=== PATIENT | male | born 1940 | race Caucasian/White ===

== ENCOUNTER 2017-04-01 17:08 | Inpatient (IN) | payer OTHER, BC ==
[~2017-04-01] VITALS: Ht 185.4 cm; Wt 70.0 kg
[2017-04-01] MEDS ORDERED: ALBUT/IPRATROP 3MG/0.5MG NEB 3 ML VIAL INH STA (17:16)
--- NOTE | 2017-04-01 17:31 | EMERGENCY ROOM VISIT NOTE ---
History Report prepared by Brittanie: Shamika Morgan Under the Supervision of: Dr. Brandon Randle D.O. 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 The patient presents to the ED by EMS. EMS reports that the patient was eating when he started choking. He became unresponsive for around 5 minutes and required CPR. A family member attempted the Heimlich maneuver. They believe some ribs might have cracked. EMS was able to remove the food bolus which was located above his vocal chords using forceps. He seemed to have some trouble moving air at first. His O2 sat has been in the high 90s. He has been tachypneic and coughing. The patient denies abdominal pain. He has no medical issues and does not take any medications except for a multivitamin. He does use tobacco. He does not use alcohol. 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 A total of 10 systems reviewed and were otherwise negative. Past Medical & Surgical Medical Problems: (1) Fall (2) Mental retardation (3) Respiratory arrest Family History No pertinent family history stated. Social History Smoking Status: Current Some Day Smoker Marital Status: single Housing Status: lives with family Current/Historical Medications Scheduled Multivitamin (Multivitamin), 1 TAB PO DAILY Allergies Coded Allergies: No Known Allergies (Unverified , 08/26/08) Physical Exam Vital Signs Date Time Temp Pulse Resp B/P (MAP) Pulse Ox O2 Delivery O2 Flow Rate FiO2 04/01/17 19:32 80 18 123/65 99 Nasal Cannula 4.0 04/01/17 18:27 78 18 126/70 99 Nasal Cannula 4.0 04/01/17 17:32 85 04/01/17 17:24 36.5 89 20 148/76 100 Non-Rebreather 15.0 Physical Exam GENERAL: Patient is awake and responding to verbal commands. EYES: The conjunctivae are clear. The pupils are round and reactive. EARS, NOSE, MOUTH AND THROAT: There was a nasal airway noted. Oropharynx was clear, no drooling was noted. Mucous membranes are moist tongue is midline NECK: The neck is nontender and supple. RESPIRATORY: Shallow respirations noted, scattered rhonchi noted throughout, slight tachypnea appreciated. CARDIOVASCULAR: Regular rate and rhythm noted there no murmurs rubs or gallops normal S1 normal S2 GASTROINTESTINAL: The abdomen is soft. Bowel sounds are present in all quadrants. Abdomen is nontender MUSCULOSKELETAL/EXTREMITIES: There is no evidence of gross deformity full range of motion is noted in the hips and shoulders SKIN: There is pedal edema bilaterally. NEUROLOGIC: Patient is at baseline according to family member, follows commands. Medical Decision & Procedures ER Provider Diagnostic Interpretation: X-ray results as stated below per interpretation by me and the radiologist. Radiology results as stated below per my review and radiologist interpretation: CHEST ONE VIEW PORTABLE CLINICAL HISTORY: Abdominal pain. COMPARISON STUDY: No previous studies for comparison. FINDINGS: There is no pneumothorax or pleural effusion. Pulmonary vascularity is normal. No consolidation is identified to suggest pneumonia. Cardiomediastinal silhouette is normal. A 1.8 cm right mid lung nodular density likely reflects summation artifact of the pulmonary vessels and ribs. There is a lobulated density projecting over the left upper lung. IMPRESSION: 1. No acute cardiopulmonary findings. 2. Lobulated density projecting over the left upper lung and a 1.8 cm right mid lung nodular density. These findings are low suspicion and probably artifactual. However, a follow-up nonemergent chest CT is recommended to exclude pulmonary nodule. Electronically signed by: Quinten Sky M.D. 04/01/2017 6:01 PM Dictated Date/Time: 04/01/2017 5:[address] OF THE CHEST WITHOUT IV CONTRAST CLINICAL HISTORY: Possible foreign body. Aspiration. Choking. COMPARISON STUDY: Chest radiograph performed earlier today. CT DOSE: 476.17 mGy.cm TECHNIQUE: Axial images of the chest were obtained without IV contrast. Images were reviewed in the axial, sagittal, and coronal planes. IV contrast was not administered for this examination. A dose lowering technique was utilized adhering to the principles of ALARA. FINDINGS: There is no pneumothorax or pleural effusion. The heart is mildly enlarged. There is extensive coronary artery calcification. There is no pericardial effusion. There are innumerable irregular nodular airspace opacities throughout both lungs. These account for the right lung abnormality on prior chest radiograph. No lobar consolidation is present. No radiopaque foreign bodies are identified within the chest. There are multiple acute nondisplaced bilateral anterior rib fractures. There is no thoracic lymphadenopathy. There are calcified granulomas within the spleen. IMPRESSION: 1. Innumerable small irregular nodular airspace opacities throughout both lungs which suggest an infectious process. A follow-up chest CT in 2 months to ensure resolution is recommended. 2. Numerous acute nondisplaced anterior bilateral rib fractures. No pneumothorax. 3. Mild cardiomegaly and extensive coronary artery calcification. Electronically signed by: Quinten Sky M.D. 04/01/2017 9:03 PM Dictated Date/Time: 04/01/2017 8:52 PM Laboratory Results 04/01/17 17:36 Red Blood Count 3.72, Mean Corpuscular Volume 98.1, Mean Corpuscular Hemoglobin 32.3, Mean Corpuscular Hemoglobin Concent 32.9, Mean Platelet Volume 8.8, Neutrophils (%) (Auto) 72.4, Lymphocytes (%) (Auto) 17.1, Monocytes (%) (Auto) 5.9, Eosinophils (%) (Auto) 0.3, Basophils (%) (Auto) 0.4, Neutrophils # (Auto) 6.47, Lymphocytes # (Auto) 1.53, Monocytes # (Auto) 0.53, Eosinophils # (Auto) 0.03, Basophils # (Auto) 0.04 04/01/17 17:36 Test 04/01/17 17:36 04/01/17 18:39 04/01/17 20:45 White Blood Count 8.95 K/uL (4.8-10.8) Red Blood Count 3.72 M/uL (4.7-6.1) Hemoglobin 12.0 g/dL (14.0-18.0) Hematocrit 36.5 % (42-52) Mean Corpuscular Volume 98.1 fL (80-100) Mean Corpuscular Hemoglobin 32.3 pg (25-34) Mean Corpuscular Hemoglobin Concent 32.9 g/dl (32-36) Platelet Count 269 K/uL (130-400) Mean Platelet Volume 8.8 fL (7.4-10.4) Neutrophils (%) (Auto) 72.4 % Lymphocytes (%) (Auto) 17.1 % Monocytes (%) (Auto) 5.9 % Eosinophils (%) (Auto) 0.3 % Basophils (%) (Auto) 0.4 % Neutrophils # (Auto) 6.47 K/uL (1.4-6.5) Lymphocytes # (Auto) 1.53 K/uL (1.2-3.4) Monocytes # (Auto) 0.53 K/uL (0.11-0.59) Eosinophils # (Auto) 0.03 K/uL (0-0.5) Basophils # (Auto) 0.04 K/uL (0-0.2) RDW Standard Deviation 46.0 fL (36.4-46.3) RDW Coefficient of Variation 12.8 % (11.5-14.5) Immature Granulocyte % (Auto) 3.9 % Immature Granulocyte # (Auto) 0.35 K/uL (0.00-0.02) Prothrombin Time 11.7 SECONDS (9.0-12.0) Prothromb Time International Ratio 1.1 (0.9-1.1) Activated Partial Thromboplast Time 23.3 SECONDS (21.0-31.0) Partial Thromboplastin Ratio 0.9 Anion Gap 7.0 mmol/L (3-11) Est Creatinine Clear Calc Drug Dose 41.7 ml/min Estimated GFR () 47.8 Estimated GFR (Non- 41.2 BUN/Creatinine Ratio 17.4 (10-20) Calcium Level 8.8 mg/dl (8.5-10.1) Total Bilirubin 0.3 mg/dl (0.2-1) Direct Bilirubin < 0.1 mg/dl (0-0.2) Aspartate Amino Transf (AST/SGOT) 21 U/L (15-37) Alanine Aminotransferase (ALT/SGPT) 27 U/L (12-78) Alkaline Phosphatase 50 U/L (45-117) Total Creatine Kinase 148 U/L (39-308) Creatine Kinase MB 3.1 ng/ml (0.5-3.6) Creatine Kinase MB Ratio 2.1 (0-3.0) Troponin I < 0.015 ng/ml (0-0.045) Total Protein 7.2 gm/dl (6.4-8.2) Albumin 3.3 gm/dl (3.4-5.0) Lipase 135 U/L (73-393) Venous Blood pH 7.34 (7.36-7.41) Venous Blood Partial Pressure CO2 54 mmHg (38.0-50.0) Venous Blood Partial Pressure O2 32 mmHg Venous Blood HCO3 29 mmol/L Venous Blood Oxygen Saturation < 60.0 % Venous Blood Base Excess 1.8 mmol/L Urine Color YELLOW Urine Appearance CLEAR (CLEAR) Urine pH 5.0 (4.5-7.5) Urine Specific [place] 1.022 (1.000-1.030) Urine Protein TRACE (NEG) Urine Glucose (UA) NEG (NEG) Urine Ketones NEG (NEG) Urine Occult Blood TRACE (NEG) Urine Nitrite NEG (NEG) Urine Bilirubin NEG (NEG) Urine Urobilinogen NEG (NEG) Urine Leukocyte Esterase NEG (NEG) Urine WBC (Auto) 1-5 /hpf (0-5) Urine RBC (Auto) 0-4 /hpf (0-4) Urine Hyaline Casts (Auto) 1-5 /lpf (0-5) Urine Epithelial Cells (Auto) 10-20 /lpf (0-5) Urine Bacteria (Auto) NEG (NEG) Laboratory results per my review. Medications Administered Medications (Trade) Dose Ordered Sig/Zaid Route Start Time Stop Time Status Last Admin Dose Admin Albuterol/ Ipratropium (Duoneb) 3 ml NOW STAT INH 04/01/17 17:16 04/01/17 17:18 DC 04/01/17 17:46 3 ML Sodium Chloride 500 ml @ 999 mls/hr Q31M STAT IV 04/01/17 19:17 04/01/17 19:47 DC 04/01/17 19:31 999 MLS/HR Sodium Chloride 1,000 ml @ 125 mls/hr Q8H STAT IV 04/01/17 19:17 04/02/17 03:16 04/01/17 20:09 125 MLS/HR ECG Indication: SOB/dyspnea Rate (beats per minute): 85 Rhythm: normal sinus Findings: 1st degree AV block, ST depression (widespread), no ectopy Comparison ECG Date: 25-Apr-2014 Change: Changes are new. ED Course 171: The patient was evaluated in room B11B. A complete history and physical examination were performed. 1716: Duoneb 3 ml INH. 1831: Upon reevaluation, the patient is resting comfortably. I discussed results and treatment plan with him and his family. They verbalize agreement and understanding. The patient will be evaluated for further management and care. 1834: I discussed the patient's case with YONATHAN Glover hospitalist. The patient will be evaluated for further management. 1839: I discussed the patient's case with Torie Baez sales enablement consultant. The patient will be evaluated for further management. 1916: NSS 1000 ml @ 125 mls/hr IV, NSS 500 ml @ 999 mls/hr IV. Medical Decision Prior records/ancillary studies reviewed. Triage Nursing notes reviewed. Additional history obtained from the family. The patient's history was concerning for respiratory difficulties. Differential diagnosis: Etiologies such as infections, reactive airway disease, pneumonia, pneumothorax , COPD, CHF, cardiac ischemia, pulmonary embolism, musculoskeletal, gastrointestinal, as well as others were entertained. The patient is a 76-year-old male who presented to the emergency department after a choking episode. The patient received CPR as well as the Heimlich maneuver but it was not until the stator tester arrived was attempting to intubate the patient that the foreign body was removed from the hypopharynx. The patient arrived at the emergency Department breathing on his own with a good pulse. He presented in significant pain and his chest wall appears improved significantly. I discussed the patient's laboratory and radiographic studies with him and his family members. He was treated with a DuoNeb and submental oxygen in the emergency department. I discussed his case with the on-call torie Camejo hospitalist as well as the sales enablement consultant. They've agreed to evaluate the patient in the emergency department for further management and disposition. Medication Reconcilliation Current Medication List: was personally reviewed by me Blood Pressure Screening Patient's blood pressure: Normal blood pressure Blood pressure disposition: Did not require urgent referral Consults Time Called: 1829 Consulting Physician: YONATHAN Glover hospitalist Returned Call: 1834 I discussed the patient's case with him. He recommend I speak with the sales enablement consultant. Additional Consults: Time Called: 1834 Consulted Physician: Torie Baez sales enablement consultant Returned Call: 1839 Additional Comments: I discussed the patient's case with Torie Baez sales enablement consultant. The patient will be evaluated for further management. Impression Primary Impression: Choking episode Additional Impressions: Aspiration into airway Abnormal EKG Rib fractures Pneumonia Scribe Attestation The scribe's documentation has been prepared under my direction and personally reviewed by me in its entirety. I confirm that the note above accurately reflects all work, treatment, procedures, and medical decision making performed by me. Departure Information Dispostion Being Evaluated By Hospitalist Referrals No Doctor, Assigned (PCP) Problem Qualifiers Additional Impressions: Aspiration into airway Encounter type: initial encounter Qualified Codes: T17.908A - Unspecified foreign body in respiratory tract, part unspecified causing other injury, initial encounter
[2017-04-01 17:51] LABS: BASO % 0.4 %; BASO ABS # 0.04 K/uL (0-0.2); COMPLETE YES; EOS % 0.3 %; HEMATOCRIT 36.5 % (42-52); IG% 3.9 %; LYMPH % 17.1 %; LYMPH ABS # 1.53 K/uL (1.2-3.4); MEAN CELL VOLUME 98.1 fL (80-100); MEAN CORPUSCULAR HEMOGLOBIN 32.3 pg (25-34); MEAN CORPUSCULAR HGB CONC 32.9 g/dl (32-36); MEAN PLATELET VOLUME 8.8 fL (7.4-10.4); MONO % 5.9 %; NEUT % 72.4 %; PLATELET COUNT 269 K/uL (130-400); RED BLOOD COUNT 3.72 M/uL (4.7-6.1); WHITE BLOOD COUNT 8.95 K/uL (4.8-10.8)
[2017-04-01 18:01] LABS: INR 1.1 (0.9-1.1); PARTIAL THROMBOPLASTIN RATIO 0.9; PROTHROMBIN TIME (PATIENT) 11.7 SECONDS (9.0-12.0)
--- NOTE | 2017-04-01 18:03 | DIAGNOSTIC IMAGING REPORT ---
CHEST ONE VIEW PORTABLE CLINICAL HISTORY: Abdominal pain. COMPARISON STUDY: No previous studies for comparison. FINDINGS: There is no pneumothorax or pleural effusion. Pulmonary vascularity is normal. No consolidation is identified to suggest pneumonia. Cardiomediastinal silhouette is normal. A 1.8 cm right mid lung nodular density likely reflects summation artifact of the pulmonary vessels and ribs. There is a lobulated density projecting over the left upper lung. IMPRESSION: 1. No acute cardiopulmonary findings. 2. Lobulated density projecting over the left upper lung and a 1.8 cm right mid lung nodular density. These findings are low suspicion and probably artifactual. However, a follow-up nonemergent chest CT is recommended to exclude pulmonary nodule. Electronically signed by: Quinten Sky M.D. 04/01/2017 6:01 PM Dictated Date/Time: 04/01/2017 5:58 PM
[2017-04-01 18:19] LABS: ALT/SGPT 27 U/L (12-78); AST/SGOT 21 U/L (15-37); BLOOD UREA NITROGEN 28 mg/dl (7-18); BUN/CREATININE RATIO 17.4 (10-20); CALCIUM 8.8 mg/dl (8.5-10.1); CARBON DIOXIDE 27 mmol/L (21-32); CHLORIDE 106 mmol/L (98-107); GLUCOSE 179 mg/dl (70-99); POTASSIUM 4.4 mmol/L (3.5-5.1); SODIUM 140 mmol/L (136-145)
[2017-04-01 18:24] LABS: ALKALINE PHOSPHATASE 50 U/L (45-117); CKMB/CK RATIO 2.1 (0-3.0)
[2017-04-01] MEDS ORDERED: MULT-506 PO (18:49)
[2017-04-01 18:53] LABS: VEN BLOOD GAS BASE EXCESS 1.8 mmol/L; VENOUS BLOOD GAS PCO2 54 mmHg (38.0-50.0); VENOUS BLOOD GAS PO2 32 mmHg
[2017-04-01 18:54] LABS: VEN BLD GAS O2 SATURATION < 60.0 %
[2017-04-01] MEDS ORDERED: SODIUM CHLORIDE 0.9% 500ML 500 ML IV STA (19:17)
[2017-04-01] MEDS ORDERED: SODIUM CHLORIDE 0.9% 1000ML 1,000 ML IV STA (19:17)
[2017-04-01 21:01] LABS: URINE APPEARANCE CLEAR (CLEAR); URINE BILIRUBIN NEG (NEG); URINE COLOR YELLOW; URINE NITRITE NEG (NEG); URINE SPECIFIC GRAVITY 1.022 (1.000-1.030); UROBILINOGEN NEG (NEG)
[2017-04-01 21:02] LABS: MANUAL MICROSCOPIC REQUIRED? NO; REVIEW REQ? NO
--- NOTE | 2017-04-01 21:04 | DIAGNOSTIC IMAGING REPORT ---
CT OF THE CHEST WITHOUT IV CONTRAST CLINICAL HISTORY: Possible foreign body. Aspiration. Choking. COMPARISON STUDY: Chest radiograph performed earlier today. CT DOSE: 476.17 mGy.cm TECHNIQUE: Axial images of the chest were obtained without IV contrast. Images were reviewed in the axial, sagittal, and coronal planes. IV contrast was not administered for this examination. A dose lowering technique was utilized adhering to the principles of ALARA. FINDINGS: There is no pneumothorax or pleural effusion. The heart is mildly enlarged. There is extensive coronary artery calcification. There is no pericardial effusion. There are innumerable irregular nodular airspace opacities throughout both lungs. These account for the right lung abnormality on prior chest radiograph. No lobar consolidation is present. No radiopaque foreign bodies are identified within the chest. There are multiple acute nondisplaced bilateral anterior rib fractures. There is no thoracic lymphadenopathy. There are calcified granulomas within the spleen. IMPRESSION: 1. Innumerable small irregular nodular airspace opacities throughout both lungs which suggest an infectious process. A follow-up chest CT in 2 months to ensure resolution is recommended. 2. Numerous acute nondisplaced anterior bilateral rib fractures. No pneumothorax. 3. Mild cardiomegaly and extensive coronary artery calcification. Electronically signed by: Quinten Sky M.D. 04/01/2017 9:03 PM Dictated Date/Time: 04/01/2017 8:52 PM
[2017-04-01] MEDS ORDERED: LEVAQUIN 750MG / 150ML D5W IV STA (21:17)
[2017-04-01] MEDS ORDERED: PIPERACILLIN/TAZOBACTAM 4.5 GM/100ML D5W IV STA (21:17)
[2017-04-01 22:50] VITALS: BP 137/75; PULSE 74; TEMP 37; O2SAT 100; Ht 185.4 cm; Wt 70.0 kg
[2017-04-01 23:01] VITALS: BP 137/75; PULSE 75; O2SAT 100
[2017-04-01 23:59] VITALS: O2SAT 100
[2017-04-02] VITALS (18 sets, daily range): BP systolic 92–150; BP diastolic 43–79; PULSE 56–69; TEMP 36.3–36.9; O2SAT 96–100
[2017-04-02] MEDS: SODIUM CHLORIDE 0.9% 1000ML 1,000 ML IV SCH ×2 (00:38→17:07)
[2017-04-02] MEDS: HEPARIN SOD 5000 UNIT/0.5 ML CARP SQ SCH ×3 (00:38→20:49)
[2017-04-02] MEDS: FAMOTIDINE IV INJ 20 MG in DEXTROSE 5% 100ML 100 ML IV SCH ×2 (00:38→21:32)
[2017-04-02] MEDS ORDERED: PNEUMOCOCCAL POLYSACCHARIDES 25 MCG/0.5 ML VIAL/SYR IM. ONE (00:45)
[2017-04-02] MEDS ORDERED: PNEUMOCOCCAL ADMINISTRATION CHARGE ONE (00:45)
--- NOTE | 2017-04-02 01:56 | HISTORY & PHYSICAL EXAMINATION ---
DATE OF ADMISSION: 04/01/2017 CHIEF COMPLAINT: Status post respiratory arrest. HISTORY OF PRESENT ILLNESS: History is obtained mainly from medical record and ER staff. The patient was initially accompanied by of his nephew and his power of assistant prosecuting attorney. The nephew himself was not here as the power of assistant prosecuting attorney, but his did give a full history. Unfortunately, I tried to contact them; nobody answered the phone, but the patient was able to answer simple commands. His speech is severely affected, which I am not sure if it is his baseline or new. The patient is a 76-year-old pleasant male, who was out in a [place] with family and had an episode of choking. At that time, they tried to do a Heimlich maneuver which failed and then unfortunately the patient in a few minutes became unresponsive. There is no mention if he lost pulse or not, but as per family there was a person who was certified in CPR who initiated CPR process immediately and they heard some for his ribs cracking during the CPR process. The patient was coded for about 5 minutes and then paramedics arrived; in an attempt to intubate him they found a big piece of meat lying on his vocal record that was removed by forceps. After that, he was placed on a non-rebreather and oxygen; he started taking breath, he was able to cough and he was able to slowly regain his consciousness. Upon arrival to the ED, he was conscious. He was on a non-rebreather, but he was titrated down to 4 liters. REVIEW OF SYSTEMS: The patient denies any headache, double vision or blurry vision. Denies any cough, wheezing or shortness of breath. Denies any diarrhea or blood in the stool. Denies any burning sensation in the urine or blood. Denies any focal weakness, tingling or numbness. Denies any chest pain or palpitations. Rest of the review of systems is negative. I am not sure how reliable his baseline mental status or how reliable is the review of systems, but he states basically no for every single question. The patient does have a baseline of mental retardation; I am not sure about the severity of that. HOME MEDICATIONS: The patient only takes multivitamins at home. PAST MEDICAL HISTORY: Mental retardation. FAMILY HISTORY: Unobtainable. SOCIAL HISTORY: Aside from what is mentioned in the HPI, appears to be a smoker and rest of the social history is unobtainable. ALLERGIES: No known allergy. PHYSICAL EXAMINATION: VITAL SIGNS: Temperature is 36.5, heart rate 78, respirations 18, blood pressure 126/70 and pulse ox is 99 on 4 liters. HEENT: No jaundice. No pallor with mucous membrane. GENERAL: Average build, appears to be not in acute distress. NECK: Supple. HEART: S1, S2 normal. No gallop, rub or murmur. LUNGS: Clear to auscultation bilaterally. Normal chest wall expansion. ABDOMEN: Soft, nontender and nondistended. NEUROLOGIC: The patient is awake and moves all extremities. He answered all questions and follows simple commands. SKIN: No rash or erythema on exposed skin area. PSYCHIATRIC: The patient appears to be pleasant. I could not evaluate any further. IMAGING: Chest x-ray; did show lobulated density on the left upper lung and about 1.8 cm right mid lung nodular density. CT scan was recommended. LABORATORY DATA: White blood cell count 8.9, hemoglobin 12, platelets 269, BUN is 28, creatinine 1.6, baseline is unknown. Troponin is negative. ASSESSMENT: 1. Status post respiratory arrest, unsure if the patient lost his pulse or not. 2. Status post choking on a piece of meat. 3. Mental retardation. 4. Lobulated density on left upper lung. 5. A 1.8 cm right mid lung nodular density. 6. Tobacco abuse by history. 7. Elevated creatinine of 1.6, baseline is unknown; possible acute kidney injury versus chronic kidney disease stage 3. PLAN: 1. Due to the potential trauma to his vocal cords and trachea, patient will be admitted to the ICU. 2. Serial cardiac enzymes. 3. Obtain labs in a.m. 4. Gentle hydration with 50 mL normal saline as patient is kept n.p.o. 5. Repeat renal function in a.m., avoid overhydration to avoid any pulmonary edema. 6. CT scan without contrast ordered to evaluate his abnormal chest x-ray. 7. Continue supportive care. Labs in the a.m. 8. GI and DVT prophylaxis. Unfortunately, the family were not able to get a hold of to discuss code status, so currently will be considered full code until proven otherwise. GIRISH
[2017-04-02 05:23] LABS: BASO % 0.1 %; BASO ABS # 0.01 K/uL (0-0.2); COMPLETE YES; EOS % 0.2 %; HEMATOCRIT 35.1 % (42-52); IG% 1.2 %; LYMPH % 7.2 %; LYMPH ABS # 0.67 K/uL (1.2-3.4); MEAN CORPUSCULAR HGB CONC 31.6 g/dl (32-36); MEAN PLATELET VOLUME 8.4 fL (7.4-10.4); MONO % 7.4 %; NEUT % 83.9 %; PLATELET COUNT 224 K/uL (130-400); RED BLOOD COUNT 3.58 M/uL (4.7-6.1); WHITE BLOOD COUNT 9.35 K/uL (4.8-10.8)
[2017-04-02 05:43] LABS: BUN/CREATININE RATIO 16.8 (10-20); CALCIUM 8.5 mg/dl (8.5-10.1); CREATININE 1.3 mg/dl (0.60-1.40); MAGNESIUM 2.1 mg/dl (1.8-2.4); POTASSIUM 4.9 mmol/L (3.5-5.1)
[2017-04-02 06:04] LABS: ALB/GLOB RATIO 0.8 (0.9-2); PHOSPHORUS 3.2 mg/dl (2.5-4.9)
[2017-04-02] MEDS ORDERED: LEVOFLOXACIN / D5W 750 MG in PREMIXED IN D5W 150 ML IV SCH ×2 (12:00→20:00)
--- NOTE | 2017-04-02 13:21 | Critical Care Consultation ---
Critical Care Consultation Date of Consultation: Apr 02, 2017. Attending Physician: Jone Nazario M.D. Reason for Consultation: Cardiac arrest History of Present Illness This is a pleasant 76 year old male with h/o mental retardation was brought to ED last night from a constitution party where he chocked with a piece of meat. Heimlich did not seem to help, CPR was initiated, continued for approx 5 minutes . The paramedics were able to extract the piece of meat, the patient started breathing spontaneously and regained consciousness. In ED, his O2 requirements quickly decreased. At present he does not have any complaints, wants to have coffee Past Medical/Surgical History Mental retardation Social History Smoking Status: Current Some Day Smoker Marital Status: single Housing Status: lives with family Allergies Coded Allergies: No Known Allergies (Unverified , 08/26/08) Home Medications Scheduled Multivitamin (Multivitamin), 1 TAB PO DAILY Current Inpatient Medications Current Inpatient Medications Medications (Trade) Dose Ordered Sig/Zaid Route Start Time Stop Time Status Last Admin Dose Admin Heparin Sodium (Porcine) (Heparin Sq 5000 Unit/0.5ml) 5,000 unit Q12H SQ 04/01/17 22:00 05/01/17 21:59 04/02/17 10:24 5,000 UNIT Sodium Chloride 1,000 ml @ 50 mls/hr Q20H IV 04/01/17 20:49 05/01/17 20:48 04/02/17 00:38 50 MLS/HR Famotidine 20 mg/ Dextrose 102 ml @ 200 mls/hr DAILY@2200 IV 04/01/17 22:00 05/01/17 21:59 04/02/17 00:38 200 MLS/HR Levofloxacin 750 mg/Prmx 150 ml @ 100 mls/hr Q24H IV 04/02/17 20:00 04/09/17 19:59 Review of Systems Unable to obtain secondary to MR and poorly comprehensible speech Physical Exam Date Time Temp Pulse Resp B/P (MAP) Pulse Ox O2 Delivery O2 Flow Rate FiO2 04/02/17 12:01 36.9 62 17 137/69 (91) 99 Room Air 04/02/17 12:00 Room Air 04/02/17 10:01 56 14 142/66 (91) 97 Room Air 04/02/17 09:01 59 18 121/54 (76) 96 Room Air 04/02/17 08:01 36.8 63 21 141/63 (89) 97 Room Air 04/02/17 08:00 Room Air 04/02/17 06:01 60 16 124/70 (88) 100 Nasal Cannula 2.0 04/02/17 05:01 59 17 138/66 (90) 04/02/17 04:02 36.6 62 18 143/59 (87) 98 Nasal Cannula 2.0 04/02/17 04:00 99 Nasal Cannula 2.0 04/02/17 03:01 61 4 137/74 (95) 04/02/17 02:01 64 15 136/76 (96) 98 Nasal Cannula 2.0 04/02/17 01:01 62 13 134/68 (90) 04/02/17 00:01 36.7 66 13 128/64 (85) 100 Nasal Cannula 2.0 04/01/17 23:59 100 Nasal Cannula 2.0 04/01/17 23:01 75 17 137/75 (95) 100 Nasal Cannula 4.0 04/01/17 22:50 37.0 74 20 137/75 100 Nasal Cannula 04/01/17 22:00 74 18 123/62 100 Nasal Cannula 4.0 04/01/17 19:32 80 18 123/65 99 Nasal Cannula 4.0 04/01/17 18:27 78 18 126/70 99 Nasal Cannula 4.0 04/01/17 17:32 85 04/01/17 17:24 36.5 89 20 148/76 100 Non-Rebreather 15.0 General Appearance: well-appearing, WD/WN Head: normocephalic, atraumatic ENT: normal mouth exam, normal throat exam Respiratory: breath sounds normal, clear to auscultation, no respiratory distress Cardiovasular: regular rate/rhythm, normal S1S2 Abdomen: non tender, no rebound, no guarding Upper Extremities: no edema Lower Extremities: no edema Neuro: alert, normal motor exam, speech abnormal Laboratory Results Last 24 Hours Test 04/01/17 17:36 04/01/17 18:39 04/01/17 20:45 04/02/17 05:15 White Blood Count 8.95 K/uL 9.35 K/uL Red Blood Count 3.72 M/uL 3.58 M/uL Hemoglobin 12.0 g/dL 11.1 g/dL Hematocrit 36.5 % 35.1 % Mean Corpuscular Volume 98.1 fL 98.0 fL Mean Corpuscular Hemoglobin 32.3 pg 31.0 pg Mean Corpuscular Hemoglobin Concent 32.9 g/dl 31.6 g/dl Platelet Count 269 K/uL 224 K/uL Mean Platelet Volume 8.8 fL 8.4 fL Neutrophils (%) (Auto) 72.4 % 83.9 % Lymphocytes (%) (Auto) 17.1 % 7.2 % Monocytes (%) (Auto) 5.9 % 7.4 % Eosinophils (%) (Auto) 0.3 % 0.2 % Basophils (%) (Auto) 0.4 % 0.1 % Neutrophils # (Auto) 6.47 K/uL 7.85 K/uL Lymphocytes # (Auto) 1.53 K/uL 0.67 K/uL Monocytes # (Auto) 0.53 K/uL 0.69 K/uL Eosinophils # (Auto) 0.03 K/uL 0.02 K/uL Basophils # (Auto) 0.04 K/uL 0.01 K/uL RDW Standard Deviation 46.0 fL 45.9 fL RDW Coefficient of Variation 12.8 % 12.7 % Immature Granulocyte % (Auto) 3.9 % 1.2 % Immature Granulocyte # (Auto) 0.35 K/uL 0.11 K/uL Prothrombin Time 11.7 SECONDS Prothromb Time International Ratio 1.1 Activated Partial Thromboplast Time 23.3 SECONDS Partial Thromboplastin Ratio 0.9 Sodium Level 140 mmol/L 140 mmol/L Potassium Level 4.4 mmol/L 4.9 mmol/L Chloride Level 106 mmol/L 108 mmol/L Carbon Dioxide Level 27 mmol/L 29 mmol/L Anion Gap 7.0 mmol/L 3.0 mmol/L Blood Urea Nitrogen 28 mg/dl 22 mg/dl Creatinine 1.60 mg/dl 1.30 mg/dl Est Creatinine Clear Calc Drug Dose 41.7 ml/min 50.2 ml/min Estimated GFR () 47.8 61.4 Estimated GFR (Non- 41.2 53.0 BUN/Creatinine Ratio 17.4 16.8 Random Glucose 179 mg/dl 84 mg/dl Calcium Level 8.8 mg/dl 8.5 mg/dl Total Bilirubin 0.3 mg/dl 0.4 mg/dl Direct Bilirubin < 0.1 mg/dl Aspartate Amino Transf (AST/SGOT) 21 U/L 21 U/L Alanine Aminotransferase (ALT/SGPT) 27 U/L 24 U/L Alkaline Phosphatase 50 U/L 45 U/L Total Creatine Kinase 148 U/L 349 U/L Creatine Kinase MB 3.1 ng/ml Creatine Kinase MB Ratio 2.1 Troponin I < 0.015 ng/ml 0.121 ng/ml Total Protein 7.2 gm/dl 6.4 gm/dl Albumin 3.3 gm/dl 2.9 gm/dl Lipase 135 U/L Venous Blood pH 7.34 Venous Blood Partial Pressure CO2 54 mmHg Venous Blood Partial Pressure O2 32 mmHg Venous Blood HCO3 29 mmol/L Venous Blood Oxygen Saturation < 60.0 % Venous Blood Base Excess 1.8 mmol/L Urine Color YELLOW Urine Appearance CLEAR Urine pH 5.0 Urine Specific [place] 1.022 Urine Protein TRACE Urine Glucose (UA) NEG Urine Ketones NEG Urine Occult Blood TRACE Urine Nitrite NEG Urine Bilirubin NEG Urine Urobilinogen NEG Urine Leukocyte Esterase NEG Urine WBC (Auto) 1-5 /hpf Urine RBC (Auto) 0-4 /hpf Urine Hyaline Casts (Auto) 1-5 /lpf Urine Epithelial Cells (Auto) 10-20 /lpf Urine Bacteria (Auto) NEG Lactic Acid Level 0.8 mmol/L Phosphorus Level 3.2 mg/dl Magnesium Level 2.1 mg/dl Globulin 3.5 gm/dl Albumin/Globulin Ratio 0.8 Test 04/02/17 12:[address] chest: 1. Innumerable small irregular nodular airspace opacities throughout both lungs which suggest an infectious process. A follow-up chest CT in 2 months to ensure resolution is recommended. 2. Numerous acute nondisplaced anterior bilateral rib fractures. No pneumothorax. 3. Mild cardiomegaly and extensive coronary artery calcification. EKG: NSR @ [address]pm. Resolved precordial leads [address] depressions Assessment & Plan 76 year old male with mental retardation admitted with presumed cardiac arrest secondary to chocking/aspiration with meat. Problems: Cardiac arrest S/p choking Mental retardation JANY vs CKD Nodular lung disease Plan: Patient seems to have recovered No respiratory issues so far. Mild troponin elevation, doubt FL, secondary to chest compressions. Continue to trend Check 2DEcho Should repeat CT scan to reevaluate the nodular densities, Doubt infectious process even if it is related to aspiration. Recommend to monitor off antibiotics Creatinine improving Speech therapy has seen the patient, may start eating mechanical soft diet Critical care time spent approx 25 minutes May be transferred to telemetry
--- NOTE | 2017-04-02 14:47 | Progress Note ---
Subjective Date of Service: Apr 02, 2017. Subjective pt is back to baseline and although sustaining rib fractures is not complaining of chest pain, does have mild elevation of troponin from cardiac contusion from CPR called and updated Rosario Fuentes Problem List Medical Problems: (1) Abnormal EKG Status: Acute (2) Aspiration into airway Status: Acute (3) Choking episode Status: Acute (4) Pneumonia Status: Acute (5) Rib fractures Status: Acute Review of Systems Constitutional: + weakness, + fatigue, No fever, No chills Respiratory: No shortness of breath Cardiac: No chest pain, No edema Abdomen: No pain, No vomiting, No diarrhea Objective Vital Signs Date Time Temp Pulse Resp B/P (MAP) Pulse Ox O2 Delivery O2 Flow Rate FiO2 04/02/17 14:01 67 14 134/69 (90) 99 Room Air 04/02/17 13:02 69 16 129/59 (82) 99 Room Air 04/02/17 12:01 36.9 62 17 137/69 (91) 99 Room Air 04/02/17 12:00 Room Air 04/02/17 10:01 56 14 142/66 (91) 97 Room Air 04/02/17 09:01 59 18 121/54 (76) 96 Room Air 04/02/17 08:01 36.8 63 21 141/63 (89) 97 Room Air 04/02/17 08:00 Room Air 04/02/17 06:01 60 16 124/70 (88) 100 Nasal Cannula 2.0 04/02/17 05:01 59 17 138/66 (90) 04/02/17 04:02 36.6 62 18 143/59 (87) 98 Nasal Cannula 2.0 04/02/17 04:00 99 Nasal Cannula 2.0 04/02/17 03:01 61 4 137/74 (95) 04/02/17 02:01 64 15 136/76 (96) 98 Nasal Cannula 2.0 04/02/17 01:01 62 13 134/68 (90) 04/02/17 00:01 36.7 66 13 128/64 (85) 100 Nasal Cannula 2.0 04/01/17 23:59 100 Nasal Cannula 2.0 04/01/17 23:01 75 17 137/75 (95) 100 Nasal Cannula 4.0 04/01/17 22:50 37.0 74 20 137/75 100 Nasal Cannula 04/01/17 22:00 74 18 123/62 100 Nasal Cannula 4.0 04/01/17 19:32 80 18 123/65 99 Nasal Cannula 4.0 04/01/17 18:27 78 18 126/70 99 Nasal Cannula 4.0 04/01/17 17:32 85 04/01/17 17:24 36.5 89 20 148/76 100 Non-Rebreather 15.0 Physical Exam General Appearance: WD/WN, no apparent distress Neck: supple, no JVD Respiratory/Chest: lungs clear, normal breath sounds Cardiovascular: regular rate, rhythm, no murmur Abdomen: normal bowel sounds, non tender, soft Extremities: no pedal edema, no calf tenderness Neurologic/Psychiatric: alert, + pertinent finding (seems happy but anxious) Laboratory Results Last 24 Hours Test 04/01/17 17:36 04/01/17 18:39 04/01/17 20:45 04/02/17 05:15 White Blood Count 8.95 K/uL 9.35 K/uL Red Blood Count 3.72 M/uL 3.58 M/uL Hemoglobin 12.0 g/dL 11.1 g/dL Hematocrit 36.5 % 35.1 % Mean Corpuscular Volume 98.1 fL 98.0 fL Mean Corpuscular Hemoglobin 32.3 pg 31.0 pg Mean Corpuscular Hemoglobin Concent 32.9 g/dl 31.6 g/dl Platelet Count 269 K/uL 224 K/uL Mean Platelet Volume 8.8 fL 8.4 fL Neutrophils (%) (Auto) 72.4 % 83.9 % Lymphocytes (%) (Auto) 17.1 % 7.2 % Monocytes (%) (Auto) 5.9 % 7.4 % Eosinophils (%) (Auto) 0.3 % 0.2 % Basophils (%) (Auto) 0.4 % 0.1 % Neutrophils # (Auto) 6.47 K/uL 7.85 K/uL Lymphocytes # (Auto) 1.53 K/uL 0.67 K/uL Monocytes # (Auto) 0.53 K/uL 0.69 K/uL Eosinophils # (Auto) 0.03 K/uL 0.02 K/uL Basophils # (Auto) 0.04 K/uL 0.01 K/uL RDW Standard Deviation 46.0 fL 45.9 fL RDW Coefficient of Variation 12.8 % 12.7 % Immature Granulocyte % (Auto) 3.9 % 1.2 % Immature Granulocyte # (Auto) 0.35 K/uL 0.11 K/uL Prothrombin Time 11.7 SECONDS Prothromb Time International Ratio 1.1 Activated Partial Thromboplast Time 23.3 SECONDS Partial Thromboplastin Ratio 0.9 Sodium Level 140 mmol/L 140 mmol/L Potassium Level 4.4 mmol/L 4.9 mmol/L Chloride Level 106 mmol/L 108 mmol/L Carbon Dioxide Level 27 mmol/L 29 mmol/L Anion Gap 7.0 mmol/L 3.0 mmol/L Blood Urea Nitrogen 28 mg/dl 22 mg/dl Creatinine 1.60 mg/dl 1.30 mg/dl Est Creatinine Clear Calc Drug Dose 41.7 ml/min 50.2 ml/min Estimated GFR () 47.8 61.4 Estimated GFR (Non- 41.2 53.0 BUN/Creatinine Ratio 17.4 16.8 Random Glucose 179 mg/dl 84 mg/dl Calcium Level 8.8 mg/dl 8.5 mg/dl Total Bilirubin 0.3 mg/dl 0.4 mg/dl Direct Bilirubin < 0.1 mg/dl Aspartate Amino Transf (AST/SGOT) 21 U/L 21 U/L Alanine Aminotransferase (ALT/SGPT) 27 U/L 24 U/L Alkaline Phosphatase 50 U/L 45 U/L Total Creatine Kinase 148 U/L 349 U/L Creatine Kinase MB 3.1 ng/ml Creatine Kinase MB Ratio 2.1 Troponin I < 0.015 ng/ml 0.121 ng/ml Total Protein 7.2 gm/dl 6.4 gm/dl Albumin 3.3 gm/dl 2.9 gm/dl Lipase 135 U/L Venous Blood pH 7.34 Venous Blood Partial Pressure CO2 54 mmHg Venous Blood Partial Pressure O2 32 mmHg Venous Blood HCO3 29 mmol/L Venous Blood Oxygen Saturation < 60.0 % Venous Blood Base Excess 1.8 mmol/L Urine Color YELLOW Urine Appearance CLEAR Urine pH 5.0 Urine Specific [place] 1.022 Urine Protein TRACE Urine Glucose (UA) NEG Urine Ketones NEG Urine Occult Blood TRACE Urine Nitrite NEG Urine Bilirubin NEG Urine Urobilinogen NEG Urine Leukocyte Esterase NEG Urine WBC (Auto) 1-5 /hpf Urine RBC (Auto) 0-4 /hpf Urine Hyaline Casts (Auto) 1-5 /lpf Urine Epithelial Cells (Auto) 10-20 /lpf Urine Bacteria (Auto) NEG Lactic Acid Level 0.8 mmol/L Phosphorus Level 3.2 mg/dl Magnesium Level 2.1 mg/dl Globulin 3.5 gm/dl Albumin/Globulin Ratio 0.8 Test 04/02/17 12:43 Total Creatine Kinase 340 U/L Troponin I 0.068 ng/ml Assessment and Plan 76 M with acute respiratory failure from aspiration of food bolus, removed by EMS, but did sustain CPR at scene Elevated troponin, likely cardiac contusion, trending downward, echo pending rib fracture, pain control and prevent atelctasis aspiration, caution with feeding if any issues will have speech evaluation abnormal CXR, diffuse process, will treat as infectious with levaquin, but will need follow up, lung nodule program initiated heparin forDVT prevention
[2017-04-03 04:06] VITALS: BP 136/67; PULSE 65; TEMP 36.8; O2SAT 98
[2017-04-03] MEDS ORDERED: PERFLUTREN LIPID MICROSPHERE (DEFINITY) IV ONE (07:13)
[2017-04-03 08:13] VITALS: BP 121/69; PULSE 70; TEMP 36.7; O2SAT 96
--- NOTE | 2017-04-03 09:35 | Clinical Documentation Query ---
SULEMAN Mendez : CLINICAL DOCUMENTATION QUERY Patient is a 76 year old male admitted s/p respiratory arrest after choking at family gathering. Chest CT read to include "innumerable small irregular nodular airspace opacities throughout both lungs which suggest an infectious process". Progress note documentation includes "abnormal CXR, diffuse process, will treat as infectious,...,". He is being treated with IV Levaquin. As appropriate, consider clarification as suggested below. Thank you. In your clinical opinion is this patient being managed for: ( x ) (Possible) Pneumonia ( ) Other explanation of clinical findings (Please Explain) ( ) Unable to determine (Please Define) ( ) Need to Discuss ( ) Not Agree The medical record reflects the following clinical findings, treatment, and risk factors. Clinical Indicators: As above. Treatment: IV Levaquin Risk Factors: Mental retardation, age, choking Please clarify and document your clinical opinion in the progress notes and discharge summary. Terms such as "probable", "suspected", "likely", "questionable", "possible", or "still to be ruled out" are acceptable. IF IN AGREEMENT, YOU MUST DOCUMENT ABOVE DIAGNOSTIC STATEMENT IN DAILY PROGRESS NOTES AND DISCHARGE SUMMARY. This document is not part of the patient's record. Thank You, Papi Jacobson, RASHI [phone]
[2017-04-03] MEDS: HEPARIN SOD 5000 UNIT/0.5 ML CARP SQ SCH (09:58)
--- NOTE | 2017-04-03 11:47 | Discharge Instructions ---
Discharge Instructions Date of Service Apr 03, 2017. Admission Reason for Admission: Respiratory Arrest Discharge Discharge Diagnosis / Problem: Respiratory arrest, choking Discharge Goals Goal(s): Improve disease control, Diagnostic testing, Therapeutic intervention Activity Recommendations Activity Limitations: resume your previous activity . Instructions / Follow-Up Instructions / Follow-Up You were admitted after having respiratory arrest requiring CPR at home after choking/aspiration of a food bolus. You sustained some rib fractures and a mild contusion to the heart from chest compressions. Your CT scan of the chest showed some abnormalities that appear to be an infection, but because of your history of smoking and increased risk for lung cancer, it is recommended that you have a repeat CT Chest scan in 6 WEEKS. Please finish out a course of antibiotics for your suspected pneumonia. Please have your PCP order this test for you at your follow up visit. Please follow up with your PCP within 1-2 weeks. This appointment will be arranged for you. DIETARY PRECAUTIONS: 1. Can have moist mechanical soft diet when patient is wearing BOTH upper and lower dentures. 2. Aspiration precautions: SUPERVISION with oral intake, but limit distractions; keep food soft, moist, and in small bites; fully upright position with oral intake; alternate solids and liquids frequently 3. Oral hygiene: Clean dentures and all surfaces of mouth PRIOR TO ANY oral intake in the morning and before going to bed at night 4. If pt or family needs assistance implementing these recommendations at home, please consider [employer] services via Home Health Important that patient eats and drinks in setting where he can concentrate on the task and not be distracted or tempted to speak with his mouth full. Current Hospital Diet Patient's current hospital diet: Regular Diet Discharge Diet Recommended Diet: Regular Diet (with precautions as above) Diet Texture: Mechanical Soft (ground) Procedures Procedures Performed: CT Chest Chest xray Pending Studies Studies pending at discharge: no Medical Emergencies . Who to Call and When: Medical Emergencies: If at any time you feel your situation is an emergency, please call 911 immediately. . Non-Emergent Contact Non-Emergency issues call your: Primary Care Provider Call Non-Emergent contact if: you have a fever, your pain is not controlled, your pain is worsening, you have any medication questions . . "Provider Documentation" section prepared by Zandra Wheeler. . Manager Float Recommendations Manager Float Recommendations: Follow up CT Chest in 6 weeks-recommended by Pulmonology VTE Core Measure Inpt VTE Proph given/why not?: Unfractionated heparin SQ
[2017-04-03] MEDS ORDERED: LEVO1TAB35 PO (11:50)
[2017-04-03 11:52] VITALS: BP 140/74; PULSE 70; TEMP 36.6; O2SAT 100
--- NOTE | 2017-04-03 12:11 | Pulmonary Consultation ---
History General Date of Service: Apr 03, 2017. Stated Complaint: Respiratory Arrest HPI The patient is a 76 year old male who presents to [facility] with complaints of Respiratory Arrest. The patient's primary care provider is Bryant Wilson M.D.. Mr. Fuentes is a 76 year old male with PMH of mental retardation, tobacco use disorder who presented on 04/01/2017 to [facility] for cardiac arrest after aspirating on food bolus. CPR was done with ROSC after about 5 minutes. Food bolus was seen at vocal cords and removed prior to intubation attempt in the field and he soon regained baseline consciousness. When he arrived to the ER he was on 15L NRM with SaO2 of 100%, BP 148/76, RR 20, P 89, T 36.5. He was quickly titrated to 4L NC. A CT chest was done that showed innumerable small irregular nodular airspace opacities throughout both lung. He was started on Levofloxacin 750 mg q24h and admitted to the ICU for observation. His laboratory data is significant for Creatinine 1.6 on admission. That is now down to 1.3. CK was also elevated 148 -> 349-> 340. Troponin was also elevated, but have are now down trending. Initial EKG showed ST depressions in anterior leads that have resolved in the subsequent EKG on 04/02/2017. His cumulative in/ out since [id number] ml negative. I was unable to obtain much history from patient regarding his PMH and history of the event as he is difficult to understand. However, he states that he is feeling much better. He is complaining of some chest pain on his left axilla with deep inspiration. He denies any fever, chills, cough, and hemoptysis, shortness of breath at rest or on exertion. He denies any weight loss or appetite changes. He denies any further episodes of choking episodes. Review of Systems Constitutional: reports: no symptoms, as stated in HPI Eyes: reports: no symptoms ENT: reports: no symptoms Cardiovascular: reports: chest pain Respiratory: denies: cough, orthopnea, shortness of breath, stridor, wheezing, sputum production, cyanosis, CANO, PND, hemoptysis Gastrointestinal: reports: no symptoms Musculoskeletal: reports: no symptoms Integumentary: reports: no symptoms Neurologic: reports: no symptoms Psychiatric: reports: no symptoms Endocrine: no symptoms Hematologic / Lymphatic: no symptoms Allergic / Immunologic: no symptoms All Other Symptoms All Other Systems: Reviewed and Negative Past Medical History Past Medical History: Mental retardation Tobacco use disorder Social History Hx Tobacco Use In Past Year?: Yes Smoking Status: Current Some Day Smoker Alcohol: never Drug Use: none Marital status: single Housing status: lives with family History of MDRO History of MDRO: No Allergies Coded Allergies: No Known Allergies (Unverified , 08/26/08) Current Medications Reported Home Medications Medications Dose Route/Sig Max Daily Dose Days Date Category Levaquin (Levofloxacin) 750 Mg Tab 750 Mg PO DAILY 8 04/03/17 Rx Multivitamin (Multivitamins) Tab 1 Tab PO DAILY 04/01/17 Reported Physical Physical Exam Vital Signs: Date Time Temp Pulse Resp B/P (MAP) Pulse Ox O2 Delivery O2 Flow Rate FiO2 04/03/17 11:52 36.6 70 18 140/74 (96) 100 Room Air 04/03/17 08:13 36.7 70 18 121/69 (86) 96 Room Air 04/03/17 08:00 Room Air 04/03/17 04:09 Room Air 04/03/17 04:06 36.8 65 16 136/67 (90) 98 Room Air 04/03/17 01:57 Room Air 04/02/17 23:30 36.7 64 18 92/43 (59) 96 Room Air 04/02/17 21:29 Room Air 04/02/17 19:31 Room Air 04/02/17 19:30 Room Air 04/02/17 19:30 36.3 65 18 150/59 (89) 97 Room Air 04/02/17 16:01 36.9 67 14 99 04/02/17 15:55 36.7 67 18 149/79 (102) 98 Room Air 04/02/17 15:38 Room Air 04/02/17 14:01 67 14 134/69 (90) 99 Room Air 04/02/17 13:02 69 16 129/59 (82) 99 Room Air 04/02/17 12:01 36.9 62 17 137/69 (91) 99 Room Air 04/02/17 12:00 Room Air General Appearance: WELL-APPEARING, WD/WN, NO APPARENT DISTRESS Head: NORMOCEPHALIC, ATRAUMATIC, other (midline scar on head) Eyes: PERRLA, NO DISCHARGE, EOMI, SCLERAE NORMAL, CONJUNCTIVAE NORMAL Neck: NORMAL RANGE OF MOTION, NO TENDERNESS, TRACHEA MIDLINE, NO STRIDOR, SUPPLE Respiratory: BREATH SOUNDS NORMAL, CLEAR TO AUSCULTATION, CLEAR TO PERCUSSION, NO RESPIRATORY DISTRESS, NO TENDERNESS Cardiovasular: REGULAR RATE/RHYTHM, NORMAL S1S2, NO M/G/R Abdomen: NON TENDER, NORMAL BOWEL SOUNDS Back: NORMAL INSPECTION, NO MIDLINE TENDERNESS, NO CVA TENDERNESS Upper Extremities: NO EDEMA Lower Extremities: NO EDEMA Pulses: dorsalis pedis (R) (2+), dorsalis pedis (L) (2+) Neuro: ALERT, ORIENTED x 3, speech abnormal Psychiatric: NORMAL AFFECT, NO SUICIDAL IDEATION, CONTRACTS FOR SAFETY Diagnostics Labs Results Past 24 Hours Test 04/02/17 12:43 Range/Units Total Creatine Kinase 340 39-308 U/L Troponin I 0.068 0-0.045 ng/ml Diagnostic Radiology CT chest: 04/01/2017 1. Innumerable small irregular nodular airspace opacities throughout both lungs which suggest an infectious process. A follow-up chest CT in 2 months to ensure resolution is recommended. 2. Numerous acute nondisplaced anterior bilateral rib fractures. No pneumothorax. 3. Mild cardiomegaly and extensive coronary artery calcification. CXR 04/01/2017 FINDINGS: There is no pneumothorax or pleural effusion. Pulmonary vascularity is normal. No consolidation is identified to suggest pneumonia. Cardiomediastinal silhouette is normal. A 1.8 cm right mid lung nodular density likely reflects summation artifact of the pulmonary vessels and ribs. There is a lobulated density projecting over the left upper lung. EKG EKG 04/02/2017 Poor data quality, interpretation may be adversely affected Normal sinus rhythm Nonspecific ST abnormality Abnormal ECG When compared with ECG of 01-APR-2017 17:30, T wave inversion no longer evident in Anterolateral leads EKG 04/01/2017 Sinus rhythm with 1st degree A-V block ST & T wave abnormality, consider lateral ischemia Abnormal ECG When compared with ECG of 25-APR-2014 18:57, ND interval has increased ST now depressed in Anterior leads T wave inversion now evident in Anterolateral leads Impression Assessment and Plan 76 year old male who is s/p respiratory arrest after aspirating on food bolus. He regained consciousness shortly after bolus was removed from vocal cords. However, on initial work up he was found to numerous nodules throughout bilateral lung [place]. Pulmonary Nodules -Recommend treating empirically for aspiration pneumonia for at least 7-10 days as they could be infectious in etiology. -Repeat CT chest without contrast in 6-8 weeks to evaluate for interval resolution of nodules as he is a current tobacco user and is also a high risk for malignancy despite being asymptomatic from a respiratory standpoint prior to this admission. -If no resolution he should obtain pulmonary outpatient evaluation and work up. Chest pain secondary to rib fractures s/p CPR -Incentive spirometry to prevent atelectasis. -Adequate pain control. Aspiration -Continue with precautions per Speech and Swallow recommendations. Continue other management per primary team. I appreciate the consult. Please call if you have any further questions or concerns.
[2017-04-03] MEDS ORDERED: NURSING VERBAL MED ORDER ONE (13:00)
[2017-04-03] MEDS ORDERED: ACET325T96 PO (14:11)
[2017-04-03 15:29] VITALS: BP 158/81; PULSE 67; TEMP 36.6; O2SAT 98
--- NOTE | 2017-04-03 16:06 | ECHOCARDIOGRAM REPORT ---
*NOTICE TO RECEIVING [employer] This information is strictly Confidential and protected under [place] law. [place] law prohibits you from making any further disclosure of this information unless further disclosure is expressly permitted by the written consent of the person to whom it pertains or is authorized by law. A general authorization for the release of medical or other information is not sufficient for this purpose. Hospital accepts no responsibility if the information is made available to any other person, INCLUDING THE PATIENT. Interpretation Summary * Name: KARIE MC Study Date: 04/03/2017 06:49 AM BP: 137/67 mmHg * Patient Location: C.2E\S\E212\S\1 HR: 65 * : 1940 (M/d/yyyy) Gender: Male Height: 73 in * Age: 76 yrs Ethnicity: CA Weight: 161 lb * Ordering Physician: Wilver Burgess * Performed By: Nuzhat Russell * * Reason For Study: CARDIAC ARREST * BSA: 2.0 m2 * Normal biventricular systolic function. * Left ventricular diastolic dysfunction, class 1. * Mild left atrial dilatation. * Moderate to severe calcific aortic stenosis. * Trace mitral regurgitation. Procedure Details * A complete two-dimensional transthoracic echocardiogram was performed (2D, M-mode, Doppler and color flow Doppler). * The study was technically difficult. * There were technical limitations due to patient'sinability to cooperate * A contrast injection of Definity was performed to improve assessment of LV function. * Contrast was injected into an intravenous site in the left arm. * One vial of Definity ultrasound contrast was diluted in normal saline to a total volume of 10 ml. A total of '3' ml of solution was administered during imaging. * Lot # [id number] of Definity utilized for procedure. * Expiration date 04/21. Left Ventricle * The left ventricle is normal in size. * There is normal left ventricular wall thickness. * Ejection Fraction = 60-65%. * Left ventricular systolic function is normal. * A full diastolic examination was done with clinical findings of Class I diastolic dysfunction. * The left ventricular wall motion is normal. Right Ventricle * The right ventricle is normal in size and function. * The right ventricular systolic function is normal as assessed by tricuspid annular plane systolic excursion (TAPSE) (normal >1.5 cm). Atria * The left atrium is mildly dilated. * Right atrial size is normal. Mitral Valve * There is moderate mitral annular calcification. * There is no mitral valve stenosis. * There is trace mitral regurgitation. Tricuspid Valve * The tricuspid valve is not well visualized, but is grossly normal. * There is no tricuspid stenosis. * No tricuspid regurgitation. Aortic Valve * The aortic valve was not well visualized. It did appear to be calcified and had decreased opening on 2D imaging. The dimensionless aortic valve index is 0.37. * Moderate to severe valvular aortic stenosis. * The calculated aortic valve area is consistent with severe aortic stenosis. The mean gradient and dimensionless valve index are consistent with moderate aortic stenosis. * There is no significant aortic regurgitation. Pulmonic Valve * The pulmonic valve is not well visualized. * Pulmonic stenosis is absent. * There is no significant pulmonary regurgitation. Great Vessels * The aortic root is normal size. Pericardium/Pleural * There is no pericardial effusion. Great Vessels * Normal inferior vena cava diameter and respiratory variation suggests normal central venous pressure. MMode 2D Measurements and Calculations IVSd 0.86 cm IVSs 1.6 cm LVIDd 5.7 cm LVIDs 3.8 cm LVPWd 0.86 cm LVPWs 1.4 cm IVS/LVPW 0.99 FS 33.3 % EDV(Teich) 161.0 ml ESV(Teich) 62.4 ml EF(Teich) 61.2 % EDV(cubed) 186.7 ml ESV(cubed) 55.4 ml EF(cubed) 70.3 % % IVS thick 89.7 % % LVPW thick 66.1 % LV mass(C)d 187.2 grams LV mass(C)dI 95.4 grams/m\S\2 LV mass(C)s 224.3 grams LV mass(C)sI 114.3 grams/m\S\2 CO(Teich) 6.4 l/min CI(Teich) 3.3 l/min/m\S\2 SV(Teich) 98.6 ml SI(Teich) 50.3 ml/m\S\2 CO(cubed) 8.5 l/min CI(cubed) 4.3 l/min/m\S\2 SV(cubed) 131.3 ml SI(cubed) 66.9 ml/m\S\2 Ao root diam 3.2 cm Ao root area 7.8 cm\S\2 ACS 0.66 cm LA dimension 4.2 cm LA/Ao 1.3 LVOT diam 1.8 cm LVOT area 2.5 cm\S\2 LVAd ap4 35.2 cm\S\2 LVLd ap4 8.5 cm EDV(MOD-sp4) 119.0 ml LVAs ap4 19.9 cm\S\2 LVLs ap4 7.6 cm ESV(MOD-sp4) 43.6 ml EF(MOD-sp4) 63.4 % LVAd ap2 25.5 cm\S\2 LVLd ap2 7.7 cm EDV(MOD-sp2) 68.7 ml LVAs ap2 14.9 cm\S\2 LVLs ap2 7.1 cm ESV(MOD-sp2) 25.3 ml EF(MOD-sp2) 63.2 % CO(MOD-sp4) 4.9 l/min CI(MOD-sp4) 2.5 l/min/m\S\2 SV(MOD-sp4) 75.4 ml SI(MOD-sp4) 38.4 ml/m\S\2 CO(MOD-sp2) 2.8 l/min CI(MOD-sp2) 1.4 l/min/m\S\2 SV(MOD-sp2) 43.4 ml SI(MOD-sp2) 22.1 ml/m\S\2 Doppler Measurements and Calculations MV E max larissa 59.2 cm/sec MV A max larissa 102.8 cm/sec MV E/A 0.58 MV dec time 0.25 sec Ao V2 max 213.1 cm/sec Ao max PG 18.2 mmHg Ao max PG (full) 16.1 mmHg RICHY(V,A) 0.83 cm\S\2 RICHY(V,D) 0.83 cm\S\2 LV V1 max PG 2.1 mmHg LV V1 max 71.8 cm/sec MR max larissa 397.7 cm/sec MR max PG 63.3 mmHg PA V2 max 63.1 cm/sec PA max PG 1.6 mmHg
[2017-04-03 18:25] VITALS: BP 158/81; PULSE 67; TEMP 36.6; O2SAT 98
--- NOTE | 2017-04-03 20:42 | Discharge Summary ---
Discharge Summary Date of Service Apr 03, 2017. Discharge Summary Admission Date: Apr 01, 2017 at 20:56 Discharge Date: Apr 03, 2017 Discharge Disposition: Home with services Principal Diagnosis: Respiratory arrest,aspiration food bolus Problems/Secondary Diagnoses: Intellectual disability Elevated troponin secondary to cardiac contusion from cardiopulmonary resuscitation Rib fractures Multiple pulmonary nodules-suspected atypical pneumonia versus malignancy Moderate-severe aortic stenosis Procedures: CT OF THE CHEST WITHOUT IV CONTRAST CLINICAL HISTORY: Possible foreign body. Aspiration. Choking. COMPARISON STUDY: Chest radiograph performed earlier today. CT DOSE: 476.17 mGy.cm TECHNIQUE: Axial images of the chest were obtained without IV contrast. Images were reviewed in the axial, sagittal, and coronal planes. IV contrast was not administered for this examination. A dose lowering technique was utilized adhering to the principles of ALARA. FINDINGS: There is no pneumothorax or pleural effusion. The heart is mildly enlarged. There is extensive coronary artery calcification. There is no pericardial effusion. There are innumerable irregular nodular airspace opacities throughout both lungs. These account for the right lung abnormality on prior chest radiograph. No lobar consolidation is present. No radiopaque foreign bodies are identified within the chest. There are multiple acute nondisplaced bilateral anterior rib fractures. There is no thoracic lymphadenopathy. There are calcified granulomas within the spleen. IMPRESSION: 1. Innumerable small irregular nodular airspace opacities throughout both lungs which suggest an infectious process. A follow-up chest CT in 2 months to ensure resolution is recommended. 2. Numerous acute nondisplaced anterior bilateral rib fractures. No pneumothorax. 3. Mild cardiomegaly and extensive coronary artery calcification. CHEST ONE VIEW PORTABLE CLINICAL HISTORY: Abdominal pain. COMPARISON STUDY: No previous studies for comparison. FINDINGS: There is no pneumothorax or pleural effusion. Pulmonary vascularity is normal. No consolidation is identified to suggest pneumonia. Cardiomediastinal silhouette is normal. A 1.8 cm right mid lung nodular density likely reflects summation artifact of the pulmonary vessels and ribs. There is a lobulated density projecting over the left upper lung. IMPRESSION: 1. No acute cardiopulmonary findings. 2. Lobulated density projecting over the left upper lung and a 1.8 cm right mid lung nodular density. These findings are low suspicion and probably artifactual. However, a follow-up nonemergent chest CT is recommended to exclude pulmonary nodule. ECHO: * Normal biventricular systolic function. * Left ventricular diastolic dysfunction, class 1. * Mild left atrial dilatation. * Moderate to severe calcific aortic stenosis. * Trace mitral regurgitation. Consultations: Pulmonology Critical care medicine Medication Reconciliation New Medications: Levofloxacin (Levaquin) 750 Mg Tab 750 MG PO DAILY for 8 Days, #8 TAB Continued Medications: Multivitamin (Multivitamin) Tab 1 TAB PO DAILY Discharge Exam Pt doing very well. Has no complaints, is eating and drinking. Discussed case with Woodenware As[employer]er. Afebrile, no events on telemetry, weaned off O2. Review of Systems: Constitutional: No fever Eyes: No problem reported ENT: No problem reported Respiratory: + cough Cardiovascular: + chest pain (some right sided rib pains) Abdomen: No problem reported Musculoskeletal: No problem reported Genitourinary - Male: No problem reported Neurologic: No problem reported Psychiatric: No problem reported Endocrine: No problem reported Hematologic / Lymphatic: No problem reported Integumentary: No problem reported Physical Exam: General Appearance: WD/WN, no apparent distress Eyes: normal inspection, sclerae normal ENT: hearing grossly normal Neck: trachea midline Respiratory/Chest: no respiratory distress, no accessory muscle use, + decreased breath sounds (throughout, no wheezes or crackles) Cardiovascular: regular rate, rhythm, no edema, no gallop, no murmur, normal peripheral pulses Abdomen / GI: normal bowel sounds, non tender, soft, no organomegaly Extremities: normal inspection, no calf tenderness, normal capillary refill , no pedal edema Neurologic/Psychiatric: alert, normal mood/affect, + pertinent finding ( difficult to understand his speech but pleasant and follows commands) Skin: normal color, warm/dry, no rash Hospital Course 76 M with acute respiratory failure from aspiration of food bolus, removed by EMS, but did sustain CPR at scene Elevated troponin, likely cardiac contusion, trending downward, echo with normal LV function, grade 1 diastolic dysfunction, and with moderate to severe aortic stenosis. Findings were discussed with the patient's niece and snaker tractor driver , Palak. He should have routine follow-up echocardiograms on an annual basis or as needed for symptoms of angina, syncope, or heart failure-none of which she has at this time. CPR caused rib fractures, pain control with Tylenol at home and encouraged incentive spirometry to prevent atelectasis. Aspiration of food bolus with respiratory arrest-seen by speech pathology and given instructions to the family -He should've continued speech therapy at home Abnormal CXR, diffuse process with nodules, suspect pneumonia, will treat as infectious with levaquin for total 10 days. He is a chronic daily pain smoker and is at increased risk for malignancy. Pulmonology consultation requested and recommend repeat CT chest in 6 weeks. If nodularity is not improved or is worse, recommend outpatient referral to pulmonology for further evaluation. These findings were also discussed with the patient's niece and snaker tractor driver on the phone. Total Time Spent: Greater than 30 minutes This includes examination of the patient, discharge planning, medication reconciliation, and communication with other providers. Discharge Instructions Please refer to the electronic Patient Visit Report (Discharge Instructions) for additional information. Follow-Up PCP within 1-[address] Chest in 6 weeks Additional Copies To Bryant Wilson M.D.
== END 2017-04-03 19:30 | disposition home health service (06) | DRG 205 ==
LOC: EDBD 17:08 → C.EDB 17:10 → C.MSICU 20:56 → ENRESERV 21:10 → C.2E 04-02 15:56
PROVIDERS: ADMIT Internal Medicine; ATTEND Family Medicine
DX: T17.928A Food in respiratory tract, part unspecified causing other injury, initial encounter (principal); R09.2 Respiratory arrest; J18.9 Pneumonia, unspecified organism; S26.91XA Contusion of heart, unspecified with or without hemopericardium, initial encounter; S22.43XA Multiple fractures of ribs, bilateral, initial encounter for closed fracture; F79 Unspecified intellectual disabilities; X50.9XXA Other and unspecified overexertion or strenuous movements or postures, initial encounter; R91.1 Solitary pulmonary nodule; I77.1 Stricture of artery; F17.200 Nicotine dependence, unspecified, uncomplicated; I35.0 Nonrheumatic aortic (valve) stenosis

== ENCOUNTER 2018-03-23 12:37 | Inpatient (IN) | payer OTHER, BC ==
[~2018-03-23] VITALS: Ht 185.4 cm; Wt 68.1 kg
[~2018-03-23 12:37] MED LIST: MULT-506 PO
[2018-03-23] MEDS ORDERED: LIDOCAINE/EPINEPH/TETRACAINE 1 EA SYR EXT STA (13:22)
[2018-03-23] MEDS ORDERED: LIDOCAINE/EPINEPHRINE 1% 20 ML VIAL INFIL ONE (13:30)
--- NOTE | 2018-03-23 13:30 | EMERGENCY ROOM VISIT NOTE ---
History Report prepared by Brittanie: Luigi Evans Under the Supervision of: Dr. Marylu Segura M.D. First contact with patient: 13:19 Chief Complaint: FALL Stated Complaint: MINOR TRAUMA History of Present Illness The patient is a 77 year old male who presents to the Emergency Room with complaints of constant facial and bilateral upper extremity trauma beginning this morning. The patient's family states the patient's right foot started bleeding this morning. They report he woke up to find where the bleeding was from and tried to get out of bed. The family notes when he tried to get out of bed, he slipped on the puddle of blood next to the bed. They state he slipped and hit his head. The family reports the patient lives in a duplex with them. They note when the patient was found, he was lying on the floor in dry, coagulated blood. The family states he had a blanket pulled from the bed to make his head comfortable. They report he was laying there for a few hours, and he was awake when they found him. The family notes they sat him up on the bed when they found him, but his foot started bleeding again because it was not elevated above his heart. They state he became lightheaded, so they laid him down. The family reports he typically ambulates with a walker outside and a cane inside. They note he is mentally challenged, but he does not have memory trouble. The family does not know if the tetanus shot is UTD. The patient states he has left pelvic pain when he sits up. He denies taking blood thinners and vomiting. Source of History: patient, family Onset: this morning Position: other (facial and UE) Quality: other (trauma) Timing: constant Associated Symptoms: No vomiting Note: Associated symptoms: bleeding room the right foot, lightheadedness, left pelvic pain when he sits up Review of Systems See HPI for pertinent positives & negatives. A total of 10 systems reviewed and were otherwise negative. Past Medical & Surgical Medical Problems: (1) Acute blood loss anemia (2) Fall (3) Mental retardation (4) Respiratory arrest Family History Patient reports no known family medical history. Social History Smoking Status: Unknown if Ever Smoked Marital Status: single Housing Status: lives with family Occupation Status: retired Current/Historical Medications Scheduled Multivitamin (Multivitamin), 1 TAB PO QAM Allergies Coded Allergies: No Known Allergies (Unverified , 03/23/18) Physical Exam Vital Signs Date Time Temp Pulse Resp B/P (MAP) Pulse Ox O2 Delivery O2 Flow Rate FiO2 03/23/18 18:59 81 18 90/60 100 Room Air 03/23/18 17:01 72 18 115/60 96 Room Air 03/23/18 16:01 69 18 97/47 99 Room Air 03/23/18 14:21 73 18 119/63 100 Room Air 03/23/18 13:00 94 Room Air 03/23/18 12:49 36.3 79 18 119/62 94 Room Air 03/23/18 12:47 76 Physical Exam Vital signs reviewed. General: Well-appearing 76 year old male, in no significant distress. HEENT: No scleral icterus, PERRLA, neck supple. Dry MM. Y-shaped laceration to the middle forehead. 2cm linear laceration to the right eyebrow. Cardiovascular: Regular rate and rhythm, no extra sounds. Pulmonary: Clear to auscultation bilaterally, normal work of breathing. Abdomen: Soft, nontender, nondistended, positive bowel sounds. Rectal: Normal external mucosa, brown stool, guaiac negative. Musculoskeletal: Atraumatic, no peripheral edema. Neurologic: Patient awake alert and oriented x 3, speech is difficult to understand. Full strength in all 4 extremities. Cranial nerves 2 through 12 grossly intact. Follows commands. Skin: Warm, dry, U-shaped 4cm skin tear to the left elbow. Sub-cm abrasion to the right elbow. Two varicosities to the medial aspect of the left ankle with ulceration and dried blood. Medical Decision & Procedures ER Provider Diagnostic Interpretation: Radiology results as stated below per my review and radiologist interpretation: HEAD CT NONCONTRAST CT DOSE: HISTORY: fall with CHI TECHNIQUE: Multiaxial CT images of the head were performed without the use of intravenous contrast. Automated exposure control was utilized for this study. A dose lowering technique was utilized adhering to the principles of ALARA. Comparison: Head CT 04/25/2014. Findings: The paranasal sinuses and mastoid air cells are clear. The calvarium and skull base are intact. There is no mass, hematoma, midline shift, acute infarct. White matter hypodensity is nonspecific but suggestive of microvascular ischemic change. The ventricles and sulci demonstrate mild age-related involutional changes. Mild frontal scalp swelling. Impression: No acute intracranial abnormality. Mild frontal scalp swelling. Electronically signed by: Steven Veliz M.D. 03/23/2018 4:10 PM Dictated Date/Time: 03/23/2018 4:01 PM CHEST ONE VIEW PORTABLE CLINICAL HISTORY: 76 years-old Male presenting with fall. TECHNIQUE: Portable upright AP view of the chest was obtained. COMPARISON: Chest CT from 04/01/2017. FINDINGS: Atherosclerosis of the aortic arch. Cardiac silhouette normal in size. Lungs are hyperinflated. Calcified granuloma suggested in the left midlung. No focal opacity. No large effusion or pneumothorax. Nondisplaced rib fracture of the anterior right fifth rib suggested. Osteopenia. IMPRESSION: 1. Nondisplaced fracture of the anterior right fifth rib, age-indeterminate. Correlate with point tenderness. 2. Emphysema. No focal superimposed opacity to suggest acute cardiopulmonary disease. Electronically signed by: Doug Garcia M.D. 03/23/2018 2:09 PM Dictated Date/Time: 03/23/2018 2:04 PM CERVICAL SPINE W/O CT DOSE: 1050.08 mGy.cm CLINICAL HISTORY: 76 years-old Male with fall with CHI. Acute posttraumatic neck pain COMPARISON: CT cervical spine 04/25/2014. TECHNIQUE: Multiple axial CT images of the cervical spine were obtained without contrast. A dose lowering technique was utilized adhering to the principles of ALARA. FINDINGS: Mildly demineralized appearance of the bones. Hyperlordotic ureter of the cervical spine. Anterior wedge deformity of the T2 vertebral body redemonstrated which appears unchanged from comparison study from 2013. There is no acute cervical spine fracture or subluxation identified. Mastoid air cells and middle ear cavities are clear. 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 Evaluation of the central canal and neuroforamina is better assessed by MRI. No prevertebral soft tissue swelling or epidural fluid collections identified. Multilevel spondylitic spurring. Mild posterior intervertebral disc space narrowing is also noted at several levels. Mild and moderate multilevel facet arthropathy. Vertebral and carotid arterial calcifications are noted. Imaged lung apices appear clear. Soft tissues are within normal limits. No pathologically enlarged lymph nodes. IMPRESSION: No acute cervical spine fracture or subluxation. The above report was generated using voice recognition software. It may contain grammatical, syntax or spelling errors. Electronically signed by: Chris Siegel M.D. 03/23/2018 4:10 PM Dictated Date/Time: 03/23/2018 4:06 PM ABDOMEN AND PELVIS CT WITH IV CONTRAST CT DOSE: 408.18 mGy.cm HISTORY: Acute left flank pain and bruising status post fall fall with L flank bruise/[pain TECHNIQUE: Multiaxial CT images of the abdomen and pelvis were performed following the use of intravenous contrast. A dose lowering technique was utilized adhering to the principles of ALARA. COMPARISON STUDY: CT chest 04/01/2017 FINDINGS: Lung bases are generally clear. No pneumatosis or pneumoperitoneum identified. Imaged inferior cardiac chambers are within upper limits of normal with coronary arterial calcifications noted. The gallbladder, liver, pancreas and right adrenal gland are unremarkable. There is mild thickening of the left adrenal gland. Calcified granulomata noted about the spleen. No evidence of acute splenic injury. There is moderate left renal atrophy with slightly decreased perfusion. 12 x 10 mm calculus of the inferior pole left kidney. Mild bilateral perinephric stranding. No ureteral calculi or obstructive uropathy. Suggested cyst of the posterior interpolar right kidney, 8 mm. Prostamegaly with partially decompressed bladder. Small hydrocele partially imaged. Extensive calcification of the aorta without aneurysm. IVC appears unremarkable. Patent portal vein. There are no pathologically enlarged lymph nodes identified. No bowel obstruction or focal bowel wall thickening. Large stool ball within the rectosigmoid. Colonic diverticulosis without diverticulitis. The appendix appears normal within the abdominal right lower quadrant. No ascites or mesenteric inflammatory changes. No retroperitoneal hematoma. Mildly demineralized appearance of the bones. No acute displaced rib fracture identified. Minimal cortical irregularity about the lateral aspect left sixth rib. Multilevel intervertebral disc space narrowing and facet arthropathy and spondylitic spurring. No acute compression deformity identified. Schmorl's node involves the superior endplate of L1. Mild levoscoliosis of the lumbar spine. IMPRESSION: 1. No acute intra-abdominal or intrapelvic abnormality identified. 2. No acute displaced fracture or evidence of acute solid organ injury. Minimal cortical irregularity about the lateral aspect of the left sixth rib may reflect an acute nondisplaced rib fracture. Correlate with point tenderness. 3. Constipation with large stool ball within the rectosigmoid. No constipation. 4. Moderate left renal atrophy with slightly decreased enhancement. Additionally, there is a nonobstructing 12 mm calculus about the inferior pole left kidney. 5. Prior granulomatous disease. Electronically signed by: Chris Siegel M.D. 03/23/2018 4:33 PM Dictated Date/Time: 03/23/2018 4:24 PM Laboratory Results Test 03/23/18 13:42 03/23/18 14:00 Total Bilirubin 0.4 mg/dl (0.2-1) Direct Bilirubin 0.1 mg/dl (0-0.2) Aspartate Amino Transf (AST/SGOT) 23 U/L (15-37) Alanine Aminotransferase (ALT/SGPT) 20 U/L (12-78) Alkaline Phosphatase 42 U/L (45-117) Total Creatine Kinase 427 U/L (39-308) Total Protein 6.3 gm/dl (6.4-8.2) Albumin 3.3 gm/dl (3.4-5.0) Urine Color DK YELLOW Urine Appearance CLEAR (CLEAR) Urine pH 5.0 (4.5-7.5) Urine Specific [place] 1.026 (1.000-1.030) Urine Protein TRACE (NEG) Urine Glucose (UA) NEG (NEG) Urine Ketones TRACE (NEG) Urine Occult Blood NEG (NEG) Urine Nitrite NEG (NEG) Urine Bilirubin NEG (NEG) Urine Urobilinogen NEG (NEG) Urine Leukocyte Esterase TRACE (NEG) Urine WBC (Auto) 1-5 /hpf (0-5) Urine RBC (Auto) 0-4 /hpf (0-4) Urine Hyaline Casts (Auto) 1-5 /lpf (0-5) Urine Epithelial Cells (Auto) 5-10 /lpf (0-5) Urine Bacteria (Auto) NEG (NEG) Urine Crystals CALCIUM OXALATE (NONE Laboratory results per my review. Medications Administered Medications (Trade) Dose Ordered Sig/Zaid Route Start Time Stop Time Status Last Admin Dose Admin Tetracaine/ Epinephrine/ Lidocaine (L.e.t. Gel 4%/ 1:100/0.5%) 3 ea NOW STAT EXT 03/23/18 13:22 03/23/18 13:27 DC 03/23/18 13:22 3 EA Lidocaine/ Epinephrine (Xylocaine/Epine 1% Inj) 20 ml ONE ONCE INFIL 03/23/18 13:30 03/23/18 13:31 DC 03/23/18 13:30 20 ML Sodium Chloride 500 ml @ 999 mls/hr Q31M STAT IV 03/23/18 14:56 03/23/18 15:26 DC 03/23/18 15:05 999 MLS/HR Sodium Chloride 1,000 ml @ 150 mls/hr Q6H40M STAT IV 03/23/18 14:56 03/23/18 20:43 DC 03/23/18 16:04 150 MLS/HR ECG Per My Interpretation Indication: other (trauma) Rate (beats per minute): 77 Rhythm: sinus rhythm Findings: nonspecific-ST abn (Lateral), PVC (single noted), other (QTc of 436. Poor quality baseline.) ED Course 1319: Past medical records reviewed. The patient was evaluated in room C02B. A complete history and physical examination was performed. 1618: I reevaluated the patient. He is resting. 1718: Upon reevaluation, the patient is resting comfortably. I discussed laboratory and radiographic results with him. He verbalized agreement of the treatment plan. The patient will be evaluated for further management and care. 1742: I discussed the patient's case with Gilda Merritt PA-C, [facility] Hospitalist. The patient will be evaluated for further management and care. Medical Decision Differential Diagnoses: Intracranial injury, cervical spine injury, intrathoracic injury, intra- abdominal injury, musculoskeletal injury. This pt was evaluated and appeared to be in no distress. IV access was obtained and lab work was drawn. Pt was hydrated with NSS. CT scan of head and neck are negative for acute traumatic injury. Facial laceration and left elbow laceration were repaired by Sarahy Bryson PA-C. Lab work reveals an anemia, hgb of 8.5. Stool is guaiac negative. I suspect the anemia is r/t blood loss earlier at home. He was sent for CT abd/pelvis with IV contrast despite elevated creatinine for a trauma scan. There is no evidence fo acute bleeding. Pt has stable vital signs currently, he is tolerating po food and fluids. Case was d/w the hospitalist service for further management. Family believes he is UTD with TD but this will need to be verified through PCP office. Pt and family are aware of the plan and agree. Medication Reconcilliation Current Medication List: was personally reviewed by me Blood Pressure Screening Patient's blood pressure: Normal blood pressure Blood pressure disposition: Did not require urgent referral Consults Time Called: 1734 Consulting Physician: Gilda Merritt PA-C, [facility] Hospitalist Returned Call: 1742 I discussed the patient's case with Gilda Merritt PA-C, [facility] Hospitalist. The patient will be evaluated for further management and care. Impression Primary Impression: Acute blood loss anemia Additional Impressions: Bleeding from varicose veins of right lower extremity Fall Dehydration Skin tear of upper arm without complication Facial trauma Scribe Attestation The scribe's documentation has been prepared under my direction and personally reviewed by me in its entirety. I confirm that the note above accurately reflects all work, treatment, procedures, and medical decision making performed by me. Departure Information Dispostion Being Evaluated By Hospitalist Referrals Bryant Wilson M.D. (PCP) Patient Instructions My [facility] Problem Qualifiers Additional Impressions: Fall Encounter type: initial encounter Qualified Codes: W19.XXXA - Unspecified fall, initial encounter Facial trauma Encounter type: initial encounter Qualified Codes: S09.93XA - Unspecified injury of face, initial encounter
[2018-03-23 14:07] LABS: BASO % 0.1 %; BASO ABS # 0.01 K/uL (0-0.2); HEMATOCRIT 26.1 % (42-52); HEMOGLOBIN 8.5 g/dL (14.0-18.0); IG# 0.04 K/uL (0.00-0.02); LYMPH % 2.7 %; LYMPH ABS # 0.43 K/uL (1.2-3.4); MEAN CELL VOLUME 97.8 fL (80-100); MEAN CORPUSCULAR HEMOGLOBIN 31.8 pg (25-34); MEAN CORPUSCULAR HGB CONC 32.6 g/dl (32-36); MEAN PLATELET VOLUME 9.5 fL (7.4-10.4); MONO % 4.8 %; MONO ABS # 0.76 K/uL (0.11-0.59); NEUT % 92.1 %; NEUT ABS # 14.66 K/uL (1.4-6.5); PLATELET COUNT 185 K/uL (130-400); RED CELL DISTRIBUTION WIDTH CV 13.7 % (11.5-14.5); RED CELL DISTRIBUTION WIDTH SD 48.9 fL (36.4-46.3)
--- NOTE | 2018-03-23 14:10 | DIAGNOSTIC IMAGING REPORT ---
CHEST ONE VIEW PORTABLE CLINICAL HISTORY: 76 years-old Male presenting with fall. TECHNIQUE: Portable upright AP view of the chest was obtained. COMPARISON: Chest CT from 04/01/2017. FINDINGS: Atherosclerosis of the aortic arch. Cardiac silhouette normal in size. Lungs are hyperinflated. Calcified granuloma suggested in the left midlung. No focal opacity. No large effusion or pneumothorax. Nondisplaced rib fracture of the anterior right fifth rib suggested. Osteopenia. IMPRESSION: 1. Nondisplaced fracture of the anterior right fifth rib, age-indeterminate. Correlate with point tenderness. 2. Emphysema. No focal superimposed opacity to suggest acute cardiopulmonary disease. Electronically signed by: Doug Garcia M.D. 03/23/2018 2:09 PM Dictated Date/Time: 03/23/2018 2:04 PM
[2018-03-23 14:30] LABS: ALBUMIN 3.3 gm/dl (3.4-5.0); CALCIUM 8.3 mg/dl (8.5-10.1); CREATININE 1.91 mg/dl (0.60-1.40); POTASSIUM 4.4 mmol/L (3.5-5.1); TOTAL PROTEIN 6.3 gm/dl (6.4-8.2)
[2018-03-23] MEDS ORDERED: SODIUM CHLORIDE 0.9% 500ML 500 ML IV STA (14:56)
[2018-03-23] MEDS ORDERED: SODIUM CHLORIDE 0.9% 1000ML 1,000 ML IV STA (14:56)
[2018-03-23] MEDS ORDERED: OPTIRAY 320 IV PRN (16:00)
--- NOTE | 2018-03-23 16:11 | DIAGNOSTIC IMAGING REPORT ---
CERVICAL SPINE W/O CT DOSE: 1050.08 mGy.cm CLINICAL HISTORY: 76 years-old Male with fall with CHI. Acute posttraumatic neck pain COMPARISON: CT cervical spine 04/25/2014. TECHNIQUE: Multiple axial CT images of the cervical spine were obtained without contrast. A dose lowering technique was utilized adhering to the principles of ALARA. FINDINGS: Mildly demineralized appearance of the bones. Hyperlordotic ureter of the cervical spine. Anterior wedge deformity of the T2 vertebral body redemonstrated which appears unchanged from comparison study from 2013. There is no acute cervical spine fracture or subluxation identified. Mastoid air cells and middle ear cavities are clear. 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 Evaluation of the central canal and neuroforamina is better assessed by MRI. No prevertebral soft tissue swelling or epidural fluid collections identified. Multilevel spondylitic spurring. Mild posterior intervertebral disc space narrowing is also noted at several levels. Mild and moderate multilevel facet arthropathy. Vertebral and carotid arterial calcifications are noted. Imaged lung apices appear clear. Soft tissues are within normal limits. No pathologically enlarged lymph nodes. IMPRESSION: No acute cervical spine fracture or subluxation. The above report was generated using voice recognition software. It may contain grammatical, syntax or spelling errors. Electronically signed by: Chris Siegel M.D. 03/23/2018 4:10 PM Dictated Date/Time: 03/23/2018 4:06 PM
--- NOTE | 2018-03-23 16:12 | DIAGNOSTIC IMAGING REPORT ---
HEAD CT NONCONTRAST CT DOSE: HISTORY: fall with CHI TECHNIQUE: Multiaxial CT images of the head were performed without the use of intravenous contrast. Automated exposure control was utilized for this study. A dose lowering technique was utilized adhering to the principles of ALARA. Comparison: Head CT 04/25/2014. Findings: The paranasal sinuses and mastoid air cells are clear. The calvarium and skull base are intact. There is no mass, hematoma, midline shift, acute infarct. White matter hypodensity is nonspecific but suggestive of microvascular ischemic change. The ventricles and sulci demonstrate mild age-related involutional changes. Mild frontal scalp swelling. Impression: No acute intracranial abnormality. Mild frontal scalp swelling. Electronically signed by: Steven Veliz M.D. 03/23/2018 4:10 PM Dictated Date/Time: 03/23/2018 4:01 PM
--- NOTE | 2018-03-23 16:34 | DIAGNOSTIC IMAGING REPORT ---
ABDOMEN AND PELVIS CT WITH IV CONTRAST CT DOSE: 408.18 mGy.cm HISTORY: Acute left flank pain and bruising status post fall fall with L flank bruise/[pain TECHNIQUE: Multiaxial CT images of the abdomen and pelvis were performed following the use of intravenous contrast. A dose lowering technique was utilized adhering to the principles of ALARA. COMPARISON STUDY: CT chest 04/01/2017 FINDINGS: Lung bases are generally clear. No pneumatosis or pneumoperitoneum identified. Imaged inferior cardiac chambers are within upper limits of normal with coronary arterial calcifications noted. The gallbladder, liver, pancreas and right adrenal gland are unremarkable. There is mild thickening of the left adrenal gland. Calcified granulomata noted about the spleen. No evidence of acute splenic injury. There is moderate left renal atrophy with slightly decreased perfusion. 12 x 10 mm calculus of the inferior pole left kidney. Mild bilateral perinephric stranding. No ureteral calculi or obstructive uropathy. Suggested cyst of the posterior interpolar right kidney, 8 mm. Prostamegaly with partially decompressed bladder. Small hydrocele partially imaged. Extensive calcification of the aorta without aneurysm. IVC appears unremarkable. Patent portal vein. There are no pathologically enlarged lymph nodes identified. No bowel obstruction or focal bowel wall thickening. Large stool ball within the rectosigmoid. Colonic diverticulosis without diverticulitis. The appendix appears normal within the abdominal right lower quadrant. No ascites or mesenteric inflammatory changes. No retroperitoneal hematoma. Mildly demineralized appearance of the bones. No acute displaced rib fracture identified. Minimal cortical irregularity about the lateral aspect left sixth rib. Multilevel intervertebral disc space narrowing and facet arthropathy and spondylitic spurring. No acute compression deformity identified. Schmorl's node involves the superior endplate of L1. Mild levoscoliosis of the lumbar spine. IMPRESSION: 1. No acute intra-abdominal or intrapelvic abnormality identified. 2. No acute displaced fracture or evidence of acute solid organ injury. Minimal cortical irregularity about the lateral aspect of the left sixth rib may reflect an acute nondisplaced rib fracture. Correlate with point tenderness. 3. Constipation with large stool ball within the rectosigmoid. No constipation. 4. Moderate left renal atrophy with slightly decreased enhancement. Additionally, there is a nonobstructing 12 mm calculus about the inferior pole left kidney. 5. Prior granulomatous disease. Electronically signed by: Chris Siegel M.D. 03/23/2018 4:33 PM Dictated Date/Time: 03/23/2018 4:24 PM
--- NOTE | 2018-03-23 17:11 | EMERGENCY ROOM VISIT NOTE ---
ED Visit Note I was asked by Dr. Segura to repair the several lacerations the patient sustained in the fall. Laceration A- 4 cm Y-shaped laceration to the forehead-14 6-0 ethilon sutures Laceration B- 2 cm laceration to the right eyebrow-4 6-0 ethilon sutures Laceration C-4 cm U-shaped laceration to the left elbow 4 5-0 ethilon sutures and steri strips (given that this is a skin tear) All of the lacerations were repaired in the following manner Verbal consent was obtained to perform the procedure. Using sterile technique the wound was cleaned with Betadine. The area was sterilely draped. ml of 1% buffered lidocaine with epinephrine was used to anesthetize the lacerations. Once the patient was anesthetized, the wounds were copiously irrigated under pressure with sterile saline. The lacerations were repaired using simple interrupted nylon sutures with the wound edges being well approximated. The patient tolerated the procedure well. Hemostasis was achieved. The area was cleaned with sterile saline and dressed with bacitracin ointment and bandage. The sutures on the face should be removed in 7 days The sutures on the left elbow should be removed in 14 days
[2018-03-23 18:45] LABS: HEMATOCRIT 23.6 % (42-52); HEMOGLOBIN 7.7 g/dL (14.0-18.0)
[2018-03-23] MEDS ORDERED: ONDANSETRON INJ 2 MG/ML 2 ML VIAL IV PRN (19:30)
[2018-03-23] MEDS ORDERED: ALUMINUM/MAGNESIUM/SIMETH (MAALOX MAX) 30 ML UDC PO PRN (19:30)
[2018-03-23] MEDS ORDERED: MAGNESIUM HYDROXIDE SUSP 30 ML UDC PO PRN (19:30)
[2018-03-23] MEDS ORDERED: ACETAMINOPHEN 325 MG TAB PO PRN (19:30)
[2018-03-23] MEDS ORDERED: POLYETHYLENE (MIRALAX) 17 GM PACK PO PRN (19:30)
[2018-03-23 20:02] VITALS: BP 111/53; PULSE 79; TEMP 37; O2SAT 99; Ht 185.4 cm; Wt 68.1 kg
[2018-03-23] MEDS ORDERED: SODIUM CHLORIDE 0.9% 1000ML 1,000 ML IV SCH (21:00)
--- NOTE | 2018-03-23 22:17 | History and Physical ---
History & Physical Date & Time of Service: Mar 23, 2018 at 22:13 Chief Complaint: Acute Blood Loss Anemia Primary Care Physician: Bryant Wilson M.D. History of Present Illness Source: patient, family (over the phone) Mr. Fuentes is a 77 y/o male with PMHx of Intellectual Disability and Moderate- Severe Aortic Stenosis who presents to the ED after a fall this AM. HPI obtained from ED staff and nephew over the phone. Patient has been in his normal state of health recently and lives independently in a duplex beside the nephew. Per report, the patient noted bleeding in his bed this morning and went to get out of bed to look where the bleeding was coming from. It is suspected that he slipped in blood and hit his head. He sustained a laceration to his forehead, R eye, and L elbow. Family found him laying on the floor in dried blood. He was suspected to have been on the ground for possibly a few hours. When they moved him to the bed he did have some bleeding from his R foot and some lightheadedness before they laid him down. Currently, Hgb was 8.5 on arrival and trended down to 7.7. Did get phone consent from nephew Luis (POA) - [phone] for transfusion. Patient is alert and can answer questions appropriately. Speech is garbled which is normal but with time can understand what he is trying to say. States he is having some L shoulder/back pain but denies everything else. Past Medical/Surgical History Medical Problems: (1) Abnormal EKG (2) Acute blood loss anemia (3) Aspiration into airway (4) Choking episode (5) Facial abrasion (6) Facial abrasion (7) Facial abrasion (8) Facial abrasion (9) Facial laceration (10) Fall (11) Fall (12) Mental retardation (13) Nasal fracture (14) Nasal fracture (15) Pneumonia (16) Respiratory arrest (17) Rib fractures (18) Skin tear of upper arm without complication Family History Patient reports no known family medical history. Social History Smoking Status: Unknown if Ever Smoked Marital Status: single Housing status: lives with family Allergies Coded Allergies: No Known Allergies (Unverified , 03/23/18) Home Medications Scheduled Multivitamin (Multivitamin), 1 TAB PO QAM Review of Systems ROS is difficult given baseline intellectual disability and speech issues Constitutional: No fever, No chills ENT: + problem reported (back L shoulder/neck pain), No nasal symptoms Respiratory: No cough, No shortness of breath Cardiovascular: No chest pain Abdomen: No pain, No nausea, No vomiting Genitourinary - Male: No dysuria Physical Exam Vital Signs Date Time Temp Pulse Resp B/P (MAP) Pulse Ox O2 Delivery O2 Flow Rate FiO2 03/23/18 20:02 37.0 79 19 111/53 99 Room Air 03/23/18 20:00 Room Air 03/23/18 19:58 80 18 104/51 99 03/23/18 19:22 81 03/23/18 18:59 81 18 90/60 100 Room Air 03/23/18 17:01 72 18 115/60 96 Room Air 03/23/18 16:01 69 18 97/47 99 Room Air 03/23/18 14:21 73 18 119/63 100 Room Air 03/23/18 13:00 94 Room Air 03/23/18 12:49 36.3 79 18 119/62 94 Room Air 03/23/18 12:47 76 General Appearance: no apparent distress Head: normocephalic, + evidence of trama (Laceration of forehead and R eyebrow with sutures in place without bleeding) Eyes: normal inspection Neck: supple, no JVD, trachea midline Respiratory/Chest: lungs clear, normal breath sounds, no respiratory distress, no accessory muscle use Cardiovascular: regular rate, rhythm, + systolic murmur Abdomen/GI: normal bowel sounds, non tender, soft Extremities/Musculoskelatal: + pertinent finding (small scattered skin tears; small scabbed area to R medial ankle) Neurologic/Psych: alert Skin: normal color Diagnostics Laboratory Results Results Past 24 Hours Test 03/23/18 13:42 03/23/18 14:00 03/23/18 18:27 Range/Units White Blood Count 15.90 4.8-10.8 K/uL Red Blood Count 2.67 4.7-6.1 M/uL Hemoglobin 8.5 7.7 14.0-18.0 g/dL Hematocrit 26.1 23.6 42-52 % Mean Corpuscular Volume 97.8 80-100 fL Mean Corpuscular Hemoglobin 31.8 25-34 pg Mean Corpuscular Hemoglobin Concent 32.6 32-36 g/dl Platelet Count 185 130-400 K/uL Mean Platelet Volume 9.5 7.4-10.4 fL Neutrophils (%) (Auto) 92.1 % Lymphocytes (%) (Auto) 2.7 % Monocytes (%) (Auto) 4.8 % Eosinophils (%) (Auto) 0.0 % Basophils (%) (Auto) 0.1 % Neutrophils # (Auto) 14.66 1.4-6.5 K/uL Lymphocytes # (Auto) 0.43 1.2-3.4 K/uL Monocytes # (Auto) 0.76 0.11-0.59 K/uL Eosinophils # (Auto) 0.00 0-0.5 K/uL Basophils # (Auto) 0.01 0-0.2 K/uL RDW Standard Deviation 48.9 36.4-46.3 fL RDW Coefficient of Variation 13.7 11.5-14.5 % Immature Granulocyte % (Auto) 0.3 % Immature Granulocyte # (Auto) 0.04 0.00-0.02 K/uL Red Blood Cell Morphology Unremarkable Sodium Level 141 136-145 mmol/L Potassium Level 4.4 3.5-5.1 mmol/L Chloride Level 110 98-107 mmol/L Carbon Dioxide Level 24 21-32 mmol/L Anion Gap 7.0 3-11 mmol/L Blood Urea Nitrogen 50 7-18 mg/dl Creatinine 1.91 0.60-1.40 mg/dl Est Creatinine Clear Calc Drug Dose 32.0 ml/min Estimated GFR () 38.6 Estimated GFR (Non- 33.3 BUN/Creatinine Ratio 26.1 10-20 Random Glucose 110 70-99 mg/dl Calcium Level 8.3 8.5-10.1 mg/dl Total Bilirubin 0.4 0.2-1 mg/dl Direct Bilirubin 0.1 0-0.2 mg/dl Aspartate Amino Transf (AST/SGOT) 23 15-37 U/L Alanine Aminotransferase (ALT/SGPT) 20 12-78 U/L Alkaline Phosphatase 42 45-117 U/L Total Creatine Kinase 427 39-308 U/L Total Protein 6.3 6.4-8.2 gm/dl Albumin 3.3 3.4-5.0 gm/dl Urine Color DK YELLOW Urine Appearance CLEAR CLEAR Urine pH 5.0 4.5-7.5 Urine Specific [place] 1.026 1.000-1.030 Urine Protein TRACE NEG Urine Glucose (UA) NEG NEG Urine Ketones TRACE NEG Urine Occult Blood NEG NEG Urine Nitrite NEG NEG Urine Bilirubin NEG NEG Urine Urobilinogen NEG NEG Urine Leukocyte Esterase TRACE NEG Urine WBC (Auto) 1-5 0-5 /hpf Urine RBC (Auto) 0-4 0-4 /hpf Urine Hyaline Casts (Auto) 1-5 0-5 /lpf Urine Epithelial Cells (Auto) 5-10 0-5 /lpf Urine Bacteria (Auto) NEG NEG Urine Crystals CALCIUM OXALATE NONE PRSENT Diagnostic Radiology HEAD CT NONCONTRAST Findings: The paranasal sinuses and mastoid air cells are clear. The calvarium and skull base are intact. There is no mass, hematoma, midline shift, acute infarct. White matter hypodensity is nonspecific but suggestive of microvascular ischemic change. The ventricles and sulci demonstrate mild age-related involutional changes. Mild frontal scalp swelling. Impression: No acute intracranial abnormality. Mild frontal scalp swelling. CHEST ONE VIEW PORTABLE FINDINGS: Atherosclerosis of the aortic arch. Cardiac silhouette normal in size. Lungs are hyperinflated. Calcified granuloma suggested in the left midlung. No focal opacity. No large effusion or pneumothorax. Nondisplaced rib fracture of the anterior right fifth rib suggested. Osteopenia. IMPRESSION: 1. Nondisplaced fracture of the anterior right fifth rib, age-indeterminate. Correlate with point tenderness. 2. Emphysema. No focal superimposed opacity to suggest acute cardiopulmonary disease. CERVICAL SPINE W/O FINDINGS: Mildly demineralized appearance of the bones. Hyperlordotic ureter of the cervical spine. Anterior wedge deformity of the T2 vertebral body redemonstrated which appears unchanged from comparison study from 2014. There is no acute cervical spine fracture or subluxation identified. Mastoid air cells and middle ear cavities are clear. 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 Evaluation of the central canal and neuroforamina is better assessed by MRI. No prevertebral soft tissue swelling or epidural fluid collections identified. Multilevel spondylitic spurring. Mild posterior intervertebral disc space narrowing is also noted at several levels. Mild and moderate multilevel facet arthropathy. Vertebral and carotid arterial calcifications are noted. Imaged lung apices appear clear. Soft tissues are within normal limits. No pathologically enlarged lymph nodes. IMPRESSION: No acute cervical spine fracture or subluxation. ABDOMEN AND PELVIS CT WITH IV CONTRAST FINDINGS: Lung bases are generally clear. No pneumatosis or pneumoperitoneum identified. Imaged inferior cardiac chambers are within upper limits of normal with coronary arterial calcifications noted. The gallbladder, liver, pancreas and right adrenal gland are unremarkable. There is mild thickening of the left adrenal gland. Calcified granulomata noted about the spleen. No evidence of acute splenic injury. There is moderate left renal atrophy with slightly decreased perfusion. 12 x 10 mm calculus of the inferior pole left kidney. Mild bilateral perinephric stranding. No ureteral calculi or obstructive uropathy. Suggested cyst of the posterior interpolar right kidney, 8 mm. Prostamegaly with partially decompressed bladder. Small hydrocele partially imaged. Extensive calcification of the aorta without aneurysm. IVC appears unremarkable. Patent portal vein. There are no pathologically enlarged lymph nodes identified. No bowel obstruction or focal bowel wall thickening. Large stool ball within the rectosigmoid. Colonic diverticulosis without diverticulitis. The appendix appears normal within the abdominal right lower quadrant. No ascites or mesenteric inflammatory changes. No retroperitoneal hematoma. Mildly demineralized appearance of the bones. No acute displaced rib fracture identified. Minimal cortical irregularity about the lateral aspect left sixth rib. Multilevel intervertebral disc space narrowing and facet arthropathy and spondylitic spurring. No acute compression deformity identified. Schmorl's node involves the superior endplate of L1. Mild levoscoliosis of the lumbar spine. IMPRESSION: 1. No acute intra-abdominal or intrapelvic abnormality identified. 2. No acute displaced fracture or evidence of acute solid organ injury. Minimal cortical irregularity about the lateral aspect of the left sixth rib may reflect an acute nondisplaced rib fracture. Correlate with point tenderness. 3. Constipation with large stool ball within the rectosigmoid. No constipation. 4. Moderate left renal atrophy with slightly decreased enhancement. Additionally, there is a nonobstructing 12 mm calculus about the inferior pole left kidney. 5. Prior granulomatous disease. EKG Poor data quality, interpretation may be adversely affected Accelerated Junctional rhythm with occasional Premature ventricular complexes Nonspecific ST and T wave abnormality Abnormal ECG When compared with ECG of 02-APR-2017 11:13, Junctional rhythm has replaced Sinus rhythm Nonspecific T wave abnormality now evident in Lateral leads Impression Assessment and Plan Mr. Fuentes is a 77 y/o male with PMHx of Intellectual Disability and Moderate- Severe Aortic Stenosis who presents to the ED after a fall this AM. HPI obtained from ED staff and nephew over the phone. Acute Blood Loss Anemia: - Appears that he may have been bleeding from a small leg vessel as there is a scab in this area on medial R ankle but not actively bleeding - would suspect most blood reported was from the head laceration given its intensity - Hemoglobin at 7.7 and will monitor and obtain another draw - MYKE Smith (nephew ) was consented over the phone for transfusion - Will transfuse if > 7 or symptomatic Fall with Head/Elbow Lacerations: - He normally ambulations with walker/cane - fell getting out of bed due to bleeding - Imaging shows age indeterminate 5th R rib fracture - no tenderness at this time elicited - Does have a 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 - patient will occ. pick at this area per family - Will need sutures of face removed in 7 days and elbow in 14 days - Consult wound - appreciate any management Acute Kidney Injury: - Cr currently at 1.9 with baseline around 1.1-1.3 - will likely correct quickly with gentle hydration - CK 427 so no overt rhabdo - Assess labs in AM DVT Prophylaxis: SCDs Code Status: FULL - Discussed with nephew who states Mr. Fuentes does not have advanced directives and currently should resuscitate Disposition: From home with nephew who lives in attached [facility] - Luis Fuentes - [phone] - MYKE (nephew) - Rosario Fuentes (nephew's ) - [phone] Advanced Directives Existing Living Will: Yes Existing Power of Straight Line Edger: Yes Resuscitation Status VTE Prophylaxis Will order VTE Prophylaxis: Yes History Patient seen and examined, chart reviewed, case discussed with ARMINDA Merritt and I agree with her assessment and plan as documented above. Briefly, patient is a 76yo male with history of developmental delay, presenting after sustaining a fall at home. Patient noted to have some bleeding this AM from unclear source. He then slipped and fell sustaining two large scalp lacerations. Unknown amount of down time. On physical exam he is afebrile, HD stable, BP slightly low at 97/53 Mentally challenged, speech unclear at times Head laceration sutured, no active bleeding Labs and images reviewed, decreased H/H and mildly elevated Cr of 1.9. CK of 427 Assessment/Plan: Monitor CBC, transfuse for symptomatic anemia, Hg < 7 or active bleeding Gentle hydration, monitor JANY and CK levels Remainder of plan as above
[2018-03-24] VITALS (20 sets, daily range): BP systolic 85–116; BP diastolic 42–61; PULSE 54–71; TEMP 36.5–36.8; O2SAT 67–100
[2018-03-24 00:28] LABS: HEMATOCRIT 20.4 % (42-52); HEMOGLOBIN 6.8 g/dL (14.0-18.0)
[2018-03-24] MEDS: MULTIVITAMIN TAB PO SCH (09:01)
[2018-03-24 09:24] LABS: HEMATOCRIT 27.7 % (42-52); MEAN CELL VOLUME 94.2 fL (80-100); MEAN CORPUSCULAR HEMOGLOBIN 30.6 pg (25-34); MEAN CORPUSCULAR HGB CONC 32.5 g/dl (32-36); MEAN PLATELET VOLUME 9.4 fL (7.4-10.4); PLATELET COUNT 121 K/uL (130-400); RED CELL DISTRIBUTION WIDTH CV 15.6 % (11.5-14.5); RED CELL DISTRIBUTION WIDTH SD 53.9 fL (36.4-46.3); WHITE BLOOD COUNT 8.04 K/uL (4.8-10.8)
[2018-03-24 09:49] LABS: CALCIUM 8.1 mg/dl (8.5-10.1); CREATININE 1.44 mg/dl (0.60-1.40); POTASSIUM 4.2 mmol/L (3.5-5.1)
--- NOTE | 2018-03-24 14:06 | Progress Note ---
Subjective Date of Service: Mar 24, 2018. Subjective Pt evaluation today including: conversation w/ patient, conversation w/ family , physical exam, chart review, lab review, review of studies, conversation w/ solutions delivery consultant, review of inpatient medication list Doing okay, pleasant smiling, eating lunch, soft special voice, cooperative Problem List Medical Problems: (1) Abnormal EKG Status: Acute (2) Anemia Status: Acute (3) Aspiration into airway Status: Acute (4) Bleeding from varicose veins of right lower extremity Status: Acute (5) Choking episode Status: Acute (6) Dehydration Status: Acute (7) Facial trauma Status: Acute (8) Fall Status: Acute (9) Pneumonia Status: Acute (10) Rib fractures Status: Acute Review of Systems Constitutional: + weakness, + fatigue, No see HPI, No fever, No chills, No sweats, No weight loss, No problem reported Eyes: No see HPI, No worsening of vision, No eye pain, No redness, No discharge , No diplopia, No problem reported ENT: No see HPI, No hearing loss, No unusual epistaxis, No nasal symptoms, No sore throat, No tinnitus, No dental problems, No trouble swallowing, No problem reported Respiratory: No see HPI, No cough, No sputum, No wheezing, No shortness of breath, No dyspnea on exertion, No dyspnea at rest, No hemoptysis, No problem reported Cardiac: No see HPI, No chest pain, No orthopnea, No PND, No edema, No claudication, No palpitations, No problem reported Abdomen: No see HPI, No pain, No nausea, No vomiting, No diarrhea, No constipation, No GI bleeding, No problem reported Musculoskeletal: + joint pain Male : No see HPI, No dysuria, No urinary frequency, No incontinence, No nocturia more than once/night, No slowing stream, No hematuria, No sexual dysfunction, No problem reported Neurologic: No see HPI, No memory loss, No paralysis, No weakness, No numbness/ tingling, No vertigo, No balance problems, No problem reported Psychiatric: No see HPI, No depression symptoms, No anhedonism, No anxiety, No insomnia, No substance abuse, No problem reported Heme: No see HPI, No abnormal bleeding/bruising, No clotting problems, No swollen lymph nodes, No night sweats, No problem reported Endo: No see HPI, No fatigue, No excessive thirst, No excessive urination, No problem reported Skin: + problem reported (Anterior forehead scalp lacerations S/P suturing has topical antibiotic applied, right middle ear which has 2 spots of skin scratching on top of the varicose vein, no active bleeding), No see HPI, No rash , No itch, No new/changing skin lesions, No color change, No bleeding Objective Vital Signs Date Time Temp Pulse Resp B/P (MAP) Pulse Ox O2 Delivery O2 Flow Rate FiO2 03/24/18 12:08 36.7 62 20 116/48 (70) 100 Room Air 03/24/18 08:00 Room Air 03/24/18 07:20 36.8 64 18 113/49 94 03/24/18 07:08 36.5 54 16 96/48 (64) 67 Room Air 03/24/18 06:45 36.7 55 18 104/52 100 03/24/18 06:15 36.8 54 18 97/49 99 03/24/18 05:45 36.8 61 18 97/55 99 03/24/18 05:30 36.7 56 18 90/44 100 03/24/18 05:15 36.7 56 18 85/47 03/24/18 05:00 36.7 59 18 100/49 100 03/24/18 04:45 36.7 62 18 92/48 99 03/24/18 04:38 36.7 58 18 90/46 99 03/24/18 04:08 36.6 60 18 85/46 99 03/24/18 03:38 36.7 64 18 94/44 99 03/24/18 03:08 36.6 67 18 99/49 99 03/24/18 02:53 36.6 69 18 97/48 100 03/24/18 02:38 36.5 70 18 112/42 99 03/24/18 02:23 36.5 67 18 98/47 100 03/24/18 00:13 36.6 71 18 96/52 (67) 100 Room Air 03/24/18 00:00 Room Air 03/23/18 20:02 37.0 79 19 111/53 99 Room Air 03/23/18 20:00 Room Air 03/23/18 19:58 80 18 104/51 99 03/23/18 19:22 81 03/23/18 18:59 81 18 90/60 100 Room Air 03/23/18 17:01 72 18 115/60 96 Room Air 03/23/18 16:01 69 18 97/47 99 Room Air 03/23/18 14:21 73 18 119/63 100 Room Air Physical Exam General Appearance: WD/WN, no apparent distress, + thin, + pertinent finding ( Frail, awake alert orientated,) Eyes: normal inspection, PERRL, EOMI, sclerae normal ENT: normal ENT inspection, hearing grossly normal, pharynx normal Neck: supple, no adenopathy, thyroid normal, no JVD, no carotid bruits, trachea midline Respiratory/Chest: chest non-tender, normal breath sounds, no respiratory distress, no accessory muscle use, + decreased breath sounds Cardiovascular: regular rate, rhythm, no edema, no gallop, no JVD, no murmur Abdomen: normal bowel sounds, non tender, soft, no organomegaly, no pulsatile mass Extremities: normal range of motion, non-tender, normal inspection, no pedal edema, no calf tenderness, normal capillary refill, pelvis stable Neurologic/Psychiatric: pot reliner II-XII nml as tested, no motor/sensory deficits, alert, normal mood/affect, oriented x 3 Skin: normal color, warm/dry, no rash, + pertinent finding (Anterior forehead scalp lacerations S/P suturing has topical antibiotic applied, right middle ear which has 2 spots of skin scratching on top of the varicose vein, no active bleeding) Lymphatic: no adenopathy Laboratory Results Last 24 Hours Test 03/23/18 14:00 03/23/18 18:27 03/23/18 23:45 03/24/18 09:13 Urine Color DK YELLOW Urine Appearance CLEAR Urine pH 5.0 Urine Specific [place] 1.026 Urine Protein TRACE Urine Glucose (UA) NEG Urine Ketones TRACE Urine Occult Blood NEG Urine Nitrite NEG Urine Bilirubin NEG Urine Urobilinogen NEG Urine Leukocyte Esterase TRACE Urine WBC (Auto) 1-5 /hpf Urine RBC (Auto) 0-4 /hpf Urine Hyaline Casts (Auto) 1-5 /lpf Urine Epithelial Cells (Auto) 5-10 /lpf Urine Bacteria (Auto) NEG Urine Crystals CALCIUM OXALATE Hemoglobin 7.7 g/dL 6.8 g/dL 9.0 g/dL Hematocrit 23.6 % 20.4 % 27.7 % White Blood Count 8.04 K/uL Red Blood Count 2.94 M/uL Mean Corpuscular Volume 94.2 fL Mean Corpuscular Hemoglobin 30.6 pg Mean Corpuscular Hemoglobin Concent 32.5 g/dl RDW Standard Deviation 53.9 fL RDW Coefficient of Variation 15.6 % Platelet Count 121 K/uL Mean Platelet Volume 9.4 fL Sodium Level 143 mmol/L Potassium Level 4.2 mmol/L Chloride Level 112 mmol/L Carbon Dioxide Level 26 mmol/L Anion Gap 5.0 mmol/L Blood Urea Nitrogen 39 mg/dl Creatinine 1.44 mg/dl Est Creatinine Clear Calc Drug Dose 42.0 ml/min Estimated GFR () 54.3 Estimated GFR (Non- 46.8 BUN/Creatinine Ratio 27.3 Random Glucose 68 mg/dl Calcium Level 8.1 mg/dl Iron Level 56 mcg/dl Total Iron Binding Capacity 211 mcg/dl Ferritin 111.7 ng/ml Assessment and Plan 77 y/o male with admitted on March 23 2018 because of acute blood loss anemia need to 1 unit blood transfusion, secondary to fall and scalp laceration PMHx of Intellectual Disability and Moderate-Severe Aortic Stenosis Acute Blood Loss Anemia: After 2 unit blood transfusion currently hemoglobin at 9 Anterior forehead scalp lacerations S/P suturing has topical antibiotic applied , right middle foot has 2 spots of skin scratching on top of the varicose vein, no active bleeding Scalp laceration and skin scratches may not able to explain big amount of blood lost, I check iron panel and stool Hemoccult as well Fall with Head/Elbow Lacerations: Report, normally ambulations with walker/cane age indeterminate 5th R rib fracture - no tenderness at this time elicited 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 Will need sutures of face removed in 5- 7 days and elbow in 14 days Continue wound care Acute Kidney Injury: Improving creatinine improved from 1.9-1.4, DVT Prophylaxis: SCDs Code Status: FULL per Report, nephew will him to be full code Disposition: From home with nephew who lives in [facility] - Luis Fuentes - [phone] - POJuventino (nephew) - Rosario Gina (nephew's ) - [phone] Continued [facility] stay due to: multiple IV medications needed Discharge planning: home
[2018-03-25 06:24] LABS: BASO % 0.5 %; BASO ABS # 0.03 K/uL (0-0.2); EOS % 1.3 %; EOS ABS # 0.08 K/uL (0-0.5); HEMATOCRIT 25.8 % (42-52); HEMOGLOBIN 8.4 g/dL (14.0-18.0); IG# 0.01 K/uL (0.00-0.02); LYMPH % 13.3 %; MEAN CELL VOLUME 94.9 fL (80-100); MEAN CORPUSCULAR HEMOGLOBIN 30.9 pg (25-34); MEAN CORPUSCULAR HGB CONC 32.6 g/dl (32-36); MEAN PLATELET VOLUME 9.7 fL (7.4-10.4); MONO % 9.6 %; MONO ABS # 0.58 K/uL (0.11-0.59); NEUT % 75.1 %; NEUT ABS # 4.53 K/uL (1.4-6.5); PLATELET COUNT 123 K/uL (130-400); RED CELL DISTRIBUTION WIDTH CV 15.9 % (11.5-14.5); RED CELL DISTRIBUTION WIDTH SD 54.9 fL (36.4-46.3); WHITE BLOOD COUNT 6.03 K/uL (4.8-10.8)
[2018-03-25 06:56] LABS: CALCIUM 8.1 mg/dl (8.5-10.1); CREATININE 1.21 mg/dl (0.60-1.40); PHOSPHORUS 2.7 mg/dl (2.5-4.9)
[2018-03-25 07:17] VITALS: BP 104/60; PULSE 60; TEMP 36.3; O2SAT 99
[2018-03-25] MEDS: MULTIVITAMIN TAB PO SCH (08:04)
--- NOTE | 2018-03-25 09:14 | Progress Note ---
Subjective Date of Service: Mar 25, 2018. Subjective Pt evaluation today including: conversation w/ patient, physical exam, chart review, lab review, review of studies, conversation w/ sql server consultant, review of inpatient medication list pleasant , conversational , follow up commands, no c/o Problem List Medical Problems: (1) Abnormal EKG Status: Acute (2) Anemia Status: Acute (3) Aspiration into airway Status: Acute (4) Bleeding from varicose veins of right lower extremity Status: Acute (5) Choking episode Status: Acute (6) Dehydration Status: Acute (7) Facial trauma Status: Acute (8) Fall Status: Acute (9) Pneumonia Status: Acute (10) Rib fractures Status: Acute Review of Systems Constitutional: + weakness, + fatigue, No see HPI, No fever, No chills, No sweats, No weight loss, No problem reported Respiratory: + cough (occasional) Abdomen: No see HPI, No pain, No nausea, No vomiting, No diarrhea, No constipation, No GI bleeding, No problem reported Musculoskeletal: No see HPI, No joint pain, No muscle pain, No swelling, No calf pain, No problem reported Male : No see HPI, No dysuria, No urinary frequency, No incontinence, No nocturia more than once/night, No slowing stream, No hematuria, No sexual dysfunction, No problem reported Neurologic: No see HPI, No memory loss, No paralysis, No weakness, No numbness/ tingling, No vertigo, No balance problems, No problem reported Psychiatric: No see HPI, No depression symptoms, No anhedonism, No anxiety, No insomnia, No substance abuse, No problem reported Skin: + problem reported (laceration in forehead, an d left elbow,) Objective Vital Signs Date Time Temp Pulse Resp B/P (MAP) Pulse Ox O2 Delivery O2 Flow Rate FiO2 03/25/18 08:00 Room Air 03/25/18 07:17 36.3 60 16 104/60 (75) 99 Room Air 03/24/18 23:30 36.6 60 18 95/58 (70) 97 Room Air 03/24/18 22:00 Room Air 03/24/18 13:50 36.6 59 18 110/61 (77) 99 Room Air 03/24/18 12:08 36.7 62 20 116/48 (70) 100 Room Air Physical Exam General Appearance: WD/WN, no apparent distress, + thin Eyes: normal inspection, PERRL, EOMI, sclerae normal ENT: normal ENT inspection, hearing grossly normal, pharynx normal Neck: supple, no adenopathy, thyroid normal, no JVD, no carotid bruits, trachea midline Respiratory/Chest: chest non-tender, normal breath sounds, no respiratory distress, no accessory muscle use, + decreased breath sounds Cardiovascular: regular rate, rhythm, no edema, no gallop, no JVD, no murmur Abdomen: normal bowel sounds, non tender, soft, no organomegaly, no pulsatile mass, + pertinent finding (CAREN has brown liquid stool, no blood, sent to stool hem occult) Extremities: normal range of motion, non-tender, normal inspection, no pedal edema, no calf tenderness, normal capillary refill, pelvis stable 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/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, no motor/sensory deficits, alert, normal mood/affect, oriented x 3 Skin: normal color, warm/dry, no rash Lymphatic: no adenopathy Laboratory Results Last 24 Hours Test 03/25/18 05:23 03/25/18 09:01 White Blood Count 6.03 K/uL Red Blood Count 2.72 M/uL Hemoglobin 8.4 g/dL Hematocrit 25.8 % Mean Corpuscular Volume 94.9 fL Mean Corpuscular Hemoglobin 30.9 pg Mean Corpuscular Hemoglobin Concent 32.6 g/dl Platelet Count 123 K/uL Mean Platelet Volume 9.7 fL Neutrophils (%) (Auto) 75.1 % Lymphocytes (%) (Auto) 13.3 % Monocytes (%) (Auto) 9.6 % Eosinophils (%) (Auto) 1.3 % Basophils (%) (Auto) 0.5 % Neutrophils # (Auto) 4.53 K/uL Lymphocytes # (Auto) 0.80 K/uL Monocytes # (Auto) 0.58 K/uL Eosinophils # (Auto) 0.08 K/uL Basophils # (Auto) 0.03 K/uL RDW Standard Deviation 54.9 fL RDW Coefficient of Variation 15.9 % Immature Granulocyte % (Auto) 0.2 % Immature Granulocyte # (Auto) 0.01 K/uL Red Blood Cell Morphology Unremarkable Sodium Level 141 mmol/L Potassium Level 4.0 mmol/L Chloride Level 107 mmol/L Carbon Dioxide Level 30 mmol/L Anion Gap 4.0 mmol/L Blood Urea Nitrogen 31 mg/dl Creatinine 1.21 mg/dl Est Creatinine Clear Calc Drug Dose 50.0 ml/min Estimated GFR () 67.0 Estimated GFR (Non- 57.8 BUN/Creatinine Ratio 25.7 Random Glucose 74 mg/dl Calcium Level 8.1 mg/dl Phosphorus Level 2.7 mg/dl Magnesium Level 2.0 mg/dl Vitamin B12 Level 261 pg/mL Folate 10.29 ng/mL Assessment and Plan 77 y/o male with admitted on March 23 2018 because of acute blood loss anemia need to 1 unit blood transfusion, secondary to fall and scalp laceration PMHx of Intellectual Disability and Moderate-Severe Aortic Stenosis Acute Blood Loss Anemia: After 2 unit blood transfusion, currently hemoglobin at 9 to 9.4 Anterior forehead scalp lacerations S/P suturing has topical antibiotic applied , right middle foot has 2 spots of skin scratching on top of the varicose vein, no active bleeding laceration s/p stitches in left elbow, no active bleeding Scalp laceration and skin scratches may not able to explain big amount of blood lost, stool Hemoccult pending Bacitracin ointment applying to laceration wound in for head, left elbow area, daily vit b12 261 at borderline low, order to start po, also check VMA Fall with Head/Elbow Lacerations: Report, normally ambulations with walker/cane age indeterminate 5th R rib fracture - no tenderness 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, need to follow up with pcp Will need sutures of forehead removed in 5- 7 days and elbow in 10-14 days Continue wound care Acute Kidney Injury: Improving creatinine improved from 1.9-1.4, today is 1.21 intellectual disability , is not new DVT Prophylaxis: SCDs Code Status: FULL per Report, nephew want him to be full code Disposition: From home with nephew who lives in attached duplex - Luis Fuentes - [phone] - POJuventino (nephew) - Rosario Fuentes (nephew's ) - [phone] PT/OT and dispo pending, Continued [facility] stay due to: home environment unsafe for pt Discharge planning: uncertain
[2018-03-25 14:47] VITALS: BP 103/54; PULSE 61; TEMP 36.6; O2SAT 100
[2018-03-25 16:00] VITALS: O2SAT 100
[2018-03-25 23:51] VITALS: BP 106/56; PULSE 58; TEMP 36.6; O2SAT 100
[2018-03-26 06:22] LABS: BASO % 0.5 %; BASO ABS # 0.03 K/uL (0-0.2); EOS % 2.3 %; EOS ABS # 0.13 K/uL (0-0.5); HEMOGLOBIN 9.4 g/dL (14.0-18.0); IG# 0.02 K/uL (0.00-0.02); LYMPH % 14.8 %; LYMPH ABS # 0.83 K/uL (1.2-3.4); MEAN CELL VOLUME 97.3 fL (80-100); MEAN CORPUSCULAR HEMOGLOBIN 31.5 pg (25-34); MEAN CORPUSCULAR HGB CONC 32.4 g/dl (32-36); MEAN PLATELET VOLUME 9.7 fL (7.4-10.4); MONO % 11.1 %; MONO ABS # 0.62 K/uL (0.11-0.59); NEUT % 70.9 %; NEUT ABS # 3.97 K/uL (1.4-6.5); PLATELET COUNT 132 K/uL (130-400); RED CELL DISTRIBUTION WIDTH CV 15.5 % (11.5-14.5); RED CELL DISTRIBUTION WIDTH SD 54.7 fL (36.4-46.3)
[2018-03-26 06:50] LABS: CALCIUM 8.6 mg/dl (8.5-10.1); CREATININE 1.04 mg/dl (0.60-1.40); POTASSIUM 4.4 mmol/L (3.5-5.1)
[2018-03-26 07:45] VITALS: BP 123/62; PULSE 60; TEMP 36.3; O2SAT 93
[2018-03-26] MEDS: CYANOCOBALAMIN 500 MCG TAB (VIT B-12) PO SCH (08:36)
[2018-03-26] MEDS: MULTIVITAMIN TAB PO SCH (08:36)
[2018-03-26] MEDS: BACITRACIN OINT 15 GM TUBE EXT SCH (08:36)
[2018-03-26 15:34] VITALS: BP 104/64; PULSE 77; TEMP 36.9; O2SAT 92
--- NOTE | 2018-03-26 16:09 | Progress Note ---
Subjective Date of Service: Mar 26, 2018. Subjective Pt evaluation today including: conversation w/ patient, physical exam, lab review, review of inpatient medication list Pain: denies pain PO Intake: adequate, eating all of his lunch Voiding: no voiding problems hb stable at 9.4 today, no signs of bleeding, heme occult negative Problem List Medical Problems: (1) Abnormal EKG Status: Acute (2) Anemia Status: Acute (3) Aspiration into airway Status: Acute (4) Bleeding from varicose veins of right lower extremity Status: Acute (5) Choking episode Status: Acute (6) Dehydration Status: Acute (7) Facial trauma Status: Acute (8) Fall Status: Acute (9) Pneumonia Status: Acute (10) Rib fractures Status: Acute (11) Skin tear of upper arm without complication Status: Acute Review of Systems All Other Systems: Reviewed and Negative Medications Current Inpatient Medications Medications (Trade) Dose Ordered Sig/Zaid Route Start Time Stop Time Status Last Admin Dose Admin Ioversol (Optiray 320) 125 ml UD PRN IV 03/23/18 16:00 03/27/18 15:59 Acetaminophen (Tylenol Tab) 650 mg Q4H PRN PO 03/23/18 19:30 04/22/18 19:29 Al Hydrox/Mg Hydrox/Simethicone (Maalox Max Susp) 15 ml Q4H PRN PO 03/23/18 19:30 04/22/18 19:29 Magnesium Hydroxide (Milk Of Magnesia Susp) 30 ml Q12H PRN PO 03/23/18 19:30 04/22/18 19:29 Ondansetron HCl (Zofran Inj) 4 mg Q6H PRN IV 03/23/18 19:30 04/22/18 19:29 Polyethylene (Miralax Powder Packet) 17 gm DAILY PRN PO 03/23/18 19:30 04/22/18 19:29 Multivitamins (Multivitamin Tab) 1 tab QAM PO 03/24/18 09:00 04/23/18 08:59 03/26/18 08:36 1 TAB Bacitracin (Bacitracin Oint) 1 appln DAILY EXT 03/26/18 08:00 04/25/18 07:59 03/26/18 08:36 1 APPLN Cyanocobalamin (Vitamin B-12 Tab) 500 mcg QAM PO 03/26/18 08:00 04/25/18 07:59 03/26/18 08:36 500 MCG Objective Vital Signs Date Time Temp Pulse Resp B/P (MAP) Pulse Ox O2 Delivery O2 Flow Rate FiO2 03/26/18 15:34 36.9 77 16 104/64 (77) 92 03/26/18 08:40 Room Air 03/26/18 07:45 36.3 60 16 123/62 (82) 93 03/25/18 23:51 36.6 58 20 106/56 (73) 100 Room Air 03/25/18 20:00 Room Air Physical Exam General Appearance: WD/WN, no apparent distress Eyes: normal inspection, EOMI, sclerae normal ENT: normal ENT inspection, hearing grossly normal, pharynx normal Neck: supple, no adenopathy, no JVD, trachea midline Respiratory/Chest: chest non-tender, lungs clear, normal breath sounds, no respiratory distress, no accessory muscle use Cardiovascular: regular rate, rhythm, no edema, no gallop, no JVD, no murmur Abdomen: normal bowel sounds, non tender, soft, no organomegaly Extremities: normal range of motion, non-tender, normal inspection, no pedal edema, no calf tenderness, pelvis stable Neurologic/Psychiatric: 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 nml as tested, alert, normal mood/affect, oriented x 3, + motor weakness Skin: + pertinent finding (lacerations over forehead, right eyebrown, all healing well) Laboratory Results Last 24 Hours Test 03/26/18 05:48 White Blood Count 5.60 K/uL Red Blood Count 2.98 M/uL Hemoglobin 9.4 g/dL Hematocrit 29.0 % Mean Corpuscular Volume 97.3 fL Mean Corpuscular Hemoglobin 31.5 pg Mean Corpuscular Hemoglobin Concent 32.4 g/dl Platelet Count 132 K/uL Mean Platelet Volume 9.7 fL Neutrophils (%) (Auto) 70.9 % Lymphocytes (%) (Auto) 14.8 % Monocytes (%) (Auto) 11.1 % Eosinophils (%) (Auto) 2.3 % Basophils (%) (Auto) 0.5 % Neutrophils # (Auto) 3.97 K/uL Lymphocytes # (Auto) 0.83 K/uL Monocytes # (Auto) 0.62 K/uL Eosinophils # (Auto) 0.13 K/uL Basophils # (Auto) 0.03 K/uL RDW Standard Deviation 54.7 fL RDW Coefficient of Variation 15.5 % Immature Granulocyte % (Auto) 0.4 % Immature Granulocyte # (Auto) 0.02 K/uL Sodium Level 144 mmol/L Potassium Level 4.4 mmol/L Chloride Level 110 mmol/L Carbon Dioxide Level 29 mmol/L Anion Gap 6.0 mmol/L Blood Urea Nitrogen 30 mg/dl Creatinine 1.04 mg/dl Est Creatinine Clear Calc Drug Dose 58.2 ml/min Estimated GFR () 80.5 Estimated GFR (Non- 69.4 BUN/Creatinine Ratio 28.4 Random Glucose 84 mg/dl Calcium Level 8.6 mg/dl Assessment and Plan 77 y/o male with admitted on March 23 2018 because of acute blood loss anemia need to 1 unit blood transfusion, secondary to fall and scalp laceration PMHx of Intellectual Disability and Moderate-Severe Aortic Stenosis Acute Blood Loss Anemia: After 2 unit blood transfusion, currently hemoglobin at 9.4, was 9.0 yesterday Anterior forehead scalp lacerations S/P suturing has topical antibiotic applied , right middle foot has 2 spots of skin scratching on top of the varicose vein, no active bleeding laceration s/p stitches in left elbow, no active bleeding Scalp laceration and skin scratches may not able to explain big amount of blood lost, stool Hemoccult negative Bacitracin ointment applying to laceration wound in for head, left elbow area, daily vit b12 261 at borderline low, order to start po, also check VMA Fall with Head/Elbow Lacerations: Report, normally ambulations with walker/cane age indeterminate 5th R rib fracture - no tenderness 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, need to follow up with pcp Will need sutures of forehead removed in 5- 7 days and elbow in 10-14 days Continue wound care Acute Kidney Injury: resolved, creatinine improved to 1.04 which is baseline, was likely pre-renal intellectual disability , is not new DVT Prophylaxis: SCDs Code Status: FULL per Report, nephew want him to be full code Disposition: From home with nephew who lives in attached duplex - Luis Fuentes - [phone] - POA (nephew) - Rosario Fuentes (nephew's ) - [phone] PT/OT and dispo pending, trying for [facility], likely not until tomorrow at the earliest, discussed with CM Continued [facility] stay due to: home environment unsafe for pt Discharge planning: uncertain
[2018-03-26 23:02] VITALS: BP_SYST 82; BP_SYST 87; BP_DIAS 41; BP_DIAS 46; PULSE 64; TEMP 36.6; O2SAT 97
[2018-03-26 23:45] VITALS: BP 96/51
[2018-03-27 07:32] VITALS: BP 111/64; PULSE 61; TEMP 36.6; O2SAT 97
[2018-03-27] MEDS: CYANOCOBALAMIN 500 MCG TAB (VIT B-12) PO SCH (08:26)
[2018-03-27] MEDS: BACITRACIN OINT 15 GM TUBE EXT SCH (08:26)
[2018-03-27] MEDS: MULTIVITAMIN TAB PO SCH (08:26)
[2018-03-27] MEDS ORDERED: VTMB12 PO (12:34)
[2018-03-27] MEDS ORDERED: BCTO EXT (12:34)
--- NOTE | 2018-03-27 12:46 | Discharge Instructions ---
Discharge Instructions Date of Service Mar 27, 2018. Admission Reason for Admission: Acute Blood Loss Anemia Discharge Discharge Diagnosis / Problem: Acute blood loss anemia, fall with lacerations Discharge Goals Goal(s): Improve function, Increase independence Activity Recommendations Activity Level: OOB In Chair, Assistance Required Therapies: Physical Therapy, Occupational Therapy Lifting Limitations: none Exercise/Sports Limitations: as tolerated Shower/Bathe: no limitations . Additional Information Patient informed of condition: Yes Advance Directives: Yes DNR: No Level of Care: Acute Rehab Communicable Disease: No Prognosis: Improving Oxygen at (LPM): no Campos Catheter: No Instructions / Follow-Up Instructions / Follow-Up Medications: - VITAMIN B12: 500mcg daily - BACITRACIN: apply to forehead daily 77 y/o male with admitted on March 23 2018 because of acute blood loss anemia needed 1 unit blood transfusion, secondary to fall and scalp laceration Acute Blood Loss Anemia: no clear etiology, heme occult negative, Hb stable at 9.4 after total of two units transfused Vitamin B12 was low normal at 261, started on supplementation Fall with Head/Elbow Lacerations: normally ambulations with walker/cane, approved to go to rehab to improve strength and balance age indeterminate 5th R rib fracture - no tenderness on exam, breathing well Will need sutures of forehead removed in 5 days and elbow in 10 days Continue wound care with Bacitracin daily wounds are clean and well approximated on exam Transient low blood pressure: will have some low pressures at night, when sleeping, pressures normalize in the morning Acute Kidney Injury: resolved, creatinine improved to 1.04 which is baseline, was likely pre-renal 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 Who to Call and When: Medical Emergencies: If at any time you feel your situation is an emergency, please call 911 immediately. . Non-Emergent Contact Non-Emergency issues call your: Primary Care Provider Call Non-Emergent contact if: you have any medication questions . . "Provider Documentation" section prepared by Cruz Becerril. . Core Measure Problem Core Measures: None [place] Drug Monitoring Program Search Results: no issues identified
[2018-03-27 12:59] VITALS: BP 111/64; PULSE 61; TEMP 36.6; O2SAT 97
--- NOTE | 2018-04-01 09:20 | Discharge Summary ---
Discharge Summary Date of Service Mar 27, 2018. Discharge Summary Admission Date: Mar 23, 2018 at 19:19 Discharge Date: Mar 27, 2018 Principal Diagnosis: Acute blood loss anemia Problems/Secondary Diagnoses: Falls at home Head laceration Elbow laceration Acute kidney injury Intellectual disability Aortic stenosis, severe Procedures: Sutures to laceration of head and elbow, done in the ED Consultations: none Medication Reconciliation New Medications: Bacitracin (Bacitracin Zinc) 45 Appln/15 Gm Oint 1 APPLN EXT DAILY, #1 TUBE 0 Refills apply to forehead Cyanocobalamin (Vitamin B-12) 500 Mcg Tab 500 MCG PO QAM, #30 TAB 3 Refills Continued Medications: Multivitamin (Multivitamin) Tab 1 TAB PO QAM Discharge Exam Patient at baseline function, doing well. Good appetite. Labs stable. Set up for rehab at [facility] Review of Systems: Constitutional: + weakness, No fever, No chills, No sweats, No weight loss, No fatigue, No problem reported Eyes: No worsening of vision, No eye pain, No redness, No discharge, No diplopia, No problem reported ENT: No hearing loss, No unusual epistaxis, No nasal symptoms, No sore throat, No tinnitus, No dental problems, No trouble swallowing, No problem reported Respiratory: No cough, No sputum, No wheezing, No shortness of breath, No dyspnea on exertion, No dyspnea at rest, No hemoptysis, No problem reported Cardiovascular: No chest pain, No orthopnea, No PND, No edema, No claudication, No palpitations, No problem reported Abdomen: No pain, No nausea, No vomiting, No diarrhea, No constipation, No GI bleeding, No problem reported Musculoskeletal: No joint pain, No muscle pain, No swelling, No calf pain, No problem reported Genitourinary - Male: No hematuria, No dysuria, No urinary frequency, No urinary urgency Neurologic: + memory loss, + weakness, No paralysis, No numbness/tingling, No vertigo, No balance problems, No problem reported Psychiatric: No depression symptoms, No anhedonism, No anxiety, No insomnia , No substance abuse, No problem reported Endocrine: No fatigue, No excessive thirst, No excessive urination, No problem reported Hematologic / Lymphatic: No abnormal bleeding/bruising, No clotting problems , No swollen lymph nodes, No night sweats, No problem reported Integumentary: No rash, No itch, No new/changing skin lesions, No color change, No bleeding, No problem reported Physical Exam: General Appearance: WD/WN, no apparent distress Eyes: normal inspection, EOMI, sclerae normal ENT: normal ENT inspection, hearing grossly normal, pharynx normal Neck: supple, no adenopathy, no JVD, trachea midline Respiratory/Chest: chest non-tender, lungs clear, normal breath sounds, no respiratory distress, no accessory muscle use Cardiovascular: regular rate, rhythm, no edema, no gallop, no JVD, normal peripheral pulses, + systolic murmur Abdomen / GI: normal bowel sounds, non tender, soft, no organomegaly Extremities: normal inspection, no calf tenderness, normal capillary refill , no pedal edema, normal range of motion 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, no motor/sensory deficits , alert, normal mood/affect, normal reflexes, oriented x 3 Skin: + pertinent finding (head laceration, well approximated, no purulent drainage, mild erythema on edges of wound) Hospital Course 77 y/o male with admitted on March 23 2018 because of acute blood loss anemia needed 1 unit blood transfusion, secondary to fall and scalp laceration Acute Blood Loss Anemia: no clear etiology, heme occult negative, Hb stable at 9.4 after total of two units transfused Vitamin B12 was low normal at 261, started on supplementation Fall with Head/Elbow Lacerations: normally ambulations with walker/cane, approved to go to rehab to improve strength and balance age indeterminate 5th R rib fracture - no tenderness on exam, breathing well Will need sutures of forehead removed in 5 days and elbow in 10 days Continue wound care with Bacitracin daily wounds are clean and well approximated on exam Transient low blood pressure: will have some low pressures at night, when sleeping, pressures normalize in the morning Acute Kidney Injury: resolved, creatinine improved to 1.04 which is baseline, was likely pre-renal 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 Discharge Instructions Please refer to the electronic Patient Visit Report (Discharge Instructions) for additional information. [facility]
== END 2018-03-27 16:19 | DRG 812 ==
LOC: EDBD 12:37 → C.EDC 12:38 → C.2E 19:19 → ENRESERV 19:31 → CANRESERV 03-24 12:28 → CMPBEDREQ 03-24 12:44 → C.4E 03-24 12:45 → ENRESERV 03-24 12:49 → C.4E 03-24 14:02
PROVIDERS: ADMIT Internal Medicine; ATTEND Internal Medicine
PROC: 0HQ1XZZ Repair Face Skin, External Approach (ICD-10-PCS; principal; 2018-03-23)
PROC: 0HQEXZZ Repair Left Lower Arm Skin, External Approach (ICD-10-PCS; principal; 2018-03-23)
DX: D62 Acute posthemorrhagic anemia (principal); N17.9 Acute kidney failure, unspecified; F79 Unspecified intellectual disabilities; E86.0 Dehydration; S01.81XA Laceration without foreign body of other part of head, initial encounter; S01.111A Laceration without foreign body of right eyelid and periocular area, initial encounter; W01.0XXA Fall on same level from slipping, tripping and stumbling without subsequent striking against object, initial encounter; S51.012A Laceration without foreign body of left elbow, initial encounter; Y92.013 Bedroom of single-family (private) house as the place of occurrence of the external cause; I35.0 Nonrheumatic aortic (valve) stenosis; R29.6 Repeated falls

== ENCOUNTER → 2018-04-23 | Outpatient (CLI) | payer OTHER, BC ==
[~2018-04-23] MED LIST changes: +BCTO EXT; +VTMB12 PO
[2018-04-23 17:32] LABS: HEMATOCRIT 37.3 % (42-52); HEMOGLOBIN 11.8 g/dL (14.0-18.0); MEAN CELL VOLUME 100.5 fL (80-100); MEAN CORPUSCULAR HEMOGLOBIN 31.8 pg (25-34); MEAN CORPUSCULAR HGB CONC 31.6 g/dl (32-36); MEAN PLATELET VOLUME 9.5 fL (7.4-10.4); PLATELET COUNT 244 K/uL (130-400); RED CELL DISTRIBUTION WIDTH CV 14.6 % (11.5-14.5); RED CELL DISTRIBUTION WIDTH SD 53.8 fL (36.4-46.3); WHITE BLOOD COUNT 6.32 K/uL (4.8-10.8)
[2018-04-23 17:42] LABS: BLOOD UREA NITROGEN 28 mg/dl (7-18); CALCIUM 9.2 mg/dl (8.5-10.1); CARBON DIOXIDE 29 mmol/L (21-32); CREATININE 1.16 mg/dl (0.60-1.40); GLUCOSE 97 mg/dl (70-99); POTASSIUM 4.2 mmol/L (3.5-5.1); SODIUM 141 mmol/L (136-145)
== END | disposition home or self-care (01) ==
LOC: C.LABBFT 14:12
PROVIDERS: ATTEND Nurse Practitioner
DX: D64.9 Anemia, unspecified (principal)

== ENCOUNTER 2018-09-19 00:24 | Inpatient (IN) ==
[2018-09-19] MEDS ORDERED: ALBUT/IPRATROP 3MG/0.5MG NEB 3 ML VIAL NEB ONE (00:36)
[2018-09-19 00:57] LABS: Basophils # (auto) 0.02 K/uL (0-0.2); Basophils % (auto) 0.2 %; Eosinophils # (auto) 0.11 K/uL (0-0.5); Eosinophils % (auto) 1.1 %; Hematocrit (blood only) 32.7 % (42-52); Hemoglobin 10.2 g/dL (14.0-18.0); Immature Granulocytes # (auto) 0.08 K/uL (0.00-0.02); Immature Granulocytes % (auto) 0.8 %; Lymphocytes # (auto) 0.84 K/uL (1.2-3.4); Lymphocytes % (auto) 8.1 %; Mean Corpuscular Hgb Conc 31.2 g/dL (32-36); Mean Corpuscular Volume 96.5 fL (80-100); Mean Platelet Volume 8.8 fL (7.4-10.4); Monocytes # (auto) 0.72 K/uL (0.11-0.59); Monocytes % (auto) 6.9 %; Neutrophils # (auto) 8.59 K/uL (1.4-6.5); Neutrophils % (auto) 82.9 %; Platelet Count 389 K/uL (130-400); RDW Coefficient of Variation 15.2 % (11.5-14.5); RDW Standard Deviation 53.9 fL (36.4-46.3); Red Blood Count 3.39 M/uL (4.7-6.1); White Blood Count 10.36 K/uL (4.8-10.8)
[2018-09-19 01:17] LABS: Albumin Level 2.6 gm/dl (3.4-5.0); BUN Creatinine Ratio 22.8 (10-20); Calcium 8.3 mg/dl (8.5-10.1); Creatinine Clr Calc Pharmacy 47.2 ml/min; Potassium 4.7 mmol/L (3.5-5.1)
[2018-09-19 01:20] LABS: INR 1.2 (0.9-1.1); Partial Thromboplastin Ratio 1.1; Partial Thromboplastin Time 28.1 Seconds (21.0-31.0)
[2018-09-19 01:24] LABS: Albumin Globulin Ratio 0.6 (0.9-2); Bilirubin,Total 0.3 mg/dl (0.2-1); Globulin 4.4 gm/dl (2.5-4.0); Troponin I 0.779 ng/ml (0-0.045)
[2018-09-19] MEDS ORDERED: FUROSEMIDE 40 MG/4 ML VIAL IV STA (01:31)
[2018-09-19] MEDS ORDERED: FUROSEMIDE 40 MG/4 ML VIAL IV ONE (01:32)
[2018-09-19 02:02] LABS: Appearance Urine Clear (Clear); Bacteria Urine Automated Negative (Negative); Bilirubin Urine Negative (Negative); Blood Urine Negative (Negative); Color Urine Yellow; Glucose Urine UA Negative (Negative); Ketones Urine Trace (Negative); Leukocyte Esterase Urine Negative (Negative); Nitrite Urine Negative (Negative); Protein Urine Trace (Negative); RBC Urine Automated 0-4 /hpf (0-4); Specific Gravity Urine 1.026 (1.000-1.030); Urobilinogen Urine Negative (Negative)
[2018-09-19] MEDS ORDERED: LEVOFLOXACIN/D5W 750 MG/150 ML BAG IV STA (03:10)
--- NOTE | 2018-09-19 05:09 | History & Physical Report ---
Date of Service September 19, 2018 Assessment & Plan (1) Dyspnea: Etiology uncertain. Ddx to include COPD/emphysema exacerbation vs infectious process vs CHF exacerbation vs ACS/cardiac etiology. Difficult to ascertain clear history of what happened this evening. Patient is afebrile, hemodynamically stable and not coughing at present although he appears to be at risk for aspiration. He appears to be volume overloaded on physical exam as well as diffusely wheezy. Positive troponin and EKG changes present as well. * Check Procalcitonin * Check BNP * Check 2D echo * Trend cardiac enzymes * Patient given Lasix 40mg IV in the ER - will monitor I/O's and daily weights - monitor response. Cautious diuresis if needed given patient's history of moderate to severe * Will give Solumedrol, DuoNebs and Albuterol PRN * Patient was administered Levaquin in the ER - will hold additional antibiotics for now * Heparin gtt - standard with no bolus for concern for NSTEMI * (2) Elevated troponin: Unable to obtain clear history from the patient on whether or not he is experiencing chest pain or palpitations. His troponin is elevated at 0.779, EKG with ST depressions * Trend cardiac enzymes x 3 sets * Heparin gtt for now for possible NSTEMI * BNP and Echo as mentioned above * Consider Cardiology consultation * (3) JANY (acute kidney injury): BUN=34, Cr=1.5 which is up from baseline of 1.1. * Monitor BUN, Cr, electrolytes and UOP * Renal dosing where appropriate * Avoid nephrotoxic agents * F/E/N - patient administered Lasix 40mg IV in ER, will monitor response, replete electrolytes where needed, regular diet as tolerated with aspiration precautions Ppx - Heparin gtt for now Code - Full Dispo - admit to medical floor with telemetry, continuous pulse oximetry. Will attempt to obtain collateral information from family and [facility] History of Present Illness Chief Complaint: Shortness of breath Primary Care Provider: [facility] Patient is a 78yo male with intellectual disability, moderate-severe presenting from [facility] with shortness of breath. Patient is unable to provide a history due to cognitive impairment. No records available from [facility] at time of admission. No family at bedside. Patient arrived via ambulance on NRB. He was transitioned to [facility]. CXR and CT of the chest obtained which revealed bilateral moderate pleural effusions, bilateral upper airspace disease with consolidation. ER Course: DuoNeb x 1 hour, Lasix 40mg IV, Levaquin Allergies Allergy/AdvReac Type Severity Reaction Status Date / Time No Known Allergies Allergy Unverified 09/19/18 02:58 Home Medications Home Medications Medication Instructions Recorded Confirmed Type No Known Home Medications 09/19/18 09/19/18 History Past Med/Surg History Medical History Mental retardation (Chronic) Respiratory arrest Aortic stenosis No significant past surgical history Family History Other Family history non-contributory Social History Feels Safe at Home: Yes Smoking Status: Unknown if ever smoked Preferred Language: [place] Review of Systems Unobtainable due to cognitive status Physical Exam 2 Vital Signs (Past 24 Hours): Last Vital Signs Temp 37.6 C H 09/19/18 00:47 Pulse 83 09/19/18 04:00 Resp 20 09/19/18 04:00 BP 119/82 09/19/18 04:00 Pulse Ox 98 09/19/18 04:00 Physical Exam: General: patient resting comfortably, arousable, does not answer questions, oriented to self Skin: warm, dry, intact, lesion on right neck with dressing inplace HEENT: NC/AT, PERRL, EOMI, anicteric sclera, conjunctiva without injection, external ear normal to inspection and nontender, nares patent, dry mucus membranes, adentulous, no oropharyngeal lesions, neck supple, trachea midline, no LAD, no thyromegaly, no JVD Heart: +S1/S2, regular, 3/6 MICAH at 2nd right ICS with radiation across the precordium and into bilateral carotids Lungs: equal air entry bilaterally, prolonged expiratory phase with diffuse expiratory wheezing in bilateral lung [place], diminished breath sounds in right upper lung field Abd: +BS, soft, NT/ND, no masses/organomegaly/ascites Ext: warm, 2+ pulses in UE/LE bilaterally, no clubbing/cyanosis, 2+ pitting edema to thighs Neuro: nonfocal, patient AA&O to self, speech is not clear, no facial droop, moving all extremities on command with equal strength 5/5 Results & Data Laboratory Results Lab Results 09/19/18 09/19/18 09/19/18 Range/Units 00:46 00:46 00:46 WBC 10.36 (4.8-10.8) K/uL RBC 3.39 L (4.7-6.1) M/uL Hgb 10.2 L (14.0-18.0) g/dL Hct 32.7 L (42-52) % MCV 96.5 (80-100) fL MCH 30.1 (25-34) pg MCHC 31.2 L (32-36) g/dL RDW Std Deviation 53.9 H (36.4-46.3) fL RDW Coeff of Courtney 15.2 H (11.5-14.5) % Plt Count 389 (130-400) K/uL MPV 8.8 (7.4-10.4) fL Immature Gran % (Auto) 0.8 % Neut % (Auto) 82.9 % Lymph % (Auto) 8.1 % Alcorn % (Auto) 6.9 % Eos % (Auto) 1.1 % Baso % (Auto) 0.2 % Immature Gran # (Auto) 0.08 H (0.00-0.02) K/uL Neut # (Auto) 8.59 H (1.4-6.5) K/uL Lymph # (Auto) 0.84 L (1.2-3.4) K/uL Alcorn # (Auto) 0.72 H (0.11-0.59) K/uL Eos # (Auto) 0.11 (0-0.5) K/uL Baso # (Auto) 0.02 (0-0.2) K/uL PT 12.0 (9.0-12.0) Seconds INR 1.2 H (0.9-1.1) APTT 28.1 (21.0-31.0) Seconds PTT Ratio 1.1 Sodium 139 (136-145) mmol/L Potassium 4.7 (3.5-5.1) mmol/L Chloride 108 H (98-107) mmol/L Carbon Dioxide 28 (21-32) mmol/L Anion Gap 3.0 (3-11) BUN 34 H (7-18) mg/dl Creatinine 1.50 H (0.6-1.4) mg/dl Est Cr Clr Drug Dosing 47.2 ml/min Est GFR ( Amer) 51.0 Est GFR (Non-Af Amer) 44.0 BUN/Creatinine Ratio 22.8 H (10-20) Glucose 117 H (70-99) mg/dl Lactate (0.4-2.0) mmol/L Calcium 8.3 L (8.5-10.1) mg/dl Total Bilirubin 0.3 (0.2-1) mg/dl AST 34 (15-37) U/L ALT 41 (12-78) U/L Alkaline Phosphatase 88 (45-117) U/L Troponin I 0.779 H* (0-0.045) ng/ml Total Protein 7.0 (6.4-8.2) gm/dl Albumin 2.6 L (3.4-5.0) gm/dl Globulin 4.4 H (2.5-4.0) gm/dl Albumin/Globulin Ratio 0.6 L (0.9-2) Urine Color Urine Appearance (Clear) Urine pH (4.5-7.5) Ur Specific Pratt (1.000-1.030) Urine Protein (Negative) Urine Glucose (UA) (Negative) Urine Ketones (Negative) Urine Blood (Negative) Urine Nitrite (Negative) Urine Bilirubin (Negative) Urine Urobilinogen (Negative) Ur Leukocyte Esterase (Negative) Urine WBC (Auto) (0-5) /hpf Urine RBC (Auto) (0-4) /hpf U Hyaline Cast (Auto) (0-5) /lpf U Epithel Cells (Auto) (0-5) /lpf Urine Bacteria (Auto) (Negative) 09/19/18 09/19/18 Range/Units 00:46 01:45 WBC (4.8-10.8) K/uL RBC (4.7-6.1) M/uL Hgb (14.0-18.0) g/dL Hct (42-52) % MCV (80-100) fL MCH (25-34) pg MCHC (32-36) g/dL RDW Std Deviation (36.4-46.3) fL RDW Coeff of Courtney (11.5-14.5) % Plt Count (130-400) K/uL MPV (7.4-10.4) fL Immature Gran % (Auto) % Neut % (Auto) % Lymph % (Auto) % Alcorn % (Auto) % Eos % (Auto) % Baso % (Auto) % Immature Gran # (Auto) (0.00-0.02) K/uL Neut # (Auto) (1.4-6.5) K/uL Lymph # (Auto) (1.2-3.4) K/uL Alcorn # (Auto) (0.11-0.59) K/uL Eos # (Auto) (0-0.5) K/uL Baso # (Auto) (0-0.2) K/uL PT (9.0-12.0) Seconds INR (0.9-1.1) APTT (21.0-31.0) Seconds PTT Ratio Sodium (136-145) mmol/L Potassium (3.5-5.1) mmol/L Chloride (98-107) mmol/L Carbon Dioxide (21-32) mmol/L Anion Gap (3-11) BUN (7-18) mg/dl Creatinine (0.6-1.4) mg/dl Est Cr Clr Drug Dosing ml/min Est GFR ( Amer) Est GFR (Non-Af Amer) BUN/Creatinine Ratio (10-20) Glucose (70-99) mg/dl Lactate 0.8 (0.4-2.0) mmol/L Calcium (8.5-10.1) mg/dl Total Bilirubin (0.2-1) mg/dl AST (15-37) U/L ALT (12-78) U/L Alkaline Phosphatase (45-117) U/L Troponin I (0-0.045) ng/ml Total Protein (6.4-8.2) gm/dl Albumin (3.4-5.0) gm/dl Globulin (2.5-4.0) gm/dl Albumin/Globulin Ratio (0.9-2) Urine Color Yellow Urine Appearance Clear (Clear) Urine pH 5.0 (4.5-7.5) Ur Specific Pratt 1.026 (1.000-1.030) Urine Protein Trace H (Negative) Urine Glucose (UA) Negative (Negative) Urine Ketones Trace H (Negative) Urine Blood Negative (Negative) Urine Nitrite Negative (Negative) Urine Bilirubin Negative (Negative) Urine Urobilinogen Negative (Negative) Ur Leukocyte Esterase Negative (Negative) Urine WBC (Auto) 1-5 (0-5) /hpf Urine RBC (Auto) 0-4 (0-4) /hpf U Hyaline Cast (Auto) 1-5 (0-5) /lpf U Epithel Cells (Auto) 5-10 H (0-5) /lpf Urine Bacteria (Auto) Negative (Negative) Diagnostic Findings CT Chest: bilateral moderate pleural effusions, bilateral upper lobe airspace disease with consolidation CT Head: no acute process ECG Additional Comments: NSR at 95bpm, normal axis, YW=716, QT=269, SDj=197, ST depressions present in lateral leads, V4-V6 with TW inversions Code Status & VTE Plan Code Status FULL - code status obtained from prior documentation. VTE Prophylaxis Plan VTE Prophylaxis will be ordered: No Critical Care Time Critical Care Time: No _ (1) Dyspnea Dyspnea type: shortness of breath Qualified Code(s): R06.02 - Shortness of breath; R06.00 - Dyspnea, unspecified; R06.01 - Orthopnea
[2018-09-19] MEDS ORDERED: SODIUM CHLORIDE 0.9% 250 ML IV SCH (06:23)
[2018-09-19] MEDS ORDERED: Heparin IV Standard *NO* Bolus SCH (06:23)
[2018-09-19] MEDS ORDERED: ACETAMINOPHEN 325 MG TAB PO PRN (06:23)
[2018-09-19] MEDS ORDERED: ALBUTEROL 0.5% NEB SOLN 2.5 MG/0.5 ML VIAL NEB PRN (06:23)
--- NOTE | 2018-09-19 06:27 | CT Scan Report ---
CT head/brain wo con CT DOSE: 614.27 mGy.cm HISTORY: Mental status change eval for stroke TECHNIQUE: Multiaxial CT images of the head were performed without the use of intravenous contrast. A dose lowering technique was utilized adhering to the principles of ALARA. Comparison: 03/23/2018 Findings: The paranasal sinuses and mastoid air cells are clear. The calvarium and skull base are int act. The ventricles and sulci are within normal limits. There is no mass, hematoma, midline shift, or acute infarct. Impression: No acute intracranial abnormality. Age-related change. The above report was generated using voice recognition software. It may contain grammatical, syntax or spelling errors. Electronically signed by: Alfred Rodgers M.D. 09/19/2018 6:26 AM
--- NOTE | 2018-09-19 06:39 | CT Scan Report ---
CT OF THE CHEST WITHOUT IV CONTRAST CLINICAL HISTORY: Sepsis. Evaluate for CHF vs empyema vs collapse. COMPARISON STUDY: Chest CT April 01, 2017 and chest radiograph performed earlier today. CT DOSE: 852.07 mGy.cm TECHNIQUE: Axial images of the chest were obtained without IV contrast. Images were reviewed in the axial, sagittal, and coronal planes. IV contrast was not administered for this examination. Automat ed exposure control was utilized for the study. A dose lowering technique was utilized adhering to t he principles of ALARA. FINDINGS: The heart is moderately enlarged. There is extensive coronary artery calcification. Aortic valvular calcification is noted. There is no pericardial effusion. Note is made of moderate bilatera l pleural effusions. There is no pneumothorax. Lungs are suboptimally assessed given respiratory dodie on. There is extensive bilateral upper lobe predominant airspace opacity with upper lobe volume loss. There is no central obstructing mass. The airways appear narrowed. There are secretions within the t rachea. There is no cavitation. There are scattered additional mild bilateral lower lobe, lingular an d right middle lobe opacities. Calcified bilateral hilar lymph nodes are noted. There are old rib fra ctures. Extensive anterior osteophytosis of the thoracic spine is noted. A few old compression deform ities are noted. Upper abdomen is unremarkable. IMPRESSION: 1. Extensive bilateral upper lobe predominant airspace opacity. Pneumonia is favored although pulmona ry edema could appear similar. No cavitation. No central obstructing mass although central airways ap pear narrowed. Minimal secretions within the trachea. Aspiration pneumonitis is within the differenti al although the location is atypical. Radiographic follow-up to ensure resolution is recommended. 2. Moderate bilateral pleural effusions. 3. Extensive coronary artery calcification. Aortic valvular calcification. Moderate cardiomegaly. Electronically signed by: Quinten Sky M.D. 09/19/2018 6:37 AM
--- NOTE | 2018-09-19 06:49 | XRay Report ---
XR chest 1V portable CLINICAL HISTORY: 78 years-old Male presenting with Sepsis. TECHNIQUE: Portable upright AP view of the chest was obtained. COMPARISON: 03/23/2018. FINDINGS: Atherosclerosis of the aortic arch. Cardiac silhouette enlarged. Bronchial wall thickening. Interval development of significant dense opacities with a upper lobe predominance. Small bilateral pleural ef fusions. Mildly low lung volumes. Osteopenia suspected. Degenerative changes of the thoracic spine. U pper abdomen normal. IMPRESSION: 1. Severe infiltrates with an upper lobe predominance consistent with multifocal pneumonia. 2. Small bilateral parapneumonic effusions. Electronically signed by: Doug Garcia M.D. 09/19/2018 6:48 AM
[2018-09-19] MEDS ORDERED: HEPARIN STANDARD DEXTROSE 25,000 UNITS/500 ML IV SCH (07:03)
--- NOTE | 2018-09-19 07:05 | Emergency Department Note ---
Entered by Oanh Blackburn acting as a scribe for History of Present Illness General Chief complaint: Shortness of Breath/Dyspnea Time Seen by Provider: 09/19/18 00:27 Source: other (nursing staff) Limitations: other (cognitive state) History of Present Illness The patient is a 78 year old male who presents to the Emergency Room with complaints of SOB that began today SOLDER SPRAYER. Per the nursing staff, the patient had an oxygen saturation in the 80s SOLDER SPRAYER. The nursing staff states that the patient has normally gurgled speech. The nursing staff reports that the patient couldn' t life his upper extremity, but the staff [facility] the [facility] is unsure of when this started. Per the nursing staff, the patient had a nebulizer SOLDER SPRAYER. The nursing staff states that the patient recently had the flu. HPI and ROS limited secondary to patient's cognitive state. Home Medications Home Medications Medication Instructions Recorded Confirmed Type No Known Home Medications 09/19/18 09/19/18 History Allergies Allergy/AdvReac Type Severity Reaction Status Date / Time No Known Allergies Allergy Unverified 09/19/18 02:58 Past Med/Surg History Medical History Mental retardation (Chronic) Respiratory arrest Aortic stenosis No significant past surgical history Family History Other Family history non-contributory Social History Current Living Situation: Skilled Nursing Other Information That Helps Us Care for You: No Feels Safe at Home: Yes Safety Concerns: Afraid for Self Smoking Status: Unknown if ever smoked Preferred Language: [place]de[place] Communication Ability: Impaired Communication Ability Comment: nnacy 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 ) Physical Exam Vital Signs Vital Signs - 24 hr 09/19/18 00:43 09/19/18 00:47 09/19/18 01:35 Temperature 37.6 C H Temperature Source Rectal Sepsis Recent Fever Within 48 Hours No Sepsis New/Unexplained Change in Mental Status No Sepsis Action Taken by Nursing No Action Required Pulse Rate 87 Pulse Rate [Apical] 92 H 88 Pulse Rhythm Regular Pulse Rhythm [Apical] Regular Pulse Strength Normal Pulse Strength [Apical] Normal Respiratory Rate 24 30 H 28 H Respiratory Effort / Characteristics Spontaneous Labored Spontaneous Labored Respiratory Depth Deep Deep Respiratory Pattern Regular Regular Tachypnea Blood Pressure 120/87 Blood Pressure [Left Arm] 98/58 L Blood Pressure [Right Arm] Blood Pressure Mean 98 Blood Pressure Mean [Left Arm] 71 Blood Pressure Mean [Right Arm] Pulse Oximetry 97 97 98 Oxygen Delivery Method Oxymask Oxymask Aerosol Mask Oxygen Flow Rate 8 10 09/19/18 03:00 09/19/18 03:03 09/19/18 03:31 Temperature Temperature Source Sepsis Recent Fever Within 48 Hours Sepsis New/Unexplained Change in Mental Status Sepsis Action Taken by Nursing Pulse Rate 86 81 Pulse Rate [Apical] 86 Pulse Rhythm Pulse Rhythm [Apical] Regular Pulse Strength Pulse Strength [Apical] Normal Respiratory Rate 24 19 16 Respiratory Effort / Characteristics Non-Labored Spontaneous Respiratory Depth Normal Respiratory Pattern Regular Blood Pressure 113/66 86/57 L Blood Pressure [Left Arm] 113/66 Blood Pressure [Right Arm] Blood Pressure Mean 81 66 Blood Pressure Mean [Left Arm] 81 Blood Pressure Mean [Right Arm] Pulse Oximetry 97 98 97 Oxygen Delivery Method Nasal Cannula Nasal Cannula Nasal Cannula Oxygen Flow Rate 4 09/19/18 04:00 09/19/18 04:20 09/19/18 04:31 Temperature Temperature Source Sepsis Recent Fever Within 48 Hours Sepsis New/Unexplained Change in Mental Status Sepsis Action Taken by Nursing Pulse Rate 83 81 76 Pulse Rate [Apical] Pulse Rhythm Pulse Rhythm [Apical] Pulse Strength Pulse Strength [Apical] Respiratory Rate 20 15 15 Respiratory Effort / Characteristics Respiratory Depth Respiratory Pattern Blood Pressure 119/82 96/59 L Blood Pressure [Left Arm] Blood Pressure [Right Arm] Blood Pressure Mean 94 71 Blood Pressure Mean [Left Arm] Blood Pressure Mean [Right Arm] Pulse Oximetry 98 97 98 Oxygen Delivery Method Nasal Cannula Oxygen Flow Rate 09/19/18 04:40 09/19/18 05:00 09/19/18 05:01 Temperature Temperature Source Sepsis Recent Fever Within 48 Hours Sepsis New/Unexplained Change in Mental Status Sepsis Action Taken by Nursing Pulse Rate 77 76 82 Pulse Rate [Apical] Pulse Rhythm Pulse Rhythm [Apical] Pulse Strength Pulse Strength [Apical] Respiratory Rate 15 16 18 Respiratory Effort / Characteristics Respiratory Depth Respiratory Pattern Blood Pressure 94/55 L Blood Pressure [Left Arm] Blood Pressure [Right Arm] Blood Pressure Mean 68 Blood Pressure Mean [Left Arm] Blood Pressure Mean [Right Arm] Pulse Oximetry 97 98 99 Oxygen Delivery Method Nasal Cannula Oxygen Flow Rate 09/19/18 05:20 09/19/18 05:30 09/19/18 06:05 Temperature 36.4 C L Temperature Source Oral Sepsis Recent Fever Within 48 Hours Sepsis New/Unexplained Change in Mental Status Sepsis Action Taken by Nursing Pulse Rate 76 74 Pulse Rate [Apical] 85 Pulse Rhythm Pulse Rhythm [Apical] Pulse Strength Pulse Strength [Apical] Respiratory Rate 15 15 26 H Respiratory Effort / Characteristics Short of Breath Respiratory Depth Respiratory Pattern Blood Pressure 89/57 L Blood Pressure [Left Arm] Blood Pressure [Right Arm] 102/63 Blood Pressure Mean 67 Blood Pressure Mean [Left Arm] Blood Pressure Mean [Right Arm] 76 Pulse Oximetry 95 96 100 Oxygen Delivery Method Nasal Cannula Oxygen Flow Rate 2.5 HEENT: Head - normocephalic and atraumatic Pupils are equal, round, and reactive to light. Extraocular eye muscles are intact, and sclera are anicteric. Nose - moist nasal mucosa without discharge. Mouth - moist buccal mucosa. Oropharynx is nonerythematous and there is no tonsillar exudate or edema noted. Neck: Supple; no JVD, nuchal rigidity, cervical lymphadenopathy. Heart: Tachycardic rate and rhythm. There is a normal S1 and S2 with no murmurs , clicks, or gallops appreciated. Lungs: Diffuse inspiratory and expiratory wheezing, rales throughout. Abdomen: Soft, completely nontender, distended, with good bowel sounds. There are no palpable pulsatile masses or hepatosplenomegaly. There is no guarding, rigidity, or rebound noted. Extremities: No evidence of cyanosis, clubbing, or edema. There are easily palpable peripheral pulses. Pitting edema in the lower extremities up to the groin. Skin: warm and dry with good turgor and no rashes. Neuro: The patient seemed to have some slurred speech and at times was garbled and difficult to understand but did seem to answer questions appropriately. He was moving all 4 extremities but was unable to fully raise his right upper extremity up over his head. In fact, he would use his left hand to grab his right wrist to raise it up over his head. Course 0028: Past medical records reviewed. The patient was evaluated in room B11B, and a complete history and physical examination were performed. A septic protocol was performed. The patient was in moderate respiratory distress. Without oxygen, his O2 saturations were as low as 83%. He was placed on oxygen mask. A 12-lead EKG was obtained. 0036: Duoneb 12 ml NEB. A portable chest x-ray was obtained and revealed significantly reduced lung volumes with moderate congestive heart failure and bilateral patchy infiltrates. 0131: Lasix 40 mg IV. The patient's vital signs remained stable. 0200: I checked on the patient. He is more comfortable with respiration. He is waiting on an X-ray and CT. 0305: I checked on the patient. He was in no significant respiratory distress. His vital signs were stable. He went for CT scan of the chest and brain. 0310: Levaquin/D5w 750 mg in 150 mls @ 100 mls/hr IV 0314: I spoke with Dr. Triana, [facility] hospitalist, about the patient's case. She will evaluate the patient further. Consultations Consultation #1: I spoke with Dr. Triana, [facility] hospitalist, about the patient's case. She will evaluate the patient further. Time: 03:14 Administered Medications Discontinued Medications Albuterol (Duoneb) 12 ml NEB ONE ONE Stop: 09/19/18 00:37 Last Admin: 09/19/18 00:43 Dose: 12 ml Furosemide (Lasix) 40 mg IV NOW STA Stop: 09/19/18 01:32 Last Admin: 09/19/18 01:34 Dose: 40 mg Furosemide (Lasix) Confirm Administered Dose 40 mg IV .STK-MED ONE Stop: 09/19/18 01:33 Last Admin: 09/19/18 01:34 Dose: Not Given Levofloxacin/Dextrose (Levaquin/D5w) 750 mg in 150 mls @ 100 mls/hr IV NOW STA Stop: 09/19/18 04:39 Last Infusion: 09/19/18 04:45 Dose: 0 mls/hr Admin: 09/19/18 03:18 Dose: 100 mls/hr Sodium Chloride (Nss) 250 mls @ 999 mls/hr IV .Q16M CECE Stop: 09/19/18 06:38 Last Admin: 09/19/18 06:44 Dose: 999 mls/hr Medical Decision Making Differential Diagnosis The differential diagnosis includes: sepsis, pneumonia, influenza, respiratory failure, stroke, CHF, and cardiac ischemia. Medical Records Attestation: I reviewed the patient's medical records. Home Medications Current Medication List: was personally reviewed by me Laboratory Data Attestation: I reviewed the patient's lab results. Result diagrams: 09/19/18 00:46 09/19/18 00:46 Lab Results 09/19/18 09/19/18 09/19/18 Range/Units 00:46 00:46 00:46 WBC 10.36 (4.8-10.8) K/uL RBC 3.39 L (4.7-6.1) M/uL Hgb 10.2 L (14.0-18.0) g/dL Hct 32.7 L (42-52) % MCV 96.5 (80-100) fL MCH 30.1 (25-34) pg MCHC 31.2 L (32-36) g/dL RDW Std Deviation 53.9 H (36.4-46.3) fL RDW Coeff of Courtney 15.2 H (11.5-14.5) % Plt Count 389 (130-400) K/uL MPV 8.8 (7.4-10.4) fL Immature Gran % (Auto) 0.8 % Neut % (Auto) 82.9 % Lymph % (Auto) 8.1 % [place] % (Auto) 6.9 % Eos % (Auto) 1.1 % Baso % (Auto) 0.2 % Immature Gran # (Auto) 0.08 H (0.00-0.02) K/uL Neut # (Auto) 8.59 H (1.4-6.5) K/uL Lymph # (Auto) 0.84 L (1.2-3.4) K/uL [place] # (Auto) 0.72 H (0.11-0.59) K/uL Eos # (Auto) 0.11 (0-0.5) K/uL Baso # (Auto) 0.02 (0-0.2) K/uL PT 12.0 (9.0-12.0) Seconds INR 1.2 H (0.9-1.1) APTT 28.1 (21.0-31.0) Seconds PTT Ratio 1.1 Sodium 139 (136-145) mmol/L Potassium 4.7 (3.5-5.1) mmol/L Chloride 108 H (98-107) mmol/L Carbon Dioxide 28 (21-32) mmol/L Anion Gap 3.0 (3-11) BUN 34 H (7-18) mg/dl Creatinine 1.50 H (0.6-1.4) mg/dl Est Cr Clr Drug Dosing 47.2 ml/min Est GFR ( Amer) 51.0 Est GFR (Non-Af Amer) 44.0 BUN/Creatinine Ratio 22.8 H (10-20) Glucose 117 H (70-99) mg/dl Lactate (0.4-2.0) mmol/L Calcium 8.3 L (8.5-10.1) mg/dl Total Bilirubin 0.3 (0.2-1) mg/dl AST 34 (15-37) U/L ALT 41 (12-78) U/L Alkaline Phosphatase 88 (45-117) U/L Troponin I 0.779 H* (0-0.045) ng/ml Total Protein 7.0 (6.4-8.2) gm/dl Albumin 2.6 L (3.4-5.0) gm/dl Globulin 4.4 H (2.5-4.0) gm/dl Albumin/Globulin Ratio 0.6 L (0.9-2) Urine Color Urine Appearance (Clear) Urine pH (4.5-7.5) Ur Specific [place] (1.000-1.030) Urine Protein (Negative) Urine Glucose (UA) (Negative) Urine Ketones (Negative) Urine Blood (Negative) Urine Nitrite (Negative) Urine Bilirubin (Negative) Urine Urobilinogen (Negative) Ur Leukocyte Esterase (Negative) Urine WBC (Auto) (0-5) /hpf Urine RBC (Auto) (0-4) /hpf U Hyaline Cast (Auto) (0-5) /lpf U Epithel Cells (Auto) (0-5) /lpf Urine Bacteria (Auto) (Negative) 09/19/18 09/19/18 Range/Units 00:46 01:45 WBC (4.8-10.8) K/uL RBC (4.7-6.1) M/uL Hgb (14.0-18.0) g/dL Hct (42-52) % MCV (80-100) fL MCH (25-34) pg MCHC (32-36) g/dL RDW Std Deviation (36.4-46.3) fL RDW Coeff of Courtney (11.5-14.5) % Plt Count (130-400) K/uL MPV (7.4-10.4) fL Immature Gran % (Auto) % Neut % (Auto) % Lymph % (Auto) % [place] % (Auto) % Eos % (Auto) % Baso % (Auto) % Immature Gran # (Auto) (0.00-0.02) K/uL Neut # (Auto) (1.4-6.5) K/uL Lymph # (Auto) (1.2-3.4) K/uL [place] # (Auto) (0.11-0.59) K/uL Eos # (Auto) (0-0.5) K/uL Baso # (Auto) (0-0.2) K/uL PT (9.0-12.0) Seconds INR (0.9-1.1) APTT (21.0-31.0) Seconds PTT Ratio Sodium (136-145) mmol/L Potassium (3.5-5.1) mmol/L Chloride (98-107) mmol/L Carbon Dioxide (21-32) mmol/L Anion Gap (3-11) BUN (7-18) mg/dl Creatinine (0.6-1.4) mg/dl Est Cr Clr Drug Dosing ml/min Est GFR ( Amer) Est GFR (Non-Af Amer) BUN/Creatinine Ratio (10-20) Glucose (70-99) mg/dl Lactate 0.8 (0.4-2.0) mmol/L Calcium (8.5-10.1) mg/dl Total Bilirubin (0.2-1) mg/dl AST (15-37) U/L ALT (12-78) U/L Alkaline Phosphatase (45-117) U/L Troponin I (0-0.045) ng/ml Total Protein (6.4-8.2) gm/dl Albumin (3.4-5.0) gm/dl Globulin (2.5-4.0) gm/dl Albumin/Globulin Ratio (0.9-2) Urine Color Yellow Urine Appearance Clear (Clear) Urine pH 5.0 (4.5-7.5) Ur Specific [place] 1.026 (1.000-1.030) Urine Protein Trace H (Negative) Urine Glucose (UA) Negative (Negative) Urine Ketones Trace H (Negative) Urine Blood Negative (Negative) Urine Nitrite Negative (Negative) Urine Bilirubin Negative (Negative) Urine Urobilinogen Negative (Negative) Ur Leukocyte Esterase Negative (Negative) Urine WBC (Auto) 1-5 (0-5) /hpf Urine RBC (Auto) 0-4 (0-4) /hpf U Hyaline Cast (Auto) 1-5 (0-5) /lpf U Epithel Cells (Auto) 5-10 H (0-5) /lpf Urine Bacteria (Auto) Negative (Negative) Imaging Data Attestation: I personally reviewed and interpreted this imaging study as follows : My Impression: XR CHEST: Bilateral diffuse patchy infiltrates and pulmonary edema, concerning for CHF and probably airspace opacities. Radiologist's Impression: Radiology results as stated below per my review and the radiologist's interpretation: CT HEAD: Comparison 03/23/18 No visualized acute intracranial hemorrhage or mass effect. No current CT evidence for cortical edema or territorial infarct. Scant fluid in the maxillary sinuses. No mastoid effusion. Cortical involutional changes. Radiologist: Steven Berg MD Study ready at 02:29 and initial results transmitted at 02:34 CT CHEST Without Contrast: Comparison 04/01/17 Bilateral moderate pleural effusions. Bilateral, upper, lobe predominant airspace disease with consolidation which could represent pneumonia or other infiltrate. Consider posttreatment imaging to ensure solution. Mild cardiomegaly. Extensive multivessel coronary artery plaque. Atherosclerosis of the aorta and its branches, limitedly characterized on noncontrast imaging. Old granulomatous changes. Degenerative disc changes. Radiologist: Steven Berg MD Study ready at 02:38 and initial results transmitted at 02:52. 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 The patient is a resident at [facility]. The nursing staff noted that the patient was unable to move his right upper extremity like he had in the past. They also noted that he was increasingly short of breath. They checked an oxygen saturation and found to be 83%. He was transported here for evaluation. Chest x-ray reveals moderate to severe pulmonary edema and bilateral infiltrates. He went for CT scan of the chest to further characterize this. I was concerned about the patient's right upper extremity weakness. He went for CT scan of the brain which was unremarkable. I discussed the case with the [facility] Hospitalist and they will evaluate for further management. The patient had no fever, leukocytosis or elevated lactate to suggest sepsis. He was given a dose of IV Levaquin for his presumed bilateral pneumonias. The patient had been receiving Tamiflu for influenza. Chest x-ray findings could represent a viral pneumonia. Impression & Plan Pneumonia, CHF (congestive heart failure), Hypoxia Critical Care Time I have personally spent greater than 90 minutes of critical care time in the direct management of this patient. This includes bedside care, interpretation of diagnostic studies, and testing, discussion with consultants, patient, and family members, and other required patient management activities. This 90 minutes is in excess of all separately billable procedures. Critical Care Time: Yes Total Critical Care Time: 90 Discharge Plan Visit Data *Final* Discharge Date/Time: 09/19/18 05:33 Chief Complaint: Shortness of Breath/Dyspnea Other Complaint: Weakness ED Provider: Zonia Demarco Discharge Problem: Pneumonia, CHF (congestive heart failure), Hypoxia Patient Disposition: Admitted As Inpatient Discharge Instructions Interventions: ED Discharge Assessment Last Done: 09/19/18 05:33 The scribe's documentation has been prepared under my direction and personally reviewed by me in its entirety. I confirm that the note above accurately reflects all work, treatment, procedures, and medical decision making performed by me.
[2018-09-19] MEDS ORDERED: INFLUENZA VACCINE HIGH DOSE 65+ 0.5 ML SYR IM ONE (07:45)
[2018-09-19] MEDS ORDERED: PNEUMOCOCCAL POLYSACCHARIDES 25 MCG/0.5 ML VIAL/SYR IM ONE (07:45)
[2018-09-19] MEDS ORDERED: PNEUMOCOCCAL ADMINISTRATION CHARGE ONE (07:45)
[2018-09-19] MEDS ORDERED: INFLUENZA ADMINISTRATION CHARGE ONE (07:45)
[2018-09-19] MEDS: methylPREDNISolone 40 MG in SYRINGE 0 ML IV SCH ×3 (08:01→20:11)
[2018-09-19 08:04] LABS: Magnesium 2.3 mg/dl (1.8-2.4); Phosphorus 4.1 mg/dl (2.5-4.9); Troponin I 0.649 ng/ml (0-0.045)
[2018-09-19] MEDS ORDERED: methylPREDNISolone 125 MG/2 ML VIAL IV SCH (09:00)
[2018-09-19] MEDS ORDERED: PIPERACILL/TAZOBAC CONSULT ACTIVE PRN (09:39)
[2018-09-19] MEDS ORDERED: VANCOMYCIN CONSULT ACTIVE PRN (09:39)
[2018-09-19] MEDS ORDERED: PIPERACILLIN/TAZOBACTAM 3.375 GM in DEXTROSE 5% 100 ML IV ONE (10:00)
[2018-09-19] MEDS ORDERED: VANCOMYCIN HCL 2,250 MG in SODIUM CHLORIDE 0.9% 500 ML IV ONE (10:30)
[2018-09-19] MEDS: ALBUT/IPRATROP 3MG/0.5MG NEB 3 ML VIAL NEB SCH ×5 (11:28→23:18)
--- NOTE | 2018-09-19 13:33 | Consultation Report ---
DATE OF CONSULTATION: 09/19/2018 PULMONARY CONSULTATION TIME: 12:50 p.m. REPORT OF CONSULTATION: The patient was seen in room 287. HISTORY OF PRESENT ILLNESS: He is a 78-year-old mentally challenged male who resides at [facility]. He was brought to the Emergency Room earlier today for complaints of shortness of breath. It appears he came shortly after midnight. Reportedly, his saturations were in the 80s. The patient is difficult to get a history from. He is not oriented and his speech is slurry. The speech is a chronic issue reportedly. The patient holds his throat. I cannot tell if he is complaining of a sore throat or if he feels that he is congested in the throat. He does cough. I do not believe anyone has seen him expectorate sputum. The patient denies chest pains. He did have a fever in the Emergency Room of 37.6 and his respiratory rate was elevated to 30. He denies feeling sick in the stomach. He does complain of some lower abdominal pain. He reportedly has been urinating okay since he was admitted. I cannot obtain much history other than that from him. It may be notable that the patient was hospitalized in March 2017 with a respiratory arrest after aspirating a bolus of food. PAST MEDICAL HISTORY: 1. Mental retardation. 2. Respiratory arrest as noted. 3. Aortic stenosis - moderate to severe based upon prior echo. 4. Anemia. PAST SURGICAL HISTORY: Reportedly none. The patient does have a scar on his forehead, but that might well be just from a laceration. He did, however, have a scar in his abdominal wall and I suspect he had some type of surgery. SOCIAL HISTORY: The patient admits to being a smoker. I could not determine how much or for how long. FAMILY HISTORY: The patient could not tell me anything. Prior chart indicated noncontributory. ALLERGIES: Reportedly none. MEDICATIONS: At the [facility] - reportedly none. REVIEW OF SYSTEMS: Negative except as noted above. Again, this was somewhat limited. PHYSICAL EXAMINATION: GENERAL: The patient is a pleasant 78-year-old male who was cooperative and alert. He was not oriented. He could not tell me the month or the year. VITAL SIGNS: Temperature is 36.7. In the ER at time of admission, temperature was 37.6. HEENT: Eye exam suggests he may have had a cataract done on one eye and he has a cataract on the other eye. Nares were difficult to evaluate. Mouth exam showed an absence of teeth. He did have some dried yellow to green sputum in the back of the throat. NECK: Palpation of the neck reveals no lymph nodes. SKIN: He does have a skin lesion in the right supraclavicular fossa. This could be a skin cancer. CARDIAC: The cardiac rate was 80. Rhythm is regular. Blood pressure 111/65. Review of the hospital monitor did show occasional extrasystole. LUNGS: Respiratory rate was 18 breaths per minute and not labored. Auscultation revealed some upper lung field rales anteriorly and posteriorly. Some posterior wheezing was heard in the mid and lower lung field. Oxygen saturation was 95% on 2.5 liters. ABDOMEN: Soft. It appears that he has a scar in the lower abdominal region. Bowel sounds were present. He complained of a little pain in the lower abdominal region. He did not feel to be exceedingly firm in this area and he did not percuss as if he had a distended bladder. EXTREMITIES: Showed no cyanosis, clubbing or edema. Forehead shows a prominent scar from prior laceration. DIAGNOSTIC DATA: The patient's chest x-ray showed severe infiltrates mainly in the upper lung [place] suggesting multifocal pneumonia with small to moderate bilateral pleural effusions. This x-ray represented a significant change compared with 03/23/2018 when he was clear. This was a portable x-ray. The heart size seemed to be much larger than prior and perhaps we should exclude pericardial effusion. A CAT scan of the chest was done without contrast. This showed very extensive bilateral upper lobe predominant airspace opacities, most resembling pneumonia. Pulmonary edema would be less likely, but not impossible. One might consider aspiration under the circumstances. There were moderate pleural effusions. Cardiomegaly was noted. No definite pericardial effusion was seen. LABORATORY DATA: White count today is 10.36. Hemoglobin 10.2. Platelets 389,000. Coags were unremarkable. Electrolytes show sodium 138, potassium 4.7, chloride 108, bicarbonate 28. BUN is 34 with a creatinine of 1.5. It should be noted his prior creatinine was 1.16. Blood sugar was 117. Calcium was 8.3. Troponin was elevated to 0.779. Albumin was 2.6 with globulin 4.4. Homocysteine level was elevated at 15.4. Procalcitonin was normal. Urinalysis was unremarkable. Flu test from 09/2018 was positive for influenza A. IMPRESSION: 1. Bilateral pneumonia. 2. Bilateral pleural effusions. 3. Acute elevation of creatinine. 4. Recent influenza. COMMENTS: The patient has significant infiltrates in the upper lung [place]. One would be very concerned about the possibility of aspiration. He likely should have a swallow evaluation while he is still here. He is being treated with Zosyn and vancomycin and I agree with that. The patient is on methylprednisolone. Hopefully, that can be tapered soon if his status improves. He is on neb treatments. I agree with all of these measures. The patient needs close observation at present. He will need followup x-rays to follow until clear. The effusions also need to be followed. The best guess would be that the effusions are related to the infection, but that is not definite. Thank you for asking me to assist in his care.
[2018-09-19 14:17] LABS: Partial Thromboplastin Ratio 2.2
[2018-09-19 14:18] LABS: Partial Thromboplastin Time 58.1 Seconds (21.0-31.0)
--- NOTE | 2018-09-19 15:08 | Pharmacy Report ---
Pharmacy Abx Initial Consult - Date of Service September 19, 2018 - Pharmacy Dosing Scope Date of Consult: 09/19/18 Consultation requested by: Dr. Wheeler Pharmacy is consulted to initiate Vancomycin and Zosyn IV dosing therapy, order appropriate labs and adjust drug dose/frequency. - Subjective The patient is a 78 year old M admitted on 09/19/18 05:41. - Objective Height: 6 ft 2 in Weight: 96.9 kg Vital Signs (Past 12hrs): Vital Signs Temp Pulse Pulse Pulse Resp BP BP 09/19/18 11:40 36.7 C 80 18 111/65 09/19/18 08:57 72 09/19/18 07:00 36.5 C 80 20 95/57 L 09/19/18 06:05 36.4 C L 85 26 H 09/19/18 05:30 74 15 89/57 L 09/19/18 05:20 76 15 09/19/18 05:01 82 18 94/55 L 09/19/18 05:00 76 16 09/19/18 04:40 77 15 09/19/18 04:31 76 15 96/59 L 09/19/18 04:20 81 15 09/19/18 04:00 83 20 119/82 09/19/18 03:31 81 16 86/57 L BP Pulse Ox 09/19/18 11:40 100 09/19/18 08:57 09/19/18 07:00 100 09/19/18 06:05 102/63 100 09/19/18 05:30 96 09/19/18 05:20 95 09/19/18 05:01 99 09/19/18 05:00 98 09/19/18 04:40 97 09/19/18 04:31 98 09/19/18 04:20 97 09/19/18 04:00 98 09/19/18 03:31 97 Lab Results (24hrs): Laboratory Tests (24 Hours) 09/19/18 09/19/18 09/19/18 07:03 00:46 00:46 WBC 10.36 Neut # (Auto) 8.59 H Creatinine 1.50 H Est Cr Clr Drug Dosing 47.2 Procalcitonin < 0.05 Micro Results: 09/19/18 00:40 Blood Culture - Pending Blood 09/19/18 00:46 Blood Culture - Pending Blood - Risk Factors for Resistance * Resident in a shelter or extended-care facility - Assessment & Plan Assessment 78 year old M admitted from [facility] with b/l pneumonia * MRSA nasal swab is negative. Vancomycin will be continued for now (patient reports recently suffering from the flu * Procalcitonin < 0.05 Plan Vancomycin IV * Estimated PK Parameters based on current renal function: Leobardo 0.043 hr-1, t1/2 16 hr (estimated T1/2 closer to 12 hours for baseline renal function) * Loading dose: 2250 mg (23 mg/kg) * Maintenance dose: 1500 mg IV (15.4 mg/kg) every 16 hours * Goal trough level for pneumonia : 15 to 20 mcg/mL * Trough level ordered for 09/21 * If rapid improvement is noted in patient clinical status, consider discontinuation of vancomycin (especially in the setting of negative MRSA nasal swab) Piperacillin/tazobactam * 3.375 g bolus administered over 30 minutes, then 3.375 g IV extended infusion every 8 hours for CrCl greater than 20 mL/min Pharmacy will continue to follow and will adjust dose/frequency as necessary. Thank you.
[2018-09-19] MEDS: PIPERACILLIN/TAZOBACTAM 3.375 GM in DEXTROSE 5% 100 ML IV SCH ×2 (16:16→22:50)
--- NOTE | 2018-09-19 16:22 | Cardiology Consultation ---
Date of Consultation September 19, 2018 Assessment & Plan (1) Elevated troponin: His troponin is elevated but has a descending pattern. The peak troponin is the first one which is 0.779, the third is 0.519. This is most consistent with demand ischemia from hypoxia and not an acute ischemic event. He has extensive coronary calcification on CT scanning and I suspect has underlying coronary artery disease which may contribute but this is not an indication for intervention. (2) Hypoxia: This is most likely due to his pulmonary process, I do not think it is primarily congestive heart failure although I cannot exclude a component of diastolic dysfunction. He does have left ventricular hypertrophy, but it is not characteristic of heart failure. (3) Aortic stenosis: He does have at least moderate aortic stenosis, however his left ventricular function is preserved and I do not think his hypoxia is due to heart failure, at least not from the valve. His left ventricular hypertrophy may be caused by his aortic stenosis. At this point I do not think treatment of his aortic stenosis is indicated. (4) Edema: He has significant peripheral edema, he does have a low albumin. I would try conservative measures first including leg elevation and may be support stockings and see if that helps, before diuresing since his creatinine is climbing and he is somewhat hypotensive. History of Present Illness Reason for Consultation: Hypoxia, aortic stenosis and elevated troponin Attending Physician: Zandra Wheeler MD History of Present Illness This is a 78-year-old male with mental retardation who lives at [facility]. He does have a history of aortic stenosis. He was complaining of shortness of breath today, he was hypoxic. He may also have had upper extremity weakness but had a CT scan which was unremarkable. He was brought into the emergency room. Here he was noted to have an elevated troponin and an elevated creatinine. His history is limited due to his cognitive impairment and I can obtain virtually no history. Allergies Allergy/AdvReac Type Severity Reaction Status Date / Time No Known Allergies Allergy Unverified 09/19/18 02:58 Home Medications Home Medications Medication Instructions Recorded Confirmed Type No Known Home Medications 09/19/18 09/19/18 History Patient History Medical History Mental retardation (Chronic) Respiratory arrest Aortic stenosis No significant past surgical history Family History Other Family history non-contributory Social History marital status: Single Current Living Situation: Senior Care Other Information That Helps Us Care for You: No Feels Safe at Home: Yes Safety Concerns: Afraid for Self Smoking Status: Unknown if ever smoked Communication Ability: Effective Review of Systems Cannot be performed due to the patient's mental status Physical Exam 2 Vital Signs (Past 24 Hours): Last Vital Signs Temp 36.7 C 09/19/18 15:09 Pulse 78 09/19/18 15:30 Resp 20 09/19/18 15:30 BP 93/58 L 09/19/18 15:09 Pulse Ox 97 09/19/18 15:30 Physical Exam: Constitutional: Alert and in no distress. HEENT: Unremarkable (edentulous) Neck: No jugular venous distention, carotid pulses are normal and equal bilaterally without bruits. There is only a faint transmitted murmur. Pulmonary: Clear to auscultation bilaterally. Cardiac: Regular rhythm with a grade 2/6 crescendo decrescendo murmur at the base, no gallop or rub. Abdomen: Soft, nontender with normal bowel sounds. Extremities: +2 bilateral pretibial pitting edema. Distal pulses intact. Neurologic: No focal findings although it is difficult to test due to his mental impairment. Gait was not tested. Skin: No rash, ecchymoses or petechiae. Results & Data Diagnostic Findings Admission electrocardiogram: Sinus rhythm with lateral ST-T abnormalities, likely due to LVH Telemetry: Sinus rhythm, 3-4 beats of nonsustained ventricular tachycardia Chest x-ray: Suggestive of pneumonia CT scan: Suggestive of pneumonia Echocardiogram: LVH, at least moderate aortic stenosis, preserved left ventricular function
--- NOTE | 2018-09-19 16:45 | Hospitalist Progress Note ---
Date of Service September 19, 2018 Assessment & Plan (1) Pneumonia: This patient is a 78-year-old male with a history of intellectual disability, moderate-severe aortic stenosis, CAD, chronic diastolic CHF, and recent influenza A, who [facility] with shortness of breath, hypoxia, and possible focal weakness of the right upper extremity which was resolved and may have been generalized weakness due to significant illness. CT of the chest reveals extensive upper lobe consolidation bilaterally, as well as lower lobe and lingula and right middle lobe opacities, and bilateral moderate pleural effusions. This may be aspiration pneumonia but could also be healthcare associated pneumonia and post influenza pneumonia. Pro-calcitonin was negative. MRSA swab is negative, however in the setting of a [facility] and recent influenza, I am very concerned about post influenza MRSA pneumonia. Pleural effusions could be parapneumonic or could be related to hypoalbuminemia and heart failure as below. -Added on IV Zosyn and vancomycin -Given wheezing on admission, he was started on Solumedrol, DuoNebs and Albuterol PRN-continue these for now -Consulted pulmonology given extensive pneumonia -Speech therapy evaluation to look for aspiration -Follow chest imaging to resolution (2) Pleural effusion: Possibly secondary to parapneumonic effusion versus CHF as above -Was given IV Lasix in the ER and creatinine is bumped which indicates that he is likely intravascularly depleted -Hold off on any further diuretics -Follow chest x-ray (3) Acute respiratory failure with hypoxia: Secondary to extensive bilateral multi lobar pneumonia -Continue supplemental O2 to keep pulse ox greater than 90% -Treating pneumonia as above (4) Dyspnea: Secondary to pneumonia (5) JANY (acute kidney injury): Cr=1.5 which is up from baseline of 1.1 could be secondary to sepsis or IV Lasix given upon admission and intravascular depletion -Renal dosing where appropriate -Avoid nephrotoxic agents -Follow BMP (6) Aortic stenosis: Moderate-severe noted on echocardiogram -Avoid extremes of volume status -No indication for valve replacement at this time (7) Edema: Could be secondary to hypoalbuminemia rather than volume overload, IV Lasix was given in the ER and his creatinine porfirio today -Add MARCELINO hose -Encourage improved nutrition (8) Demand ischemia of myocardium: Troponin elevated at 0.7/0 0.6/0.5. Noted to have extensive coronary artery calcification seen on CT scan of the chest and likely is underlying CAD. Demand myocardial ischemia in the setting of hypoxia and significant pneumonia. He did not have an NSTEMI -Can discontinue heparin drip -Could consider adding on aspirin and statin -Blood pressure too low for beta-byron at this time -No need for ischemic evaluation -Appreciate cardiology consultation (9) CAD (coronary artery disease), pauma coronary artery: Extensive coronary artery calcification seen on CT scan -Consider adding aspirin and statin as above (10) Intellectual disability: Noted, supportive care will be given (11) Nonsustained ventricular tachycardia: Small runs of 3-4 beats, asymptomatic nonsustained Ejection fraction is normal on echocardiogram -No further treatment at this time (12) Chronic diastolic CHF (congestive heart failure): Grade 1 diastolic dysfunction noted on echocardiogram here -With pleural effusions and edema but may not necessarily be from volume overload given discussion as above - will monitor daily weights, I's and O's -No further diuresis at this time (13) DVT prophylaxis: Heparin drip but will be discontinued -Begin subcutaneous heparin in the morning Disposition-remain on telemetry Is from a [facility] and will return there-is on a bed hold, case management is involved I discussed his case with his nephew's who is his usual grip although his nephew Luis is his healthcare power of collections attorney Changed CODE STATUS to DNR/DNI today as per order signed and on record from the [facility] in the chart Subjective Patient could not tell me much. He did point to his left hip when I asked if he had any pain. He could not tell me if he was coughing or had any chest pain. He does seem to be comfortable. The nurse reports that he has been sleeping a lot today and has to be fed. He does not have his dentures. I did discuss his case with his nephew's on the phone today. I also discussed the case with the [employer] consulted. Telemetry with normal sinus rhythm, a few 3-4 beat runs of nonsustained ventricular tachycardia, rates in the 80s Review of Systems Unobtainable due to cognitive status Physical Exam 2 Vital Signs (Past 24 Hours): Last Vital Signs Temp 36.7 C 09/19/18 15:09 Pulse 78 09/19/18 15:30 Resp 20 09/19/18 15:30 BP 93/58 L 09/19/18 15:09 Pulse Ox 97 01/16/19 15:30 Constitutional: well developed (Appears older than given age); no acute distress Eyes: PERRL, conjunctivae normal, anicteric sclerae ENMT: external ear and nose normal, oropharynx normal (Edentulous) Neck: trachea midline, no thyromegaly Respiratory: normal respiratory effort Auscultation: + diminished lung sounds (At the bases bilaterally) and + crackles (In the upper lung [place] bilaterally) Cardiovascular: Rate/Rhythm: regular rate and regular rhythm Extremities: + edema (1+ pitting edema of the legs to the knees bilaterally) Gastrointestinal (Abdomen): normal bowel sounds, soft, nontender, no hepatosplenomegaly Musculoskeletal: Extremities: extremities normal to inspection; no cyanosis and no clubbing Skin: no rashes, warm and dry Neurologic: moves all extremities and awake; no focal motor deficits Psychiatric: Orientation: alert, oriented to person and cooperative; + not oriented to place and + not oriented to time Results & Data Laboratory Results 09/19/18 09/19/18 09/19/18 Range/Units 13:39 13:39 09:52 WBC (4.8-10.8) K/uL RBC (4.7-6.1) M/uL Hgb (14.0-18.0) g/dL Hct (42-52) % MCV (80-100) fL MCH (25-34) pg MCHC (32-36) g/dL RDW Std Deviation (36.4-46.3) fL RDW Coeff of Courtney (11.5-14.5) % Plt Count (130-400) K/uL MPV (7.4-10.4) fL Immature Gran % (Auto) % Neut % (Auto) % Lymph % (Auto) % Canadian % (Auto) % Eos % (Auto) % Baso % (Auto) % Immature Gran # (Auto) (0.00-0.02) K/uL Neut # (Auto) (1.4-6.5) K/uL Lymph # (Auto) (1.2-3.4) K/uL Canadian # (Auto) (0.11-0.59) K/uL Eos # (Auto) (0-0.5) K/uL Baso # (Auto) (0-0.2) K/uL PT (9.0-12.0) Seconds INR (0.9-1.1) APTT 58.1 H* (21.0-31.0) Seconds PTT Ratio 2.2 Sodium (136-145) mmol/L Potassium (3.5-5.1) mmol/L Chloride (98-107) mmol/L Carbon Dioxide (21-32) mmol/L Anion Gap (3-11) BUN (7-18) mg/dl Creatinine (0.6-1.4) mg/dl Est Cr Clr Drug Dosing ml/min Est GFR ( Amer) Est GFR (Non-Af Amer) BUN/Creatinine Ratio (10-20) Glucose (70-99) mg/dl Lactate (0.4-2.0) mmol/L Calcium (8.5-10.1) mg/dl Phosphorus (2.5-4.9) mg/dl Magnesium (1.8-2.4) mg/dl Total Bilirubin (0.2-1) mg/dl AST (15-37) U/L ALT (12-78) U/L Alkaline Phosphatase (45-117) U/L Troponin I 0.519 H* (0-0.045) ng/ml Total Protein (6.4-8.2) gm/dl Albumin (3.4-5.0) gm/dl Globulin (2.5-4.0) gm/dl Albumin/Globulin Ratio (0.9-2) Procalcitonin (0-0.5) ng/ml Urine Color Urine Appearance (Clear) Urine pH (4.5-7.5) Ur Specific Atwood (1.000-1.030) Urine Protein (Negative) Urine Glucose (UA) (Negative) Urine Ketones (Negative) Urine Blood (Negative) Urine Nitrite (Negative) Urine Bilirubin (Negative) Urine Urobilinogen (Negative) Ur Leukocyte Esterase (Negative) Urine WBC (Auto) (0-5) /hpf Urine RBC (Auto) (0-4) /hpf U Hyaline Cast (Auto) (0-5) /lpf U Epithel Cells (Auto) (0-5) /lpf Urine Bacteria (Auto) (Negative) Nasal Screen MRSA (PCR) Negative (Negative) 01/16/19 01/16/19 01/16/19 Range/Units 07:03 07:03 01:45 WBC (4.8-10.8) K/uL RBC (4.7-6.1) M/uL Hgb (14.0-18.0) g/dL Hct (42-52) % MCV (80-100) fL MCH (25-34) pg MCHC (32-36) g/dL RDW Std Deviation (36.4-46.3) fL RDW Coeff of Courtney (11.5-14.5) % Plt Count (130-400) K/uL MPV (7.4-10.4) fL Immature Gran % (Auto) % Neut % (Auto) % Lymph % (Auto) % Canadian % (Auto) % Eos % (Auto) % Baso % (Auto) % Immature Gran # (Auto) (0.00-0.02) K/uL Neut # (Auto) (1.4-6.5) K/uL Lymph # (Auto) (1.2-3.4) K/uL Canadian # (Auto) (0.11-0.59) K/uL Eos # (Auto) (0-0.5) K/uL Baso # (Auto) (0-0.2) K/uL PT (9.0-12.0) Seconds INR (0.9-1.1) APTT (21.0-31.0) Seconds PTT Ratio Sodium (136-145) mmol/L Potassium (3.5-5.1) mmol/L Chloride (98-107) mmol/L Carbon Dioxide (21-32) mmol/L Anion Gap (3-11) BUN (7-18) mg/dl Creatinine (0.6-1.4) mg/dl Est Cr Clr Drug Dosing ml/min Est GFR ( Amer) Est GFR (Non-Af Amer) BUN/Creatinine Ratio (10-20) Glucose (70-99) mg/dl Lactate (0.4-2.0) mmol/L Calcium (8.5-10.1) mg/dl Phosphorus 4.1 (2.5-4.9) mg/dl Magnesium 2.3 (1.8-2.4) mg/dl Total Bilirubin (0.2-1) mg/dl AST (15-37) U/L ALT (12-78) U/L Alkaline Phosphatase (45-117) U/L Troponin I 0.649 H* (0-0.045) ng/ml Total Protein (6.4-8.2) gm/dl Albumin (3.4-5.0) gm/dl Globulin (2.5-4.0) gm/dl Albumin/Globulin Ratio (0.9-2) Procalcitonin < 0.05 (0-0.5) ng/ml Urine Color Yellow Urine Appearance Clear (Clear) Urine pH 5.0 (4.5-7.5) Ur Specific Atwood 1.026 (1.000-1.030) Urine Protein Trace H (Negative) Urine Glucose (UA) Negative (Negative) Urine Ketones Trace H (Negative) Urine Blood Negative (Negative) Urine Nitrite Negative (Negative) Urine Bilirubin Negative (Negative) Urine Urobilinogen Negative (Negative) Ur Leukocyte Esterase Negative (Negative) Urine WBC (Auto) 1-5 (0-5) /hpf Urine RBC (Auto) 0-4 (0-4) /hpf U Hyaline Cast (Auto) 1-5 (0-5) /lpf U Epithel Cells (Auto) 5-10 H (0-5) /lpf Urine Bacteria (Auto) Negative (Negative) Nasal Screen MRSA (PCR) (Negative) 09/19/18 09/19/18 09/19/18 Range/Units 00:46 00:46 00:46 WBC (4.8-10.8) K/uL RBC (4.7-6.1) M/uL Hgb (14.0-18.0) g/dL Hct (42-52) % MCV (80-100) fL MCH (25-34) pg MCHC (32-36) g/dL RDW Std Deviation (36.4-46.3) fL RDW Coeff of Courtney (11.5-14.5) % Plt Count (130-400) K/uL MPV (7.4-10.4) fL Immature Gran % (Auto) % Neut % (Auto) % Lymph % (Auto) % Canadian % (Auto) % Eos % (Auto) % Baso % (Auto) % Immature Gran # (Auto) (0.00-0.02) K/uL Neut # (Auto) (1.4-6.5) K/uL Lymph # (Auto) (1.2-3.4) K/uL Canadian # (Auto) (0.11-0.59) K/uL Eos # (Auto) (0-0.5) K/uL Baso # (Auto) (0-0.2) K/uL PT 12.0 (9.0-12.0) Seconds INR 1.2 H (0.9-1.1) APTT 28.1 (21.0-31.0) Seconds PTT Ratio 1.1 Sodium 139 (136-145) mmol/L Potassium 4.7 (3.5-5.1) mmol/L Chloride 108 H (98-107) mmol/L Carbon Dioxide 28 (21-32) mmol/L Anion Gap 3.0 (3-11) BUN 34 H (7-18) mg/dl Creatinine 1.50 H (0.6-1.4) mg/dl Est Cr Clr Drug Dosing 47.2 ml/min Est GFR ( Amer) 51.0 Est GFR (Non-Af Amer) 44.0 BUN/Creatinine Ratio 22.8 H (10-20) Glucose 117 H (70-99) mg/dl Lactate 0.8 (0.4-2.0) mmol/L Calcium 8.3 L (8.5-10.1) mg/dl Phosphorus (2.5-4.9) mg/dl Magnesium (1.8-2.4) mg/dl Total Bilirubin 0.3 (0.2-1) mg/dl AST 34 (15-37) U/L ALT 41 (12-78) U/L Alkaline Phosphatase 88 (45-117) U/L Troponin I 0.779 H* (0-0.045) ng/ml Total Protein 7.0 (6.4-8.2) gm/dl Albumin 2.6 L (3.4-5.0) gm/dl Globulin 4.4 H (2.5-4.0) gm/dl Albumin/Globulin Ratio 0.6 L (0.9-2) Procalcitonin (0-0.5) ng/ml Urine Color Urine Appearance (Clear) Urine pH (4.5-7.5) Ur Specific Atwood (1.000-1.030) Urine Protein (Negative) Urine Glucose (UA) (Negative) Urine Ketones (Negative) Urine Blood (Negative) Urine Nitrite (Negative) Urine Bilirubin (Negative) Urine Urobilinogen (Negative) Ur Leukocyte Esterase (Negative) Urine WBC (Auto) (0-5) /hpf Urine RBC (Auto) (0-4) /hpf U Hyaline Cast (Auto) (0-5) /lpf U Epithel Cells (Auto) (0-5) /lpf Urine Bacteria (Auto) (Negative) Nasal Screen MRSA (PCR) (Negative) 09/19/18 Range/Units 00:46 WBC 10.36 (4.8-10.8) K/uL RBC 3.39 L (4.7-6.1) M/uL Hgb 10.2 L (14.0-18.0) g/dL Hct 32.7 L (42-52) % MCV 96.5 (80-100) fL MCH 30.1 (25-34) pg MCHC 31.2 L (32-36) g/dL RDW Std Deviation 53.9 H (36.4-46.3) fL RDW Coeff of Courtney 15.2 H (11.5-14.5) % Plt Count 389 (130-400) K/uL MPV 8.8 (7.4-10.4) fL Immature Gran % (Auto) 0.8 % Neut % (Auto) 82.9 % Lymph % (Auto) 8.1 % Canadian % (Auto) 6.9 % Eos % (Auto) 1.1 % Baso % (Auto) 0.2 % Immature Gran # (Auto) 0.08 H (0.00-0.02) K/uL Neut # (Auto) 8.59 H (1.4-6.5) K/uL Lymph # (Auto) 0.84 L (1.2-3.4) K/uL Canadian # (Auto) 0.72 H (0.11-0.59) K/uL Eos # (Auto) 0.11 (0-0.5) K/uL Baso # (Auto) 0.02 (0-0.2) K/uL PT (9.0-12.0) Seconds INR (0.9-1.1) APTT (21.0-31.0) Seconds PTT Ratio Sodium (136-145) mmol/L Potassium (3.5-5.1) mmol/L Chloride (98-107) mmol/L Carbon Dioxide (21-32) mmol/L Anion Gap (3-11) BUN (7-18) mg/dl Creatinine (0.6-1.4) mg/dl Est Cr Clr Drug Dosing ml/min Est GFR ( Amer) Est GFR (Non-Af Amer) BUN/Creatinine Ratio (10-20) Glucose (70-99) mg/dl Lactate (0.4-2.0) mmol/L Calcium (8.5-10.1) mg/dl Phosphorus (2.5-4.9) mg/dl Magnesium (1.8-2.4) mg/dl Total Bilirubin (0.2-1) mg/dl AST (15-37) U/L ALT (12-78) U/L Alkaline Phosphatase (45-117) U/L Troponin I (0-0.045) ng/ml Total Protein (6.4-8.2) gm/dl Albumin (3.4-5.0) gm/dl Globulin (2.5-4.0) gm/dl Albumin/Globulin Ratio (0.9-2) Procalcitonin (0-0.5) ng/ml Urine Color Urine Appearance (Clear) Urine pH (4.5-7.5) Ur Specific Atwood (1.000-1.030) Urine Protein (Negative) Urine Glucose (UA) (Negative) Urine Ketones (Negative) Urine Blood (Negative) Urine Nitrite (Negative) Urine Bilirubin (Negative) Urine Urobilinogen (Negative) Ur Leukocyte Esterase (Negative) Urine WBC (Auto) (0-5) /hpf Urine RBC (Auto) (0-4) /hpf U Hyaline Cast (Auto) (0-5) /lpf U Epithel Cells (Auto) (0-5) /lpf Urine Bacteria (Auto) (Negative) Nasal Screen MRSA (PCR) (Negative) _ (1) Dyspnea Dyspnea type: shortness of breath Qualified Code(s): R06.02 - Shortness of breath; R06.00 - Dyspnea, unspecified; R06.01 - Orthopnea (2) Pneumonia Aspiration pneumonia type: Laterality: bilateral Lung location: unspecified part of lung Pneumonia type: due to unspecified organism Qualified Code(s): J18.9 - Pneumonia, unspecified organism
[2018-09-20] MEDS: VANCOMYCIN HCL 1,500 MG in SODIUM CHLORIDE 0.9% 500 ML IV SCH ×2 (02:07→17:57)
[2018-09-20] MEDS: ALBUT/IPRATROP 3MG/0.5MG NEB 3 ML VIAL NEB SCH ×6 (04:10→23:14)
[2018-09-20] MEDS: HEPARIN SOD 5,000 UNIT/0.5 ML VIAL SQ SCH ×3 (05:55→20:12)
[2018-09-20 06:01] LABS: Hematocrit (blood only) 31.1 % (42-52); Hemoglobin 9.7 g/dL (14.0-18.0); Immature Granulocytes # (auto) 0.03 K/uL (0.00-0.02); Immature Granulocytes % (auto) 0.3 %; Lymphocytes # (auto) 0.34 K/uL (1.2-3.4); Lymphocytes % (auto) 2.8 %; Mean Corpuscular Hgb Conc 31.2 g/dL (32-36); Monocytes # (auto) 0.34 K/uL (0.11-0.59); Monocytes % (auto) 2.8 %; Neutrophils # (auto) 11.27 K/uL (1.4-6.5); Neutrophils % (auto) 94.1 %; Platelet Count 316 K/uL (130-400); RDW Coefficient of Variation 15.4 % (11.5-14.5); RDW Standard Deviation 54.3 fL (36.4-46.3); Red Blood Count 3.24 M/uL (4.7-6.1); White Blood Count 11.98 K/uL (4.8-10.8)
[2018-09-20 06:37] LABS: BUN Creatinine Ratio 22.9 (10-20); Calcium 8.5 mg/dl (8.5-10.1); Creatinine Clr Calc Pharmacy 46.3 ml/min; Est GFR (African American) 49.7; Est GFR (Non-African American) 42.9; Potassium 4.3 mmol/L (3.5-5.1)
[2018-09-20] MEDS: PIPERACILLIN/TAZOBACTAM 3.375 GM in DEXTROSE 5% 100 ML IV SCH ×3 (07:35→23:43)
[2018-09-20] MEDS: methylPREDNISolone 40 MG in SYRINGE 0 ML IV SCH ×3 (07:35→20:12)
--- NOTE | 2018-09-20 10:03 | Cardiology Progress Note ---
Date of Service September 20, 2018 Assessment & Plan (1) Elevated troponin: His troponin is elevated but continues to have a descending pattern. The peak troponin is the first one which is 0.779, they have been trending down including this morning. Perhaps they will start to increase again now and we should trend enzyme. His presentation was most consistent with demand ischemia from hypoxia and not an acute ischemic event, although his electrocardiogram this morning is worrisome and perhaps he has some chest discomfort although I do not know that we can trust his communication. He has extensive coronary calcification on CT scanning and I suspect has underlying coronary artery disease which may contribute but this is not an indication for intervention. I reviewed the case with Dr. Smith, at this point I think the best option is to treat him medically and he is not on much for ischemic heart disease. I am going to add aspirin and Plavix (I do not see a contraindication), and I will try a low-dose beta-byron and if he tolerates that add low-dose nitroglycerin. If we need to we can consider intervention, he does not have ST elevation to suggest that this should be treated as a heart alert. (2) Hypoxia: This is most likely due to his pulmonary process, I do not think it is primarily congestive heart failure although I cannot exclude a component of diastolic dysfunction. He does have left ventricular hypertrophy, but it is not characteristic of heart failure. (3) Aortic stenosis: He does have at least moderate aortic stenosis, however his left ventricular function is preserved and I do not think his hypoxia is due to heart failure, at least not from the valve. His left ventricular hypertrophy may be caused by his aortic stenosis. At this point I do not think treatment of his aortic stenosis is indicated. (4) Edema: He has significant peripheral edema, he does have a low albumin. I would try conservative measures first including leg elevation and may be support stockings and see if that helps, before diuresing since his creatinine is climbing and he is somewhat hypotensive. Subjective He is more alert and communicative today than yesterday. He still cannot communicate very well. He seems to indicate that he has some type of discomfort in his chest or epigastric area but certainly cannot describe it. He does not seem to be uncomfortable. Physical Exam 2 Vital Signs (Past 24 Hours): Last Vital Signs Temp 36.4 C L 09/19/18 23:42 Pulse 100 H 09/20/18 09:15 Resp 16 09/20/18 07:31 BP 103/58 L 09/19/18 23:42 Pulse Ox 93 09/20/18 07:31 Physical Exam: Alert, somewhat communicative events somewhat cooperative today Cardiac rhythm is regular with a grade 2/6 crescendo decrescendo murmur at the base Lungs have crackles in the upper lobes, clear in the lower +2 bilateral pretibial edema Results & Data Diagnostic Findings Telemetry: Sinus rhythm with PVCs, heart rate usually in 80s although somewhat higher at times ECG: Today's electrocardiogram shows sinus rhythm with significant ST depression in most leads suggestive of subendocardial ischemia, appears worse than prior electrocardiograms
[2018-09-20] MEDS ORDERED: CLOPIDOGREL BISULFATE 300 MG TAB PO ONE (11:00)
[2018-09-20] MEDS ORDERED: ASPIRIN 81 MG CHEW PO ONE (11:00)
[2018-09-20] MEDS: METOPROLOL TARTRATE 25 MG TAB PO SCH ×2 (12:10→22:32)
--- NOTE | 2018-09-20 13:53 | Hospitalist Progress Note ---
Date of Service September 20, 2018 Assessment & Plan (1) Pneumonia: This patient is a 78-year-old male with a history of intellectual disability, moderate-severe aortic stenosis, CAD, chronic diastolic CHF, and recent influenza A, who presented to the ER from the correction with shortness of breath, hypoxia, and possible focal weakness of the right upper extremity which was resolved and may have been generalized weakness due to significant illness. CT of the chest reveals extensive upper lobe consolidation bilaterally, as well as lower lobe and lingula and right middle lobe opacities, and bilateral moderate pleural effusions. This may be aspiration pneumonia but could also be healthcare associated pneumonia and post influenza pneumonia as he had influenza 2 weeks prior to admission. Pro-calcitonin was negative. MRSA swab is negative, however in the setting of a correction and recent influenza, I am very concerned about post influenza MRSA pneumonia. Pleural effusions could be parapneumonic or could be related to hypoalbuminemia and heart failure as below. -Continue IV Zosyn and vancomycin-day #2 -Given wheezing which persists, continue Solumedrol, DuoNebs -Consulted pulmonology given extensive pneumonia-appreciate recommendations -Speech therapy evaluation to look for aspiration -Follow chest imaging to resolution (2) Pleural effusion: Possibly secondary to parapneumonic effusion versus CHF as above -Was given IV Lasix in the ER and creatinine is bumped which indicates that he is likely intravascularly depleted -Hold off on any further diuretics for now but may need some tomorrow -Follow chest x-ray (3) Abnormal ECG: ECG on 09/[address] depression especially in the anterolateral leads but also in inferior leads worse from previous Repeat troponin lower than on admission, is complaining of some chest pain but unclear quality of this or if it is related to his pneumonia? -Trend troponin -Discussed with cardiology-added on aspirin, Plavix, metoprolol 25 mg p.o. twice daily -Plan to medically manage as he is not a good candidate for cardiac catheterization (4) Acute respiratory failure with hypoxia: Secondary to extensive bilateral multi lobar pneumonia -Continue supplemental O2 to keep pulse ox greater than 90% -Treating pneumonia as above (5) Dyspnea: Secondary to pneumonia (6) JANY (acute kidney injury): Creatinine was 1.5 on admission which is up from baseline of 1.1 could be secondary to sepsis or IV Lasix given upon admission and intravascular depletion Creatinine stable today at 1.53 -Renal dosing where appropriate -Avoid nephrotoxic agents -Follow BMP (7) Aortic stenosis: Moderate-severe noted on echocardiogram -Avoid extremes of volume status -No indication for valve replacement at this time (8) Edema: Could be secondary to hypoalbuminemia rather than volume overload, IV Lasix was given in the ER and his creatinine porfirio Improved today with MARCELINO hose -Continue MARCELINO hose -Encourage improved nutrition -Add boost (9) Demand ischemia of myocardium: Troponin elevated at 0.7/0 0.6/0.5. Noted to have extensive coronary artery calcification seen on CT scan of the chest and likely is underlying CAD. Demand myocardial ischemia in the setting of hypoxia and significant pneumonia. Was not thought to have had an NSTEMI initially, but now ECG on with more significant ST depressions -Initially was on heparin drip but now discontinued after 48 hours -Added on aspirin and Plavix today -We will add on statin -Added metoprolol 25 mg p.o. twice daily-watch blood pressures carefully -Can add on long-acting nitrates later if blood pressures okay -No plans for cardiac catheterization given other comorbidities and ongoing significant pneumonia -Appreciate cardiology consultation -Trending troponin again currently -Check ECG in the morning (10) CAD (coronary artery disease), [place] coronary artery: Extensive coronary artery calcification seen on CT scan -Adding aspirin, Plavix, statin, metoprolol as above (11) Intellectual disability: Noted, supportive care will be given (12) Nonsustained ventricular tachycardia: Continues with small runs of 3-4 beats, asymptomatic nonsustained Ejection fraction is normal on echocardiogram -Added metoprolol today which should help (13) Chronic diastolic CHF (congestive heart failure): Grade 1 diastolic dysfunction noted on echocardiogram here -With pleural effusions and edema but may not necessarily be from volume overload given discussion as above - will monitor daily weights, I's and O's -No further diuresis at this time (14) DVT prophylaxis: subcutaneous heparin Disposition-remain on telemetry Is from a correction and will return there-is on a bed hold, case management is involved CODE STATUS DNR/DNI today as per order signed and on record from the correction in the chart Subjective Patient was having noted ST depressions today on his telemetry and a corresponding ECG did confirm this worse than usual. I discussed this case with cardiology who feels that this is true ischemia. Initial repeat troponin was lower than previous, but awaiting repeat. Patient does report that he is having some chest pain but cannot give me any further details. Reports he is coughing at times. He is eating and moving his bowels. He appears comfortable. Telemetry with 3-4 beat runs of V. tach nonsustained, normal sinus rhythm Review of Systems All systems reviewed & are unremarkable except as noted in HPI & below Physical Exam 2 Vital Signs (Past 24 Hours): Last Vital Signs Temp 36.4 C L 09/20/18 12:33 Pulse 103 H 09/20/18 12:33 Resp 24 09/20/18 12:33 BP 100/62 09/20/18 12:33 Pulse Ox 93 09/20/18 12:33 Constitutional: well developed (Appears older than given age); no acute distress Eyes: PERRL, conjunctivae normal, anicteric sclerae ENMT: external ear and nose normal, oropharynx normal (Edentulous) Neck: trachea midline, no thyromegaly Respiratory: normal respiratory effort Auscultation: + diminished lung sounds (At the bases bilaterally), + crackles (In the upper lung [place] bilaterally), + wheezes (In middle lung [place] bilaterally) and + bronchovesicular breath sounds (In the upper lung [place] bilaterally) Cardiovascular: Rate/Rhythm: regular rate and regular rhythm Extremities: + edema (1+ pitting edema of the legs to the knees bilaterally) Gastrointestinal (Abdomen): normal bowel sounds, soft, nontender, no hepatosplenomegaly Musculoskeletal: Extremities: extremities normal to inspection; no cyanosis and no clubbing Skin: no rashes, warm and dry Neurologic: moves all extremities and awake; no focal motor deficits Psychiatric: Orientation: alert, oriented to person and cooperative Results & Data Laboratory Results 09/20/18 09/20/18 09/20/18 Range/Units 09:05 05:40 05:40 WBC 11.98 H (4.8-10.8) K/uL RBC 3.24 L (4.7-6.1) M/uL Hgb 9.7 L (14.0-18.0) g/dL Hct 31.1 L (42-52) % MCV 96.0 (80-100) fL MCH 29.9 (25-34) pg MCHC 31.2 L (32-36) g/dL RDW Std Deviation 54.3 H (36.4-46.3) fL RDW Coeff of Courtney 15.4 H (11.5-14.5) % Plt Count 316 (130-400) K/uL MPV 9.0 (7.4-10.4) fL Immature Gran % (Auto) 0.3 % Neut % (Auto) 94.1 % Lymph % (Auto) 2.8 % [place] % (Auto) 2.8 % Eos % (Auto) 0.0 % Baso % (Auto) 0.0 % Immature Gran # (Auto) 0.03 H (0.00-0.02) K/uL Neut # (Auto) 11.27 H (1.4-6.5) K/uL Lymph # (Auto) 0.34 L (1.2-3.4) K/uL [place] # (Auto) 0.34 (0.11-0.59) K/uL Eos # (Auto) 0.00 (0-0.5) K/uL Baso # (Auto) 0.00 (0-0.2) K/uL APTT (21.0-31.0) Seconds PTT Ratio Sodium 141 (136-145) mmol/L Potassium 4.3 (3.5-5.1) mmol/L Chloride 106 (98-107) mmol/L Carbon Dioxide 26 (21-32) mmol/L Anion Gap 9.0 (3-11) BUN 35 H (7-18) mg/dl Creatinine 1.53 H (0.6-1.4) mg/dl Est Cr Clr Drug Dosing 46.3 ml/min Est GFR ( Amer) 49.7 Est GFR (Non-Af Amer) 42.9 BUN/Creatinine Ratio 22.9 H (10-20) Glucose 133 H (70-99) mg/dl Calcium 8.5 (8.5-10.1) mg/dl Troponin I 0.297 H* (0-0.045) ng/ml 09/19/18 09/19/18 09/19/18 Range/Units 22:09 13:39 13:39 WBC (4.8-10.8) K/uL RBC (4.7-6.1) M/uL Hgb (14.0-18.0) g/dL Hct (42-52) % MCV (80-100) fL MCH (25-34) pg MCHC (32-36) g/dL RDW Std Deviation (36.4-46.3) fL RDW Coeff of Courtney (11.5-14.5) % Plt Count (130-400) K/uL MPV (7.4-10.4) fL Immature Gran % (Auto) % Neut % (Auto) % Lymph % (Auto) % [place] % (Auto) % Eos % (Auto) % Baso % (Auto) % Immature Gran # (Auto) (0.00-0.02) K/uL Neut # (Auto) (1.4-6.5) K/uL Lymph # (Auto) (1.2-3.4) K/uL [place] # (Auto) (0.11-0.59) K/uL Eos # (Auto) (0-0.5) K/uL Baso # (Auto) (0-0.2) K/uL APTT 58.1 H* (21.0-31.0) Seconds PTT Ratio 2.2 Sodium (136-145) mmol/L Potassium (3.5-5.1) mmol/L Chloride (98-107) mmol/L Carbon Dioxide (21-32) mmol/L Anion Gap (3-11) BUN (7-18) mg/dl Creatinine (0.6-1.4) mg/dl Est Cr Clr Drug Dosing ml/min Est GFR ( Amer) Est GFR (Non-Af Amer) BUN/Creatinine Ratio (10-20) Glucose (70-99) mg/dl Calcium (8.5-10.1) mg/dl Troponin I 0.330 H* 0.519 H* (0-0.045) ng/ml _ (1) Pneumonia Aspiration pneumonia type: Laterality: bilateral Lung location: unspecified part of lung Pneumonia type: due to unspecified organism Qualified Code(s): J18.9 - Pneumonia, unspecified organism (2) Dyspnea Dyspnea type: shortness of breath Qualified Code(s): R06.02 - Shortness of breath; R06.00 - Dyspnea, unspecified; R06.01 - Orthopnea (3) Aortic stenosis Cardiac valve disease etiology: etiology unspecified Qualified Code(s): I35.0 - Nonrheumatic aortic (valve) stenosis (4) Edema Edema type: due to malnutrition Malnutrition edema type: unspecified malnutrition type Qualified Code(s): E43 - Unspecified severe protein-calorie malnutrition
[2018-09-20] MEDS: ATORVASTATIN 40 MG TAB PO SCH (17:11)
--- NOTE | 2018-09-20 19:22 | Progress Note ---
DATE: 09/20/2018 TIME: 6:50 p.m. SUBJECTIVE: The patient denies complaints, but he is not a good historian. He did state that he is still coughing. I could not find out if he is expectorating any phlegm or not. OBJECTIVE: GENERAL: The patient appeared comfortable. VITAL SIGNS: Temperature is 36.6. There has been no fevers. Cardiac rate 105. The rhythm is regular. Blood pressure 93/60. LUNGS: Respiratory rate earlier today was reported as 24, but currently is 20. There were a few rales heard posteriorly in the upper lung [place], but the lungs were otherwise clear. Saturation 94% on 3 L. EXTREMITIES: Reveal +1-+2 edema of the lower extremities. URINE OUTPUT: For the prior 24 hours was reported as only 401 Ml. LABORATORY DATA: White count is 11.98. Hemoglobin 9.7. Platelets 316,000. Electrolytes show sodium 141, potassium 4.3, chloride 106, bicarbonate 26. BUN is 35 with a creatinine of 1.53. These are similar to yesterday. The patient had an EKG today that shows worsening ischemia in the precordial leads. IMPRESSION: 1. Bilateral pneumonia. 2. Bilateral pleural effusions. 3. Recent influenza. COMMENTS AND RECOMMENDATIONS: The patient on exam currently seems quite good. Not mentioned above is that he did have a systolic murmur which had been heard previously, but this is unchanged. Case was discussed with Dr. Wheeler. I would continue with the antibiotics as at present. I believe the steroids could be decreased likely to q. 12 hours. We would continue with his other treatments. If his heart rate stays a bit elevated, might consider changing the neb treatments to levalbuterol plus ipratropium and perhaps every 6 instead of every 4.
[2018-09-21 00:18] LABS: Creatine Kinase MB 10.2 ng/ml (0.5-3.6)
[2018-09-21] MEDS: ALBUT/IPRATROP 3MG/0.5MG NEB 3 ML VIAL NEB SCH ×6 (03:08→23:21)
[2018-09-21 04:41] LABS: Hematocrit (blood only) 32.4 % (42-52); Hemoglobin 9.9 g/dL (14.0-18.0); Immature Granulocytes # (auto) 0.04 K/uL (0.00-0.02); Immature Granulocytes % (auto) 0.3 %; Lymphocytes % (auto) 1.4 %; Mean Corpuscular Hgb Conc 30.6 g/dL (32-36); Mean Corpuscular Volume 96.4 fL (80-100); Monocytes % (auto) 2.9 %; Neutrophils # (auto) 13.18 K/uL (1.4-6.5); Neutrophils % (auto) 95.4 %; Platelet Count 354 K/uL (130-400); RDW Coefficient of Variation 15.6 % (11.5-14.5); RDW Standard Deviation 54.5 fL (36.4-46.3); Red Blood Count 3.36 M/uL (4.7-6.1); White Blood Count 13.82 K/uL (4.8-10.8)
[2018-09-21 04:57] LABS: BUN Creatinine Ratio 26.3 (10-20); Blood Urea Nitrogen 43 mg/dl (7-18); Calcium 8.8 mg/dl (8.5-10.1); Carbon Dioxide 28 mmol/L (21-32); Chloride 108 mmol/L (98-107); Creatinine Clr Calc Pharmacy 43.2 ml/min; Est GFR (African American) 45.7; Est GFR (Non-African American) 39.5; Glucose 125 mg/dl (70-99); Magnesium 2.6 mg/dl (1.8-2.4); Potassium 4.4 mmol/L (3.5-5.1); Sodium 139 mmol/L (136-145)
[2018-09-21 05:24] LABS: Creatine Kinase MB 11.2 ng/ml (0.5-3.6)
[2018-09-21] MEDS: HEPARIN SOD 5,000 UNIT/0.5 ML VIAL SQ SCH ×3 (06:16→21:13)
[2018-09-21] MEDS: methylPREDNISolone 40 MG in SYRINGE 0 ML IV SCH ×3 (08:14→20:13)
[2018-09-21] MEDS: METOPROLOL TARTRATE 25 MG TAB PO SCH (08:14)
[2018-09-21] MEDS: ATORVASTATIN 40 MG TAB PO SCH (08:14)
[2018-09-21] MEDS: CLOPIDOGREL BISULFATE 75 MG TAB PO SCH (08:14)
[2018-09-21] MEDS: ASPIRIN 81 MG ECTAB PO SCH (08:14)
[2018-09-21] MEDS: PIPERACILLIN/TAZOBACTAM 3.375 GM in DEXTROSE 5% 100 ML IV SCH ×3 (08:17→23:41)
[2018-09-21 09:08] LABS: Creatine Kinase MB 10.7 ng/ml (0.5-3.6)
[2018-09-21] MEDS ORDERED: VANCOMYCIN TROUGH ONE (09:30)
[2018-09-21] MEDS: VANCOMYCIN HCL 1,500 MG in SODIUM CHLORIDE 0.9% 500 ML IV SCH (10:08)
[2018-09-21] MEDS ORDERED: COUGH DROP (SUGAR FREE) LOZ 24 LOZ/1 BOX BUCCAL ONE (13:34)
--- NOTE | 2018-09-21 13:48 | Pharmacy Report ---
Pharmacy Abx Dose Short Note - Date of Service September 21, 2018 - Assessment & Plan Assessment * 78 year old M receiving VANCOMYCIN + ZOSYN for treatment of bilateral pneumonia in the setting of recent influenza A * Day # 3 of antimicrobial therapy * Patient does have risk factors for resistant organism: senior living * JANY continues and SCr is slowly increasing daily. U.O. reported to be less than 0.5mL/kg/hr last 24 hrs if measurements are accurate. * WBC has been climbing however pt is receiving IV steroid therapy. VSS: afebrile and O2 requirement and Sats stable * Procal was < 0.05 on 09/19 * MRSA nasal swab was negative lessening the likelihood of MRSA pna * No resp cx's collected. BLCXs remain negative Plan Vancomycin * Trough level of 21.7 mcg/mL is supratherapeutic. Level was drawn at the appropriate time and prior doses also hung on schedule. * Change to 1250 mg (~12.7mg/kg) IV every 18 hours - will delay next dose until 0800 tomorrow AM to allow for level to trend down * Goal trough level for pulm infxn : 15 to 20 mcg/mL * Will recheck trough level w/ 4th dose of this new regimen if renal fxn does not decline further. If renal fxn worsening, may need to check level earlier. Zosyn * eCrCl > 20cc/min; BMI < 35; cont 3.375gm ext-infusion Q 8 hrs Pharmacy will continue to follow and will adjust dose/frequency as necessary. Thank you.
--- NOTE | 2018-09-21 15:12 | Cardiology Progress Note ---
Date of Service September 21, 2018 Assessment & Plan (1) Elevated troponin: His troponin has now trended back up, not surprisingly. I think he does have coronary artery disease and probably had a small infarction to explain his symptoms, electrocardiographic findings and troponin elevation. It may just be ischemia but the trend is suggestive of a non-ST segment elevation myocardial infarction. I think we should still treat conservatively with medical therapy. I am going to continue his antiplatelet medications and increase his metoprolol. (2) Hypoxia: This is most likely due to his pulmonary process, I do not think it is primarily congestive heart failure although I cannot exclude a component of diastolic dysfunction. He does have left ventricular hypertrophy, but it is not characteristic of heart failure. (3) Aortic stenosis: He does have at least moderate aortic stenosis, however his left ventricular function is preserved and I do not think his hypoxia is due to heart failure, at least not from the valve. His left ventricular hypertrophy may be caused by his aortic stenosis. At this point I do not think treatment of his aortic stenosis is indicated. (4) Edema: He has significant peripheral edema, he does have a low albumin. I would try conservative measures including leg elevation and may be support stockings and see if that helps, however at this point I think he may need some diuresis. I will give him a dose of IV Lasix today, it is single dose. His weight is up slightly from admission although his edema seems to be down. Subjective He still seems to be complaining of chest discomfort although he is not very articulate. He appears relatively comfortable. Physical Exam 2 Vital Signs (Past 24 Hours): Last Vital Signs Temp 36.4 C L 09/21/18 11:29 Pulse 83 09/21/18 15:01 Resp 16 09/21/18 15:01 BP 116/68 09/21/18 11:29 Pulse Ox 97 09/21/18 15:01 Physical Exam: Constitutional: Alert, cooperative and in no distress. Pulmonary: Expiratory wheezing bilaterally. Cardiac: Regular rhythm with a grade 2/6 crescendo decrescendo murmur at the base, no gallop or rub. Abdomen: Soft, nontender with normal bowel sounds. Extremities: +1 bilateral edema. Skin: No rash, ecchymoses or petechiae. Results & Data Diagnostic Findings Sinus rhythm, heart rate in the 80s Electrocardiogram: Sinus rhythm with anterolateral ST depression, no ST elevation _ (1) Aortic stenosis Cardiac valve disease etiology: etiology unspecified Qualified Code(s): I35.0 - Nonrheumatic aortic (valve) stenosis (2) Edema Edema type: due to malnutrition Malnutrition edema type: unspecified malnutrition type Trimester: Qualified Code(s): E43 - Unspecified severe protein-calorie malnutrition
[2018-09-21] MEDS ORDERED: METOPROLOL TARTRATE 25 MG TAB PO STA (15:25)
[2018-09-21] MEDS ORDERED: CHLORASEPTIC 1.4% SOLN 180 ML BTL MT PRN (15:32)
[2018-09-21] MEDS ORDERED: FUROSEMIDE 40 MG in SYRINGE 0 ML IV ONE (15:45)
--- NOTE | 2018-09-21 16:47 | Progress Note ---
DATE: 09/21/2018 SUBJECTIVE: The patient is very difficult to get a history from. He is very difficult to understand. Nursing did not report any significant problems other than he complains of a sore throat. The patient denies shortness of breath. OBJECTIVE: GENERAL: Temperature is 36.4. He did not appear in any distress. CARDIOVASCULAR: Blood pressure 116/68. Heart rate 83 per minute. The rhythm was regular. RESPIRATORY: Respiratory rate earlier today was reported as 16, but when I saw the patient, respiratory rate was 30. He did not, however, appear to be in any distress. Mild wheezing was heard bilaterally. Saturation 97% on 3 L. GASTROINTESTINAL: Abdomen was soft. Good bowel sounds were heard. LABORATORY DATA: White count today is 13.82, hemoglobin 9.9, platelets 354,000. Electrolytes show sodium 139, potassium 4.4, chloride 108, bicarbonate 28, BUN is 43, with a creatinine of 1.64. Prior BUN was 35, with creatinine 1.53 as of 09/20/2018. Troponin remains elevated today at 1.19. This is actually the highest it has been. IMPRESSION: 1. Bilateral pneumonia. 2. Bilateral pleural effusions. 3. Elevated creatinine. 4. Recent influenza. COMMENTS AND RECOMMENDATIONS: The patient is still wheezing although not complaining. He did complain of a sore throat. Not mentioned above is that it appeared he may have some oral candidiasis. Some white spots were seen in the posterior pharynx. Will order nystatin for him. I will repeat a chest x-ray for tomorrow. I would continue with the methylprednisolone as well as the Zosyn and vancomycin in light of his persistent symptoms.
[2018-09-21] MEDS: NYSTATIN SUSP 500,000 U/5 ML UDC PO SCH ×2 (17:28→21:13)
--- NOTE | 2018-09-21 17:37 | Hospitalist Progress Note ---
Date of Service September 21, 2018 Assessment & Plan (1) Pneumonia: This patient is a 78-year-old male with a history of intellectual disability, moderate-severe aortic stenosis, CAD, chronic diastolic CHF, and recent influenza A, who presented to the ER from the shelter with shortness of breath, hypoxia, and possible focal weakness of the right upper extremity which was resolved and may have been generalized weakness due to significant illness. CT of the chest reveals extensive upper lobe consolidation bilaterally, as well as lower lobe and lingula and right middle lobe opacities, and bilateral moderate pleural effusions. This may be aspiration pneumonia but could also be healthcare associated pneumonia and post influenza pneumonia as he had influenza 2 weeks prior to admission. Pro-calcitonin was negative. MRSA swab is negative, however in the setting of a shelter and recent influenza, I am very concerned about post influenza MRSA pneumonia. Pleural effusions could be parapneumonic or could be related to hypoalbuminemia and heart failure as below. Seems about the same as previous. -Needs mobilization, will add on IS if can perform -Continue IV Zosyn and vancomycin-day #3 -Given wheezing which persists, continue Solumedrol same dose, DuoNebs -Consulted pulmonology given extensive pneumonia-appreciate recommendations -Speech therapy evaluation to look for aspiration -Follow chest imaging to resolution -check PCT in AM -if not clearing, consider bronchoscopy -check CXR in AM (2) Pleural effusion: Possibly secondary to parapneumonic effusion versus CHF as above -Was given IV Lasix in the ER and creatinine continues to rise which may indicate that he is likely intravascularly depleted, however appears volume overloaded today with edema to thighs -Lasix 40mg IV x 1 given today -Follow chest x-ray (3) Abnormal ECG: ECG on 09/[address] depression especially in the anterolateral leads but also in inferior leads worse from previous Repeat troponin slightly higher today at 1.2 but stable x 2 -is continuing to complain of some chest pain but unclear quality of this or if it is related to his pneumonia/pleuritic pain? -Trend troponin -Cardiology consult appreciated-added on aspirin, Plavix, metoprolol 25 mg p.o. twice daily -continue to medically manage as he is not a good candidate for cardiac catheterization (4) Acute respiratory failure with hypoxia: Secondary to extensive bilateral multi lobar pneumonia -Continue supplemental O2 to keep pulse ox greater than 90% -Treating pneumonia as above (5) Dyspnea: Secondary to pneumonia (6) JANY (acute kidney injury): Creatinine was 1.5 on admission which is up from baseline of 1.1 could be secondary to sepsis or IV Lasix given upon admission and intravascular depletion ? Creatinine worsened today at 1.64, but more volume overloaded -IV lasix x 1 as above -Renal dosing where appropriate -Avoid nephrotoxic agents -Follow BMP (7) Aortic stenosis: Moderate-severe noted on echocardiogram -Avoid extremes of volume status -No indication for valve replacement at this time (8) Edema: Could be secondary to hypoalbuminemia rather than volume overload, IV Lasix was given in the ER and his creatinine porfirio Improved today with MARCELINO hose -Continue MARCELINO hose -Encourage improved nutrition -Add boost (9) Demand ischemia of myocardium: Troponin elevated at 0.7/0 0.6/0.5 initially, now at 1.2 x 2 Noted to have extensive coronary artery calcification seen on CT scan of the chest and likely is underlying CAD. Demand myocardial ischemia in the setting of hypoxia and significant pneumonia vs small NSTEMI? Was not thought to have had an NSTEMI initially, but now ECG on 09/[address] depressions -Initially was on heparin drip but now discontinued after 48 hours -Added on aspirin and Plavix -added on statin -Added metoprolol and Cardiology increased today to 50 mg p.o. twice daily -Can add on long-acting nitrates later if blood pressures okay -No plans for cardiac catheterization given other comorbidities and ongoing significant pneumonia -Appreciate cardiology consultation (10) CAD (coronary artery disease), [place] coronary artery: Extensive coronary artery calcification seen on CT scan -Adding aspirin, Plavix, statin, metoprolol as above (11) Intellectual disability: Noted, supportive care will be given (12) Nonsustained ventricular tachycardia: Had some small runs of 3-4 beats, asymptomatic nonsustained Now resolved with addition of beta byron Ejection fraction is normal on echocardiogram -continue metoprolol (13) Chronic diastolic CHF (congestive heart failure): Acute on chronic diastolic CHF With mod-severe Grade 1 diastolic dysfunction noted on echocardiogram here -With pleural effusions and edema which may be from volume overload given discussion as above, hypoalbuminemia - will monitor daily weights, I's and O's -IV lasix x 1 as above, reassess daily, follow BMP (14) Candidiasis of mouth: start nystatin s/s x 14 day course (15) DVT prophylaxis: subcutaneous heparin Disposition-remain on telemetry Is from a shelter and will return there-is on a bed hold, case management is involved PT/OT evals ordered CODE STATUS DNR/DNI as per order signed and on record from the shelter in the chart Subjective Pt eating, got his dentures today. Still points to his chest and says here substernal region when asked if he has chest pain, but cannot tell me quality, duration, radiation, etc. He has not been out of bed today as per RN. He does c/ o a sore throat. Difficult to otherwise obtain ROS Review of Systems All systems reviewed & are unremarkable except as noted in HPI & below Physical Exam 2 Vital Signs (Past 24 Hours): Last Vital Signs Temp 36.4 C L 09/21/18 16:16 Pulse 95 H 09/21/18 16:16 Resp 19 09/21/18 16:16 BP 115/74 09/21/18 16:16 Pulse Ox 96 09/21/18 16:16 Constitutional: well developed (Appears older than given age); no acute distress Eyes: PERRL, conjunctivae normal, anicteric sclerae Neck: trachea midline, no thyromegaly Respiratory: normal respiratory effort Auscultation: + diminished lung sounds (At the bases bilaterally), + crackles (In the upper lung [place] bilaterally), + wheezes (In middle lung [place] bilaterally) and + bronchovesicular breath sounds (In the upper lung [place] bilaterally) Cardiovascular: Rate/Rhythm: regular rate and regular rhythm Extremities: + edema (1+ pitting edema of the legs to the thighs bilaterally) Gastrointestinal (Abdomen): normal bowel sounds, soft, nontender, no hepatosplenomegaly Musculoskeletal: Extremities: extremities normal to inspection; no cyanosis and no clubbing Skin: no rashes, warm and dry Neurologic: moves all extremities and awake; no focal motor deficits Psychiatric: Orientation: alert, oriented to person and cooperative; + not oriented to place and + not oriented to time Results & Data Laboratory Results 09/22/18 09/22/18 09/22/18 Range/Units 05:28 05:28 05:28 WBC 11.07 H (4.8-10.8) K/uL RBC 3.32 L (4.7-6.1) M/uL Hgb 9.9 L (14.0-18.0) g/dL Hct 32.2 L (42-52) % MCV 97.0 (80-100) fL MCH 29.8 (25-34) pg MCHC 30.7 L (32-36) g/dL RDW Std Deviation 55.1 H (36.4-46.3) fL RDW Coeff of [place]ney 15.7 H (11.5-14.5) % Plt Count 337 (130-400) K/uL MPV 9.2 (7.4-10.4) fL Immature Gran % (Auto) 0.5 % Neut % (Auto) 93.6 % Lymph % (Auto) 3.4 % [place] % (Auto) 2.5 % Eos % (Auto) 0.0 % Baso % (Auto) 0.0 % Immature Gran # (Auto) 0.05 H (0.00-0.02) K/uL Neut # (Auto) 10.36 H (1.4-6.5) K/uL Lymph # (Auto) 0.38 L (1.2-3.4) K/uL [place] # (Auto) 0.28 (0.11-0.59) K/uL Eos # (Auto) 0.00 (0-0.5) K/uL Baso # (Auto) 0.00 (0-0.2) K/uL Sodium 141 (136-145) mmol/L Potassium 4.5 (3.5-5.1) mmol/L Chloride 107 (98-107) mmol/L Carbon Dioxide 30 (21-32) mmol/L Anion Gap 4.0 (3-11) BUN 54 H (7-18) mg/dl Creatinine 1.90 H (0.6-1.4) mg/dl Est Cr Clr Drug Dosing 37.3 ml/min Est GFR ( Amer) 38.3 Est GFR (Non-Af Amer) 33.0 BUN/Creatinine Ratio 28.6 H (10-20) Glucose 110 H (70-99) mg/dl Calcium 8.8 (8.5-10.1) mg/dl CK-MB (CK-2) (0.5-3.6) ng/ml Troponin I (0-0.045) ng/ml Procalcitonin < 0.05 (0-0.5) ng/ml Vancomycin Trough (See Comment) mcg/ml 09/21/18 09/21/18 09/21/18 Range/Units 17:41 13:46 09:27 WBC (4.8-10.8) K/uL RBC (4.7-6.1) M/uL Hgb (14.0-18.0) g/dL Hct (42-52) % MCV (80-100) fL MCH (25-34) pg MCHC (32-36) g/dL RDW Std Deviation (36.4-46.3) fL RDW Coeff of [place]ney (11.5-14.5) % Plt Count (130-400) K/uL MPV (7.4-10.4) fL Immature Gran % (Auto) % Neut % (Auto) % Lymph % (Auto) % [place] % (Auto) % Eos % (Auto) % Baso % (Auto) % Immature Gran # (Auto) (0.00-0.02) K/uL Neut # (Auto) (1.4-6.5) K/uL Lymph # (Auto) (1.2-3.4) K/uL [place] # (Auto) (0.11-0.59) K/uL Eos # (Auto) (0-0.5) K/uL Baso # (Auto) (0-0.2) K/uL Sodium (136-145) mmol/L Potassium (3.5-5.1) mmol/L Chloride (98-107) mmol/L Carbon Dioxide (21-32) mmol/L Anion Gap (3-11) BUN (7-18) mg/dl Creatinine (0.6-1.4) mg/dl Est Cr Clr Drug Dosing ml/min Est GFR ( Amer) Est GFR (Non-Af Amer) BUN/Creatinine Ratio (10-20) Glucose (70-99) mg/dl Calcium (8.5-10.1) mg/dl CK-MB (CK-2) (0.5-3.6) ng/ml Troponin I 1.230 H* (0-0.045) ng/ml Procalcitonin (0-0.5) ng/ml Vancomycin Trough 33.1 21.7 (See Comment) mcg/ml 09/21/18 Range/Units 07:55 WBC (4.8-10.8) K/uL RBC (4.7-6.1) M/uL Hgb (14.0-18.0) g/dL Hct (42-52) % MCV (80-100) fL MCH (25-34) pg MCHC (32-36) g/dL RDW Std Deviation (36.4-46.3) fL RDW Coeff of Courtney (11.5-14.5) % Plt Count (130-400) K/uL MPV (7.4-10.4) fL Immature Gran % (Auto) % Neut % (Auto) % Lymph % (Auto) % [place] % (Auto) % Eos % (Auto) % Baso % (Auto) % Immature Gran # (Auto) (0.00-0.02) K/uL Neut # (Auto) (1.4-6.5) K/uL Lymph # (Auto) (1.2-3.4) K/uL [place] # (Auto) (0.11-0.59) K/uL Eos # (Auto) (0-0.5) K/uL Baso # (Auto) (0-0.2) K/uL Sodium (136-145) mmol/L Potassium (3.5-5.1) mmol/L Chloride (98-107) mmol/L Carbon Dioxide (21-32) mmol/L Anion Gap (3-11) BUN (7-18) mg/dl Creatinine (0.6-1.4) mg/dl Est Cr Clr Drug Dosing ml/min Est GFR ( Amer) Est GFR (Non-Af Amer) BUN/Creatinine Ratio (10-20) Glucose (70-99) mg/dl Calcium (8.5-10.1) mg/dl CK-MB (CK-2) 10.7 H (0.5-3.6) ng/ml Troponin I (0-0.045) ng/ml Procalcitonin (0-0.5) ng/ml Vancomycin Trough (See Comment) mcg/ml _ (1) Aortic stenosis Cardiac valve disease etiology: etiology unspecified Qualified Code(s): I35.0 - Nonrheumatic aortic (valve) stenosis (2) Dyspnea Dyspnea type: shortness of breath Qualified Code(s): R06.02 - Shortness of breath; R06.00 - Dyspnea, unspecified; R06.01 - Orthopnea (3) Edema Edema type: due to malnutrition Malnutrition edema type: unspecified malnutrition type Trimester: Qualified Code(s): E43 - Unspecified severe protein-calorie malnutrition (4) Pneumonia Aspiration pneumonia type: Laterality: bilateral Lung location: unspecified part of lung Pneumonia type: due to unspecified organism Qualified Code(s): J18.9 - Pneumonia, unspecified organism
[2018-09-21] MEDS: METOPROLOL TARTRATE 50 MG TAB PO SCH (21:13)
[2018-09-22] MEDS: ALBUT/IPRATROP 3MG/0.5MG NEB 3 ML VIAL NEB SCH ×6 (03:21→22:22)
[2018-09-22] MEDS: HEPARIN SOD 5,000 UNIT/0.5 ML VIAL SQ SCH ×3 (05:40→21:43)
[2018-09-22 05:52] LABS: Hematocrit (blood only) 32.2 % (42-52); Hemoglobin 9.9 g/dL (14.0-18.0); Immature Granulocytes # (auto) 0.05 K/uL (0.00-0.02); Immature Granulocytes % (auto) 0.5 %; Lymphocytes # (auto) 0.38 K/uL (1.2-3.4); Lymphocytes % (auto) 3.4 %; Mean Corpuscular Hgb Conc 30.7 g/dL (32-36); Mean Platelet Volume 9.2 fL (7.4-10.4); Monocytes # (auto) 0.28 K/uL (0.11-0.59); Monocytes % (auto) 2.5 %; Neutrophils # (auto) 10.36 K/uL (1.4-6.5); Neutrophils % (auto) 93.6 %; Platelet Count 337 K/uL (130-400); RDW Coefficient of Variation 15.7 % (11.5-14.5); RDW Standard Deviation 55.1 fL (36.4-46.3); Red Blood Count 3.32 M/uL (4.7-6.1); White Blood Count 11.07 K/uL (4.8-10.8)
[2018-09-22 06:22] LABS: BUN Creatinine Ratio 28.6 (10-20); Calcium 8.8 mg/dl (8.5-10.1); Creatinine Clr Calc Pharmacy 37.3 ml/min; Est GFR (African American) 38.3; Potassium 4.5 mmol/L (3.5-5.1)
[2018-09-22] MEDS ORDERED: VANCOMYCIN HCL 1,250 MG in SODIUM CHLORIDE 0.9% 250 ML IV SCH (08:00)
[2018-09-22] MEDS: PIPERACILLIN/TAZOBACTAM 3.375 GM in DEXTROSE 5% 100 ML IV SCH ×3 (09:43→23:33)
[2018-09-22] MEDS: methylPREDNISolone 40 MG in SYRINGE 0 ML IV SCH ×3 (09:45→22:37)
[2018-09-22] MEDS: CLOPIDOGREL BISULFATE 75 MG TAB PO SCH (09:48)
[2018-09-22] MEDS: ATORVASTATIN 40 MG TAB PO SCH (09:48)
[2018-09-22] MEDS: ASPIRIN 81 MG ECTAB PO SCH (09:48)
[2018-09-22] MEDS: METOPROLOL TARTRATE 50 MG TAB PO SCH ×2 (09:49→21:40)
[2018-09-22] MEDS: NYSTATIN SUSP 500,000 U/5 ML UDC PO SCH ×4 (09:49→21:41)
--- NOTE | 2018-09-22 12:25 | XRay Report ---
SINGLE VIEW CHEST CLINICAL HISTORY: Pleural effusions. Consolidation. FINDINGS: 2 AP, portable, upright chest radiographs are compared to chest x-ray and chest CT dated . The examination is degraded by portable technique and patient rotation. The heart is enlarg ed and there is atherosclerotic calcification of the thoracic aorta. The pulmonary vasculature is non congested. There is dense airspace consolidation the upper lobes and at both lung bases. Layering ple ural effusions persist. No pneumothorax is seen. The skeletal structures are osteopenic. The bony tho rax is grossly intact. Advanced arthritic change is noted in the shoulders. IMPRESSION: 1. Cardiomegaly without radiographic evidence of congestive failure. 2. Dense multifocal airspace consolidation and bilateral pleural effusions have not significantly brdoy nged from 09/19/2018. Electronically signed by: Feliberto Coulter M.D. 09/22/2018 12:24 PM
--- NOTE | 2018-09-22 15:28 | Pharmacy Report ---
Pharmacy Abx Dose Short Note - Date of Service September 22, 2018 - Assessment & Plan Assessment * 78 year old M receiving Vancomycin 1250 mg IV q18h for treatment of b/l Pneumonia. * Day #4 of Vancomycin therapy. * Scr = 1.9 (increased from 1.64 yesterday), Crcl = 37.3 (decreased from 43 yesterday). Patient with JANY. UO less than 0.5 ml/kg/day. * Procalcitonin obtained today < 0.05 ng/ml. Plan Vancomycin * Patient received Vanco 1250 mg IV at 09:30 AM today. * With renal function worsening, will hold Vanco for now and check a random Vanco level with AM labs tomorrow. * Goal trough level for Pneumonia: 15 to 20 mcg/mL * Based on level tomorrow and renal function, will determine further dosing. Pharmacy will continue to follow and will adjust dose/frequency as necessary. Thank you.
[2018-09-22] MEDS: DICLOFENAC SOD 1% GEL 100 GM TUBE EXT SCH ×2 (17:21→21:42)
--- NOTE | 2018-09-23 00:43 | Hospitalist Progress Note ---
Date of Service September 22, 2018 Assessment & Plan (1) Acute respiratory failure with hypoxia: 2nd to b/l pneumonia with reactive bronchitis. slowly improving. (2) Pneumonia: b/l upper lobes on imaging. day #4 of current abx (zosyn, vanco). MRSA swab is negative; consider d/c of such. supportive care. since he lives in SNF will need to cont gram negative coverage. (3) Chronic diastolic CHF (congestive heart failure): compensated. (4) Intellectual disability: (5) Candidiasis of mouth: cont nystatin (6) Aortic stenosis: no issues at this time (7) DVT prophylaxis: heparin (8) Chronic kidney disease, stage 3a: creatinine worse today - BMP in am (9) Acute kidney failure: likely due to sepsis associated ATN supportive care BMP am (10) Acute bronchitis: cont nebs wean steroids today Subjective unable to provide much in the way of history but does manage to tell me his left shoulder hurts no issues per staff eating well tele stable Review of Systems Unobtainable due to cognitive status Physical Exam 2 Vital Signs (Past 24 Hours): Last Vital Signs Temp 36.5 C 09/23/18 00:29 Pulse 74 09/23/18 00:29 Resp 20 09/23/18 00:29 BP 113/73 09/23/18 00:29 Pulse Ox 95 09/23/18 00:29 Constitutional: + ill appearing; no acute distress ENMT: Mouth: + oral mucosal abnormality (thrush - mild) Respiratory: no respiratory distress Auscultation: + wheezes; no crackles Cardiovascular: Rate/Rhythm: regular rate and regular rhythm Heart Sounds: normal S1, normal S2 and + murmur (2/6 RUSB) Vessels: posterior tibial pulses present and dorsalis pedis pulses present; no JVD Gastrointestinal (Abdomen): normal bowel sounds, soft, nontender, no hepatosplenomegaly Psychiatric: Orientation: alert Results & Data Laboratory Results Laboratory Results - last 24 hr 09/22/18 09/22/18 09/22/18 05:28 05:28 05:28 WBC 11.07 H RBC 3.32 L Hgb 9.9 L Hct 32.2 L MCV 97.0 MCH 29.8 MCHC 30.7 L RDW Std Deviation 55.1 H RDW Coeff of Courtney 15.7 H Plt Count 337 MPV 9.2 Immature Gran % (Auto) 0.5 Neut % (Auto) 93.6 Lymph % (Auto) 3.4 [place] % (Auto) 2.5 Eos % (Auto) 0.0 Baso % (Auto) 0.0 Immature Gran # (Auto) 0.05 H Neut # (Auto) 10.36 H Lymph # (Auto) 0.38 L [place] # (Auto) 0.28 Eos # (Auto) 0.00 Baso # (Auto) 0.00 Sodium 141 Potassium 4.5 Chloride 107 Carbon Dioxide 30 Anion Gap 4.0 BUN 54 H Creatinine 1.90 H Est Cr Clr Drug Dosing 37.3 Est GFR ( Amer) 38.3 Est GFR (Non-Af Amer) 33.0 BUN/Creatinine Ratio 28.6 H Glucose 110 H Calcium 8.8 Procalcitonin < 0.05 _ (1) Pneumonia Aspiration pneumonia type: Laterality: bilateral Lung location: unspecified part of lung Pneumonia type: due to unspecified organism Qualified Code(s): J18.9 - Pneumonia, unspecified organism (2) Aortic stenosis Cardiac valve disease etiology: etiology unspecified Qualified Code(s): I35.0 - Nonrheumatic aortic (valve) stenosis (3) Acute kidney failure Acute renal failure type: unspecified Qualified Code(s): N17.9 - Acute kidney failure, unspecified (4) Acute bronchitis Bronchitis organism: other organism Qualified Code(s): J20.8 - Acute bronchitis due to other specified organisms
[2018-09-23] MEDS: ALBUT/IPRATROP 3MG/0.5MG NEB 3 ML VIAL NEB SCH ×6 (03:49→23:30)
[2018-09-23] MEDS: HEPARIN SOD 5,000 UNIT/0.5 ML VIAL SQ SCH ×3 (05:50→21:31)
[2018-09-23 06:56] LABS: BUN Creatinine Ratio 34.5 (10-20); Calcium 8.8 mg/dl (8.5-10.1); Creatinine Clr Calc Pharmacy 43.7 ml/min; Est GFR (African American) 46.4; Est GFR (Non-African American) 40.1; Potassium 5.2 mmol/L (3.5-5.1)
[2018-09-23] MEDS ORDERED: SODIUM POLYSTYRENE SULFONATE 15G/60ML SUSP PO ONE (09:00)
[2018-09-23] MEDS ORDERED: VANCOMYCIN HCL 1,250 MG in SODIUM CHLORIDE 0.9% 250 ML IV SCH (09:00)
[2018-09-23] MEDS: methylPREDNISolone 40 MG in SYRINGE 0 ML IV SCH ×2 (09:16→20:42)
[2018-09-23] MEDS: CLOPIDOGREL BISULFATE 75 MG TAB PO SCH (09:17)
[2018-09-23] MEDS: ATORVASTATIN 40 MG TAB PO SCH (09:17)
[2018-09-23] MEDS: NYSTATIN SUSP 500,000 U/5 ML UDC PO SCH ×4 (09:18→20:42)
[2018-09-23] MEDS: METOPROLOL TARTRATE 50 MG TAB PO SCH ×2 (09:18→20:43)
[2018-09-23] MEDS: ASPIRIN 81 MG ECTAB PO SCH (09:19)
[2018-09-23] MEDS: DICLOFENAC SOD 1% GEL 100 GM TUBE EXT SCH ×4 (09:20→20:44)
[2018-09-23] MEDS: PIPERACILLIN/TAZOBACTAM 3.375 GM in DEXTROSE 5% 100 ML IV SCH ×3 (09:29→23:59)
--- NOTE | 2018-09-23 20:03 | Hospitalist Progress Note ---
Date of Service September 23, 2018 Assessment & Plan (1) Acute respiratory failure with hypoxia: 2nd to b/l pneumonia with reactive bronchitis. about the same as yesterday; same O2 requirement as well. leave steroids as is today. (2) Pneumonia: b/l upper lobes on imaging. day #5 of current abx (zosyn, vanco). MRSA swab is negative; will d/c vanco today. supportive care. will continue the zosyn for 7 days for gram negative coverage and in light of poor progress. add chest PT BID. add mucinex BID. cont steroids, nebs. add doxy BID for atypical coverage as he never had such during this stay. (3) Chronic diastolic CHF (congestive heart failure): compensated although seemed to have mild JVD today. attempts at diuresis earlier this stay were met with acute kidney injury, etc. repeat CXR in am. (4) Intellectual disability: (5) Candidiasis of mouth: cont nystatin (6) Aortic stenosis: moderate-severe (7) Chronic kidney disease, stage 3a: with superimposed JANY -- JANY improved today BMP in am (8) Acute kidney failure: likely due to sepsis associated ATN improving BMP am (9) Acute bronchitis: cont nebs no wean on steroids today add chest PT add mucinex need for bronch in light of poor progress? (10) Hyperkalemia: kayexalate 15gm x 1 2nd to JANY BMP in am (11) DVT prophylaxis: heparin attempted to call pt's brother listed in chart - no answer (09/23/18) Subjective patient, like yesterday, stated "I feel good" he had no specific complaints he answered "no" to all questions/review of systems tele stable Respiratory: no dyspnea Cardiovascular: no chest pain Gastrointestinal: no abdominal pain Physical Exam 2 Vital Signs (Past 24 Hours): Last Vital Signs Temp 36.8 C 09/23/18 15:37 Pulse 88 09/23/18 19:55 Resp 20 09/23/18 19:55 BP 123/76 09/23/18 15:37 Pulse Ox 97 09/23/18 19:55 Constitutional: no acute distress severe bronchial cough during the visit ENMT: thrush plaques improved Respiratory: Auscultation: + rales (anterior chest b/l ) and + wheezes (b/l - - posteriorly) Cardiovascular: Rate/Rhythm: regular rate and regular rhythm Heart Sounds: normal S1, normal S2 and + murmur (1/6 RUSB) Vessels: + JVD, posterior tibial pulses present and dorsalis pedis pulses present Extremities: + pedal edema (trace b/l) Gastrointestinal (Abdomen): normal bowel sounds, soft, nontender, no hepatosplenomegaly Psychiatric: Orientation: alert Results & Data Laboratory Results Laboratory Results - last 24 hr 09/23/18 09/23/18 05:53 05:53 Sodium 139 Potassium 5.2 H D Chloride 106 Carbon Dioxide 30 Anion Gap 3.0 BUN 56 H Creatinine 1.62 H Est Cr Clr Drug Dosing 43.7 Est GFR ( Amer) 46.4 Est GFR (Non-Af Amer) 40.1 BUN/Creatinine Ratio 34.5 H Glucose 112 H Calcium 8.8 Random Vancomycin 19.0 _ (1) Pneumonia Aspiration pneumonia type: Laterality: bilateral Lung location: unspecified part of lung Pneumonia type: due to unspecified organism Qualified Code(s): J18.9 - Pneumonia, unspecified organism (2) Aortic stenosis Cardiac valve disease etiology: etiology unspecified Qualified Code(s): I35.0 - Nonrheumatic aortic (valve) stenosis (3) Acute kidney failure Acute renal failure type: unspecified Qualified Code(s): N17.9 - Acute kidney failure, unspecified (4) Acute bronchitis Bronchitis organism: other organism Qualified Code(s): J20.8 - Acute bronchitis due to other specified organisms
[2018-09-23] MEDS: guaiFENesin 600 MG TABCR PO SCH (20:43)
[2018-09-23] MEDS: DOXYCYCLINE HYCLATE 100 MG CAP PO SCH (21:28)
[2018-09-24] MEDS: ALBUT/IPRATROP 3MG/0.5MG NEB 3 ML VIAL NEB SCH ×5 (03:32→19:39)
[2018-09-24] MEDS: HEPARIN SOD 5,000 UNIT/0.5 ML VIAL SQ SCH ×3 (05:20→21:42)
[2018-09-24 07:26] LABS: Calcium 8.5 mg/dl (8.5-10.1); Creatinine Clr Calc Pharmacy 44.2 ml/min; Est GFR (African American) 42.6; Est GFR (Non-African American) 36.7; Potassium 5.2 mmol/L (3.5-5.1)
[2018-09-24] MEDS: PIPERACILLIN/TAZOBACTAM 3.375 GM in DEXTROSE 5% 100 ML IV SCH ×2 (09:32→16:40)
[2018-09-24] MEDS: DOCUSATE SODIUM 100 MG CAP PO PRN ×2 (09:32→16:41)
[2018-09-24] MEDS: METOPROLOL TARTRATE 50 MG TAB PO SCH ×2 (09:33→21:41)
[2018-09-24] MEDS: ATORVASTATIN 40 MG TAB PO SCH (09:33)
[2018-09-24] MEDS: ASPIRIN 81 MG ECTAB PO SCH (09:33)
[2018-09-24] MEDS: CLOPIDOGREL BISULFATE 75 MG TAB PO SCH (09:34)
[2018-09-24] MEDS: guaiFENesin 600 MG TABCR PO SCH ×2 (09:34→21:41)
[2018-09-24] MEDS: NYSTATIN SUSP 500,000 U/5 ML UDC PO SCH ×4 (09:35→21:41)
[2018-09-24] MEDS: DOXYCYCLINE HYCLATE 100 MG CAP PO SCH ×2 (09:35→21:40)
[2018-09-24] MEDS: DICLOFENAC SOD 1% GEL 100 GM TUBE EXT SCH ×4 (09:35→21:42)
[2018-09-24] MEDS: methylPREDNISolone 40 MG in SYRINGE 0 ML IV SCH (09:36)
--- NOTE | 2018-09-24 10:39 | Hospitalist Progress Note ---
Date of Service September 24, 2018 Assessment & Plan (1) Acute respiratory failure with hypoxia: 2nd to b/l pneumonia with reactive bronchitis. still requiring 2L NC but no distress taper steroids to Solu Medrol daily appreciate pulmonology consult, may consider thoracentesis (2) Pneumonia: b/l upper lobes on imaging. day #6 of zosyn. MRSA swab is negative; will d/c vanco supportive care. will continue the zosyn for 7 days for gram negative coverage and in light of poor progress. add chest PT BID. add mucinex BID. cont steroids, nebs. add doxy BID for atypical coverage as he never had such during this stay. consider thoracentesis if consent obtained (3) Chronic diastolic CHF (congestive heart failure): mild acute on chronic diastolic HF has some rales on auscultation and peripheral edema will give a dose of Bumex 1mg PO today, see how he responds check BMP in the morning (4) Intellectual disability: Noted, supportive care will be given will need to get consent from family (5) Candidiasis of mouth: cont nystatin (6) Aortic stenosis: moderate-severe (7) Chronic kidney disease, stage 3a: unsure of baseline, Cr is 1.7 today, was as high as 1.9 will give Bumex today, check BMP tomorrow (8) Acute kidney failure: likely due to sepsis associated ATN improving BMP am (9) Acute bronchitis: cont nebs wean Solu Medrol to once daily add chest PT add mucinex (10) Hyperkalemia: 5.2 again today, treat with Kayexalate and Bumex repeat tomorrow (11) DVT prophylaxis: heparin attempted to call both contacts listed in chart - no answer (09/24/18) will call [facility] for alternative numbers? need to get consent for possible procedures Subjective patient with mental disability, cannot answer in depth questions admits to having a cough and feeling short of breath reviewed chart, prior labs and diagnostic testing echo a week ago showed EF 55%, dilated LV, grade I diastolic dysfunction Cr is 1.74, K is still kacie at 5.2 cannot determine home medications, even looked in outpatient records on exam he is volume overloaded Review of Systems Unobtainable due to mental health condition (mental disability) Physical Exam 2 Vital Signs (Past 24 Hours): Last Vital Signs Temp 36.9 C 09/24/18 07:27 Pulse 73 09/24/18 07:27 Resp 20 09/24/18 07:27 BP 113/67 09/24/18 07:27 Pulse Ox 98 09/24/18 07:27 Constitutional: WD/WN, vitals as above Eyes: PERRL, conjunctivae normal, anicteric sclerae ENMT: external ear and nose normal, oropharynx normal Neck: trachea midline, no thyromegaly Respiratory: normal respiratory effort; no respiratory distress Auscultation: + diminished lung sounds (bases) and + rales (bases); no wheezes Cardiovascular: Rate/Rhythm: regular rate and regular rhythm Heart Sounds: normal S1 and normal S2; no murmur Vessels: + JVD Extremities: + edema Gastrointestinal (Abdomen): normal bowel sounds, soft, nontender, no hepatosplenomegaly Musculoskeletal: no cyanosis or clubbing, extremities motor strength 5/5 Skin: no rashes, warm and dry Neurologic: patellar DTR's 2+ bilat, sensation intact and PERRL, EOMI, accommodation nl, no face palsy, no dysarthria Lymphatic: no cervical or axillary lymphadenopathy Results & Data Laboratory Results Laboratory Results - last 24 hr 09/24/18 06:28 Sodium 141 Potassium 5.2 H Chloride 106 Carbon Dioxide 30 Anion Gap 5.0 BUN 56 H Creatinine 1.74 H Est Cr Clr Drug Dosing 44.2 Est GFR ( Amer) 42.6 Est GFR (Non-Af Amer) 36.7 BUN/Creatinine Ratio 32.0 H Glucose 103 H Calcium 8.5 Medications Administered Current Inpatient Medications Acetaminophen (Tylenol) 650 mg PO Q4H PRN PRN Reason: pain/fever Stop: 10/19/18 06:22 Last Admin: 09/21/18 16:01 Dose: 650 mg Albuterol (Duoneb) 3 ml NEB Q4R [facility] Stop: 10/19/18 07:59 Last Admin: 09/24/18 07:07 Dose: 3 ml Albuterol (Ventolin 0.5% 2.5mg/0.5ml) 2.5 mg NEB Q4H PRN PRN Reason: sob Stop: 10/19/18 06:22 Aspirin (Ecotrin Ectab) 81 mg PO QAM [facility] Stop: 10/21/18 08:59 Last Admin: 09/24/18 09:33 Dose: 81 mg Atorvastatin Calcium (Lipitor) 40 mg PO QAM [facility] Stop: 10/20/18 14:14 Last Admin: 09/24/18 09:33 Dose: 40 mg Bumetanide (Bumex) 1 mg PO QAM [facility] Stop: 10/24/18 10:44 Clopidogrel Bisulfate (Plavix) 75 mg PO QAM [facility] Stop: 10/21/18 08:59 Last Admin: 09/24/18 09:34 Dose: 75 mg Diclofenac Sodium (Voltaren 1% Top) 1 appln EXT QID [facility] Stop: 10/22/18 16:59 Last Admin: 09/24/18 09:35 Dose: 1 appln Docusate Sodium (Colace) 100 mg PO BID PRN PRN Reason: Constipation Stop: 10/19/18 06:22 Last Admin: 09/24/18 09:32 Dose: 100 mg Doxycycline Hyclate (Vibramycin) 100 mg PO BID [facility]; Protocol Stop: 09/30/18 20:59 Last Admin: 09/24/18 09:35 Dose: 100 mg Guaifenesin (Mucinex) 1,200 mg PO Q12 [facility] Stop: 10/23/18 20:59 Last Admin: 09/24/18 09:34 Dose: 1,200 mg Heparin Sodium (Porcine) (Heparin Sodium (Porcine)) 5,000 units SQ Q8 [facility] Stop: 10/20/18 05:59 Last Admin: 09/24/18 05:20 Dose: 5,000 units Piperacillin Sod/Tazobactam (Sod 3.375 gm/ Dextrose) 115 mls @ 28.75 mls/hr IV Q8H [facility]; Protocol Stop: 09/26/18 09:59 Last Admin: 09/24/18 09:32 Dose: 28.8 mls/hr Methylprednisolone 40 mg/ (Syringe) 0.64 mls @ 1.5 mls/min IV DAILY [facility] Stop: 10/25/18 08:59 Metoprolol Tartrate (Lopressor) 50 mg PO BID [facility] Stop: 10/21/18 20:59 Last Admin: 09/24/18 09:33 Dose: 50 mg Miscellaneous Information (Consult) 1 ea N/A UD PRN PRN Reason: Consult Stop: 10/19/18 09:38 Nystatin (Mycostatin) 5 ml PO QID [facility] Stop: 10/01/18 16:59 Last Admin: 09/24/18 09:35 Dose: 5 ml Phenol (Chloraseptic 1.4% [place]) 2 sprays MT Q6H PRN PRN Reason: Sore Throat Stop: 10/21/18 15:31 Sodium Polystyrene Sulfonate (Kayexalate) 15 gm PO NOW ONE Stop: 09/24/18 10:27 _ (1) Acute kidney failure Acute renal failure type: unspecified Qualified Code(s): N17.9 - Acute kidney failure, unspecified (2) Aortic stenosis Cardiac valve disease etiology: etiology unspecified Qualified Code(s): I35.0 - Nonrheumatic aortic (valve) stenosis (3) Acute bronchitis Bronchitis organism: other organism Qualified Code(s): J20.8 - Acute bronchitis due to other specified organisms (4) Pneumonia Aspiration pneumonia type: Laterality: bilateral Lung location: unspecified part of lung Pneumonia type: due to unspecified organism Qualified Code(s): J18.9 - Pneumonia, unspecified organism
[2018-09-24] MEDS ORDERED: SODIUM POLYSTYRENE SULFONATE 15G/60ML SUSP PO ONE (11:00)
--- NOTE | 2018-09-24 11:37 | XRay Report ---
XR chest 1V portable CLINICAL HISTORY: Hypoxia. COMPARISON STUDY: Chest CT September 19, 2018 and chest radiograph September 22, 2018. FINDINGS: There is no pneumothorax. Moderate bilateral pleural effusions persist. Bilateral upper lob e airspace opacities persist however aeration is slightly improved. Diffuse interstitial thickening i s noted. Cardiomediastinal is unchanged. Kyphotic positioning is noted on this exam. IMPRESSION: 1. Persistent, but improved, extensive bilateral upper lung airspace opacities which may reflect pneu monia or pulmonary edema. 2. Interstitial thickening suggestive of pulmonary edema. 3. Moderate bilateral pleural effusions with associated left basilar opacity which appear unchanged. Electronically signed by: Quinten Sky M.D. 09/24/2018 11:36 AM
[2018-09-24] MEDS: BUMETANIDE 1 MG TAB PO SCH (12:25)
--- NOTE | 2018-09-24 13:14 | Progress Note ---
DATE: 09/22/2018 PROBLEM LIST: Includes 1. Bilateral pneumonia. 2. Bilateral pleural effusions. 3. Elevated creatinine. 4. Recent influenza. SUBJECTIVE: Patient does have slight mental retardation, and history is difficult although patient did seem to do well today with providing history. He reports that the sore throat he had yesterday was not bothering him today, states that his breathing is doing okay. He is not complaining of any shortness of breath. He denies any pain in his chest. He states that he does cough, but he is not able to get any mucus up. He states that overall he feels well. His appetite is good. No other difficulties. OBJECTIVE: GENERAL: Patient is a 78-year-old male, sitting at bedside, in no acute distress. He is interactive and cooperative. He seems alert, although verbalization is difficult. VITAL SIGNS: Temperature 36.5, pulse 75, respirations 20, blood pressure 127/84, pulse oximetry is 92% on 2 L. NECK: Short, thick, no mass, no adenopathy, no bruit. CHEST: Patient has some coarse wheezes bilaterally in the upper airways, slightly diminished breath sounds in the bases bilaterally. No rales or rhonchi noted. CARDIOVASCULAR: Regular rate and rhythm. No appreciated murmurs, gallops, or rubs although difficult to ascertain due to breath sounds noise. GASTROINTESTINAL: Bowel sounds are present. Abdomen is soft and nontender. No guarding, rigidity, or organomegaly. EXTREMITIES: Trace edema bilaterally, no erythema, no tenderness. LABORATORY DATA: Shows white count down to 11,000, H and H 9.9 and 32.2, platelet count 337,000. Creatinine is still elevated at 1.9. Procalcitonin is less than 0.05. IMAGING: Chest x-ray done today shows dense airspace consolidation in the upper lobes bilaterally and at the lung bases, also pleural effusion present. There is really no change from a chest x-ray done on 09/19/2018. IMPRESSION: 1. Bilateral pneumonia. 2. Bilateral pleural effusion. 3. Elevated creatinine. 4. Elevated troponin. 5. Recent influenza. PLAN: At this point, patient continues to have wheezing on exam, although he did voice a difficulty with his breathing. For now, continue Solu-Medrol, Zosyn, and vancomycin. At this point, the patient may require bronchoscopic evaluation to clear some of the mucus as well as to get a culture. I do not think the patient would be cognitively able to produce a sputum sample for us. Continue nebulization as it is, continue current pulmonary medications as they are.
[2018-09-24] MEDS ORDERED: VANCOMYCIN TROUGH ONE (13:30)
[2018-09-24] MEDS ORDERED: BISACODYL 10 MG SUPP PR STA (17:02)
--- NOTE | 2018-09-24 19:40 | Pulmonology Progress Note ---
Date of Service September 24, 2018 Assessment & Plan (1) Chronic kidney disease, stage 3a: Impression: 1. Bilateral aspiration pneumonia, parapneumonic effusion is possible. 2. Given his cardiomegaly, the pleural effusion, lack of fever, and leukocytosis likely secondary to steroids, I am concerned that his symptoms are related to CHF rather than infectious process. 3. I could not find evidence of COPD in this patient. He is lifetime non- smoker. Plan: 1. Continue with Zosyn, de-escalate antibiotics to oral Augmentin and complete the course of 10 days. 2. Discontinue steroids. 3. I cannot find healthcare proxy although I attempted to call the [facility] at [phone] to obtain a consent for thoracentesis for diagnostic and therapeutic purpose. The patient cannot give a consent. Thank you, will follow. Subjective Due to history of MR, the patient is poor historian, information was not obtainable. Physical Exam 2 Vital Signs (Past 24 Hours): Last Vital Signs Temp 36.8 C 09/24/18 19:28 Pulse 82 09/24/18 19:28 Resp 16 09/24/18 19:28 BP 117/71 09/24/18 19:28 Pulse Ox 94 09/24/18 19:28 Physical Exam: The patient is pleasantly demented, vital signs reported as normal, O2 saturation is 94% on nasal cannula. Distant breath sounds bilaterally. Body position preclude good examination. Abdomen is benign, no edema. Neurologically difficult to assess. Results & Data Laboratory Results Labs were reviewed including chronic kidney disease was noted. Diagnostic Findings Chest x-ray and CAT scan showed persistent pleural effusion, etiology is unknown. Although it could represent CHF given his cardiomegaly also noted.
[2018-09-25] MEDS: ALBUT/IPRATROP 3MG/0.5MG NEB 3 ML VIAL NEB SCH ×7 (00:44→22:48)
[2018-09-25] MEDS: PIPERACILLIN/TAZOBACTAM 3.375 GM in DEXTROSE 5% 100 ML IV SCH ×2 (00:57→07:44)
[2018-09-25] MEDS: HEPARIN SOD 5,000 UNIT/0.5 ML VIAL SQ SCH ×3 (05:22→20:02)
[2018-09-25 05:51] LABS: Eosinophils # (auto) 0.05 K/uL (0-0.5); Eosinophils % (auto) 0.6 %; Hematocrit (blood only) 30.5 % (42-52); Hemoglobin 9.4 g/dL (14.0-18.0); Immature Granulocytes # (auto) 0.08 K/uL (0.00-0.02); Lymphocytes # (auto) 0.51 K/uL (1.2-3.4); Lymphocytes % (auto) 6.1 %; Mean Corpuscular Hgb Conc 30.8 g/dL (32-36); Mean Corpuscular Volume 96.8 fL (80-100); Mean Platelet Volume 9.1 fL (7.4-10.4); Monocytes # (auto) 0.97 K/uL (0.11-0.59); Monocytes % (auto) 11.7 %; Neutrophils # (auto) 6.69 K/uL (1.4-6.5); Neutrophils % (auto) 80.6 %; Platelet Count 267 K/uL (130-400); RDW Coefficient of Variation 15.6 % (11.5-14.5); RDW Standard Deviation 54.5 fL (36.4-46.3); Red Blood Count 3.15 M/uL (4.7-6.1)
[2018-09-25 06:17] LABS: BUN Creatinine Ratio 35.2 (10-20); Creatinine Clr Calc Pharmacy 46.9 ml/min; Est GFR (African American) 45.7; Est GFR (Non-African American) 39.5
[2018-09-25] MEDS: ATORVASTATIN 40 MG TAB PO SCH (07:44)
[2018-09-25] MEDS: guaiFENesin 600 MG TABCR PO SCH ×2 (07:44→20:01)
[2018-09-25] MEDS: CLOPIDOGREL BISULFATE 75 MG TAB PO SCH (07:44)
[2018-09-25] MEDS: ASPIRIN 81 MG ECTAB PO SCH (07:45)
[2018-09-25] MEDS: NYSTATIN SUSP 500,000 U/5 ML UDC PO SCH ×4 (07:45→20:01)
[2018-09-25] MEDS: DOXYCYCLINE HYCLATE 100 MG CAP PO SCH (07:45)
[2018-09-25] MEDS: METOPROLOL TARTRATE 50 MG TAB PO SCH ×2 (07:45→20:01)
[2018-09-25] MEDS: BUMETANIDE 1 MG TAB PO SCH (07:46)
[2018-09-25] MEDS: DICLOFENAC SOD 1% GEL 100 GM TUBE EXT SCH ×4 (07:46→20:01)
[2018-09-25] MEDS ORDERED: methylPREDNISolone 40 MG in SYRINGE 0 ML IV SCH (09:00)
--- NOTE | 2018-09-25 09:34 | Hospitalist Progress Note ---
Date of Service September 25, 2018 Assessment & Plan (1) Acute respiratory failure with hypoxia: 2nd to b/l pneumonia with reactive bronchitis now with pulmonary edema and volume overload requiring 2L, no distress, try to wean off of oxygen today taper steroids to Solu Medrol daily, discontinue today appreciate pulmonology consult, may consider thoracentesis if family can be contacted (2) Pneumonia: b/l upper lobes on imaging. day #7 of zosyn. MRSA swab is negative; will d/c vanco stop Doxycycline change antibiotics to Augmentin, complete 3 more days then stop add chest PT BID. add mucinex BID. cont nebs. (3) Chronic diastolic CHF (congestive heart failure): mild acute on chronic diastolic HF had some rales on auscultation and peripheral edema on 09/24 improved edema and no rales today, diuresed over 2 liters yesterday Cr stable at 1.64, will continue Bumex 1mg PO daily follow weights and I/Os (4) Intellectual disability: Noted, supportive care will be given will need to get consent from family (5) Candidiasis of mouth: cont nystatin (6) Aortic stenosis: moderate-severe (7) Chronic kidney disease, stage 3a: unsure of baseline, Cr is stable at 1.64 today after starting Bumex continue to monitor (8) Acute kidney failure: unsure if this was JANY or just CKD stage III Cr has ranged from 1.6-1.9 making adequate urine monitor daily (9) Acute bronchitis: cont nebs stop steroids today (10) Hyperkalemia: down to 5.0 today from 5.2 will continue to use Bumex to remove K BMP tomorrow (11) Constipation: moved bowels after suppository will keep on bowel regimen with Miralax daily back off if stools become loose (12) DVT prophylaxis: heparin plan to return to [facility], likely tomorrow Subjective patient sitting up in chair, breathing easy reviewed I/O, diuresed well yesterday with over 2 liters out Cr stable at 1.64 according to RN he moved bowels last night after suppository will keep using Miralax daily patient participating in therapy appreciate pulmonology note, will keep trying to get a hold of family for thoracentesis Review of Systems Unobtainable due to cognitive status (answers simple questions but short term memory impaired) Physical Exam 2 Vital Signs (Past 24 Hours): Last Vital Signs Temp 36.4 C L 09/25/18 03:39 Pulse 71 09/25/18 08:03 Resp 18 09/25/18 06:55 BP 128/77 09/25/18 08:03 Pulse Ox 92 09/25/18 06:55 Constitutional: WD/WN, vitals as above Eyes: PERRL, conjunctivae normal, anicteric sclerae ENMT: external ear and nose normal, oropharynx normal Neck: trachea midline, no thyromegaly Respiratory: normal respiratory effort; no respiratory distress Auscultation: + diminished lung sounds (bases); no wheezes Cardiovascular: Rate/Rhythm: regular rate and regular rhythm Heart Sounds: normal S1 and normal S2; no murmur Vessels: no JVD Extremities: + edema ( less than yesterday) Gastrointestinal (Abdomen): normal bowel sounds, soft, nontender, no hepatosplenomegaly Musculoskeletal: no cyanosis or clubbing, extremities motor strength 5/5 Skin: no rashes, warm and dry Neurologic: patellar DTR's 2+ bilat, sensation intact and PERRL, EOMI, accommodation nl, no face palsy, no dysarthria Lymphatic: no cervical or axillary lymphadenopathy Results & Data Laboratory Results Laboratory Results - last 24 hr 09/25/18 09/25/18 05:17 05:17 WBC 8.30 RBC 3.15 L Hgb 9.4 L Hct 30.5 L MCV 96.8 MCH 29.8 MCHC 30.8 L RDW Std Deviation 54.5 H RDW Coeff of [place]ney 15.6 H Plt Count 267 MPV 9.1 Immature Gran % (Auto) 1.0 Neut % (Auto) 80.6 Lymph % (Auto) 6.1 [place] % (Auto) 11.7 Eos % (Auto) 0.6 Baso % (Auto) 0.0 Immature Gran # (Auto) 0.08 H Neut # (Auto) 6.69 H Lymph # (Auto) 0.51 L [place] # (Auto) 0.97 H Eos # (Auto) 0.05 Baso # (Auto) 0.00 Sodium 142 Potassium 5.0 Chloride 104 Carbon Dioxide 34 H Anion Gap 4.0 BUN 58 H Creatinine 1.64 H Est Cr Clr Drug Dosing 46.9 Est GFR ( Amer) 45.7 Est GFR (Non-Af Amer) 39.5 BUN/Creatinine Ratio 35.2 H Glucose 84 Calcium 8.0 L Diagnostic Findings XR chest 1V portable CLINICAL HISTORY: Hypoxia. COMPARISON STUDY: Chest CT September 19, 2018 and chest radiograph September 22, 2018. FINDINGS: There is no pneumothorax. Moderate bilateral pleural effusions persist. Bilateral upper lobe airspace opacities persist however aeration is slightly improved. Diffuse interstitial thickening is noted. Cardiomediastinal is unchanged. Kyphotic positioning is noted on this exam. IMPRESSION: 1. Persistent, but improved, extensive bilateral upper lung airspace opacities which may reflect pneumonia or pulmonary edema. 2. Interstitial thickening suggestive of pulmonary edema. 3. Moderate bilateral pleural effusions with associated left basilar opacity which appear unchanged. Medications Administered Current Inpatient Medications Acetaminophen (Tylenol) 650 mg PO Q4H PRN PRN Reason: pain/fever Stop: 10/19/18 06:22 Last Admin: 09/21/18 16:01 Dose: 650 mg Albuterol (Duoneb) 3 ml NEB Q4R [facility] Stop: 10/19/18 07:59 Last Admin: 09/25/18 06:55 Dose: 3 ml Albuterol (Ventolin 0.5% 2.5mg/0.5ml) 2.5 mg NEB Q4H PRN PRN Reason: sob Stop: 10/19/18 06:22 Amoxicillin/Clavulanate Potassium (Augmentin 875mg) 1 tab PO BIDM [facility] Stop: 10/02/18 16:59 Aspirin (Ecotrin Ectab) 81 mg PO QAM [facility] Stop: 10/21/18 08:59 Last Admin: 09/25/18 07:45 Dose: 81 mg Atorvastatin Calcium (Lipitor) 40 mg PO QAM [facility] Stop: 10/20/18 14:14 Last Admin: 09/25/18 07:44 Dose: 40 mg Bumetanide (Bumex) 1 mg PO QAM [facility] Stop: 10/24/18 10:59 Last Admin: 09/25/18 07:46 Dose: 1 mg Clopidogrel Bisulfate (Plavix) 75 mg PO QAM [facility] Stop: 10/21/18 08:59 Last Admin: 09/25/18 07:44 Dose: 75 mg Diclofenac Sodium (Voltaren 1% Top) 1 appln EXT QID [facility] Stop: 10/22/18 16:59 Last Admin: 09/25/18 07:46 Dose: 1 appln Docusate Sodium (Colace) 100 mg PO BID PRN PRN Reason: Constipation Stop: 10/19/18 06:22 Last Admin: 09/24/18 16:41 Dose: 100 mg Guaifenesin (Mucinex) 1,200 mg PO Q12 [facility] Stop: 10/23/18 20:59 Last Admin: 09/25/18 07:44 Dose: 1,200 mg Heparin Sodium (Porcine) (Heparin Sodium (Porcine)) 5,000 units SQ Q8 [facility] Stop: 10/20/18 05:59 Last Admin: 09/25/18 05:22 Dose: 5,000 units Metoprolol Tartrate (Lopressor) 50 mg PO BID [facility] Stop: 10/21/18 20:59 Last Admin: 09/25/18 07:45 Dose: 50 mg Nystatin (Mycostatin) 5 ml PO QID [facility] Stop: 10/01/18 16:59 Last Admin: 09/25/18 07:45 Dose: 5 ml Phenol (Chloraseptic 1.4% [place]) 2 sprays MT Q6H PRN PRN Reason: Sore Throat Stop: 10/21/18 15:31 _ (1) Pneumonia Aspiration pneumonia type: Laterality: bilateral Lung location: unspecified part of lung Pneumonia type: due to unspecified organism Qualified Code(s): J18.9 - Pneumonia, unspecified organism (2) Aortic stenosis Cardiac valve disease etiology: etiology unspecified Qualified Code(s): I35.0 - Nonrheumatic aortic (valve) stenosis (3) Acute kidney failure Acute renal failure type: unspecified Qualified Code(s): N17.9 - Acute kidney failure, unspecified (4) Acute bronchitis Bronchitis organism: other organism Qualified Code(s): J20.8 - Acute bronchitis due to other specified organisms
[2018-09-25] MEDS: POLYETHYLENE (MIRALAX) 17 GM PACK PO SCH (10:26)
[2018-09-25] MEDS: AMOXICILLIN/CLAVULANATE 875 MG TAB PO SCH (15:50)
--- NOTE | 2018-09-25 18:33 | Pulmonology Progress Note ---
Date of Service September 25, 2018 Assessment & Plan (1) Chronic kidney disease, stage 3a: Impression: 1. Bilateral aspiration pneumonia, parapneumonic effusion is possible. 2. Given his cardiomegaly, the pleural effusion, lack of fever, and leukocytosis likely secondary to steroids, I am concerned that his symptoms are related to CHF rather than infectious process. 3. I could not find evidence of COPD in this patient. He is lifetime non- smoker. Plan: 1. Continue with Zosyn, de-escalate antibiotics to oral Augmentin and complete the course of 10 days. 2. Discontinue steroids. 3. Unable to connect with the family member who is at [facility], his number is [phone]. 4. Continue with current treatment. 5. Diuresis. 6. Given the improvement on the chest x-ray, I would continue the current regimen. Hold off on thoracentesis. 7. Appreciate Dr. Jone meyer. Thank you, will follow as needed, please call me with any questions. Subjective The patient could not give review of system due to his mental status, however he denies any shortness of breath or pain, I cannot rely on his answers. Physical Exam 2 Vital Signs (Past 24 Hours): Last Vital Signs Temp 36.4 C L 09/25/18 03:39 Pulse 70 09/25/18 15:20 Resp 18 09/25/18 15:20 BP 128/77 09/25/18 08:03 Pulse Ox 96 09/25/18 15:20 Physical Exam: Vital signs remained stable, O2 saturation 96% on 2 L. S1-S2, decreased breath sounds mainly at the bases, crackles also at the bases, abdomen is benign, no edema. Results & Data Laboratory Results Labs were reviewed which showed stable CBC, mild bandemia with automated count, BUN and creatinine are stable. Diagnostic Findings Chest x-ray from yesterday showed improvement in the pulmonary vascular congestion, bilateral upper lobe infiltrate and small to moderate pleural effusion bilaterally. Patient is 2 L negative since yesterday and fluid balance.
[2018-09-26] MEDS: ALBUT/IPRATROP 3MG/0.5MG NEB 3 ML VIAL NEB SCH ×3 (03:06→11:11)
[2018-09-26] MEDS: HEPARIN SOD 5,000 UNIT/0.5 ML VIAL SQ SCH ×2 (05:06→13:17)
[2018-09-26] MEDS: AMOXICILLIN/CLAVULANATE 875 MG TAB PO SCH (08:21)
[2018-09-26] MEDS: METOPROLOL TARTRATE 50 MG TAB PO SCH (08:22)
[2018-09-26] MEDS: DICLOFENAC SOD 1% GEL 100 GM TUBE EXT SCH ×2 (08:22→12:38)
[2018-09-26] MEDS: BUMETANIDE 1 MG TAB PO SCH (08:22)
[2018-09-26] MEDS: CLOPIDOGREL BISULFATE 75 MG TAB PO SCH (08:22)
[2018-09-26] MEDS: ASPIRIN 81 MG ECTAB PO SCH (08:22)
[2018-09-26] MEDS: NYSTATIN SUSP 500,000 U/5 ML UDC PO SCH ×2 (08:22→12:38)
[2018-09-26] MEDS: POLYETHYLENE (MIRALAX) 17 GM PACK PO SCH (08:22)
[2018-09-26] MEDS: ATORVASTATIN 40 MG TAB PO SCH (08:22)
[2018-09-26] MEDS: guaiFENesin 600 MG TABCR PO SCH (08:22)
[2018-09-26 08:57] LABS: BUN Creatinine Ratio 36.6 (10-20); Calcium 8.2 mg/dl (8.5-10.1); Creatinine Clr Calc Pharmacy 51.3 ml/min; Est GFR (African American) 56.4; Est GFR (Non-African American) 48.6; Potassium 4.4 mmol/L (3.5-5.1)
--- NOTE | 2018-10-02 14:17 | Discharge Summary ---
Date of Service September 26, 2018 Admission HPI Per Admitting Provider Patient is a 78yo male with intellectual disability, moderate-severe presenting from [facility] with shortness of breath. Patient is unable to provide a history due to cognitive impairment. No records available from [facility] at time of admission. No family at bedside. Patient arrived via ambulance on NRB. He was transitioned to OxyMask. CXR and CT of the chest obtained which revealed bilateral moderate pleural effusions, bilateral upper airspace disease with consolidation. ER Course: DuoNeb x 1 hour, Lasix 40mg IV, Levaquin Admission Exam Per Admitting Provider General: patient resting comfortably, arousable, does not answer questions, oriented to self Skin: warm, dry, intact, lesion on right neck with dressing inplace HEENT: NC/AT, PERRL, EOMI, anicteric sclera, conjunctiva without injection, external ear normal to inspection and nontender, nares patent, dry mucus membranes, adentulous, no oropharyngeal lesions, neck supple, trachea midline, no LAD, no thyromegaly, no JVD Heart: +S1/S2, regular, 3/6 MICAH at 2nd right ICS with radiation across the precordium and into bilateral carotids Lungs: equal air entry bilaterally, prolonged expiratory phase with diffuse expiratory wheezing in bilateral lung [place], diminished breath sounds in right upper lung field Abd: +BS, soft, NT/ND, no masses/organomegaly/ascites Ext: warm, 2+ pulses in UE/LE bilaterally, no clubbing/cyanosis, 2+ pitting edema to thighs Neuro: nonfocal, patient AA&O to self, speech is not clear, no facial droop, moving all extremities on command with equal strength 5/5 Principal Diagnosis Acute on chronic diastolic heart failure Discharge Exam Constitutional WD/WN, vitals as above Eyes PERRL, conjunctivae normal, anicteric sclerae ENMT external ear and nose normal, oropharynx normal Neck trachea midline, no thyromegaly Respiratory normal respiratory effort; no respiratory distress Auscultation: + diminished lung sounds (bases); no wheezes Cardiovascular Rate/Rhythm: regular rate and regular rhythm Heart Sounds: normal S1 and normal S2; no murmur Vessels: no JVD Gastrointestinal (Abdomen) normal bowel sounds, soft, nontender, no hepatosplenomegaly Musculoskeletal no cyanosis or clubbing, extremities motor strength 5/5 Skin no rashes, warm and dry Neurologic patellar DTR's 2+ bilat, sensation intact and PERRL, EOMI, accommodation nl, no face palsy, no dysarthria Psychiatric Orientation: alert and oriented to person; + not oriented to place and + not oriented to time Lymphatic no cervical or axillary lymphadenopathy Discharge Data Allergies Allergy/AdvReac Type Severity Reaction Status Date / Time No Known Allergies Allergy Unverified 09/19/18 02:58 Consultations 09/19/18 03:14 ED Decision to Admit Stat 09/19/18 09:47 Consult Pulmonology Routine 09/19/18 09:48 Consult Cardiology Routine Ordered Studies 09/19/18 02:00 CT head/brain wo con Urgent 09/19/18 02:01 CT chest wo con Urgent Hospital Course (1) Acute respiratory failure with hypoxia: 2nd to b/l pneumonia with reactive bronchitis then developed pulmonary edema and volume overload requiring 2L, no distress, try to wean off of oxygen today tapered steroids to Solu Medrol daily, discontinued on 09/25 appreciate pulmonology consult acute failure resolved at time of discharge (2) Pneumonia: b/l upper lobes on imaging. completed 7 days of zosyn. MRSA swab is negative; vanco stopped shortly after admission added Doxycycline for a few days when respiratory status was not improving however, he was volume overloaded and that was likely the cause of persistent hypoxia change antibiotics to Augmentin, complete 3 more days then stop add chest PT BID. add mucinex BID. cont nebs. (3) Chronic diastolic CHF (congestive heart failure): mild acute on chronic diastolic HF had some rales on auscultation and peripheral edema on 09/24 edema resolved and no rales on day of discharge, diuresed over 3 liters total Cr stable, will continue Bumex 1mg PO daily on discharge to maintain euvolemia follow weights at SNF (4) Intellectual disability: Noted, supportive care will be given will need to get consent from family (5) Candidiasis of mouth: cont nystatin (6) Aortic stenosis: moderate-severe (7) Chronic kidney disease, stage 3a: unsure of baseline, Cr stable at 1.4-1.6 for several days on Bumex continue to monitor at SNF (8) Acute kidney failure: resolved, unclear etiology Cr stable for several days prior to discharge (9) Acute bronchitis: cont nebs stop steroids 09/25 (10) Hyperkalemia: resolved with Bumex (11) Constipation: moved bowels after suppository on 09/25 will keep on bowel regimen with Miralax daily back off if stools become loose (12) DVT prophylaxis: heparin Total Time Total Time Spent Total Time Spent (In Minutes): 40 minutes Total Time Includes: Examination of the Patient, Discharge Planning, Medication Reconciliation, Communication With Other Providers (pulmonology) and Other ( discussion with patient's sister over phone) Discharge Plan Discharge Items Patient Disposition: Transfer Long-Term Fac Reason For Visit: SOB, COPD EXACERBATION Discharge Diagnosis: COPD exacerbation, acute on chronic diastolic heart failure Condition: Good Discharge Goals: Decrease discomfort and Improve disease control Activity: Resume your previous activity Bathing: No limitations Exercise/Sports: Gradually increase as tolerated Non-emergency contact: Primary Care Provider Call non-emergency contact if: you have any medication questions, your symptoms worsen, your pain is not controlled and you have a fever Diet: Regular Fluids: 2000ml (8 cups) Diet Texture: Dental soft (bite-sized) Diet Comment: minced and moist food, NO STRAWS!! Addtl Provider Instructions: Medications: listed as new due to inaccuracy in medication reconciliation on admission - BUMEX: 1mg daily to maintain normal volume Acute hypoxic respiratory failure, mild acute on chronic diastolic heart failure initially treated for possible pneumonia, COPD exacerbation no known history of COPD in records he responded well to Zosyn IV and nebulizers however, still requiring oxygen he was volume overloaded on exam on 09/24 responded quite well to Bumex 1mg daily echo from 09/19/18 showed normal EF, dilated LV, grade I diastolic dysfunction this was consistent with echo from 2017 recommend that he continue Bumex for volume control check BMP weekly, today his Cr is 1.38 and his K is 4.4 no further antibiotics or steroids or nebulizers needed Prescriptions: New atorvastatin 40 mg Tablet 40 mg PO QAM 30 Days Qty: 30 RF: 0 nystatin 100,000 unit/mL Suspension 5 ml PO QID 7 Days Qty: 140 RF: 0 clopidogrel 75 mg Tablet 75 mg PO QAM 30 Days Qty: 30 RF: 0 aspirin [Ecotrin Low Strength] 81 mg Tablet,Delayed Release (Dr/Ec) 81 mg PO QAM 30 Days Qty: 30 RF: 0 metoprolol tartrate 50 mg Tablet 50 mg PO BID 30 Days Qty: 60 RF: 0 diclofenac sodium [Voltaren] 1 % Gel 1 % EXT QID 30 Days Qty: 100 RF: 0 docusate sodium 100 mg Capsule 100 mg PO BID PRN (Reason: constipation) 30 Days Qty: 60 RF: 0 bumetanide 1 mg Tablet 1 mg PO QAM 30 Days Qty: 30 RF: 0 No Action No Known Home Medications RF: 0 Stand-Alone Forms: [facility] Discharge Orders: Discharge Order (Routine); Ordered 09/26/18 Ordered By: Cruz Becerril Skilled Items Patient informed of condition?: Yes DNR: Yes Discharge Level of Care: Skilled Communicable Disease: No Discharge Prognosis: Improving Admission Data Admit Date/Time: 09/19/18 05:41 Attending Provider: Cruz Becerril Admit Provider: Melissa Triana Primary Care Provider: Rosio Butler Other Providers: Octavio Brandt ; Abraham West Service: Telemetry Medical Other Interventions: Discharge Summary Assessment (RN) Last Done: 09/26/18 14:24 Pending Studies at Discharge: No DC Date/Time DO NOT enter until pt leaves facility: 09/26/18 15:12
--- NOTE | 2018-11-07 09:15 | Coding Query ---
CODING QUERY To promote full compliance with coding requirements relating to patient care, provider participation is requested in all cases of pencil inspector uncertainty. Please assist us with the question(s) below: Coding Question: Aspiration pneumonia was listed in the pulmonary consult/progress notes but didn't make it onto the discharge summary. Please clarify the type of pneumonia treated to the best of your knowledge. Thank you so much for your help! ( ) Pneumonia, unspecified, present on admission ( x) Aspiration Pneumonia, present on admission ( ) Aspiration PNA, ruled-out ( ) Other, explain Thank you! Gogo Jones Principal Diagnosis: "that condition established after study, to be chiefly responsible for occasioning the admission of the patient to the hospital for care." Co-Existing Principal Diagnosis: "when two or more diagnoses equally meet the criteria for principal diagnosis as determined by the circumstances of admission, diagnostic work up, and/or therapy provided, and the Alphabetic Index, Tabular List, or another coding guideline does not provide sequencing direction, any one of the diagnoses may be sequenced first." "When the physician has documented what appears to be a current diagnosis in the body of the record, but has not included the diagnosis in the final diagnostic statement, the physician should be asked whether the diagnosis should be added." (Source Coding Clinic 2 QTR90. p3-4) GIRISH
== END 2018-09-26 15:12 | DRG 177 ==
LOC: ED 00:24 → 2N 05:33 → SUATTDRO 05:41

== ENCOUNTER 2019-11-14 03:04 | Inpatient (IN) ==
--- NOTE | 2019-11-14 03:23 | Emergency Department Note ---
ED Provider Note Name: KARIE MC Age: 79 Sex: M Arrives Via: Ambulance Informant: Patient (limited), EMS ED Provider: Stanford Root MD Chief Complaint: Shortness of breath Impression: Aspiration Pneumonia Elevated Troponin Acute on CHronic Renal Failure Elevated Lactic Acid Level Pleural Effusion on Right Medical Decision Makin yr old male transferred from local skilled nursing for worsening respiratory status as well as reported abdominal pain and vomiting. He on exam is unwell appearing but denies any complaints. Lungs are quite junky/wet and legs with edema though mucous membranes are dry. Abdominal exam is completely benign, he has no TTP anywhere on abdomen, he denies pain and he has no current vomiting. CXR with either congestive failure with RLL effusion vs possible bilateral aspiration. Vitals with hypoxia though otherwise OK. With already trying Bumex as outpatient and worsening renal failure, I wonder if with mild WBC elevation and lactic acidosis there is ongoing aspiration pneumonia as primary cause. I did discuss this with hospitalist and we both agree with plan to try small fluid bolus for renal function and add in Zosyn for aspiration event. Furthermore, with such benign abdominal exam on multiple evaluations will hold off on CT abd/pelv unless symptoms change, especially gi cris laying him flat likely isn't optimal in this patient. His Trop is bumped though it is usually a bit elevated and in setting of Cr elevation this seems consistent. He denies any chest pain. EKG does have some mildly more pronounced ST changes, though they have been there in past. Would hold on full 30ml/kg fluid in this patient as known CHF and we want to gently rehydrate, especially if he starts going the other direction. As he is breathing comfortably on NC will hold off on Bipap at this time. Per senior care report patient DNR though at this time I do not think that he emergently needs intubation. Prior Medical Record and Triage/Nursing Notes reviewed by Me Additional history obtained from nursing transfer paperwork Differentials:Reactive airway disease, pneumonia, pneumothorax, COPD, CHF, infections, cardiac ischemia, pulmonary embolism, musculoskeletal, gastrointestinal, as well as other pathologies. Vital Signs: reviewed and remarkable for hypoxia on RA, HTN Interventions: Saline Lock, NSS Bolus 500ml IV, Zosyn 4.5gm IV Labs:Reviewed and remarkable for +LA, elevated Cr, Elevated Trop, mild wbc elevation Imaging:X ray results are stated below per my interpretation: Chest: 1 view: Cardiomegaly with bilateral infiltrates vs fluid with rll pleuarl effusion EKG:Per My Interpretation: Indication SHOB: Sinus Tach 107 bpm, qtc 456. No Ectopy. V1 ST elevation with V2-V6 depression which compared to EKG 09/21/18 is similar though more pronounced Cardiac/Tele Monitoring: An Order was placed for continuous cardiac monitoring. The monitor shows a rate of 90 with a normal sinus rhythm. Consults:Dr Triana Hospitalist to evaluate Plan: Disposition:Hospitalization. Condition: Fair Blood pressure:Normal.No Referral necessary Prescriptions:none PDMP: no History of Present Illness:79 / M arrives for evaluation of Shortness of breath. Patient with 3 weeks worsening shortness of breath and cough. Associated with hypoxia and recently requiring NC O2 to keep oxygenated. Over the last day worseng breathing. Associated with abdominal distention, vomiting, and earlier apparently lower abdominal pain. At skilled nursing this evening when he vomited they noted blood in his emesis. He admits feeling short of breath, denies cp, headache, neck pain, current abdominal pain, nor other symptoms. He was given duoneb en route and Tylenol at skilled nursing with improvement. Trying to sit up makes worse, staying still keeps better. ROS: See above HPI for pertinent positives & negatives. Difficult getting full ROS secondary to intellectual disability Past Medical History:CKD, CHF, Vtach, Intellectual Disability, CAD, Aortic Stenosis, Past Surgical History:Denies Family History:Unkwon and patient unable to recall Social History:Lives in Skilled Nursing, no smoking, no etoh, no alcohol Home Medications:Tylenol, Vit c, asa 81mg daily, atorvastatin, bumex, clopidogrel, colace, duoneb, metoprolol, mtvitamin Allergies:NKDA Vitals:Blood Pressure: 131/89, Pulse 108, RR 24, T 37C, O2 87% on RA Physical Exam: GENERAL: Patient is chronically unwell appearing and in mild distress. EYES: No scleral icterus, unremarkable pupils. ENT: Mucous membranes moist, no nasal congestion. NECK: No masses appreciated, nomeningismus, trachea is midline. RESPIRATORY: Diffuse wet crackles throughout with junky cough CARDIOVASCULAR: Tachy, systolic murmur GASTROINTESTINAL: Abdomen soft, protuberant, non-tender, no peritonitis.Bowel sounds positive.No masses appreciated. BACK: No midline tenderness, no CVA tenderness EXTREMITIES: Normal motion all extremities, no cyanosis, ++ lower extremities edema. NEUROLOGIC: Alert and laughing, no acute motor or sensory deficits, no focal weakness, cranial nerves grossly intact. SKIN: No rash, no jaundice, no diaphoresis. PSYCH: Appropriate GCS: 15 ED Course: Times/Reassessments: Multiple throughout, stable, happy, no abdominal pain, and breathing comfortably on NC o2 Stanford Root MD Impression & Plan Aspiration pneumonia, Elevated troponin, Acute on chronic renal failure, Elevated lactic acid level, Pleural effusion on right Past Med/Surg History Medical History (Updated 11/14/19 @ 05:22 by Stanford Root MD) Aortic stenosis CAD (coronary artery disease), eyak coronary artery Chronic diastolic CHF (congestive heart failure) Chronic kidney disease, stage 3a Mental retardation (Chronic) Nonsustained ventricular tachycardia Surgical History No significant past surgical history Social History Preferred Language: German Communication Ability: Effective 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: No marital status: Single Current Living Situation: Skilled Nursing Feels Safe at Home: Yes Smoking Status: Unknown if ever smoked Results & Data Vital Signs Vital Signs - 24 hr 11/14/19 03:12 11/14/19 04:01 11/14/19 05:06 Temperature 37 C Temperature Source Oral Pulse Rate 108 H 89 Pulse Rate [Apical] 96 H Respiratory Rate 24 24 24 Respiratory Effort / Characteristics Non-Labored Respiratory Depth Normal Respiratory Pattern Regular Blood Pressure 131/89 123/88 Blood Pressure [Left Arm] 126/87 Blood Pressure Mean 103 Blood Pressure Mean [Left Arm] 100 Blood Pressure Position Lying Blood Pressure Position [Left Arm] Lying Pulse Oximetry 87 L 96 96 Oxygen Delivery Method Room Air Nasal Cannula Nasal Cannula Oxygen Flow Rate 4 4 Sepsis Recent Fever Within 48 Hours No Sepsis New/Unexplained Change in Mental Status No Sepsis Action Taken by Nursing No Action Required Laboratory Data Result diagrams: 11/14/19 03:12 11/14/19 03:12 Lab Results 11/14/19 11/14/19 11/14/19 Range/Units 03:12 03:12 03:12 WBC 13.57 H (4.8-10.8) K/uL RBC 3.58 L (4.7-6.1) M/uL Hgb 11.5 L (14.0-18.0) g/dL Hct 35.3 L (42-52) % MCV 98.6 (80-100) fL MCH 32.1 (25-34) pg MCHC 32.6 (32-36) g/dL RDW Std Deviation 52.2 H (36.4-46.3) fL RDW Coeff of Courtney 14.6 H (11.5-14.5) % Plt Count 337 (130-400) K/uL MPV 9.5 (7.4-10.4) fL Immature Gran % (Auto) 2.0 % Neut % (Auto) 82.8 % Lymph % (Auto) 6.7 % Ransom % (Auto) 6.7 % Eos % (Auto) 1.4 % Baso % (Auto) 0.4 % Immature Gran # (Auto) 0.27 H (0.00-0.02) K/uL Neut # (Auto) 11.24 H (1.4-6.5) K/uL Lymph # (Auto) 0.91 L (1.2-3.4) K/uL Ransom # (Auto) 0.91 H (0.11-0.59) K/uL Eos # (Auto) 0.19 (0-0.5) K/uL Baso # (Auto) 0.05 (0-0.2) K/uL Absolute Nucleated RBC 0.04 H (0-0) K/uL Nucleated RBC % (auto) 0.3 % PT 12.5 H (9.0-12.0) Seconds INR 1.2 H (0.9-1.1) APTT 25.0 (21.0-31.0) Seconds PTT Ratio 0.9 Sodium (136-145) mmol/L Potassium (3.5-5.1) mmol/L Chloride (98-107) mmol/L Carbon Dioxide (21-32) mmol/L Anion Gap (3-11) BUN (7-18) mg/dl Creatinine (0.6-1.4) mg/dl Est Cr Clr Drug Dosing ml/min Est GFR ( Amer) Est GFR (Non-Af Amer) BUN/Creatinine Ratio (10-20) Glucose (70-99) mg/dl Lactate 2.2 H* (0.4-2.0) mmol/L Calcium (8.5-10.1) mg/dl Magnesium (1.8-2.4) mg/dl Total Bilirubin (0.2-1) mg/dl Direct Bilirubin (0-0.2) mg/dl AST (15-37) U/L ALT (12-78) U/L Alkaline Phosphatase (45-117) U/L Troponin I (0-0.045) ng/ml NT-Pro-B Natriuret Pep (0-1800) pg/ml Total Protein (6.4-8.2) gm/dl Albumin (3.4-5.0) gm/dl Lipase (73-393) U/L Influenza Type A (PCR) (Neg) Influenza Type B (PCR) (Neg) 11/14/19 11/14/19 Range/Units 03:12 03:20 WBC (4.8-10.8) K/uL RBC (4.7-6.1) M/uL Hgb (14.0-18.0) g/dL Hct (42-52) % MCV (80-100) fL MCH (25-34) pg MCHC (32-36) g/dL RDW Std Deviation (36.4-46.3) fL RDW Coeff of Courtney (11.5-14.5) % Plt Count (130-400) K/uL MPV (7.4-10.4) fL Immature Gran % (Auto) % Neut % (Auto) % Lymph % (Auto) % Ransom % (Auto) % Eos % (Auto) % Baso % (Auto) % Immature Gran # (Auto) (0.00-0.02) K/uL Neut # (Auto) (1.4-6.5) K/uL Lymph # (Auto) (1.2-3.4) K/uL Ransom # (Auto) (0.11-0.59) K/uL Eos # (Auto) (0-0.5) K/uL Baso # (Auto) (0-0.2) K/uL Absolute Nucleated RBC (0-0) K/uL Nucleated RBC % (auto) % PT (9.0-12.0) Seconds INR (0.9-1.1) APTT (21.0-31.0) Seconds PTT Ratio Sodium 136 (136-145) mmol/L Potassium 4.5 (3.5-5.1) mmol/L Chloride 100 (98-107) mmol/L Carbon Dioxide 28 (21-32) mmol/L Anion Gap 8.0 (3-11) BUN 75 H (7-18) mg/dl Creatinine 2.19 H D (0.6-1.4) mg/dl Est Cr Clr Drug Dosing 34.8 ml/min Est GFR ( Amer) 32.0 Est GFR (Non-Af Amer) 27.6 BUN/Creatinine Ratio 34.2 H (10-20) Glucose 138 H (70-99) mg/dl Lactate (0.4-2.0) mmol/L Calcium 8.4 L (8.5-10.1) mg/dl Magnesium 2.9 H (1.8-2.4) mg/dl Total Bilirubin 0.7 (0.2-1) mg/dl Direct Bilirubin 0.2 (0-0.2) mg/dl AST 32 (15-37) U/L ALT 35 (12-78) U/L Alkaline Phosphatase 72 (45-117) U/L Troponin I 2.120 H* (0-0.045) ng/ml NT-Pro-B Natriuret Pep > 60065 H (0-1800) pg/ml Total Protein 7.4 (6.4-8.2) gm/dl Albumin 2.9 L (3.4-5.0) gm/dl Lipase 325 (73-393) U/L Influenza Type A (PCR) Neg for Influ A (Neg) Influenza Type B (PCR) Neg for Influ B (Neg) Administered Medications Discontinued Medications Piperacillin Sod/Tazobactam Sod (Zosyn) 4.5 gm in 120 mls @ 240 mls/hr IV NOW ONE Stop: 11/14/19 04:49 Last Admin: 11/14/19 04:30 Dose: 240 mls/hr Documented by: [id number] Sodium Chloride (Nss 1000ml) 500 mls @ 999 mls/hr IV .Q31M ONE Stop: 11/14/19 04:50 Last Admin: 11/14/19 04:30 Dose: 999 mls/hr Documented by: [id number] Discharge Plan Visit Data Chief Complaint: Abdominal Pain Stated Complaint: ABD pain, SOB, nausea ED Provider: Stanford Root Discharge Problem: Aspiration pneumonia, Elevated troponin, Acute on chronic renal failure, Elevated lactic acid level, Pleural effusion on right Discharge Instructions Interventions: ED Discharge Assessment Last Done: 11/14/19 05:06 Forms Stand Alone Forms: My [employer] Prescriptions Prescriptions: No Action atorvastatin 40 mg tablet 40 mg PO HS RF: 0 acetaminophen 325 mg Tablet 650 mg PO Q6 MDD 3gm/24hrs PRN (Reason: Pain) RF: 0 acetaminophen 325 mg Tablet 650 mg PO Q6 MDD 3gm/24hrs PRN (Reason: temp>100) RF: 0 ipratropium-albuterol 0.5 mg-3 mg(2.5 mg base)/3 mL Solution For Nebulization 3 ml INHALATION QID RF: 0 clopidogrel 75 mg tablet 75 mg PO DAILY RF: 0 aspirin 81 mg Tablet,Delayed Release (Dr/Ec) 81 mg PO DAILY RF: 0 ascorbic acid (vitamin C) 500 mg Tablet 500 mg PO BID RF: 0 metoprolol tartrate 50 mg tablet 50 mg PO BID RF: 0 docusate sodium [Colace] 100 mg Capsule 100 mg PO BID PRN (Reason: Constipation) RF: 0 bumetanide 1 mg tablet 1 mg PO DAILY RF: 0 multivitamin with minerals [Multiple Vitamin-Minerals] Tablet 1 tab PO DAILY RF: 0 Referrals Referrals: Rosio Butler [Primary Care Provider] - Discharge Problem: Aspiration pneumonia Qualifiers: Aspiration pneumonia type: due to vomit Laterality: bilateral Lung location: lower lobe of lung Qualified Code(s): J69.0 - Pneumonitis due to inhalation of food and vomit Acute on chronic renal failure Qualifiers: Acute renal failure type: unspecified Chronic kidney disease stage: stage 3 (moderate) Qualified Code(s): N17.9 - Acute kidney failure, unspecified
[2019-11-14 03:30] LABS: Basophils # (auto) 0.05 K/uL (0-0.2); Basophils % (auto) 0.4 %; Eosinophils # (auto) 0.19 K/uL (0-0.5); Eosinophils % (auto) 1.4 %; Hematocrit (blood only) 35.3 % (42-52); Hemoglobin 11.5 g/dL (14.0-18.0); Immature Granulocytes # (auto) 0.27 K/uL (0.00-0.02); Lymphocytes # (auto) 0.91 K/uL (1.2-3.4); Lymphocytes % (auto) 6.7 %; Mean Corpuscular Hemoglobin 32.1 pg (25-34); Mean Corpuscular Hgb Conc 32.6 g/dL (32-36); Mean Corpuscular Volume 98.6 fL (80-100); Mean Platelet Volume 9.5 fL (7.4-10.4); Monocytes # (auto) 0.91 K/uL (0.11-0.59); Monocytes % (auto) 6.7 %; Neutrophils # (auto) 11.24 K/uL (1.4-6.5); Neutrophils % (auto) 82.8 %; Nucleated RBC # (auto) 0.04 K/uL (0-0); Nucleated RBC % (auto) 0.3 %; Platelet Count 337 K/uL (130-400); RDW Coefficient of Variation 14.6 % (11.5-14.5); RDW Standard Deviation 52.2 fL (36.4-46.3); Red Blood Count 3.58 M/uL (4.7-6.1); White Blood Count 13.57 K/uL (4.8-10.8)
[2019-11-14 03:46] LABS: INR 1.2 (0.9-1.1); Partial Thromboplastin Ratio 0.9; Prothrombin Time 12.5 Seconds (9.0-12.0)
[2019-11-14 03:47] LABS: Alanine Aminotransferase 35 U/L (12-78); Albumin Level 2.9 gm/dl (3.4-5.0); Aspartate Aminotransferase 32 U/L (15-37); BUN Creatinine Ratio 34.2 (10-20); Bilirubin Direct 0.2 mg/dl (0-0.2); Blood Urea Nitrogen 75 mg/dl (7-18); Calcium 8.4 mg/dl (8.5-10.1); Carbon Dioxide 28 mmol/L (21-32); Chloride 100 mmol/L (98-107); Creatinine Clr Calc Pharmacy 34.8 ml/min; Est GFR (Non-African American) 27.6; Glucose 138 mg/dl (70-99); Lipase 325 U/L (73-393); Magnesium 2.9 mg/dl (1.8-2.4); Potassium 4.5 mmol/L (3.5-5.1); Sodium 136 mmol/L (136-145)
[2019-11-14 03:54] LABS: Alkaline Phosphatase 72 U/L (45-117); Bilirubin,Total 0.7 mg/dl (0.2-1); Total Protein 7.4 gm/dl (6.4-8.2)
[2019-11-14 04:06] LABS: Influenza A virus by PCR Neg for Influ A (Neg); Influenza B virus by PCR Neg for Influ B (Neg)
[2019-11-14] MEDS ORDERED: PIPERACILL/TAZOBAC CONSULT ACTIVE PRN ×2 (04:20→08:53)
[2019-11-14] MEDS ORDERED: PIPERACILLIN/TAZOBACTAM 4.5 GM/120 ML BAG IV ONE (04:20)
[2019-11-14] MEDS ORDERED: SODIUM CHLORIDE 0.9% 1000ML 500 ML IV ONE (04:20)
[2019-11-14 04:48] LABS: NT Pro B Type Natriuretic Pept > 35000 pg/ml (0-1800)
--- NOTE | 2019-11-14 04:50 | History & Physical Report ---
Date of Service November 14, 2019 Assessment & Plan (1) Dyspnea: Worsening SOB, new O2 requirement. Volume status difficult to assess. Patient with dry MM and laboratory evidence of volume contraction (JANY on CKD) but with elevated BNP, bilateral LE edema and weight gain. Also think aspirati on is playing a part in patients dyspnea and new O2 requirement as well as possible component of CHF. Patient with similar presentation in February -Admit to medical floor with telemetry -Check Procalcitonin -Zosyn for presumed aspiration PNA. Patient had a negative MRSA swab in the past. No Vancomycin for now -Bumex 1mg IV daily -Monitor daily weights, strict I/Os -Supplemental O2 as needed -Speech/Swallow evaluation appreciated Present on Admission?: Yes (2) Elevated troponin: Patient with known CAD, EKG evidence of prior ischemia. Presently with no complaint of CP -Continue ASA, Plavix, Atorvastatin and Metoprolol -Trend troponin -If increasing will initiate heparin gtt and consult Cardiology Present on Admission?: Yes (3) JANY (acute kidney injury): Acute increase in BUN and Cr from prior -Continue to monitor BUN/Cr/electrolytes/UOP -Renal dosing where needed -Avoid nephrotoxic agents Present on Admission?: Yes (4) CHF (congestive heart failure): Suspect some degree of failure contributing to hypoxia -Bumex 1mg IV daily -Monitor I/Os -Daily weights -Conitnue Metoprolol Present on Admission?: Yes (5) CAD (coronary artery disease), pauma coronary artery: Elevated troponin, see above -Trend troponin -Continue ASA, Atorvastatin, Plavix, Metoprolol Present on Admission?: Yes (6) Mental retardation: Noted -Supportive care Present on Admission?: Yes (7) Skin tear of upper arm without complication: Dressing in place. No evidence of infection -Dressing change as needed F/E/N - Diuresis with Bumex 1mg IV daily, closely monitor BP with diuresis in pt with mod/severe , monitor electrolytes and replete as needed, heart healthy diet as tolerated Ppx - SCD Code - Full Dispo - Med/Tele Present on Admission?: Yes History of Present Illness Chief Complaint: SOB, cough Primary Care Provider: [facility] Jeremiah Fuentes is a 79yo male with intellectual disability, mod/severe , CKD, diastolic CHF and HTN presenting from [facility] with shortness of breath, cough and abdominal pain. Patient is a poor historian due to underlying disability. History obtained through discussion with ER attending, review of records and patient interview. Patient with worsening SOB over the last few days and cough. He was placed on O2 at [facility] and his Bumex was increased due to concern for CHF exacerbation. He has been complaining of abdominal pain as well. Had an episode of vomiting prior to arrival, ?blood in vomitus. Patient is complaining of abdominal pain in the LLQ as well as nausea and two episodes of vomiting. He has a dry cough and feels short of breath as well. He denies CP, dizziness, diarrhea. No additional complaints. ER Course: Tylenol, DuoNeb BANQUET COORDINATOR, Zosyn, NSS Allergies Allergy/AdvReac Type Severity Reaction Status Date / Time No Known Allergies Allergy Unverified 11/14/19 04:10 Home Medications Home Medications Medication Instructions Recorded Confirmed Type acetaminophen 650 mg PO Q6 PRN MDD 3gm/24hrs 11/14/19 11/14/19 History acetaminophen 650 mg PO Q6 PRN MDD 3gm/24hrs 11/14/19 11/14/19 History ascorbic acid (vitamin C) 500 mg PO BID 11/14/19 11/14/19 History aspirin 81 mg PO DAILY 11/14/19 11/14/19 History atorvastatin 40 mg PO HS 11/14/19 11/14/19 History bumetanide 1 mg PO DAILY 11/14/19 11/14/19 History clopidogrel 75 mg PO DAILY 11/14/19 11/14/19 History docusate sodium [Colace] 100 mg PO BID PRN 11/14/19 11/14/19 History ipratropium-albuterol 3 ml INHALATION QID 11/14/19 11/14/19 History metoprolol tartrate 50 mg PO BID 11/14/19 11/14/19 History multivitamin with minerals 1 tab PO DAILY 11/14/19 11/14/19 History [Multiple Vitamin-Minerals] Past Med/Surg History Medical History (Updated 11/14/19 @ 05:06 by Melissa Triana DO) Aortic stenosis CAD (coronary artery disease), pauma coronary artery Chronic diastolic CHF (congestive heart failure) Chronic kidney disease, stage 3a Mental retardation (Chronic) Nonsustained ventricular tachycardia Surgical History No significant past surgical history Social History Preferred Language: Belizean Communication Ability: Effective 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 marital status: Single Current Living Situation: [facility] Feels Safe at Home: Yes Smoking Status: Unknown if ever smoked Review of Systems Review of Systems: All systems reviewed & are unremarkable except as noted in HPI & below Physical Exam Physical Exam: General: elderly male resting comfortably, NAD, non-toxic in appearance, AA&O to self only, developmental delay, speech is somewhat difficult to understand Skin: warm, dry, intact, no rashes or lesions HEENT: NC/AT, PERRL, EOMI, anicteric sclera, conjunctiva without injection, external ear normal to inspection and nontender, nares patent, very dry mucus membranes and lips, edentulous, no oropharyngeal lesions, neck supple, trachea midline, no LAD, no thyromegaly, no JVD Heart: +S1/S2, regular, 3/6 MICAH at 2nd right ICS with radiation across the precordium and to bilateral carotids Lungs: equal air entry bilaterally, +crackles and coarse breath sounds appreciated in upper lung [place] bilaterally with diffuse end-expiratory wheezing Abd: +BS, soft, NT, Distended and tympanic to percussion, no masses/organomegaly/ascites Ext: warm, 2+ pulses in UE/LE bilaterally, no clubbing/cyanosis, 3+ pitting edema of bilateral LE Neuro: nonfocal, patient AA&O to self, speech difficult to understand at baseline, no facial droop, moving all extremities on command with equal strength 5/5 Results & Data Vital Signs (Past 12 Hours) Vital Signs Temp Pulse Pulse Resp BP BP Pulse Ox 11/14/19 04:01 96 H 24 126/87 96 11/14/19 03:12 37 C 108 H 24 131/89 87 L Laboratory Results Lab Results 11/14/19 11/14/19 11/14/19 Range/Units 03:12 03:12 03:12 WBC 13.57 H (4.8-10.8) K/uL RBC 3.58 L (4.7-6.1) M/uL Hgb 11.5 L (14.0-18.0) g/dL Hct 35.3 L (42-52) % MCV 98.6 (80-100) fL MCH 32.1 (25-34) pg MCHC 32.6 (32-36) g/dL RDW Std Deviation 52.2 H (36.4-46.3) fL RDW Coeff of Courtney 14.6 H (11.5-14.5) % Plt Count 337 (130-400) K/uL MPV 9.5 (7.4-10.4) fL Immature Gran % (Auto) 2.0 % Neut % (Auto) 82.8 % Lymph % (Auto) 6.7 % [place] % (Auto) 6.7 % Eos % (Auto) 1.4 % Baso % (Auto) 0.4 % Immature Gran # (Auto) 0.27 H (0.00-0.02) K/uL Neut # (Auto) 11.24 H (1.4-6.5) K/uL Lymph # (Auto) 0.91 L (1.2-3.4) K/uL [place] # (Auto) 0.91 H (0.11-0.59) K/uL Eos # (Auto) 0.19 (0-0.5) K/uL Baso # (Auto) 0.05 (0-0.2) K/uL Absolute Nucleated RBC 0.04 H (0-0) K/uL Nucleated RBC % (auto) 0.3 % PT 12.5 H (9.0-12.0) Seconds INR 1.2 H (0.9-1.1) APTT 25.0 (21.0-31.0) Seconds PTT Ratio 0.9 Sodium (136-145) mmol/L Potassium (3.5-5.1) mmol/L Chloride (98-107) mmol/L Carbon Dioxide (21-32) mmol/L Anion Gap (3-11) BUN (7-18) mg/dl Creatinine (0.6-1.4) mg/dl Est Cr Clr Drug Dosing ml/min Est GFR ( Amer) Est GFR (Non-Af Amer) BUN/Creatinine Ratio (10-20) Glucose (70-99) mg/dl Lactate 2.2 H* (0.4-2.0) mmol/L Calcium (8.5-10.1) mg/dl Magnesium (1.8-2.4) mg/dl Total Bilirubin (0.2-1) mg/dl Direct Bilirubin (0-0.2) mg/dl AST (15-37) U/L ALT (12-78) U/L Alkaline Phosphatase (45-117) U/L Troponin I (0-0.045) ng/ml Total Protein (6.4-8.2) gm/dl Albumin (3.4-5.0) gm/dl Lipase (73-393) U/L Influenza Type A (PCR) (Neg) Influenza Type B (PCR) (Neg) 11/14/19 11/14/19 Range/Units 03:12 03:20 WBC (4.8-10.8) K/uL RBC (4.7-6.1) M/uL Hgb (14.0-18.0) g/dL Hct (42-52) % MCV (80-100) fL MCH (25-34) pg MCHC (32-36) g/dL RDW Std Deviation (36.4-46.3) fL RDW Coeff of Courtney (11.5-14.5) % Plt Count (130-400) K/uL MPV (7.4-10.4) fL Immature Gran % (Auto) % Neut % (Auto) % Lymph % (Auto) % [place] % (Auto) % Eos % (Auto) % Baso % (Auto) % Immature Gran # (Auto) (0.00-0.02) K/uL Neut # (Auto) (1.4-6.5) K/uL Lymph # (Auto) (1.2-3.4) K/uL [place] # (Auto) (0.11-0.59) K/uL Eos # (Auto) (0-0.5) K/uL Baso # (Auto) (0-0.2) K/uL Absolute Nucleated RBC (0-0) K/uL Nucleated RBC % (auto) % PT (9.0-12.0) Seconds INR (0.9-1.1) APTT (21.0-31.0) Seconds PTT Ratio Sodium 136 (136-145) mmol/L Potassium 4.5 (3.5-5.1) mmol/L Chloride 100 (98-107) mmol/L Carbon Dioxide 28 (21-32) mmol/L Anion Gap 8.0 (3-11) BUN 75 H (7-18) mg/dl Creatinine 2.19 H D (0.6-1.4) mg/dl Est Cr Clr Drug Dosing 34.8 ml/min Est GFR ( Amer) 32.0 Est GFR (Non-Af Amer) 27.6 BUN/Creatinine Ratio 34.2 H (10-20) Glucose 138 H (70-99) mg/dl Lactate (0.4-2.0) mmol/L Calcium 8.4 L (8.5-10.1) mg/dl Magnesium 2.9 H (1.8-2.4) mg/dl Total Bilirubin 0.7 (0.2-1) mg/dl Direct Bilirubin 0.2 (0-0.2) mg/dl AST 32 (15-37) U/L ALT 35 (12-78) U/L Alkaline Phosphatase 72 (45-117) U/L Troponin I 2.120 H* (0-0.045) ng/ml Total Protein 7.4 (6.4-8.2) gm/dl Albumin 2.9 L (3.4-5.0) gm/dl Lipase 325 (73-393) U/L Influenza Type A (PCR) Neg for Influ A (Neg) Influenza Type B (PCR) Neg for Influ B (Neg) Diagnostic Findings CXR - by my interpretation - pronounced aortic knob with calcification, cardiomegaly on portable 1v, diffuse airspace opacities most pronounced in RUL, RLL, right pleural effusion ECG Additional Comments: ST at 107, normal axis, OK= 162, PVE=755, VFw=563, ST depressions pronounced in V2-V6 similar to study from September Code Status & VTE Plan Code Status full code VTE Prophylaxis Plan VTE Prophylaxis will be ordered: Yes PG Care Time/CCT Total # of Minutes Spent Total Time Spent with Patient: Total time spent is greater than 50% in coordination of care (as documented) at patient's floor/unit and/or counseling patient: Coding Level of Care Code 40539 Initial Inpt Care Lvl 3 Diagnoses Dyspnea R06.02; R06.00; R06.01 Dyspnea type: shortness of breath Elevated troponin R74.8 JANY (acute kidney injury) N17.9 CHF (congestive heart failure) I50.9 Heart failure chronicity: unspecified Heart failure type: unspecified CAD (coronary artery disease), pauma coronary artery I25.10 [place] vs. transplanted heart: pauma heart Associated angina: without angina Mental retardation F79 Skin tear of upper arm without complication S41.111A Encounter type: initial encounter Laterality: right (1) Skin tear of upper arm without complication Encounter type: initial encounter Laterality: right Qualified Code(s): S41.111A - Laceration without foreign body of right upper arm, initial encounter (2) Dyspnea Dyspnea type: shortness of breath Qualified Code(s): R06.02 - Shortness of breath; R06.00 - Dyspnea, unspecified; R06.01 - Orthopnea (3) CHF (congestive heart failure) Heart failure chronicity: unspecified Heart failure type: unspecified Qualified Code(s): I50.9 - Heart failure, unspecified (4) CAD (coronary artery disease), pauma coronary artery [place] vs. transplanted heart: pauma heart Associated angina: without angina Qualified Code(s): I25.10 - Atherosclerotic heart disease of pauma coronary artery without angina pectoris
[2019-11-14] MEDS ORDERED: DOCUSATE SODIUM 100 MG CAP PO PRN (06:01)
[2019-11-14] MEDS ORDERED: ALBUTEROL 0.5% NEB SOLN 2.5 MG/0.5 ML VIAL NEB PRN (06:01)
[2019-11-14] MEDS ORDERED: INFLUENZA ADMINISTRATION CHARGE ONE (06:18)
[2019-11-14] MEDS ORDERED: INFLUENZA VACCINE HIGH DOSE 65+ 0.5 ML SYR IM ONE (06:18)
[2019-11-14 06:30] LABS: Appearance Urine Cloudy (Clear); Bacteria Urine Automated 2+ (Negative); Bilirubin Urine Negative (Negative); Blood Urine 1+ (Negative); Color Urine Yellow; Glucose Urine UA Negative (Negative); Ketones Urine Negative (Negative); Leukocyte Esterase Urine 3+ (Negative); Nitrite Urine Negative (Negative); Protein Urine 1+ (Negative); RBC Urine Automated 0-4 /hpf (0-4); Specific Gravity Urine 1.021 (1.000-1.030); Urobilinogen Urine Negative (Negative); WBC Urine Automated >30 /hpf (0-5)
--- NOTE | 2019-11-14 07:05 | XRay Report ---
XR chest 1V portable CLINICAL HISTORY: 79 years-old Male presenting with SHOB. TECHNIQUE: Portable upright AP view of the chest was obtained. COMPARISON: 09/24/2018. FINDINGS: Atherosclerosis of the aortic arch. Cardiac silhouette enlarged. Pulmonary vascular prominence and in terstitial prominence. Significant interval decrease in biapical opacities. Persistent small to moder ate pleural effusions with bibasilar opacities. No pneumothorax. Degenerative changes of the thoracic spine. Osteopenia suspected. IMPRESSION: 1. Significant interval decrease in biapical infiltrates may reflect resolving pneumonia. 2. Cardiomegaly with volume overload and mild pulmonary edema suspected. 3. Small to moderate bilateral pleural effusions similar to prior. Suspected underlying extensive pa ssive atelectasis. ACT 112: Negative or not required by law. Electronically signed by: Doug Garcia M.D. 11/14/2019 7:04 AM
[2019-11-14] MEDS: ALBUT/IPRATROP 3MG/0.5MG NEB 3 ML VIAL INH SCH ×4 (07:20→19:21)
[2019-11-14] MEDS: METOPROLOL TARTRATE 50 MG TAB PO SCH ×2 (09:03→21:18)
[2019-11-14] MEDS: CLOPIDOGREL BISULFATE 75 MG TAB PO SCH (09:05)
[2019-11-14] MEDS: BUMETANIDE 1 MG in SYRINGE 0 ML IV SCH ×2 (09:05→18:22)
[2019-11-14] MEDS: ASPIRIN 81 MG ECTAB PO SCH (09:05)
[2019-11-14] MEDS: PIPERACILLIN/TAZOBACTAM 3.375 GM in DEXTROSE 5% 100 ML IV SCH ×2 (11:26→18:23)
--- NOTE | 2019-11-14 14:03 | Hospitalist Progress Note ---
Date of Service November 14, 2019 Assessment & Plan Admission and Anticipated Discharge Date Admission Date: November 14, 2019 Results & Data ([facility]) Vital Signs (Past 12 Hours) Vital Signs Temp Pulse Pulse Pulse Resp BP BP 11/14/19 11:43 36.5 C 77 20 103/71 11/14/19 11:15 88 22 11/14/19 08:10 91 H 11/14/19 07:51 36.4 C L 82 18 96/67 L 11/14/19 07:20 88 22 11/14/19 05:25 36.5 C 99 H 24 105/72 11/14/19 05:06 89 24 123/88 11/14/19 04:01 96 H 24 126/87 11/14/19 03:12 37 C 108 H 24 131/89 Pulse Ox 11/14/19 11:43 98 11/14/19 11:15 95 11/14/19 08:10 11/14/19 07:51 93 11/14/19 07:20 92 11/14/19 05:25 95 11/14/19 05:06 96 11/14/19 04:01 96 11/14/19 03:12 87 L PG Care Time/CCT Total # of Minutes Spent Total Time Spent with Patient: Total time spent is greater than 50% in coordination of care (as documented) at patient's floor/unit and/or counseling patient: Coding
--- NOTE | 2019-11-14 14:44 | Electrocardiogram Report ---
Test Reason : Blood Pressure : / mmHG Vent. Rate : 107 BPM Atrial Rate : 107 BPM P-R Int : 162 ms QRS Dur : 114 ms QT Int : 342 ms P-R-T Axes : 000 032 157 degrees QTc Int : 456 ms Sinus tachycardia Chronic ST depression in Anterior leads Nonspecific ST elevation in lead III Abnormal ECG When compared with ECG of 21-SEP-2018 06:30, Premature atrial complexes are no longer Present ST elevation in lead III now present Confirmed by Ta Redding ([id number]) on 11/14/2019 2:43:31 PM Referred By: [facility] Confirmed By:Ta Redding
[2019-11-14 16:50] LABS: Albumin Level 2.6 gm/dl (3.4-5.0); BUN Creatinine Ratio 31.9 (10-20); Calcium 8.4 mg/dl (8.5-10.1); Creatinine Clr Calc Pharmacy 36.4 ml/min; Est GFR (Non-African American) 27.6; Potassium 4.2 mmol/L (3.5-5.1)
[2019-11-14 16:59] LABS: Albumin Globulin Ratio 0.6 (0.9-2); Bilirubin,Total 0.7 mg/dl (0.2-1); Globulin 4.2 gm/dl (2.5-4.0); Total Protein 6.8 gm/dl (6.4-8.2)
[2019-11-14 17:03] LABS: Troponin I 1.44 ng/ml (0-0.045)
--- NOTE | 2019-11-14 17:42 | XCELERA ---
[id number] \\[email or web address]\[email or web address]\[id number]}___[id number]
--- NOTE | 2019-11-14 18:50 | History & Physical Bridge Note ---
Date of Service November 14, 2019 History & Physical Bridge Note I have examined the patient, reviewed the History & Physical and in the interval since the performance of the History & Physical I have noted the following changes of clinical significance: Creatinine has improved from 2.59 to 2.19 with diuresis. Repeat labs without change in Cr. Continue bumex IV for now. Monitor AM labs MRSA swab negative. Continued Zosyn -- coverage for pulm/urinary UA with >30WBC, 2+ bacteria, 3+ leuk esterase --> follow cultures BCx NGTD Troponin trending down, most recent 1.44 ECHO with significant reduction in LV systolic function, severe Cardiology consult -- appreciate input Repeat CXR in AM Flutter valve QID Repeat lactic Supervising Physician Co-Signing Physician Notes PA Supervision Note: I did not personally see or examine the patient today, but I verified all duque points of ARMINDA Mckenzie's assessment and plan with the following exceptions/additions: None
[2019-11-14] MEDS: ATORVASTATIN 40 MG TAB PO SCH (21:18)
[2019-11-15] MEDS: PIPERACILLIN/TAZOBACTAM 3.375 GM in DEXTROSE 5% 100 ML IV SCH ×3 (02:07→18:40)
[2019-11-15 06:31] LABS: Basophils # (auto) 0.03 K/uL (0-0.2); Basophils % (auto) 0.3 %; Eosinophils # (auto) 0.23 K/uL (0-0.5); Eosinophils % (auto) 2.1 %; Hematocrit (blood only) 33.1 % (42-52); Hemoglobin 10.9 g/dL (14.0-18.0); Immature Granulocytes # (auto) 0.09 K/uL (0.00-0.02); Immature Granulocytes % (auto) 0.8 %; Lymphocytes # (auto) 0.58 K/uL (1.2-3.4); Lymphocytes % (auto) 5.3 %; Mean Corpuscular Hemoglobin 32.6 pg (25-34); Mean Corpuscular Hgb Conc 32.9 g/dL (32-36); Mean Corpuscular Volume 99.1 fL (80-100); Mean Platelet Volume 9.4 fL (7.4-10.4); Monocytes % (auto) 9.2 %; Neutrophils # (auto) 8.92 K/uL (1.4-6.5); Neutrophils % (auto) 82.3 %; Platelet Count 278 K/uL (130-400); RDW Standard Deviation 54.4 fL (36.4-46.3); Red Blood Count 3.34 M/uL (4.7-6.1); White Blood Count 10.85 K/uL (4.8-10.8)
[2019-11-15 07:03] LABS: BUN Creatinine Ratio 30.6 (10-20); Calcium 8.3 mg/dl (8.5-10.1); Creatinine Clr Calc Pharmacy 37.8 ml/min; Est GFR (African American) 33.5; Est GFR (Non-African American) 28.9; Potassium 4.2 mmol/L (3.5-5.1)
[2019-11-15] MEDS: ALBUT/IPRATROP 3MG/0.5MG NEB 3 ML VIAL INH SCH ×4 (07:23→19:14)
--- NOTE | 2019-11-15 08:21 | Cardiology Consultation ---
Date of Consultation November 15, 2019 Assessment & Plan (1) Severe aortic stenosis: Patient with previously noted aortic stenosis which is now measured as severe. Since he is symptomatic with congestive heart failure and has demonstrated a decline in left ventricular systolic function, the potential for valve repair will need to be discussed with his brother (who has power of tea tree farmer). Regardless of the decision, would first address his current hypervolemia/congestive heart failure to optimize his clinical status. (2) Cardiomyopathy: Likely secondary to progressive aortic stenosis. May not be possible to afterload reduce in the presence of aortic valvular stenosis, mainstay of management at this point is volume unloading. In addition, will need an ischemic work-up at some point. (3) Acute systolic (congestive) heart failure: As above. (4) Chronic kidney disease, stage III (moderate): Kidney status complicates management and that cardiac catheterization or other contrast-based interventions could result in renal failure and need for hemodialysis. (5) Elevated troponin: Etiology uncertain, recommend serial ECGs given nonspecific ST elevation in a single lead (lead III). He does not have ongoing chest pain and had a declining troponin level, and his echocardiogram did not show focal wall motion abnormality (although he had global hypokinesis). Therefore, suspect supply/demand mismatch due to the physiologic stress of acute congestive heart failure in the context of severe aortic stenosis. Case discussed with Lucy Mckenzie PA-C. History of Present Illness Reason for Consultation: Significant decline in LV systolic function, severe aortic stenosis, congestive heart failure. Requesting Physician: Zandra Wheeler MD Attending Physician: Zandra Wheeler MD History of Present Illness 79-year-old man with intellectual disability (resident of [facility]), aortic stenosis which is now noted to be severe, stage III chronic kidney disease, and recurrent congestive heart failure who was noted on echocardiogram today to have had a significant decline in left ventricular systolic function in the context of severe valvular disease. He was admitted 11/14/2019 with progressive dyspnea, cough, and hypoxemia. He had also noted some abdominal pain and had an episode of vomiting as well. He denied chest pain. Allergies Allergy/AdvReac Type Severity Reaction Status Date / Time No Known Allergies Allergy Unverified 11/14/19 04:10 Home Medications Home Medications Medication Instructions Recorded Confirmed Type acetaminophen 650 mg PO Q6 PRN MDD 3gm/24hrs 11/14/19 11/14/19 History acetaminophen 650 mg PO Q6 PRN MDD 3gm/24hrs 11/14/19 11/14/19 History ascorbic acid (vitamin C) 500 mg PO BID 11/14/19 11/14/19 History aspirin 81 mg PO DAILY 11/14/19 11/14/19 History atorvastatin 40 mg PO HS 11/14/19 11/14/19 History bumetanide 1 mg PO DAILY 11/14/19 11/14/19 History clopidogrel 75 mg PO DAILY 11/14/19 11/14/19 History docusate sodium [Colace] 100 mg PO BID PRN 11/14/19 11/14/19 History ipratropium-albuterol 3 ml INHALATION QID 11/14/19 11/14/19 History metoprolol tartrate 50 mg PO BID 11/14/19 11/14/19 History multivitamin with minerals 1 tab PO DAILY 11/14/19 11/14/19 History [Multiple Vitamin-Minerals] Patient History Medical History Aortic stenosis CAD (coronary artery disease), [employer] coronary artery Chronic diastolic CHF (congestive heart failure) Chronic kidney disease, stage 3a Chronic kidney disease, stage III (moderate) Mental retardation (Chronic) Nonsustained ventricular tachycardia Surgical History No significant past surgical history Family History Family history non-contributory Social History Preferred Language: Slovak Communication Ability: Impaired 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 Afebrile. BP mildly hypotensive to low normal. Pulse 6090 bpm range. Skin: No ecchymoses or generalized lesions. HEENT: Unremarkable. Neck:Jugular venous pulse usp to the angle of the jaw with increased respiratory variation.Difficult to assess for carotid bruits due to overlying respiratory sounds/efforts. Lungs: Moderately decreased breath sounds with bilateral crackles and extensive expiratory wheezing.No abdominal paradox, intercostal retraction, or nasal flaring. Cardiac: Faint heart tones, not audible in the aortic area. Harsh 3/6 systolic ejection murmur best heard over the apex without obvious radiation. No diastolic murmur or distant gallop. Abdomen:Nondistended. Extremities:Trace to 1+ pretibial edema, peripheral pulses intact. Neurologic:Some difficulty communicating, does answer simple questions appropriately. Grossly nonfocal. Results & Data ([facility] [place]) Laboratory Results 11/14/19 11/14/19 11/14/19 03:12 09:23 16:11 BUN Creatinine Troponin I 2.120 H* 1.660 H* 1.440 H* 11/15/19 06:08 BUN 65 H Creatinine 2.11 H Troponin I Diagnostic Findings ECG on admission shows sinus tachycardia at 107 bpm, chronic ST depression in the anterior leadsECG on admission shows sinus tachycardia at 107 bpm, chronic ST depression in the anterior leads, and nonspecific ST elevation in lead III alone. Compared with ECG from 09/21/2018, ST elevation in lead III is now present, otherwise no significant change. Chest x-ray on admission showed cardiomegaly with volume overload mild pulmonary edema, small to moderate bilateral pleural effusions. Compared with 09/24/2018 study, there is significant interval decrease in biapical infiltrates (felt to reflect resolving pneumonia). Repeat chest x-ray today showed persistent volume overload/congestive change and a slight increase in the small to moderate pleural effusions with extensive basilar atelectasis. PG Care Time/CCT Total # of Minutes Spent Total Time Spent with Patient: Total time spent is greater than 50% in coordination of care (as documented) at patient's floor/unit and/or counseling patient: Coding Level of Care Code 21860 Initial Inpt Care Lvl 3 Diagnoses Severe aortic stenosis I35.0 Cardiomyopathy I42.9 Acute systolic (congestive) heart failure I50.21 Chronic kidney disease, stage III (moderate) N18.3 Elevated troponin R74.8
[2019-11-15] MEDS: METOPROLOL TARTRATE 50 MG TAB PO SCH ×2 (08:52→22:31)
[2019-11-15] MEDS: CLOPIDOGREL BISULFATE 75 MG TAB PO SCH (08:52)
[2019-11-15] MEDS: ASPIRIN 81 MG ECTAB PO SCH (08:53)
--- NOTE | 2019-11-15 09:47 | XRay Report ---
XR chest 2V PA/lateral CLINICAL HISTORY: 79 years-old Male presenting with volume overload. TECHNIQUE: PA and lateral views of the chest were obtained. COMPARISON: 11/14/2019. FINDINGS: Atherosclerosis of the aortic arch. Cardiac silhouette enlarged. Pulmonary vascular prominence and br onchial wall cuffing. Interstitial prominence. Extensive bibasilar opacities are in part related to t he small to moderate layering bilateral pleural effusions. Diffusely added density of the lung noted. No pneumothorax. Degenerative changes of the thoracic spine. Upper abdomen normal. IMPRESSION: 1. Cardiomegaly with persistent volume overload and congestive change. Suspected underlying moderate pulmonary edema. 2. Stable to slight interval increase in size of the layering bilateral small moderate pleural effus ions with extensive bibasilar atelectasis. ACT 112: Negative or not required by law. Electronically signed by: Dogu Garcia M.D. 11/15/2019 9:45 AM
[2019-11-15] MEDS: BUMETANIDE 1 MG in SYRINGE 0 ML IV SCH ×2 (09:58→18:14)
--- NOTE | 2019-11-15 11:49 | Hospitalist Progress Note ---
Date of Service November 15, 2019 Assessment & Plan (1) Acute systolic (congestive) heart failure: Worsening SOB, new O2 requirement. Volume status difficult to assess. Patient with dry MM and laboratory evidence of volume contraction (JANY on CKD) but with elevated BNP, bilateral LE edema and weight gain. Also think aspiration is playing a part in patients dyspnea and new O2 requirement as well as possible component of CHF. Patient with similar presentation in February * Secondary to severe * ECHO with significant decline in left ventricular systolic function, EF 20- 25%, mod LVH, mod-severe global hypokinesis, severe (via dimensionless index), mod MR, mild TR * Suspect some degree of failure contributing to hypoxia * Bumex 1mg IV BID * Monitor I/Os * Daily weights * Continue metoprolol 50mg BID (2) Severe aortic stenosis: * Cardiology on consult -- appreciate assistance * With cardiomyopathy * Repeat ECHO with significant decline in left ventricular systolic function, EF 20-25%, mod LVH, mod-severe global hypokinesis, severe (via dimensionless index), mod MR, mild TR * Will need TAVR in future, the potential for valve repair will need to be discussed with his brother (who has power of banjo repair person) by cardiology team as discussed * Will need to clinical status -- patient will need cath/etc prior to procedure * Nephrology on consult for likely developing cardiorenal type picture in sett ing of acute CHF with severe -- appreciate assistance (3) Dyspnea: * Initially thought possible aspiration pneumonia. Patient with acute CHF secondary to valvular disease * Procalcitonin 0.12 -- unlikely infectious process. Afebrile. No elevated in WBCs * Zosyn for presumed aspiration PNA (negative MRSA in past, no vancomycin) -- continued for dual coverage UTI with gram negative rods, positive rods -- follow sensitivities * Continue Bumex 1mg IV BID -- will need to accept some worsening kidney function * Supplemental O2 as needed. Speech consulted -- diet changed to pureed given pt without dentures (at [facility]) * Daily weights * Strict I&Os * Flutter Valve * DuoNeb QID * Repeat CXR with cardiomegaly with persistent volume overload, mod pulm edema. slight increase effusion. extensive bibasilar atelectasis (4) Elevated troponin: * Patient with known CAD, EKG evidence of prior ischemia. Presently with no complaint of CP. * Troponin elevated but trending down -- likely supply/demand mismatch given stress of acute CHF with severe . Not likely NSTEMI * EKG changes with nonspecific ST elevation in lead III * Cardiology consulted -- rec serial EKGs (5) JANY (acute kidney injury): * Cr 2.11, minimally improved. BUN 65 from 70 * Baseline Cr appears ~1.6 * Nephrology consulted as above -- appreciate input * FeNa and Renal US ordered * Renal dosing where needed, avoid nephrotoxic agents * Per nephrology, will have to accept some worsening renal function temporarily * Continue to monitor (6) Cardiomyopathy: * Secondary to valvular heart disease, severe * Will need ischemic work-up at some point prior to pursuing TAVR -- Cardiology to speak with POA for consent (7) CAD (coronary artery disease), [place] coronary artery: * Elevated troponin, see above, trending down --> likely supply/demand mismatch as above * Continue home ASA, Atorvastatin, Plavix, Metoprolol (8) Mental retardation: * Noted -- patient lives at [facility]. POA Luis * Supportive care (9) Skin tear of upper arm without complication: * Dressing in place. No evidence of infection. Dressing change as needed (10) Acute on chronic renal failure: * See above. Has never had cardiology workup (11) Chronic kidney disease, stage III (moderate): * See above (12) DVT prophylaxis: * SCDs Admission and Anticipated Discharge Date Admission Date: November 14, 2019 Supervising Physician Co-Signing Physician Notes PA Supervision Note: I did not personally see or examine the patient today, but I verified all duque points of ARMINDA Mckenzie's assessment and plan with the following exceptions/additions: None Subjective Patient states he feels like his breathing is improved today. Has been eating without much difficulty. Still without his teeth. Denies any difficulty swallowing, however had previously required intervention for meat removal atop vocal cords in the past. States he has been moving his bowels and confirms he has been urinating at his usual amount. Discussed continuing diuretics to see if we can improve his pulmonary congestion as he is not typically on oxygen at [facility]. Luis is POA. Denies fevers or chills, chest pain, sputum production, abdominal pain. Review of Systems Review of Systems: Unobtainable due to mental health condition Physical Exam Constitutional: well developed, well nourished and + obese; no acute distress and + uncomfortable speech sometimes difficult to understand at baseline ENMT: external ear and nose normal, oropharynx normal Neck: trachea midline, no thyromegaly Respiratory: no respiratory distress Auscultation: + crackles, + rales and + wheezes (expiratory) Cardiovascular: Rate/Rhythm: regular rate and regular rhythm Heart Sounds: + murmur (systolic, best appreciated RUSB) Vessels: + JVD Extremities: + edema (1+ b/l LE) Gastrointestinal (Abdomen): Inspection/Auscultation: + abdomen distended Percussion/Palpation: abdomen nontender, no guarding and abdomen not rigid Musculoskeletal: no cyanosis or clubbing, extremities motor strength 5/5 Skin: no rashes, warm and dry Psychiatric: Orientation: alert, oriented to person and oriented to place Lymphatic: no cervical or axillary lymphadenopathy Results & Data ([facility]) Vital Signs (Past 12 Hours) Vital Signs Temp Pulse Pulse Pulse Resp BP BP 11/15/19 11:14 36.6 C 82 20 125/74 11/15/19 10:54 82 20 11/15/19 09:56 128/81 11/15/19 07:28 36.7 C 76 20 103/72 11/15/19 07:26 82 20 11/15/19 07:00 84 11/15/19 03:50 98/70 L 11/15/19 03:00 87 20 87/59 L 11/15/19 01:01 78 Pulse Ox 11/15/19 11:14 96 11/15/19 10:54 95 11/15/19 09:56 11/15/19 07:28 91 11/15/19 07:26 92 11/15/19 07:00 11/15/19 03:50 11/15/19 03:00 95 11/15/19 01:01 Laboratory Results 11/15/19 11/15/19 11/14/19 Range/Units 06:08 06:08 21:15 WBC 10.85 H (4.8-10.8) K/uL RBC 3.34 L (4.7-6.1) M/uL Hgb 10.9 L (14.0-18.0) g/dL Hct 33.1 L (42-52) % MCV 99.1 (80-100) fL MCH 32.6 (25-34) pg MCHC 32.9 (32-36) g/dL RDW Std Deviation 54.4 H (36.4-46.3) fL RDW Coeff of [place] 15.0 H (11.5-14.5) % Plt Count 278 (130-400) K/uL MPV 9.4 (7.4-10.4) fL Immature Gran % (Auto) 0.8 % Neut % (Auto) 82.3 % Lymph % (Auto) 5.3 % [place] % (Auto) 9.2 % Eos % (Auto) 2.1 % Baso % (Auto) 0.3 % Immature Gran # (Auto) 0.09 H (0.00-0.02) K/uL Neut # (Auto) 8.92 H (1.4-6.5) K/uL Lymph # (Auto) 0.58 L (1.2-3.4) K/uL [place] # (Auto) 1.00 H (0.11-0.59) K/uL Eos # (Auto) 0.23 (0-0.5) K/uL Baso # (Auto) 0.03 (0-0.2) K/uL Sodium 140 (136-145) mmol/L Potassium 4.2 (3.5-5.1) mmol/L Chloride 104 (98-107) mmol/L Carbon Dioxide 30 (21-32) mmol/L Anion Gap 6.0 (3-11) BUN 65 H (7-18) mg/dl Creatinine 2.11 H (0.6-1.4) mg/dl Est Cr Clr Drug Dosing 37.8 ml/min Est GFR ( Amer) 33.5 Est GFR (Non-Af Amer) 28.9 BUN/Creatinine Ratio 30.6 H (10-20) Glucose 117 H (70-99) mg/dl Lactate 2.8 H* (0.4-2.0) mmol/L Calcium 8.3 L (8.5-10.1) mg/dl 11/14/19 Range/Units 19:27 WBC (4.8-10.8) K/uL RBC (4.7-6.1) M/uL Hgb (14.0-18.0) g/dL Hct (42-52) % MCV (80-100) fL MCH (25-34) pg MCHC (32-36) g/dL RDW Std Deviation (36.4-46.3) fL RDW Coeff of Courtney (11.5-14.5) % Plt Count (130-400) K/uL MPV (7.4-10.4) fL Immature Gran % (Auto) % Neut % (Auto) % Lymph % (Auto) % [place] % (Auto) % Eos % (Auto) % Baso % (Auto) % Immature Gran # (Auto) (0.00-0.02) K/uL Neut # (Auto) (1.4-6.5) K/uL Lymph # (Auto) (1.2-3.4) K/uL [place] # (Auto) (0.11-0.59) K/uL Eos # (Auto) (0-0.5) K/uL Baso # (Auto) (0-0.2) K/uL Sodium (136-145) mmol/L Potassium (3.5-5.1) mmol/L Chloride (98-107) mmol/L Carbon Dioxide (21-32) mmol/L Anion Gap (3-11) BUN (7-18) mg/dl Creatinine (0.6-1.4) mg/dl Est Cr Clr Drug Dosing ml/min Est GFR ( Amer) Est GFR (Non-Af Amer) BUN/Creatinine Ratio (10-20) Glucose (70-99) mg/dl Lactate 2.8 H* (0.4-2.0) mmol/L Calcium (8.5-10.1) mg/dl PG Care Time/CCT Total # of Minutes Spent Total Time Spent with Patient: Total time spent is greater than 50% in coordination of care (as documented) at patient's floor/unit and/or counseling patient: Coding Level of Care Code 14298 Subseq Hosp Care Lvl 3 Diagnoses Acute systolic (congestive) heart failure I50.21 Severe aortic stenosis I35.0 Dyspnea R06.02; R06.00; R06.01 Dyspnea type: shortness of breath Elevated troponin R74.8 JANY (acute kidney injury) N17.9 Cardiomyopathy I42.9 CAD (coronary artery disease), [place] coronary artery I25.10 Associated angina: without angina [place] vs. transplanted heart: [place] heart Mental retardation F79 Skin tear of upper arm without complication S41.111A Encounter type: initial encounter Laterality: right Acute on chronic renal failure N17.9; N18.3 Acute renal failure type: unspecified Chronic kidney disease stage: stage 3 (moderate) Chronic kidney disease, stage III (moderate) N18.3 DVT prophylaxis Z29.9 (1) Skin tear of upper arm without complication Encounter type: initial encounter Laterality: right Qualified Code(s): S41.111A - Laceration without foreign body of right upper arm, initial encounter (2) Dyspnea Dyspnea type: shortness of breath Qualified Code(s): R06.02 - Shortness of breath; R06.00 - Dyspnea, unspecified; R06.01 - Orthopnea (3) CAD (coronary artery disease), [place] coronary artery Associated angina: without angina [place] vs. transplanted heart: [place] heart Qualified Code(s): I25.10 - Atherosclerotic heart disease of [place] coronary artery without angina pectoris (4) Acute on chronic renal failure Acute renal failure type: unspecified Chronic kidney disease stage: stage 3 (moderate) Qualified Code(s): N17.9 - Acute kidney failure, unspecified; N18.3 - Chronic kidney disease, stage 3 (moderate)
--- NOTE | 2019-11-15 16:08 | Nephrology Consultation ---
Date of Consultation November 15, 2019 Assessment & Plan (1) Acute kidney failure: -- JANY/CKD due to poor renal perfusion associated w/ severe , CHF -- Hold IVF. Requires gentle diuresis to alleviate pulmonary edema. Will likely need to accept worsening kidney function -- Continue Bumex 1 mg IV BID -- Will order FeNa and renal US -- Monitor serial PRP (2) Chronic kidney disease, stage III (moderate): -- Baseline Cr 1.6 (3) Aortic stenosis: -- Severe and marked reduction in LVEF by current echo -- Await Cardiology input History of Present Illness Reason for Consultation: JANY/CKD Attending Physician: Zandra Wheeler MD History of Present Illness Mr. Fuentes is a 79 year old white male who is seen at the request of Lucy Mckenzie PA-c for evaluation of JANY/CKD. Medical records in the EMR were reviewed today and are summarized as follows: Mr. Fuentes is learning disabled. He is a resident of [facility]. His medical history is significant for stage III CKD w/ baseline Cr 1.6, EGFR 40 cc/min. He has never undergone a Nephrology evaluation in the past. He has ASCVD, aortic stenosis, diastolic CHF and a h/o NSVT. Over the last couple of days Mr. Fuentes was noted to have worsening LE swelling and progressive dyspnea. He was transported to the ED where CXR revealed marked CMG and pulmonary vascular congestion. Troponin was elevated and ECG revealed new ST elevation in lead III. Echocardiogram revealed a dramatic decline in LV systolic function w/ LVEF 20 - 25%, severe and moderate MR. Creatinine was initially elevated at 2.5 but improved to 2.1 following gentle hydration. Patient was placed on empiric Zosyn therapy due to relative hypothermia and concern over possible aspiration pneumonia Allergies Allergy/AdvReac Type Severity Reaction Status Date / Time No Known Allergies Allergy Unverified 11/14/19 04:10 Home Medications Home Medications Medication Instructions Recorded Confirmed Type acetaminophen 650 mg PO Q6 PRN MDD 3gm/24hrs 11/14/19 11/14/19 History acetaminophen 650 mg PO Q6 PRN MDD 3gm/24hrs 11/14/19 11/14/19 History ascorbic acid (vitamin C) 500 mg PO BID 11/14/19 11/14/19 History aspirin 81 mg PO DAILY 11/14/19 11/14/19 History atorvastatin 40 mg PO HS 11/14/19 11/14/19 History bumetanide 1 mg PO DAILY 11/14/19 11/14/19 History clopidogrel 75 mg PO DAILY 11/14/19 11/14/19 History docusate sodium [Colace] 100 mg PO BID PRN 11/14/19 11/14/19 History ipratropium-albuterol 3 ml INHALATION QID 11/14/19 11/14/19 History metoprolol tartrate 50 mg PO BID 11/14/19 11/14/19 History multivitamin with minerals 1 tab PO DAILY 11/14/19 11/14/19 History [Multiple Vitamin-Minerals] Patient History Medical History Aortic stenosis CAD (coronary artery disease), [place] coronary artery Chronic diastolic CHF (congestive heart failure) Chronic kidney disease, stage 3a Mental retardation (Chronic) Nonsustained ventricular tachycardia Surgical History No significant past surgical history Family History Other Family history non-contributory Social History Preferred Language: Romanian Communication Ability: Impaired 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: No marital status: Single Current Living Situation: [facility] Current Living Situation Comment: [facility] Feels Safe at Home: Yes Smoking Status: Unknown if ever smoked Review of Systems Review of Systems: Unobtainable due to cognitive status Physical Exam Constitutional: no acute distress Eyes: PERRL, conjunctivae normal, anicteric sclerae ENMT: Mouth: + dry oral mucous membranes Neck: trachea midline, no thyromegaly Respiratory: Auscultation: + rales Cardiovascular: Rate/Rhythm: regular rate and regular rhythm Extremities: + edema (1+ pretibial pitting edema) Gastrointestinal (Abdomen): normal bowel sounds, soft, nontender, no hepatosplenomegaly Results & Data Vital Signs (Past 12 Hours) Vital Signs Temp Pulse Pulse Resp BP Pulse Ox 11/15/19 15:32 63 18 96 11/15/19 15:08 36.7 C 70 18 105/62 94 03/13/20 11:14 36.6 C 82 20 125/74 96 11/15/19 10:54 82 20 95 11/15/19 09:56 128/81 11/15/19 07:28 36.7 C 76 20 103/72 91 11/15/19 07:26 82 20 92 11/15/19 07:00 84 11/15/19 03:50 98/70 L Laboratory Results Laboratory Results WBC 10.85 K/uL (4.8-10.8) H 11/15/19 06:08 RBC 3.34 M/uL (4.7-6.1) L 11/15/19 06:08 Hgb 10.9 g/dL (14.0-18.0) L 11/15/19 06:08 Hct 33.1 % (42-52) L 11/15/19 06:08 MCV 99.1 fL (80-100) 11/15/19 06:08 MCH 32.6 pg (25-34) 11/15/19 06:08 MCHC 32.9 g/dL (32-36) 11/15/19 06:08 RDW Std Deviation 54.4 fL (36.4-46.3) H 11/15/19 06:08 RDW Coeff of Courtney 15.0 % (11.5-14.5) H 11/15/19 06:08 Plt Count 278 K/uL (130-400) 11/15/19 06:08 MPV 9.4 fL (7.4-10.4) 11/15/19 06:08 Immature Gran % (Auto) 0.8 % 11/15/19 06:08 Neut % (Auto) 82.3 % 11/15/19 06:08 Lymph % (Auto) 5.3 % 11/15/19 06:08 [place] % (Auto) 9.2 % 11/15/19 06:08 Eos % (Auto) 2.1 % 11/15/19 06:08 Baso % (Auto) 0.3 % 11/15/19 06:08 Immature Gran # (Auto) 0.09 K/uL (0.00-0.02) H 11/15/19 06:08 Neut # (Auto) 8.92 K/uL (1.4-6.5) H 11/15/19 06:08 Lymph # (Auto) 0.58 K/uL (1.2-3.4) L 11/15/19 06:08 [place] # (Auto) 1.00 K/uL (0.11-0.59) H 11/15/19 06:08 Eos # (Auto) 0.23 K/uL (0-0.5) 11/15/19 06:08 Baso # (Auto) 0.03 K/uL (0-0.2) 11/15/19 06:08 Absolute Nucleated RBC 0.04 K/uL (0-0) H 11/14/19 03:12 Nucleated RBC % (auto) 0.3 % 11/14/19 03:12 PT 12.5 Seconds (9.0-12.0) H 11/14/19 03:12 INR 1.2 (0.9-1.1) H 11/14/19 03:12 APTT 25.0 Seconds (21.0-31.0) 11/14/19 03:12 PTT Ratio 0.9 11/14/19 03:12 Sodium 140 mmol/L (136-145) 11/15/19 06:08 Potassium 4.2 mmol/L (3.5-5.1) 11/15/19 06:08 Chloride 104 mmol/L (98-107) 11/15/19 06:08 Carbon Dioxide 30 mmol/L (21-32) 11/15/19 06:08 Anion Gap 6.0 (3-11) 11/15/19 06:08 BUN 65 mg/dl (7-18) H 11/15/19 06:08 Creatinine 2.11 mg/dl (0.6-1.4) H 11/15/19 06:08 Est Cr Clr Drug Dosing 37.8 ml/min 11/15/19 06:08 Est GFR ( Amer) 33.5 11/15/19 06:08 Est GFR (Non-Af Amer) 28.9 11/15/19 06:08 BUN/Creatinine Ratio 30.6 (10-20) H 11/15/19 06:08 Glucose 117 mg/dl (70-99) H 11/15/19 06:08 Lactate 2.8 mmol/L (0.4-2.0) H* 11/14/19 21:15 Calcium 8.3 mg/dl (8.5-10.1) L 11/15/19 06:08 Phosphorus 4.7 mg/dl (2.5-4.9) 11/14/19 06:22 Magnesium 2.9 mg/dl (1.8-2.4) H 11/14/19 03:12 Total Bilirubin 0.7 mg/dl (0.2-1) 11/14/19 16:11 Direct Bilirubin 0.2 mg/dl (0-0.2) 11/14/19 03:12 AST 24 U/L (15-37) 11/14/19 16:11 ALT 30 U/L (12-78) 11/14/19 16:11 Alkaline Phosphatase 66 U/L (45-117) 11/14/19 16:11 Troponin I 1.440 ng/ml (0-0.045) H* 11/14/19 16:11 NT-Pro-B Natriuret Pep > 32269 pg/ml (0-1800) H 11/14/19 03:12 Total Protein 6.8 gm/dl (6.4-8.2) 11/14/19 16:11 Albumin 2.6 gm/dl (3.4-5.0) L 11/14/19 16:11 Globulin 4.2 gm/dl (2.5-4.0) H 11/14/19 16:11 Albumin/Globulin Ratio 0.6 (0.9-2) L 11/14/19 16:11 Lipase 325 U/L (73-393) 11/14/19 03:12 Procalcitonin 0.12 ng/ml (0-0.5) 11/14/19 06:22 Urine Color Yellow 11/14/19 06:00 Urine Appearance Cloudy (Clear) A 11/14/19 06:00 Urine pH 7.0 (4.5-7.5) 11/14/19 06:00 Ur Specific [place] 1.021 (1.000-1.030) 11/14/19 06:00 Urine Protein 1+ (Negative) H 11/14/19 06:00 Urine Glucose (UA) Negative (Negative) 11/14/19 06:00 Urine Ketones Negative (Negative) 11/14/19 06:00 Urine Blood 1+ (Negative) H 11/14/19 06:00 Urine Nitrite Negative (Negative) 11/14/19 06:00 Urine Bilirubin Negative (Negative) 11/14/19 06:00 Urine Urobilinogen Negative (Negative) 11/14/19 06:00 Ur Leukocyte Esterase 3+ (Negative) H 11/14/19 06:00 Urine WBC (Auto) >30 /hpf (0-5) H 11/14/19 06:00 Urine RBC (Auto) 0-4 /hpf (0-4) 11/14/19 06:00 U Hyaline Cast (Auto) 1-5 /lpf (0-5) 11/14/19 06:00 U Epithel Cells (Auto) 10-20 /lpf (0-5) H 11/14/19 06:00 Urine Bacteria (Auto) 2+ (Negative) H 11/14/19 06:00 Nasal Screen MRSA (PCR) Negative (Negative) 11/14/19 06:00 Influenza Type A (PCR) Neg for Influ A (Neg) 11/14/19 03:20 Influenza Type B (PCR) Neg for Influ B (Neg) 11/14/19 03:20 PG Care Time/CCT Total # of Minutes Spent Total Time Spent with Patient: Total time spent is greater than 50% in coordination of care (as documented) at patient's floor/unit and/or counseling patient: Coding Level of Care Code 36667 Inpt Consult Level 5 Diagnoses Acute kidney failure N17.9 Acute renal failure type: unspecified Chronic kidney disease, stage III (moderate) N18.3 Aortic stenosis I35.0 Cardiac valve disease etiology: etiology unspecified (1) Acute kidney failure Acute renal failure type: unspecified Qualified Code(s): N17.9 - Acute kidney failure, unspecified (2) Aortic stenosis Cardiac valve disease etiology: etiology unspecified Qualified Code(s): I35.0 - Nonrheumatic aortic (valve) stenosis
--- NOTE | 2019-11-15 17:23 | Ultrasound Report ---
EXAMINATION: RENAL ULTRASOUND CLINICAL HISTORY: Acute renal insufficiency superimposed on chronic renal disease. COMPARISON STUDY: CT scan dated 03/23/2018 FINDINGS: The right kidney measures 7.1 cm. The left kidney measures 6.9 cm. There is no evidence of hydronephrosis. There is a lower pole echogenic left renal focus suspicious for a 9 mm calculus. No solid renal masses are visualized. No bladder abnormalities are visualized. Neither ureteral jet was visualized.. IMPRESSION : 1. Persistent left renal atrophy. The left kidney measures 6.9 cm in length 2. 9 mm lower pole left renal calculus 3. No evidence of hydronephrosis. ACT 112: Negative or not required by law. Electronically signed by: Keo White M.D. 11/15/2019 5:21 PM
[2019-11-15] MEDS: ATORVASTATIN 40 MG TAB PO SCH (22:30)
[2019-11-16 01:15] LABS: Basophils # (auto) 0.04 K/uL (0-0.2); Basophils % (auto) 0.3 %; Eosinophils % (auto) 0.9 %; Hematocrit (blood only) 32.2 % (42-52); Hemoglobin 10.3 g/dL (14.0-18.0); Immature Granulocytes # (auto) 0.16 K/uL (0.00-0.02); Immature Granulocytes % (auto) 1.4 %; Lymphocytes # (auto) 0.84 K/uL (1.2-3.4); Lymphocytes % (auto) 7.2 %; Mean Corpuscular Hemoglobin 31.9 pg (25-34); Mean Corpuscular Volume 99.7 fL (80-100); Mean Platelet Volume 9.2 fL (7.4-10.4); Monocytes # (auto) 0.86 K/uL (0.11-0.59); Monocytes % (auto) 7.4 %; Neutrophils # (auto) 9.59 K/uL (1.4-6.5); Neutrophils % (auto) 82.8 %; Nucleated RBC # (auto) 0.03 K/uL (0-0); Nucleated RBC % (auto) 0.2 %; Platelet Count 321 K/uL (130-400); RDW Coefficient of Variation 15.1 % (11.5-14.5); RDW Standard Deviation 55.1 fL (36.4-46.3); Red Blood Count 3.23 M/uL (4.7-6.1); White Blood Count 11.59 K/uL (4.8-10.8)
[2019-11-16 01:30] LABS: BUN Creatinine Ratio 26.6 (10-20); Calcium 8.6 mg/dl (8.5-10.1); Est GFR (African American) 28.4; Est GFR (Non-African American) 24.5; Potassium 3.9 mmol/L (3.5-5.1)
[2019-11-16 01:42] LABS: Phosphorus 3.8 mg/dl (2.5-4.9)
[2019-11-16] MEDS: PIPERACILLIN/TAZOBACTAM 3.375 GM in DEXTROSE 5% 100 ML IV SCH ×3 (03:19→20:03)
[2019-11-16] MEDS: METOPROLOL TARTRATE 50 MG TAB PO SCH ×2 (05:42→22:14)
[2019-11-16 06:48] LABS: Hematocrit (blood only) 32.8 % (42-52); Hemoglobin 10.2 g/dL (14.0-18.0); Mean Corpuscular Hemoglobin 31.6 pg (25-34); Mean Corpuscular Hgb Conc 31.1 g/dL (32-36); Mean Corpuscular Volume 101.5 fL (80-100); Mean Platelet Volume 9.5 fL (7.4-10.4); Platelet Count 307 K/uL (130-400); RDW Coefficient of Variation 15.3 % (11.5-14.5); RDW Standard Deviation 56.2 fL (36.4-46.3); Red Blood Count 3.23 M/uL (4.7-6.1); White Blood Count 10.42 K/uL (4.8-10.8)
[2019-11-16 07:15] LABS: Albumin Level 2.6 gm/dl (3.4-5.0); BUN Creatinine Ratio 27.6 (10-20); Calcium 8.5 mg/dl (8.5-10.1); Creatinine Clr Calc Pharmacy 34.8 ml/min; Est GFR (African American) 30.8; Est GFR (Non-African American) 26.6
[2019-11-16 07:18] LABS: Albumin Globulin Ratio 0.6 (0.9-2); Bilirubin,Total 0.5 mg/dl (0.2-1); Globulin 4.2 gm/dl (2.5-4.0); Total Protein 6.8 gm/dl (6.4-8.2)
[2019-11-16] MEDS: ALBUT/IPRATROP 3MG/0.5MG NEB 3 ML VIAL INH SCH ×4 (07:32→19:15)
[2019-11-16] MEDS: CLOPIDOGREL BISULFATE 75 MG TAB PO SCH (08:36)
[2019-11-16] MEDS: ASPIRIN 81 MG ECTAB PO SCH (08:37)
[2019-11-16] MEDS: BUMETANIDE 1 MG in SYRINGE 0 ML IV SCH ×2 (11:00→20:03)
--- NOTE | 2019-11-16 11:51 | Electrocardiogram Report ---
Test Reason : Blood Pressure : / mmHG Vent. Rate : 091 BPM Atrial Rate : 091 BPM P-R Int : 148 ms QRS Dur : 126 ms QT Int : 374 ms P-R-T Axes : 049 019 167 degrees QTc Int : 460 ms Normal sinus rhythm with sinus arrhythmia Non-specific intra-ventricular conduction block Abnormal ECG When compared with ECG of 14-NOV-2019 03:12, Confirmed by Ta Redding ([id number]) on 11/16/2019 11:51:28 AM Referred By: [facility] Confirmed By:Ta Redding
--- NOTE | 2019-11-16 13:08 | Hospitalist Progress Note ---
Date of Service November 16, 2019 Assessment & Plan (1) Acute systolic (congestive) heart failure: Worsening SOB, new O2 requirement. Volume status difficult to assess. Patient with dry MM and laboratory evidence of volume contraction (JANY on CKD) but with elevated BNP, bilateral LE edema and weight gain. Also think aspiration is playing a part in patients dyspnea and new O2 requirement as well as possible component of CHF. Patient with similar presentation in February * Secondary to severe * ECHO with significant decline in left ventricular systolic function, EF 20- 25%, mod LVH, mod-severe global hypokinesis, severe (via dimensionless index), mod MR, mild TR * Suspect some degree of failure contributing to hypoxia * Continue Bumex 1mg IV BID * Monitor I/Os * Daily weights --> patient down ~ 6lbs * Patient now on fluid restriction and low sodium diet (was on AHA) * Continue metoprolol tartrate 50mg BID but will convert to Toprol-XL 100 mg daily prior to discharge if blood pressures can tolerate * Did have a prolonged run of apparently asymptomatic ventricular tachycardia last evening -- likely secondary to sign valvular disease and volume overloaded state. Pacer pads on -- no shocks required. --> Per discussion with cardiology, patient may be candidate for amiodarone * Having to wait 1-2 hours following administration of metoprolol prior to bumex for borderline hypotension. * BP currently 102/68, 94% on 2L (2) Severe aortic stenosis: * Cardiology on consult -- appreciate assistance * With cardiomyopathy * Repeat ECHO with significant decline in left ventricular systolic function, EF 20-25%, mod LVH, mod-severe global hypokinesis, severe (via dimensionless index), mod MR, mild TR * Will need TAVR in future, the potential for valve repair will need to be discussed with his brother (who has power of [place] attorney) by cardiology team as discussed. Unable to get ahold of MYKE Smith by phone, unable to leave voicemail. * Will need to optimize clinical status -- patient will need cath/etc prior to procedure * Nephrology on consult for likely developing cardiorenal type picture in setting of acute CHF with severe -- appreciate assistance (3) Dyspnea: * Initially thought possible aspiration pneumonia. Patient with acute CHF secondary to valvular disease * Procalcitonin 0.12 -- unlikely infectious process. Afebrile. No elevated in WBCs * Zosyn for presumed aspiration PNA (negative MRSA in past, no vancomycin) -- continued for dual coverage UTI with proteus, gram positive rods -- follow cx/s * Continue Bumex 1mg IV BID -- will need to accept some worsening kidney function * Supplemental O2 as needed. Speech consulted -- diet changed to pureed given pt without dentures (at [facility]) * Daily weights * Strict I&Os * Flutter Valve * DuoNeb QID * Repeat CXR with cardiomegaly with persistent volume overload, mod pulm edema. slight increase effusion. extensive bibasilar atelectasis (4) Elevated troponin: * Patient with known CAD, EKG evidence of prior ischemia. Presently with no complaint of CP. * Troponin elevated but trending down -- likely supply/demand mismatch given stress of acute CHF with severe . Not likely NSTEMI * EKG changes with nonspecific ST elevation in lead III * Cardiology consulted -- rec serial EKGs --> repeat EKG without evidence of ST elevation today (5) JANY (acute kidney injury): * Cr slightly worse, 2.26. BUN 62 * Baseline Cr appears ~1.6 * Nephrology consulted as above -- appreciate input * Renal US ordered --> atrophic left kidney, likely contributing to renal insufficiency * UA with low grade proteinuria * Renal dosing where needed, avoid nephrotoxic agents * Per nephrology, will have to accept some worsening renal function temporarily * Continue to monitor (6) Cardiomyopathy: * Secondary to valvular heart disease, severe * Will need ischemic work-up at some point prior to pursuing TAVR -- Cardiology to speak with POA for consent * Likely secondary to progressive aortic stenosis -- possible that we may not be able to reduce afterload given severe -- continue diuresis for now (7) CAD (coronary artery disease), [place] coronary artery: * Elevated troponin, see above, trending down --> likely supply/demand mismatch as above * Continue home ASA, Atorvastatin, Plavix, Metoprolol (8) Mental retardation: * Noted -- patient lives at [facility]. POA Luis Fuentes (Brother) * Supportive care (9) Skin tear of upper arm without complication: * Dressing in place. No evidence of infection. Dressing change as needed (10) Acute on chronic renal failure: * See above. (11) Chronic kidney disease, stage III (moderate): * See above (12) DVT prophylaxis: * SCDs Admission and Anticipated Discharge Date Admission Date: November 14, 2019 Supervising Physician Co-Signing Physician Notes PA Supervision Note: I did not personally see or examine the patient today, but I verified all duque points of ARMINDA Mckenzie's assessment and plan with the following exceptions/additions: None Subjective Patient states he is feeling better today. He laughed when asked if he had an eventful evening. Denies chest pain or shortness of breath currently, although still with cough. Patinet eating/drinking without difficulty. Asking for add itonal poncho aram during out conversation. Denies any pain at this time. States he has been going to the bathroom a lot. Sometimes difficult to understand due to cognitive status. Review of Systems Review of Systems: Unobtainable due to mental health condition and Unobtainable due to cognitive status Physical Exam Constitutional: well developed, well nourished and + obese; no acute distress Eyes: + anicteric sclerae; no scleral abnormality Neck: trachea midline, no thyromegaly Respiratory: able to speak in complete sentences; no respiratory distress and no labored breathing Auscultation: + diminished lung sounds and + rales Cardiovascular: Rate/Rhythm: regular rate and regular rhythm Extremities: + edema (1+ b/l LE) Gastrointestinal (Abdomen): Percussion/Palpation: abdomen nontender, no guarding and abdomen not rigid Musculoskeletal: no cyanosis or clubbing, extremities motor strength 5/5 Skin: no rashes, warm and dry Psychiatric: Orientation: alert, oriented to person and oriented to place Lymphatic: no cervical or axillary lymphadenopathy Results & Data ([facility]) Vital Signs (Past 12 Hours) Vital Signs Temp Pulse Pulse Resp BP BP Pulse Ox 11/16/19 11:00 36.6 C 74 18 107/73 93 11/16/19 10:46 68 20 96 11/16/19 08:00 36.9 C 70 20 95/63 L 96 11/16/19 07:33 66 20 93 11/16/19 07:00 66 11/16/19 05:41 85 101/62 11/16/19 04:52 94 H 11/16/19 03:20 36.5 C 77 20 115/75 96 Laboratory Results 11/16/19 11/16/19 11/16/19 Range/Units 10:43 08:55 05:59 WBC (4.8-10.8) K/uL RBC (4.7-6.1) M/uL Hgb (14.0-18.0) g/dL Hct (42-52) % MCV (80-100) fL MCH (25-34) pg MCHC (32-36) g/dL RDW Std Deviation (36.4-46.3) fL RDW Coeff of Courtney (11.5-14.5) % Plt Count (130-400) K/uL MPV (7.4-10.4) fL Immature Gran % (Auto) % Neut % (Auto) % Lymph % (Auto) % [place] % (Auto) % Eos % (Auto) % Baso % (Auto) % Immature Gran # (Auto) (0.00-0.02) K/uL Neut # (Auto) (1.4-6.5) K/uL Lymph # (Auto) (1.2-3.4) K/uL [place] # (Auto) (0.11-0.59) K/uL Eos # (Auto) (0-0.5) K/uL Baso # (Auto) (0-0.2) K/uL Absolute Nucleated RBC (0-0) K/uL Nucleated RBC % (auto) % Sodium 140 (136-145) mmol/L Potassium 4.0 (3.5-5.1) mmol/L Chloride 104 (98-107) mmol/L Carbon Dioxide 29 (21-32) mmol/L Anion Gap 8.0 (3-11) BUN 62 H (7-18) mg/dl Creatinine 2.26 H (0.6-1.4) mg/dl Est Cr Clr Drug Dosing 34.8 ml/min Est GFR ( Amer) 30.8 Est GFR (Non-Af Amer) 26.6 BUN/Creatinine Ratio 27.6 H (10-20) Glucose 143 H (70-99) mg/dl Lactate 2.9 H* 2.4 H* (0.4-2.0) mmol/L Calcium 8.5 (8.5-10.1) mg/dl Phosphorus (2.5-4.9) mg/dl Magnesium (1.8-2.4) mg/dl Total Bilirubin 0.5 (0.2-1) mg/dl AST 16 (15-37) U/L ALT 22 (12-78) U/L Alkaline Phosphatase 58 (45-117) U/L Total Protein 6.8 (6.4-8.2) gm/dl Albumin 2.6 L (3.4-5.0) gm/dl Globulin 4.2 H (2.5-4.0) gm/dl Albumin/Globulin Ratio 0.6 L (0.9-2) 11/16/19 11/16/19 11/16/19 Range/Units 05:59 01:04 01:04 WBC 10.42 11.59 H (4.8-10.8) K/uL RBC 3.23 L 3.23 L (4.7-6.1) M/uL Hgb 10.2 L 10.3 L (14.0-18.0) g/dL Hct 32.8 L 32.2 L (42-52) % MCV 101.5 H 99.7 (80-100) fL MCH 31.6 31.9 (25-34) pg MCHC 31.1 L 32.0 (32-36) g/dL RDW Std Deviation 56.2 H 55.1 H (36.4-46.3) fL RDW Coeff of Courtney 15.3 H 15.1 H (11.5-14.5) % Plt Count 307 321 (130-400) K/uL MPV 9.5 9.2 (7.4-10.4) fL Immature Gran % (Auto) 1.4 % Neut % (Auto) 82.8 % Lymph % (Auto) 7.2 % [place] % (Auto) 7.4 % Eos % (Auto) 0.9 % Baso % (Auto) 0.3 % Immature Gran # (Auto) 0.16 H (0.00-0.02) K/uL Neut # (Auto) 9.59 H (1.4-6.5) K/uL Lymph # (Auto) 0.84 L (1.2-3.4) K/uL [place] # (Auto) 0.86 H (0.11-0.59) K/uL Eos # (Auto) 0.10 (0-0.5) K/uL Baso # (Auto) 0.04 (0-0.2) K/uL Absolute Nucleated RBC 0.03 H (0-0) K/uL Nucleated RBC % (auto) 0.2 % Sodium 139 (136-145) mmol/L Potassium 3.9 (3.5-5.1) mmol/L Chloride 103 (98-107) mmol/L Carbon Dioxide 27 (21-32) mmol/L Anion Gap 8.0 (3-11) BUN 64 H (7-18) mg/dl Creatinine 2.42 H D (0.6-1.4) mg/dl Est Cr Clr Drug Dosing 33.0 ml/min Est GFR ( Amer) 28.4 Est GFR (Non-Af Amer) 24.5 BUN/Creatinine Ratio 26.6 H (10-20) Glucose 170 H (70-99) mg/dl Lactate (0.4-2.0) mmol/L Calcium 8.6 (8.5-10.1) mg/dl Phosphorus 3.8 (2.5-4.9) mg/dl Magnesium 3.0 H (1.8-2.4) mg/dl Total Bilirubin (0.2-1) mg/dl AST (15-37) U/L ALT (12-78) U/L Alkaline Phosphatase (45-117) U/L Total Protein (6.4-8.2) gm/dl Albumin (3.4-5.0) gm/dl Globulin (2.5-4.0) gm/dl Albumin/Globulin Ratio (0.9-2) PG Care Time/CCT Total # of Minutes Spent Total Time Spent with Patient: Total time spent is greater than 50% in coordination of care (as documented) at patient's floor/unit and/or counseling patient: Coding Level of Care Code 94030 Subseq Hosp Care Lvl 2 Diagnoses Acute systolic (congestive) heart failure I50.21 Severe aortic stenosis I35.0 Dyspnea R06.02; R06.00; R06.01 Dyspnea type: shortness of breath Elevated troponin R74.8 JANY (acute kidney injury) N17.9 Cardiomyopathy I42.9 CAD (coronary artery disease), [place] coronary artery I25.10 Associated angina: without angina [place] vs. transplanted heart: [place] heart Mental retardation F79 Skin tear of upper arm without complication S41.111A Encounter type: initial encounter Laterality: right Acute on chronic renal failure N17.9; N18.3 Acute renal failure type: unspecified Chronic kidney disease stage: stage 3 (moderate) Chronic kidney disease, stage III (moderate) N18.3 DVT prophylaxis Z29.9 (1) Skin tear of upper arm without complication Encounter type: initial encounter Laterality: right Qualified Code(s): S41.111A - Laceration without foreign body of right upper arm, initial encounter (2) Dyspnea Dyspnea type: shortness of breath Qualified Code(s): R06.02 - Shortness of breath; R06.00 - Dyspnea, unspecified; R06.01 - Orthopnea (3) CAD (coronary artery disease), [place] coronary artery Associated angina: without angina [place] vs. transplanted heart: [place] heart Qualified Code(s): I25.10 - Atherosclerotic heart disease of [place] coronary artery without angina pectoris (4) Acute on chronic renal failure Acute renal failure type: unspecified Chronic kidney disease stage: stage 3 (moderate) Qualified Code(s): N17.9 - Acute kidney failure, unspecified; N18.3 - Chronic kidney disease, stage 3 (moderate)
--- NOTE | 2019-11-16 13:11 | Nephrology Progress Note ---
Date of Service November 16, 2019 Assessment & Plan (1) Acute kidney failure: -- JANY/CKD due to poor renal perfusion associated w/ severe , CHF -- Hold IVF. Requires gentle diuresis to alleviate pulmonary edema. Will likely need to accept worsening kidney function -- Continue Bumex 1 mg IV BID -- Urinalysis is acellular w/ low grade proteinuria -- Renal US: R 7.1cm, L 6.9cm. No hydronephrosis. Renal atrophy likely indicative of renal vascular disease -- Monitor serial PRP (2) Chronic kidney disease, stage III (moderate): -- Baseline Cr 1.6 (3) Aortic stenosis: -- Severe and marked reduction in LVEF by current echo -- May require TAVR. Await Cardiology input Subjective Mr. Fuentes was seen & examined in his hospital room this morning. He had an episode of asymptomatic VT overnight and now has defibrillator pads in place. Mr. Fuentes denies fever, angina or dyspnea Review of Systems Constitutional: no fever Cardiovascular: no chest pain and no dyspnea Gastrointestinal: no vomiting Physical Exam Constitutional: no acute distress Eyes: PERRL, conjunctivae normal, anicteric sclerae ENMT: Mouth: + dry oral mucous membranes Neck: trachea midline, no thyromegaly Respiratory: Auscultation: + rales Cardiovascular: Rate/Rhythm: regular rate and regular rhythm Extremities: + edema (1+ pretibial pitting edema) Gastrointestinal (Abdomen): normal bowel sounds, soft, nontender, no hepatosplenomegaly Results & Data Vital Signs (Past 12 Hours) Vital Signs Temp Pulse Pulse Resp BP BP Pulse Ox 11/16/19 11:00 36.6 C 74 18 107/73 93 11/16/19 10:46 68 20 96 11/16/19 08:00 36.9 C 70 20 95/63 L 96 11/16/19 07:33 66 20 93 11/16/19 07:00 66 11/16/19 05:41 85 101/62 11/16/19 04:52 94 H 11/16/19 03:20 36.5 C 77 20 115/75 96 Laboratory Results Laboratory Tests 11/16/19 11/16/19 05:59 05:59 WBC 10.42 Hgb 10.2 L Hct 32.8 L Sodium 140 Potassium 4.0 Chloride 104 Carbon Dioxide 29 BUN 62 H Creatinine 2.26 H Glucose 143 H PG Care Time/CCT Total # of Minutes Spent Total Time Spent with Patient: Total time spent is greater than 50% in coordination of care (as documented) at patient's floor/unit and/or counseling patient: Coding Level of Care Code 46035 Subseq Hosp Care Lvl 3 Diagnoses Acute kidney failure N17.9 Acute renal failure type: unspecified Chronic kidney disease, stage III (moderate) N18.3 Aortic stenosis I35.0 Cardiac valve disease etiology: etiology unspecified (1) Acute kidney failure Acute renal failure type: unspecified Qualified Code(s): N17.9 - Acute kidney failure, unspecified (2) Aortic stenosis Cardiac valve disease etiology: etiology unspecified Qualified Code(s): I35.0 - Nonrheumatic aortic (valve) stenosis
--- NOTE | 2019-11-16 15:54 | Cardiology Progress Note ---
Date of Service November 16, 2019 Assessment & Plan (1) Acute systolic (congestive) heart failure: Clinically improving with volume unloading. Renal function stable but BP borderline low. Agree with continue current diuretic while closely monitoring blood pressure and renal function. (2) Severe aortic stenosis: Attempted to reach his brother Luis Fuentes by landline and cell phone, no answer and no ability to leave a message. Will need guidance in regards to whether the patient is felt to be a candidate for transcatheter aortic valve replacement. Regardless of decision, continue with addressing his current hypervolemia/congestive heart failure to optimize his clinical status. (3) Cardiomyopathy: Likely secondary to progressive aortic stenosis. May not be possible to afterload reduce in the presence of aortic valvular stenosis, mainstay of management at this point is volume unloading. In addition, will need an ischemic work-up at some point. (4) Chronic kidney disease, stage III (moderate): Kidney status complicates management and that cardiac catheterization or other contrast-based interventions could result in renal failure and need for hemodialysis. Nephrology following as well. (5) Elevated troponin: Fortunately, his ECG today did not show any ST elevation. Suspect supply/demand mismatch with extreme physiologic demands of acute systolic heart failure in the context of severe aortic stenosis as the cause for troponin elevation. Continue with volume unloading, will need full ischemic work-up with cardiac catheterization if he is to proceed to TAVR. Admission and Anticipated Discharge Date Admission Date: November 14, 2019 Subjective Patient appeared clinically improved today. However, he did have a prolonged run of apparently asymptomatic ventricular tachycardia last evening. Defibrillator pads were placed but no countershocks were necessary. Some difficulty communicating, but the patient seemed bright and alert. He denied any pain or dyspnea. He did ask for a glass of water. Hemodynamics were unremarkable with BP low normal, pulse 66-98 bpm, respirations 18-20. Weight down 6 pounds. Physical Exam Physical Exam: Elderly white male who appeared uncomfortable but not acutely distressed. Afebrile. Vitals as noted in HPI. Skin: No ecchymoses or generalized lesions. HEENT: Unremarkable. Neck: Jugular venous pulse 1[address] the angle of the jaw with mildly increased respiratory variation. Carotids with soft transmitted murmur from aortic valve. Lungs: Moderately decreased breath sounds which were generally clear today, dullness at the bases. No abdominal paradox, intercostal retraction, or nasal flaring. Cardiac: Faint heart tones, not audible in the aortic area (has defibrillator pad in place). Harsh 3/6 systolic ejection murmur best heard over the apex without obvious radiation. No diastolic murmur or distant gallop. Abdomen:Nondistended. Extremities:Trace pretibial edema, peripheral pulses intact. Neurologic: Some difficulty communicating, does answer simple questions appropriately. Grossly nonfocal. Results & Data ([facility]) Laboratory Results 11/16/19 11/16/19 05:59 05:59 Hgb 10.2 L Potassium 4.0 BUN 62 H Creatinine 2.26 H Albumin 2.6 L PG Care Time/CCT Total # of Minutes Spent Total Time Spent with Patient: Total time spent is greater than 50% in coordination of care (as documented) at patient's floor/unit and/or counseling patient: Coding Level of Care Code 17567 Subseq Hosp Care Lvl 3 Diagnoses Acute systolic (congestive) heart failure I50.21 Severe aortic stenosis I35.0 Cardiomyopathy I42.9 Chronic kidney disease, stage III (moderate) N18.3 Elevated troponin R74.8
[2019-11-16] MEDS: ATORVASTATIN 40 MG TAB PO SCH (22:14)
[2019-11-17] MEDS: PIPERACILLIN/TAZOBACTAM 3.375 GM in DEXTROSE 5% 100 ML IV SCH ×3 (02:31→18:00)
[2019-11-17] MEDS: ONDANSETRON INJ 2 MG/ML 2 ML VIAL IV PRN (03:37)
[2019-11-17] MEDS: ALBUT/IPRATROP 3MG/0.5MG NEB 3 ML VIAL INH SCH ×4 (06:10→19:44)
[2019-11-17] MEDS: BUMETANIDE 1 MG in SYRINGE 0 ML IV SCH (06:18)
[2019-11-17 06:31] LABS: Basophils # (auto) 0.05 K/uL (0-0.2); Basophils % (auto) 0.4 %; Eosinophils # (auto) 0.02 K/uL (0-0.5); Eosinophils % (auto) 0.2 %; Hematocrit (blood only) 37.1 % (42-52); Hemoglobin 11.5 g/dL (14.0-18.0); Immature Granulocytes # (auto) 0.29 K/uL (0.00-0.02); Immature Granulocytes % (auto) 2.2 %; Lymphocytes # (auto) 0.81 K/uL (1.2-3.4); Lymphocytes % (auto) 6.1 %; Mean Corpuscular Hemoglobin 30.9 pg (25-34); Mean Corpuscular Volume 99.7 fL (80-100); Mean Platelet Volume 9.8 fL (7.4-10.4); Monocytes # (auto) 0.65 K/uL (0.11-0.59); Monocytes % (auto) 4.9 %; Neutrophils # (auto) 11.43 K/uL (1.4-6.5); Neutrophils % (auto) 86.2 %; Nucleated RBC # (auto) 0.05 K/uL (0-0); Nucleated RBC % (auto) 0.4 %; Platelet Count 332 K/uL (130-400); RDW Coefficient of Variation 15.2 % (11.5-14.5); Red Blood Count 3.72 M/uL (4.7-6.1); White Blood Count 13.25 K/uL (4.8-10.8)
[2019-11-17 07:04] LABS: BUN Creatinine Ratio 28.4 (10-20); Creatinine Clr Calc Pharmacy 33.1 ml/min; Est GFR (African American) 28.8; Est GFR (Non-African American) 24.9; Potassium 3.7 mmol/L (3.5-5.1)
[2019-11-17] MEDS: CLOPIDOGREL BISULFATE 75 MG TAB PO SCH (08:26)
[2019-11-17] MEDS: METOPROLOL TARTRATE 50 MG TAB PO SCH ×2 (08:26→20:28)
[2019-11-17] MEDS: ASPIRIN 81 MG ECTAB PO SCH (08:26)
[2019-11-17] MEDS ORDERED: BUMETANIDE 1 MG TAB PO ONE (10:09)
--- NOTE | 2019-11-17 10:15 | Nephrology Progress Note ---
Date of Service November 17, 2019 Assessment & Plan (1) Acute kidney failure: -- JANY/CKD due to poor renal perfusion associated w/ severe , CHF -- I&O's, weight are not congruent. clinical staff pharmacist reports patient w/ progressive scrotal and peripheral edema -- Will order additional 1 mg Bumex now and increase scheduled Bumex to 2 mg IV BID -- Urinalysis is acellular w/ low grade proteinuria -- Renal US: R 7.1cm, L 6.9cm. No hydronephrosis. Renal atrophy likely indicative of renal vascular disease -- Monitor serial PRP (2) Chronic kidney disease, stage III (moderate): -- Baseline Cr 1.6 (3) Aortic stenosis: -- Severe and marked reduction in LVEF by current echo -- May require TAVR. Await Cardiology input Subjective Mr. Fuentes was seen & examined in his hospital room this morning. He denies fever, angina or dyspnea. clinical staff pharmacist notes that his LE swelling and scrotal edema are worse Review of Systems Review of Systems: Unobtainable due to mental health condition and Unobtainable due to cognitive status Physical Exam Constitutional: no acute distress Eyes: PERRL, conjunctivae normal, anicteric sclerae ENMT: Mouth: + dry oral mucous membranes Neck: trachea midline, no thyromegaly Respiratory: Auscultation: + rales Cardiovascular: Rate/Rhythm: regular rate and regular rhythm Extremities: + edema (1+ pretibial pitting edema) Gastrointestinal (Abdomen): normal bowel sounds, soft, nontender, no hepatosplenomegaly Results & Data Vital Signs (Past 12 Hours) Vital Signs Temp Pulse Pulse Resp BP BP Pulse Ox 11/17/19 07:45 36.4 C L 93 H 20 134/95 95 11/17/19 06:13 72 24 94 11/17/19 04:00 36.4 C L 81 20 121/80 96 11/17/19 00:00 79 11/16/19 23:10 36.6 C 84 20 99/68 L 95 Laboratory Results Laboratory Tests 11/17/19 11/17/19 05:51 05:51 WBC 13.25 H Hgb 11.5 L Hct 37.1 L Plt Count 332 Sodium 138 Potassium 3.7 Chloride 101 Carbon Dioxide 27 BUN 68 H Creatinine 2.39 H Glucose 155 H PG Care Time/CCT Total # of Minutes Spent Total Time Spent with Patient: Total time spent is greater than 50% in coordination of care (as documented) at patient's floor/unit and/or counseling patient: Coding Level of Care Code 01574 Subseq Hosp Care Lvl 3 Diagnoses Acute kidney failure N17.9 Acute renal failure type: unspecified Chronic kidney disease, stage III (moderate) N18.3 Aortic stenosis I35.0 Cardiac valve disease etiology: etiology unspecified (1) Acute kidney failure Acute renal failure type: unspecified Qualified Code(s): N17.9 - Acute kidney failure, unspecified (2) Aortic stenosis Cardiac valve disease etiology: etiology unspecified Qualified Code(s): I35.0 - Nonrheumatic aortic (valve) stenosis
--- NOTE | 2019-11-17 10:31 | XRay Report ---
XR chest 2V PA/lateral CLINICAL HISTORY: worsening lung sounds, volume overload COMPARISON STUDY: 11/15/2019 FINDINGS: The heart is enlarged. There are moderate bilateral pleural effusions. There are persistent basilar airspace opacities, likely atelectatic although a superimposed infectious/inflammatory proce ss cannot be excluded. There is persistent mediastinal soft tissue prominence, unchanged from the pre ceding study. Mild adenopathy cannot be excluded.[ IMPRESSION: No significant change from the preceding study. Persistent cardiomegaly, radiographic anna dence of congestive failure, bilateral pleural effusions, and persistent right greater than left basi lar opacities. ACT 112: Negative or not required by law. Electronically signed by: Keo White M.D. 11/17/2019 10:30 AM
--- NOTE | 2019-11-17 11:46 | Hospitalist Progress Note ---
Date of Service November 17, 2019 Assessment & Plan (1) Acute systolic (congestive) heart failure: * Secondary to severe ECHO with significant decline in left ventricular systolic function, EF 20-25%, mod LVH, mod-severe global hypokinesis, severe (via dimensionless index), mod MR, mild TR Suspect some degree of failure contributing to hypoxia * INCREASED Bumex to 2mg IV BID on 11/16 (also received additional dose 1mg PO) - given severity of kidney disease, likely will need increased loop diuretics for effect - will expect some worsening kidney function to improve cardiac/pulmonary. (Had gotten morning bumex early given worsening pulm function overnight by resident) I/Os -- strict, fluid restriction, low sodium diet Daily weights --> patient with mismatch in I/O and current weight. Despite restriction it appears patient up 2lb? * Continue metoprolol tartrate 50mg BID but will convert to Toprol-XL 100 mg daily prior to discharge if blood pressures can tolerate * Episode of vtach evening of 11/14, likely secondary to valvular disease and volume overloaded state. Pacer pads on but did not require shocks. Has been NSR with frequent PVCs in the 80-90s on telemetry --> Per previous discussion with cardiology, patient may be candidate for amiodarone * BP currently 117/61, 96% on 3L (2) Severe aortic stenosis: * with cardiomyopathy * Cardiology on consult -- appreciate assistance * Repeat ECHO with significant decline in left ventricular systolic function, EF 20-25%, mod LVH, mod-severe global hypokinesis, severe (via dimensionless index), mod MR, mild TR * Will need TAVR in future vs Palliative --> Unable to get ahold of MYKE Smith (brother) by phone, unable to leave voicemail --> Will need to get CM involved Monday as Dr Redding also reached out to Rosario Fuentes and was unsuccessful. * Will need to optimize clinical status prior to TAVR if that is the route pursued -- patient will need cath/etc prior to procedure * Nephrology on consult for likely developing cardiorenal type picture in setting of acute CHF with severe -- appreciate assistance (3) Dyspnea: * See above * Patient denies dyspnea, however remains on O2 -- 96% on 3L NC * Initially thought possible aspiration pneumonia. Patient with acute CHF secondary to valvular disease * Procalcitonin 0.12 -- unlikely infectious process. Afebrile. No elevated in WBCs until on 11/16 when up to 13k * Zosyn for presumed aspiration PNA (negative MRSA nasal swab, no vancomycin) -- continued for dual coverage UTI with proteus, corynebacterium urealyticum * Increased bumex as above * Supplemental O2 as needed. Speech consulted -- diet changed to pureed given pt without dentures (at [place]) * Flutter Valve * DuoNeb QID * Repeat CXR 11/16 with persistent cardiomegaly, CHF, bilateral effusions, R>L basilar opacities -- APPEARS WORSE THAN CXR 11/14 (4) JANY (acute kidney injury): * Cr slightly worse, 2.39. BUN 68 * Baseline Cr appears ~1.6 * Nephrology consulted as above -- appreciate input * Renal US ordered --> atrophic left kidney, likely contributing to renal insufficiency. Urine random Cr 61.6, random sodium 33 * UA with low grade proteinuria * Renal dosing where needed, avoid nephrotoxic agents * Per nephrology, will have to accept some worsening renal function temporarily -- bumex increased to 2mg IV BID * Continue to monitor (5) Elevated troponin: * Patient with known CAD, EKG evidence of prior ischemia. Presently with no complaint of CP. * Troponin elevated but trending down -- likely supply/demand mismatch given stress of acute CHF with severe . Not likely NSTEMI * EKG changes with nonspecific ST elevation in lead III * Cardiology consulted -- rec serial EKGs --> repeat EKG without evidence of ST elevation (6) Cardiomyopathy: * Secondary to valvular heart disease, severe * Will need ischemic work-up at some point prior to pursuing TAVR -- See above regarding POA for consent * Likely secondary to progressive aortic stenosis -- possible that we may not be able to reduce afterload given severe -- continue diuresis for now (7) Acute on chronic renal failure: * See above. (8) Chronic kidney disease, stage III (moderate): * See above -- although, eGFR now 24.9. If no improvement, may now be stage IV (9) Urinary tract infection: * See above * UA with 3+ leuk esterase, >30WBC, 10-20 epi, 2+ bacteria * Culture with proteus, corynebacterium urealyticum == pansensitive except fluoroquinolones * On day 4 of Zosyn for dual coverage aspiration pneumonia/UTI -- may be able to transition to oral in AM (will continue for now given increase in WBC, 13.25k) * BCx NGTD (10) CAD (coronary artery disease), [place] coronary artery: * Elevated troponin, see above, trending down --> likely supply/demand mismatch as above * Continue home ASA, Atorvastatin, Plavix, Metoprolol (11) Mental retardation: * Noted -- patient lives at [facility]. MYKE Fuentes (Brother) * Supportive care (12) Skin tear of upper arm without complication: * Dressing in place. No evidence of infection. Dressing change as needed (13) DVT prophylaxis: * SCDs Dispo: continue diuresis. will need CM assistance obtaining point of contact for Mr Fuentes as all previous attempts to contact Luis (POA) and Rosario have been unsuccessful. If patient unable to be optimized for TAVR, may need to consider palliation. Admission and Anticipated Discharge Date Admission Date: November 14, 2019 Supervising Physician Co-Signing Physician Notes PA Supervision Note: I did not personally see or examine the patient today, but I verified all duque points of ARMINDA Mckenzie's assessment and plan with the following exceptions/additions: None Subjective Patient without complaints currently except that he would like a glass of water. Patient with audible lung sounds during conversation. Denies shortness of breath. Scrotal edema new this morning. Eating and drinking without difficulty per patient. He does state he gets intermittent chest pain that happens for a couple seconds at a time. When asked, he states this has been going on "long time" and motions to his epigastric area. When asked, patient denied fevers, chills, shortness of breath, abdominal pain, n/v/d. Review of Systems Review of Systems: Unobtainable due to mental health condition and Unobtainable due to cognitive status Physical Exam Constitutional: well developed, well nourished and + obese; no acute distress Eyes: + anicteric sclerae; no scleral abnormality ENMT: external ear and nose normal, oropharynx normal Neck: trachea midline, no thyromegaly Respiratory: able to speak in complete sentences; no respiratory distress and no labored breathing Auscultation: + diminished lung sounds (bilateral bases R>L), + crackles, + rales and + wheezes (expiratory) Cardiovascular: Rate/Rhythm: regular rate and regular rhythm Heart Sounds: + murmur (systolic, best appreciated RUSB) Extremities: + edema (1+ b/l LE, now with scrotal edema) Gastrointestinal (Abdomen): Inspection/Auscultation: + abdomen distended Percussion/Palpation: abdomen nontender, no guarding and abdomen not rigid Musculoskeletal: no cyanosis or clubbing, extremities motor strength 5/5 Skin: no rashes, warm and dry Neurologic: deep tendon reflexes 2+ bilaterally, moves all extremities and awake Motor/Sensory: no tremor and normal movement Psychiatric: Orientation: alert, oriented to person and oriented to place Lymphatic: no cervical or axillary lymphadenopathy Results & Data ([facility]) Vital Signs (Past 12 Hours) Vital Signs Temp Pulse Pulse Resp BP BP Pulse Ox 11/17/19 11:19 68 20 97 11/17/19 11:00 36.4 C L 86 20 125/48 L 95 11/17/19 07:45 36.4 C L 93 H 20 134/95 95 11/17/19 06:13 72 24 94 11/17/19 04:00 36.4 C L 81 20 121/80 96 11/17/19 00:00 79 Laboratory Results 11/17/19 11/17/19 11/16/19 Range/Units 05:51 05:51 21:20 WBC 13.25 H (4.8-10.8) K/uL RBC 3.72 L (4.7-6.1) M/uL Hgb 11.5 L (14.0-18.0) g/dL Hct 37.1 L (42-52) % MCV 99.7 (80-100) fL MCH 30.9 (25-34) pg MCHC 31.0 L (32-36) g/dL RDW Std Deviation 55.0 H (36.4-46.3) fL RDW Coeff of [place] 15.2 H (11.5-14.5) % Plt Count 332 (130-400) K/uL MPV 9.8 (7.4-10.4) fL Immature Gran % (Auto) 2.2 % Neut % (Auto) 86.2 % Lymph % (Auto) 6.1 % [place] % (Auto) 4.9 % Eos % (Auto) 0.2 % Baso % (Auto) 0.4 % Immature Gran # (Auto) 0.29 H (0.00-0.02) K/uL Neut # (Auto) 11.43 H (1.4-6.5) K/uL Lymph # (Auto) 0.81 L (1.2-3.4) K/uL [place] # (Auto) 0.65 H (0.11-0.59) K/uL Eos # (Auto) 0.02 (0-0.5) K/uL Baso # (Auto) 0.05 (0-0.2) K/uL Absolute Nucleated RBC 0.05 H (0-0) K/uL Nucleated RBC % (auto) 0.4 % Sodium 138 (136-145) mmol/L Potassium 3.7 (3.5-5.1) mmol/L Chloride 101 (98-107) mmol/L Carbon Dioxide 27 (21-32) mmol/L Anion Gap 10.0 (3-11) BUN 68 H (7-18) mg/dl Creatinine 2.39 H (0.6-1.4) mg/dl Est Cr Clr Drug Dosing 33.1 ml/min Est GFR ( Amer) 28.8 Est GFR (Non-Af Amer) 24.9 BUN/Creatinine Ratio 28.4 H (10-20) Glucose 155 H (70-99) mg/dl Calcium 9.0 (8.5-10.1) mg/dl Ur Random Creatinine mg/dl Ur Random Sodium 33 mmol/L 11/16/19 Range/Units 21:20 WBC (4.8-10.8) K/uL RBC (4.7-6.1) M/uL Hgb (14.0-18.0) g/dL Hct (42-52) % MCV (80-100) fL MCH (25-34) pg MCHC (32-36) g/dL RDW Std Deviation (36.4-46.3) fL RDW Coeff of [place]ney (11.5-14.5) % Plt Count (130-400) K/uL MPV (7.4-10.4) fL Immature Gran % (Auto) % Neut % (Auto) % Lymph % (Auto) % [place] % (Auto) % Eos % (Auto) % Baso % (Auto) % Immature Gran # (Auto) (0.00-0.02) K/uL Neut # (Auto) (1.4-6.5) K/uL Lymph # (Auto) (1.2-3.4) K/uL [place] # (Auto) (0.11-0.59) K/uL Eos # (Auto) (0-0.5) K/uL Baso # (Auto) (0-0.2) K/uL Absolute Nucleated RBC (0-0) K/uL Nucleated RBC % (auto) % Sodium (136-145) mmol/L Potassium (3.5-5.1) mmol/L Chloride (98-107) mmol/L Carbon Dioxide (21-32) mmol/L Anion Gap (3-11) BUN (7-18) mg/dl Creatinine (0.6-1.4) mg/dl Est Cr Clr Drug Dosing ml/min Est GFR ( Amer) Est GFR (Non-Af Amer) BUN/Creatinine Ratio (10-20) Glucose (70-99) mg/dl Calcium (8.5-10.1) mg/dl Ur Random Creatinine 61.6 mg/dl Ur Random Sodium mmol/L Diagnostic Findings Chest 2 View IMPRESSION: No significant change from the preceding study. Persistent cardiomegaly, radiographic evidence of congestive failure, bilateral pleural effusions, and persistent right greater than left basilar opacities. PG Care Time/CCT Total # of Minutes Spent Total Time Spent with Patient: Total time spent is greater than 50% in coordination of care (as documented) at patient's floor/unit and/or counseling patient: Coding Level of Care Code 52535 Subseq Hosp Care Lvl 3 Diagnoses Acute systolic (congestive) heart failure I50.21 Severe aortic stenosis I35.0 Dyspnea R06.02; R06.00; R06.01 Dyspnea type: shortness of breath JANY (acute kidney injury) N17.9 Elevated troponin R74.8 Cardiomyopathy I42.9 Acute on chronic renal failure N17.9; N18.3 Acute renal failure type: unspecified Chronic kidney disease stage: stage 3 (moderate) Chronic kidney disease, stage III (moderate) N18.3 Urinary tract infection N39.0 CAD (coronary artery disease), [place] coronary artery I25.10 Associated angina: without angina [place] vs. transplanted heart: [place] heart Mental retardation F79 Skin tear of upper arm without complication S41.111A Encounter type: initial encounter Laterality: right DVT prophylaxis Z29.9 (1) Skin tear of upper arm without complication Encounter type: initial encounter Laterality: right Qualified Code(s): S41.111A - Laceration without foreign body of right upper arm, initial encounter (2) Dyspnea Dyspnea type: shortness of breath Qualified Code(s): R06.02 - Shortness of breath; R06.00 - Dyspnea, unspecified; R06.01 - Orthopnea (3) CAD (coronary artery disease), [place] coronary artery Associated angina: without angina [place] vs. transplanted heart: [place] heart Qualified Code(s): I25.10 - Atherosclerotic heart disease of [place] coronary artery without angina pectoris (4) Acute on chronic renal failure Acute renal failure type: unspecified Chronic kidney disease stage: stage 3 (moderate) Qualified Code(s): N17.9 - Acute kidney failure, unspecified; N18.3 - Chronic kidney disease, stage 3 (moderate)
--- NOTE | 2019-11-17 14:59 | Cardiology Progress Note ---
Date of Service November 17, 2019 Assessment & Plan (1) Acute systolic (congestive) heart failure: Still appears clinically better than upon admission, but agree with additional diuretic dose given his increasing scrotal edema. Renal function stable, has not been symptomatically hypotensive, will benefit from additional volume unloading while monitoring hemodynamics closely given his severe aortic stenosis. (2) Severe aortic stenosis: Attempted to reach his brother Luis Fuentes once again, also called additional contact Rosario Fuentes (? sister), unsuccessful at reaching them and no option to leave a message. Recommend reaching out to case management to contact family members regarding a discussion around level of intervention/aggressiveness regarding management of his critical valvular disease. Specifically, need to determine whether the p atient is a candidate for transcatheter aortic valve replacement. Regardless of decision, continue with addressing his current hypervolemia/congestive heart failure to optimize his clinical status. (3) Cardiomyopathy: Likely secondary to progressive aortic stenosis. May not be possible to afterload reduce in the presence of aortic valvular stenosis, mainstay of management at this point is volume unloading. In addition, will need an ischemic work-up at some point. (4) Chronic kidney disease, stage III (moderate): Nephrology following. (5) Elevated troponin: Supply/demand mismatch. Continue with volume unloading, will need full ischemic work-up with cardiac catheterization if he is to proceed to TAVR. Admission and Anticipated Discharge Date Admission Date: November 14, 2019 Subjective Patient sitting in bed eating breakfast at the time of my evaluation. Communication remains difficult, but he was able to express his desire for a g lass of water once again. He denied any chest pain or dyspnea at rest. BP low normal, heart rate normal, respirations variable (16-24/min). Input/output appear even, weight up 2 pounds. Increased scrotal/leg edema reported by nursing. Physical Exam Physical Exam: Elderly white male who appeared reasonably comfortable. Afebrile. Vitals as noted in HPI. Skin: No ecchymoses or generalized lesions. HEENT: Unremarkable. Neck: Jugular venous pulse 1[address] the angle of the jaw with mildly increased respiratory variation. Carotids with soft transmitted murmur from aortic valve. Lungs: Moderately decreased breath sounds with few basilar crackles and dullness at the bases. No abdominal paradox, intercostal retraction, or nasal flaring. Cardiac: Faint heart tones, not readily audible in the aortic area. Harsh 3/6 systolic ejection murmur best heard over the apex without obvious radiation. No diastolic murmur or distant gallop. Abdomen:Nondistended. Extremities:1+ pretibial edema, peripheral pulses intact. Neurologic: Some difficulty communicating, does answer simple questions appro priately. Grossly nonfocal. Results & Data ([facility]) Laboratory Results 11/17/19 05:51 BUN 68 H Creatinine 2.39 H Diagnostic Findings PG Care Time/CCT Total # of Minutes Spent Total Time Spent with Patient: Total time spent is greater than 50% in coordination of care (as documented) at patient's floor/unit and/or counseling patient: Coding Level of Care Code 76995 Subseq Hosp Care Lvl 3 Diagnoses Acute systolic (congestive) heart failure I50.21 Severe aortic stenosis I35.0 Cardiomyopathy I42.9 Chronic kidney disease, stage III (moderate) N18.3 Elevated troponin R74.8
[2019-11-17] MEDS: BUMETANIDE 2 MG in SYRINGE 0 ML IV SCH (17:13)
[2019-11-17] MEDS: ATORVASTATIN 40 MG TAB PO SCH (20:28)
[2019-11-18] MEDS: PIPERACILLIN/TAZOBACTAM 3.375 GM in DEXTROSE 5% 100 ML IV SCH ×3 (03:08→17:57)
[2019-11-18] MEDS: ALBUT/IPRATROP 3MG/0.5MG NEB 3 ML VIAL INH SCH ×4 (07:27→20:30)
[2019-11-18 07:31] LABS: Basophils # (auto) 0.02 K/uL (0-0.2); Basophils % (auto) 0.1 %; Eosinophils # (auto) 0.02 K/uL (0-0.5); Eosinophils % (auto) 0.1 %; Hematocrit (blood only) 35.8 % (42-52); Immature Granulocytes % (auto) 1.3 %; Lymphocytes # (auto) 0.64 K/uL (1.2-3.4); Lymphocytes % (auto) 4.2 %; Mean Corpuscular Hgb Conc 30.7 g/dL (32-36); Mean Corpuscular Volume 100.8 fL (80-100); Mean Platelet Volume 9.9 fL (7.4-10.4); Monocytes # (auto) 1.15 K/uL (0.11-0.59); Monocytes % (auto) 7.6 %; Neutrophils # (auto) 13.18 K/uL (1.4-6.5); Neutrophils % (auto) 86.7 %; Platelet Count 305 K/uL (130-400); RDW Coefficient of Variation 15.1 % (11.5-14.5); RDW Standard Deviation 54.6 fL (36.4-46.3); Red Blood Count 3.55 M/uL (4.7-6.1); White Blood Count 15.21 K/uL (4.8-10.8)
[2019-11-18] MEDS: ONDANSETRON INJ 2 MG/ML 2 ML VIAL IV PRN (08:00)
[2019-11-18] MEDS: ACETAMINOPHEN 325 MG TAB PO PRN (08:02)
[2019-11-18 08:09] LABS: BUN Creatinine Ratio 29.6 (10-20); Calcium 9.1 mg/dl (8.5-10.1); Est GFR (African American) 28.5; Est GFR (Non-African American) 24.6; Potassium 3.9 mmol/L (3.5-5.1)
[2019-11-18] MEDS: ASPIRIN 81 MG ECTAB PO SCH (08:14)
[2019-11-18] MEDS: CLOPIDOGREL BISULFATE 75 MG TAB PO SCH (08:14)
[2019-11-18] MEDS: METOPROLOL TARTRATE 50 MG TAB PO SCH ×2 (08:14→19:42)
[2019-11-18] MEDS: BUMETANIDE 2 MG in SYRINGE 0 ML IV SCH ×2 (08:14→17:25)
--- NOTE | 2019-11-18 09:40 | Nephrology Progress Note ---
Date of Service November 18, 2019 Assessment & Plan (1) Acute kidney failure: -- JANY/CKD due to poor renal perfusion associated w/ severe , CHF. -- I&O's, weight are not congruent. -- Bumex increased from 1 mg twice daily to 2 mg twice daily yesterday. -- Urinalysis is acellular w/ low grade proteinuria. -- Renal US: R 7.1cm, L 6.9cm. No hydronephrosis. Renal atrophy likely indicative of renal vascular disease. -- Monitor serial PRP. -- Volume status acceptable. -- BP reasonable. -- Non-oliguric with reasonable urine output. -- Medications appropriately dosed for kidney function. -- Creatinine stable. -- Electrolytes controlled. -- No emergent indication for [employer]. (2) Chronic kidney disease, stage III (moderate): -- Baseline Cr 1.6. (3) Aortic stenosis: -- Severe and marked reduction in LVEF by current echo. -- Cardiology following. Subjective No acute events overnight. Jeremiah was sitting upright in bed and eating breakfast during my evaluation. He denied any complaints other than need for water. Non-oliguric. Weight increased 1 kg since yesterday. I/O -335. Increased urine output noted yesterday afternoon with increased dose of furosemide. Review of Systems Review of Systems: Unobtainable due to mental health condition (limited but Jeremiah denies shortness of breath or pain. Appetite is good. No fevers or chills.) Physical Exam Constitutional: + frail appearing; no acute distress Eyes: + anicteric sclerae ENMT: Mouth: + dry oral mucous membranes; no oral mucosal abnormality Neck: normal visual inspection and trachea midline Respiratory: normal respiratory effort Auscultation: + rales (few basilar R>L) Cardiovascular: Rate/Rhythm: regular rate Heart Sounds: + murmur Vessels: no JVD Extremities: + edema (+1 pitting below the knee and dependent) Psychiatric: Orientation: alert and cooperative Results & Data Vital Signs (Past 12 Hours) Vital Signs Temp Pulse Pulse Resp BP Pulse Ox 11/18/19 07:30 85 16 97 11/18/19 07:26 36.5 C 79 18 114/69 94 11/18/19 07:00 81 11/18/19 03:45 36.6 C 70 20 107/64 94 11/18/19 00:00 73 11/17/19 22:42 36.9 C 65 18 113/77 96 Laboratory Results Laboratory Results - last 24 hr 11/18/19 11/18/19 07:16 07:16 WBC 15.21 H RBC 3.55 L Hgb 11.0 L Hct 35.8 L MCV 100.8 H MCH 31.0 MCHC 30.7 L RDW Std Deviation 54.6 H RDW Coeff of Courtney 15.1 H Plt Count 305 MPV 9.9 Immature Gran % (Auto) 1.3 Neut % (Auto) 86.7 Lymph % (Auto) 4.2 [place] % (Auto) 7.6 Eos % (Auto) 0.1 Baso % (Auto) 0.1 Immature Gran # (Auto) 0.20 H Neut # (Auto) 13.18 H Lymph # (Auto) 0.64 L [place] # (Auto) 1.15 H Eos # (Auto) 0.02 Baso # (Auto) 0.02 Sodium 140 Potassium 3.9 Chloride 103 Carbon Dioxide 32 Anion Gap 5.0 BUN 71 H Creatinine 2.41 H Est Cr Clr Drug Dosing 33.0 Est GFR ( Amer) 28.5 Est GFR (Non-Af Amer) 24.6 BUN/Creatinine Ratio 29.6 H Glucose 127 H Calcium 9.1 Specimen Hemolysis PG Care Time/CCT Total # of Minutes Spent Total Time Spent with Patient: Total time spent is greater than 50% in coordination of care (as documented) at patient's floor/unit and/or counseling patient: Coding Level of Care Code 65410 Subseq Hosp Care Lvl 3 Diagnoses Acute kidney failure N17.9 Acute renal failure type: unspecified Chronic kidney disease, stage III (moderate) N18.3 Aortic stenosis I35.0 Cardiac valve disease etiology: etiology unspecified (1) Acute kidney failure Acute renal failure type: unspecified Qualified Code(s): N17.9 - Acute kidney failure, unspecified (2) Aortic stenosis Cardiac valve disease etiology: etiology unspecified Qualified Code(s): I35.0 - Nonrheumatic aortic (valve) stenosis
--- NOTE | 2019-11-18 11:07 | Cardiology Progress Note ---
Date of Service November 18, 2019 Assessment & Plan (1) Acute systolic (congestive) heart failure: Significant clinical improvement, he seems to be fairly euvolemic based on neck veins and improved lung exam (still with some residual scrotal edema). Mild increase in BUN/creatinine and BP borderline low, would adjust diuretics to maintain current volume status (obtain accurate weight to set baseline). With his severe aortic stenosis, need to avoid overdiuresis. (2) Severe aortic stenosis: Still not successful reaching any of his relatives. I will contact Dr. Garcia, who follows the patient at [facility], perhaps he could offer insight on the family dynamics. Meanwhile, would recommend case briefer attempt to contact family, I am glad to talk to them regarding options for management of his aortic stenosis (TAVR versus medical management). My cell number is [phone]. Since his clinical status is improved and the TAVR would not be an urgent intervention (would requiring staging, including cardiac catheterization), he may be appropriate to return to [facility] at some point while his definitive treatment is sorted out. (3) Cardiomyopathy: (4) Chronic kidney disease, stage III (moderate): (5) Elevated troponin: Admission and Anticipated Discharge Date Admission Date: November 14, 2019 Subjective Uneventful night, telemetry benign (no further ventricular dysrhythmias). Patient appears comfortable, his only request was for a drink of water. No chest pain or shortness of breath. Still with some scrotal swelling. BP normotensive. Pulse 60-90 bpm. Input/output slightly negative but weight up 3 pounds. Physical Exam Physical Exam: Elderly white male who appears comfortable. Afebrile. Vitals as noted in HPI. Skin: No ecchymoses or generalized lesions. HEENT: Unremarkable. Neck: Jugular venous pulse just above the clavicle at 90 degrees. Carotids with soft transmitted murmur from aortic valve. Lungs: Dullness at the bases but generally clear. Cardiac: Faint systolic murmur now heard at right upper sternal border (previously breath sounds interfered with auscultation), also harsh 3/6 systolic ejection murmur best heard over the apex. Aortic closure sound inaudible. No diastolic murmur or distant gallop. Abdomen:Nondistended. Some mild to moderate scrotal edema noted. Extremities:1+ pretibial edema, peripheral pulses intact. Neurologic: Some difficulty communicating, does answer simple questions appropriately. Grossly nonfocal. Results & Data ([facility]) Vital Signs (Past 12 Hours) Vital Signs Temp Pulse Pulse Resp BP Pulse Ox 11/18/19 07:30 85 16 97 11/18/19 07:26 97.7 F 79 18 114/69 94 11/18/19 07:00 81 11/18/19 03:45 97.9 F 70 20 107/64 94 11/18/19 00:00 73 Laboratory Results 11/18/19 07:16 BUN 71 H Creatinine 2.41 H PG Care Time/CCT Total # of Minutes Spent Total Time Spent with Patient: Total time spent is greater than 50% in coordination of care (as documented) at patient's floor/unit and/or counseling patient: Coding Level of Care Code 64532 Subseq Hosp Care Lvl 3 Diagnoses Acute systolic (congestive) heart failure I50.21 Severe aortic stenosis I35.0 Cardiomyopathy I42.9 Chronic kidney disease, stage III (moderate) N18.3 Elevated troponin R74.8
--- NOTE | 2019-11-18 15:18 | Hospitalist Progress Note ---
Date of Service November 18, 2019 Assessment & Plan (1) Acute systolic (congestive) heart failure: * Secondary to severe ECHO with significant decline in left ventricular systolic function, EF 20-25%, mod LVH, mod-severe global hypokinesis, severe (via dimensionless index), mod MR, mild TR Suspect some degree of failure contributing to hypoxia * INCREASED Bumex to 2mg IV BID on 11/16 (also received additional dose 1mg PO) - given severity of kidney disease, likely will need increased loop diuretics for effect - will expect some worsening kidney function to improve cardiac/pulmonary. (Had gotten morning bumex early given worsening pulm function overnight by resident) I/Os -- strict, fluid restriction, low sodium diet Daily weights * Continue metoprolol tartrate 50mg BID but will convert to Toprol-XL 100 mg daily prior to discharge if blood pressures can tolerate * Episode of vtach evening of 11/14 and again on 11/17, likely secondary to valvular disease and volume overloaded state. Pacer pads on but did not require shocks. Has been NSR with frequent PVCs in the 80-90s on telemetry --> Per previous discussion with cardiology, patient may be candidate for amiodarone * BP currently 117/61, 96% on 3L approaching stable status, almost ready for discharge however, need to have a detailed discussion with patient's family, they have been impossible to reach CM working on alternative numbers given the severe and heart failure and CKD, either he would proceed with TAVR evaluation or go down a palliative route he is unable to make these decisions due to cognitive impairment (2) Severe aortic stenosis: * with cardiomyopathy * Cardiology on consult -- appreciate assistance * Repeat ECHO with significant decline in left ventricular systolic function, EF 20-25%, mod LVH, mod-severe global hypokinesis, severe (via dimensionless index), mod MR, mild TR * Will need TAVR in future vs Palliative --> Unable to get ahold of MYKE Smith (brother) by phone, unable to leave voicemail also no answer with Palak Fuentes * Will need to optimize clinical status prior to TAVR if that is the route pursued -- patient will need cath/etc prior to procedure * Nephrology on consult for likely developing cardiorenal type picture in setting of acute CHF with severe -- appreciate assistance (3) Dyspnea: * See above * Patient denies dyspnea, however remains on O2 -- 96% on 3L NC * Initially thought possible aspiration pneumonia. Patient with acute CHF secondary to valvular disease * Procalcitonin 0.12 -- unlikely infectious process. Afebrile. No elevated in WBCs until on 11/16 when up to 13k, now up to 15k today (11/17) * Zosyn for presumed aspiration PNA (negative MRSA nasal swab, no vancomycin) -- continued for dual coverage UTI with proteus, corynebacterium urealyticum * Increased bumex as above * Supplemental O2 as needed. Speech consulted -- diet changed to pureed given pt without dentures (at [place]) * Flutter Valve * DuoNeb QID * Repeat CXR 11/16 with persistent cardiomegaly, CHF, bilateral effusions, R>L basilar opacities -- APPEARS WORSE THAN CXR 11/14 (4) JANY (acute kidney injury): * Cr slightly worse, 2.4 * Baseline Cr appears ~1.6 * Nephrology consulted as above -- appreciate input * Renal US ordered --> atrophic left kidney, likely contributing to renal insufficiency. Urine random Cr 61.6, random sodium 33 * UA with low grade proteinuria * Renal dosing where needed, avoid nephrotoxic agents * Per nephrology, will have to accept some worsening renal function temporarily -- bumex increased to 2mg IV BID on 11/16 * Continue to monitor closely again, given his worsening renal function with heart failure and severe , would need to either consider TAVR or palliative approach all attempts to contact family have not had a result (5) Elevated troponin: * Patient with known CAD, EKG evidence of prior ischemia. Presently with no complaint of CP. * Troponin elevated but trending down -- likely supply/demand mismatch given stress of acute CHF with severe . Not likely NSTEMI * EKG changes with nonspecific ST elevation in lead III * Cardiology consulted -- rec serial EKGs --> repeat EKG without evidence of ST elevation (6) Cardiomyopathy: * Secondary to valvular heart disease, severe * Will need ischemic work-up at some point prior to pursuing TAVR -- See above regarding POA for consent * Likely secondary to progressive aortic stenosis -- possible that we may not be able to reduce afterload given severe -- continue diuresis for now (7) Acute on chronic renal failure: * See above. Cr up to 2.4 today (8) Chronic kidney disease, stage III (moderate): * See above -- If no improvement, may now be stage IV (9) Urinary tract infection: * See above * UA with 3+ leuk esterase, >30WBC, 10-20 epi, 2+ bacteria * Culture with proteus, corynebacterium urealyticum == pansensitive except fluoroquinolones * On day 5 of Zosyn for dual coverage aspiration pneumonia/UTI * BCx NGTD (10) CAD (coronary artery disease), [place] coronary artery: * Elevated troponin, see above, trending down --> likely supply/demand mismatch as above * Continue home ASA, Atorvastatin, Plavix, Metoprolol (11) Mental retardation: * Noted -- patient lives at [facility]. MYKE Luis Fuentes (Brother) * Supportive care (12) Skin tear of upper arm without complication: * Dressing in place. No evidence of infection. Dressing change as needed (13) DVT prophylaxis: * SCDs Dispo: continue diuresis. will need CM assistance obtaining point of contact for Mr uFentes as all previous attempts to contact Luis (POA) and Rosario have been unsuccessful. If patient unable to be optimized for TAVR, may need to consider palliation. Admission and Anticipated Discharge Date Admission Date: November 14, 2019 Subjective patient says his breathing is stable he is eating okay, moving his bowels, no difficulty urinating reviewed labs, WBC is 15k Cr is 2.41, K 3.9 had a brief run of V tach while moving bowels tried to call the number for both his brother Luis and sister Palak, no answer no other numbers listed d/w CM, they are reaching out to [facility] for any alternative numbers discussed with cardiology, the patient is stable, can discuss TAVR as outpatient at this point Review of Systems Review of Systems: All systems reviewed & are unremarkable except as noted in HPI & below Constitutional: + fatigue and + weakness; no fever and no sweats Respiratory: no cough and no dyspnea Cardiovascular: no chest pain and no edema Gastrointestinal: no abdominal pain, no nausea, no vomiting, no constipation and no diarrhea/loose stools Physical Exam Constitutional: WD/WN, vitals as above Eyes: PERRL, conjunctivae normal, anicteric sclerae ENMT: external ear and nose normal, oropharynx normal Mouth: + dry oral mucous membranes Neck: trachea midline, no thyromegaly Respiratory: normal respiratory effort, lungs clear to auscultation Cardiovascular: Rate/Rhythm: regular rate and regular rhythm Heart Sounds: normal S1, normal S2 and + murmur (systolic) Vessels: no JVD Extremities: normal capillary refill; no edema Gastrointestinal (Abdomen): normal bowel sounds, soft, nontender, no hepatosplenomegaly Musculoskeletal: no cyanosis or clubbing, extremities motor strength 5/5 Skin: no rashes, warm and dry Neurologic: patellar DTR's 2+ bilat, sensation intact and PERRL, EOMI, accommodation nl, no face palsy, no dysarthria Psychiatric: Orientation: alert and oriented x 3 Estimated Intelligence: + below average estimated intelligence Lymphatic: no cervical or axillary lymphadenopathy Results & Data ([facility]) Vital Signs (Past 12 Hours) Vital Signs Temp Pulse Pulse Resp BP Pulse Ox 11/18/19 11:40 36.4 C L 84 20 106/67 96 11/18/19 11:08 86 18 94 11/18/19 07:30 85 16 97 11/18/19 07:26 36.5 C 79 18 114/69 94 11/18/19 07:00 81 11/18/19 03:45 36.6 C 70 20 107/64 94 Laboratory Results Laboratory Results - last 24 hr 11/18/19 11/18/19 07:16 07:16 WBC 15.21 H RBC 3.55 L Hgb 11.0 L Hct 35.8 L MCV 100.8 H MCH 31.0 MCHC 30.7 L RDW Std Deviation 54.6 H RDW Coeff of Courtney 15.1 H Plt Count 305 MPV 9.9 Immature Gran % (Auto) 1.3 Neut % (Auto) 86.7 Lymph % (Auto) 4.2 [place] % (Auto) 7.6 Eos % (Auto) 0.1 Baso % (Auto) 0.1 Immature Gran # (Auto) 0.20 H Neut # (Auto) 13.18 H Lymph # (Auto) 0.64 L [place] # (Auto) 1.15 H Eos # (Auto) 0.02 Baso # (Auto) 0.02 Sodium 140 Potassium 3.9 Chloride 103 Carbon Dioxide 32 Anion Gap 5.0 BUN 71 H Creatinine 2.41 H Est Cr Clr Drug Dosing 33.0 Est GFR ( Amer) 28.5 Est GFR (Non-Af Amer) 24.6 BUN/Creatinine Ratio 29.6 H Glucose 127 H Calcium 9.1 Specimen Hemolysis Medications Administered Current Inpatient Medications Acetaminophen (Tylenol) 650 mg PO Q6 PRN PRN Reason: Pain Stop: 12/14/19 06:00 Last Admin: 11/18/19 08:02 Dose: 650 mg Documented by: Albuterol (Duoneb) 3 ml INH QIDR CECE Stop: 12/14/19 06:59 Last Admin: 11/18/19 15:07 Dose: 3 ml Documented by: Albuterol (Ventolin 0.5% 2.5mg/0.5ml) 2.5 mg NEB Q2H PRN PRN Reason: SOB/Wheeze Stop: 12/14/19 06:00 Aspirin (Ecotrin Ectab) 81 mg PO DAILY [facility] Stop: 12/14/19 08:59 Last Admin: 11/18/19 08:14 Dose: 81 mg Documented by: Atorvastatin Calcium (Lipitor) 40 mg PO HS [facility] Stop: 12/14/19 20:59 Last Admin: 11/17/19 20:28 Dose: 40 mg Documented by: Clopidogrel Bisulfate (Plavix) 75 mg PO DAILY [facility] Stop: 12/14/19 08:59 Last Admin: 11/18/19 08:14 Dose: 75 mg Documented by: Docusate Sodium (Colace) 100 mg PO BID PRN PRN Reason: Constipation Stop: 12/14/19 06:00 Piperacillin Sod/Tazobactam (Sod 3.375 gm/ Dextrose) 115 mls @ 28.75 mls/hr IV Q8H [facility]; Protocol Stop: 11/21/19 10:29 Last Infusion: 11/18/19 14:24 Dose: Infused Documented by: Bumetanide 2 mg/ Syringe 8 mls @ 4 mls/min IV DAILY@0900,1700 [facility] Stop: 12/17/19 16:59 Last Admin: 11/18/19 08:14 Dose: 4 mls/min Documented by: Metoprolol Tartrate (Lopressor) 50 mg PO BID [facility] Stop: 12/14/19 08:59 Last Admin: 11/18/19 08:14 Dose: 50 mg Documented by: Miscellaneous Information (Consult) 1 ea N/A UD PRN PRN Reason: Consult Stop: 12/14/19 08:52 Ondansetron HCl (Zofran) 4 mg IV Q6H PRN PRN Reason: Nausea Stop: 12/14/19 06:00 Last Admin: 11/18/19 08:00 Dose: 4 mg Documented by: PG Care Time/CCT Total # of Minutes Spent Total Time Spent with Patient: Total time spent is greater than 50% in coordination of care (as documented) at patient's floor/unit and/or counseling patient: Coding Level of Care Code 48874 Subseq Hosp Care Lvl 3 Diagnoses Acute systolic (congestive) heart failure I50.21 Severe aortic stenosis I35.0 Dyspnea R06.02; R06.00; R06.01 Dyspnea type: shortness of breath JANY (acute kidney injury) N17.9 Elevated troponin R74.8 Cardiomyopathy I42.9 Acute on chronic renal failure N17.9; N18.3 Acute renal failure type: unspecified Chronic kidney disease stage: stage 3 (moderate) Chronic kidney disease, stage III (moderate) N18.3 Urinary tract infection N39.0 CAD (coronary artery disease), [place] coronary artery I25.10 [place] vs. transplanted heart: [place] heart Associated angina: without angina Mental retardation F79 Skin tear of upper arm without complication S41.111A Encounter type: initial encounter Laterality: right DVT prophylaxis Z29.9 (1) Dyspnea Dyspnea type: shortness of breath Qualified Code(s): R06.02 - Shortness of breath; R06.00 - Dyspnea, unspecified; R06.01 - Orthopnea (2) Acute on chronic renal failure Acute renal failure type: unspecified Chronic kidney disease stage: stage 3 (moderate) Qualified Code(s): N17.9 - Acute kidney failure, unspecified; N18.3 - Chronic kidney disease, stage 3 (moderate) (3) CAD (coronary artery disease), [place] coronary artery [place] vs. transplanted heart: [place] heart Associated angina: without angina Qualified Code(s): I25.10 - Atherosclerotic heart disease of [place] coronary artery without angina pectoris (4) Skin tear of upper arm without complication Encounter type: initial encounter Laterality: right Qualified Code(s): S41.111A - Laceration without foreign body of right upper arm, initial encounter
[2019-11-18] MEDS: ATORVASTATIN 40 MG TAB PO SCH (19:41)
[2019-11-18 23:42] LABS: BUN Creatinine Ratio 28.5 (10-20); Calcium 8.4 mg/dl (8.5-10.1); Creatinine Clr Calc Pharmacy 31.7 ml/min; Est GFR (African American) 27.2; Est GFR (Non-African American) 23.4; Phosphorus 4.3 mg/dl (2.5-4.9); Potassium 3.5 mmol/L (3.5-5.1)
[2019-11-18] MEDS ORDERED: AMIODARONE / D5W 360 MG/200 ML BAG IV SCH (23:47)
[2019-11-18] MEDS ORDERED: STAT IV Infusion **Titration per Protocol STA (23:47)
[2019-11-18] MEDS ORDERED: 0.2 MICRON FILTER SET 1 EA IV ONE (23:47)
[2019-11-18] MEDS ORDERED: AMIODARONE IV BOLUS & DRIP IV STA (23:47)
[2019-11-18] MEDS ORDERED: AMIODARONE / D5W 150 MG/100 ML BAG IV STA (23:47)
[2019-11-19] MEDS: ALBUMIN 25% 50 ML IV SCH ×2 (00:22→00:46)
[2019-11-19] MEDS: PIPERACILLIN/TAZOBACTAM 3.375 GM in DEXTROSE 5% 100 ML IV SCH ×3 (02:17→18:14)
[2019-11-19] MEDS: POTASSIUM CHLORIDE / WTR 10 MEQ/100 ML PLCT IV SCH ×3 (03:48→05:36)
[2019-11-19] MEDS: AMIODARONE / D5W 360 MG/200 ML BAG IV SCH ×2 (05:28→16:52)
[2019-11-19] MEDS: ALBUT/IPRATROP 3MG/0.5MG NEB 3 ML VIAL INH SCH ×4 (07:08→20:27)
[2019-11-19] MEDS: METOPROLOL TARTRATE 50 MG TAB PO SCH ×2 (07:32→20:21)
[2019-11-19] MEDS: ASPIRIN 81 MG ECTAB PO SCH (07:32)
[2019-11-19 08:32] LABS: BUN Creatinine Ratio 29.1 (10-20); Calcium 8.7 mg/dl (8.5-10.1); Creatinine Clr Calc Pharmacy 33.8 ml/min; Est GFR (African American) 29.4; Est GFR (Non-African American) 25.4
[2019-11-19] MEDS: CLOPIDOGREL BISULFATE 75 MG TAB PO SCH (08:36)
[2019-11-19] MEDS: BUMETANIDE 2 MG in SYRINGE 0 ML IV SCH (08:36)
--- NOTE | 2019-11-19 09:57 | Nephrology Progress Note ---
Date of Service November 19, 2019 Assessment & Plan (1) Acute kidney failure: -- JANY/CKD due to poor renal perfusion associated w/ severe , CHF. Non-oliguric. -- I&O's even and weight stable -- Bumex 2 mg BID switched from IV to PO today -- Urinalysis is acellular w/ low grade proteinuria. -- Renal US: R 7.1cm, L 6.9cm. No hydronephrosis. Renal atrophy likely indicative of renal vascular disease. -- Monitor serial PRP. -- Volume status acceptable. -- BP reasonable. -- Medications appropriately dosed for kidney function. -- Creatinine stable. -- Electrolytes controlled. -- No emergent indication for HAND TILE MAKER. (2) Chronic kidney disease, stage III (moderate): -- Baseline Cr 1.6. -- Outpatient follow up with Dr. Mcarthur post discharge. (3) Aortic stenosis: -- Severe and marked reduction in LVEF by current echo. -- Cardiology following. No emergent intervention at this time. Subjective No acute events overnight. Breathing comfortably. Mr. Fuentes denies any pain. He denies palpitations. He was slightly agitated today. When asked directly, he states that he feels thirsty. Water available at bedside. I/O's matched. Weight stable. Review of Systems Review of Systems: Unobtainable due to mental health condition Physical Exam Constitutional: + frail appearing; no acute distress Eyes: + anicteric sclerae ENMT: Mouth: + dry oral mucous membranes; no oral mucosal abnormality Neck: normal visual inspection and trachea midline Respiratory: normal respiratory effort Auscultation: + rales (few scattered) and + bronchial breath sounds (no rhonchi but BBS throughout all lung [place] noted) Cardiovascular: Rate/Rhythm: regular rate Heart Sounds: + murmur Vessel s: no JVD Extremities: + edema (+1 pitting below the knee and dependent) Psychiatric: Orientation: alert and cooperative Results & Data Vital Signs (Past 12 Hours) Vital Signs Temp Pulse Pulse Resp BP BP Pulse Ox 11/19/19 07:56 36.5 C 64 18 98/63 L 97 11/19/19 07:08 59 L 18 94 11/19/19 03:14 36.4 C L 67 19 111/63 99 11/19/19 00:54 83 11/18/19 22:42 36.3 C L 83 20 129/78 97 Laboratory Results Laboratory Results - last 24 hr 11/18/19 11/19/19 23:04 07:48 Sodium 142 140 Potassium 3.5 4.0 Chloride 104 104 Carbon Dioxide 34 H 31 Anion Gap 4.0 5.0 BUN 72 H 68 H Creatinine 2.51 H 2.35 H Est Cr Clr Drug Dosing 31.7 33.8 Est GFR ( Amer) 27.2 29.4 Est GFR (Non-Af Amer) 23.4 25.4 BUN/Creatinine Ratio 28.5 H 29.1 H Glucose 124 H 125 H Calcium 8.4 L 8.7 Phosphorus 4.3 Magnesium 3.0 H PG Care Time/CCT Total # of Minutes Spent Total Time Spent with Patient: Total time spent is greater than 50% in coordination of care (as documented) at patient's floor/unit and/or counseling patient: Coding Level of Care Code 16197 Subseq Hosp Care Lvl 3 Diagnoses Acute kidney failure N17.9 Acute renal failure type: unspecified Chronic kidney disease, stage III (moderate) N18.3 Aortic stenosis I35.0 Cardiac valve disease etiology: etiology unspecified (1) Acute kidney failure Acute renal failure type: unspecified Qualified Code(s): N17.9 - Acute kidney failure, unspecified (2) Aortic stenosis Cardiac valve disease etiology: etiology unspecified Qualified Code(s): I35.0 - Nonrheumatic aortic (valve) stenosis
--- NOTE | 2019-11-19 11:17 | Cardiology Progress Note ---
Date of Service November 19, 2019 Assessment & Plan (1) Acute systolic (congestive) heart failure: -- Patient appears to be euvolemic based on neck veins and breath sounds. -- BUN/Creatinine are trending down. -- BP borderline low but asymptomatic. -- Continue diuretics to maintain current volume status. Weight today is 111 kg (222 pounds). -- Avoid overdiuresis as patient with severe . (2) Severe aortic stenosis: -- Not successful in reaching any of his relatives. -- Dr. Redding contacted Dr. Garcia -- who recommends that nursing extension service supervisor from [facility] call us with family information. -- turbine engine assembler continue attempting to contact family. -- Dr. Redding would be glad to talk to them regarding options for management of his aortic stenosis (TAVR versus medical management). Dr. Redding's cell number is [phone]. -- As he appears to be euvolemic and a TAVR would not be an urgent intervention (but it would require staging, including cardiac catheterization). -- He may be appropriate to return to [facility] in the meantime while this definitive treatment is sorted out. (3) Cardiomyopathy: -- LVEF 20% to 25% and it is likely secondary to progressive aortic valvular stenosis. -- May not be possible to afterload reduce in the presence of significant aortic valvular stenosis. -- Mainstay of management at this point is volume unloading. -- Continue diuretics adjusted to maintain current fluid status / balance. -- He will need an ischemic work-up at some point (cardiac catheterization if planning for TAVR or Lexiscan Cardiolite if not pursuing TAVR). (4) Chronic kidney disease, stage III (moderate): -- Nephrology following. -- Patient hypermagnesemic. (5) Elevated troponin: -- Supply/demand mismatch. -- Continue diuretics adjusted to maintain current fluid status / balance. -- He will need an ischemic work-up at some point (cardiac catheterization if planning for TAVR or Lexiscan Cardiolite if not pursuing TAVR). Admission and Anticipated Discharge Date Admission Date: November 14, 2019 Subjective Mr. Fuentes is being seen in room 242-1 today. He had an 85 beat run of a wide complex tachycardia overnight at a rate of approximately 200 bpm -- given IV A miodarone bolus followed by drip without any recurrence of WCT. Patient does not recall any symptoms but he has significant dementia. He offers no complaints today. He denies any SOB. He denies any chest pain or discomfort. He is requesting more ice and water. Physical Exam Physical Exam: GENERAL: Patient in no acute distress. HEENT: Head is atraumatic, normocephalic. EOM's intact. Facies symmetric. No perioral cyanosis. NECK: No JVD. JVP is at the level of the clavicle sitting upright. Carotid upstrokes are + 2 bilaterally. No bruits are noted. CHEST/LUNGS: Clear to auscultation throughout all lung [place]. No wheezes, rales, or crackles. CVS: S1 and S2 are regular with a faint systolic murmur at the right upper sternal border, and also a harsh 2-3/6 systolic ejection murmur best heard at the apex. A2 sound inaudible. No diastolic murmurs or gallops. ABDOMINAL EXAM: Bowel sounds are present. No masses, organomegaly, or tenderness. EXTREMITIES: No clubbing or cyanosis. Trace edema. Intact radial pulses bilaterally. NEUROLOGIC EXAM: Patient is awake and interactive. Speech is difficult to understand. TELEMETRY: -- Predominately NSR. -- Wide complex tachycardia at approximately 200 bpm x a total of 85 beats. Results & Data ([facility]) Vital Signs (Past 12 Hours) Vital Signs Temp Pulse Pulse Resp BP BP Pulse Ox 11/19/19 07:56 36.5 C 64 18 98/63 L 97 11/19/19 07:08 59 L 18 94 11/19/19 03:14 36.4 C L 67 19 111/63 99 11/19/19 00:54 83 Laboratory Results Laboratory Results - last 24 hr 11/18/19 11/19/19 23:04 07:48 Sodium 142 140 Potassium 3.5 4.0 Chloride 104 104 Carbon Dioxide 34 H 31 Anion Gap 4.0 5.0 BUN 72 H 68 H Creatinine 2.51 H 2.35 H Est Cr Clr Drug Dosing 31.7 33.8 Est GFR ( Amer) 27.2 29.4 Est GFR (Non-Af Amer) 23.4 25.4 BUN/Creatinine Ratio 28.5 H 29.1 H Glucose 124 H 125 H Calcium 8.4 L 8.7 Phosphorus 4.3 Magnesium 3.0 H PG Care Time/CCT Total # of Minutes Spent Total Time Spent with Patient: Total time spent is greater than 50% in coordination of care (as documented) at patient's floor/unit and/or counseling patient: Coding Level of Care Code 15122 Subseq Hosp Care Lvl 2 Diagnoses Acute systolic (congestive) heart failure I50.21 Severe aortic stenosis I35.0 Cardiomyopathy I42.9 Chronic kidney disease, stage III (moderate) N18.3 Elevated troponin R74.8
--- NOTE | 2019-11-19 15:48 | Hospitalist Progress Note ---
Date of Service November 19, 2019 Assessment & Plan (1) Acute systolic (congestive) heart failure: * Secondary to severe ECHO with significant decline in left ventricular systolic function, EF 20-25%, mod LVH, mod-severe global hypokinesis, severe (via dimensionless index), mod MR, mild TR Suspect some degree of failure contributing to hypoxia * INCREASED Bumex to 2mg IV BID on 11/16 (also received additional dose 1mg PO) * change to PO Bumex today, 2mg BID, will continue to follow, Cr is stable I/Os -- strict, fluid restriction, low sodium diet Daily weights * Continue metoprolol tartrate 50mg BID but will convert to Toprol-XL 100 mg daily prior to discharge if blood pressures can tolerate * Episode of vtach evening of 11/14 and again on 11/17, likely secondary to valvular disease and volume overloaded state. Pacer pads on but did not require shocks. Has been NSR with frequent PVCs in the 80-90s on telemetry transferred to PCU, started on Amiodarone evening of 11/17 due to additional prolonged V tach * BP currently 117/61, 96% on 3L family will discuss TAVR vs hospice, they are leaning towards hospice, will give answer tomorrow morning (2) Severe aortic stenosis: * with cardiomyopathy * Cardiology on consult -- appreciate assistance * Repeat ECHO with significant decline in left ventricular systolic function, EF 20-25%, mod LVH, mod-severe global hypokinesis, severe (via dimensionless index), mod MR, mild TR * Will need TAVR in future vs Palliative --> spoke with Palak Fuentes on 11/18, leaning towards palliative approach, formal answer tomorrow after family discusses this evening * Will need to optimize clinical status prior to TAVR if that is the route pursued -- patient will need cath/etc prior to procedure * Nephrology on consult for likely developing cardiorenal type picture in setting of acute CHF with severe -- appreciate assistance (3) Dyspnea: * See above * Patient denies dyspnea, however remains on O2 -- 96% on 3L NC * Initially thought possible aspiration pneumonia. Patient with acute CHF secondary to valvular disease * Procalcitonin 0.12 -- unlikely infectious process. Afebrile. No elevated in WBCs until on 11/16 when up to 13k, now up to 15k today (11/17) * Zosyn for presumed aspiration PNA (negative MRSA nasal swab, no vancomycin) -- continued for dual coverage UTI with proteus, corynebacterium urealyticum * Increased bumex as above * Supplemental O2 as needed. Speech consulted -- diet changed to pureed given pt without dentures (at [place]) * Flutter Valve * DuoNeb QID * Repeat CXR 11/16 with persistent cardiomegaly, CHF, bilateral effusions, R>L basilar opacities -- APPEARS WORSE THAN CXR 11/14 (4) JANY (acute kidney injury): * Cr stable at 2.35, but overall up from baseline * Baseline Cr appears ~1.6 * Nephrology consulted as above -- appreciate input * Renal US ordered --> atrophic left kidney, likely contributing to renal insufficiency. Urine random Cr 61.6, random sodium 33 * UA with low grade proteinuria * Renal dosing where needed, avoid nephrotoxic agents * Per nephrology, will have to accept some worsening renal function temporarily -- bumex increased to 2mg IV BID on 11/16 * Continue to monitor closely again, given his worsening renal function with heart failure and severe , would need to either consider TAVR or palliative approach should have decision tomorrow per Palak (5) Elevated troponin: * Patient with known CAD, EKG evidence of prior ischemia. Presently with no complaint of CP. * Troponin elevated but trending down -- likely supply/demand mismatch given stress of acute CHF with severe . Not likely NSTEMI * EKG changes with nonspecific ST elevation in lead III * Cardiology consulted -- rec serial EKGs --> repeat EKG without evidence of ST elevation (6) Cardiomyopathy: * Secondary to valvular heart disease, severe * Will need ischemic work-up at some point prior to pursuing TAVR -- See above regarding POA for consent * Likely secondary to progressive aortic stenosis -- possible that we may not be able to reduce afterload given severe -- continue diuresis for now (7) Acute on chronic renal failure: * See above. Cr up to 2.3 today (8) Chronic kidney disease, stage III (moderate): * See above -- If no improvement, may now be stage IV (9) Urinary tract infection: * See above * UA with 3+ leuk esterase, >30WBC, 10-20 epi, 2+ bacteria * Culture with proteus, corynebacterium urealyticum == pansensitive except fluoroquinolones * On day 6 of Zosyn for dual coverage aspiration pneumonia/UTI * BCx NGTD (10) CAD (coronary artery disease), [place] coronary artery: * Elevated troponin, see above, trending down --> likely supply/demand mismatch as above * Continue home ASA, Atorvastatin, Plavix, Metoprolol (11) Mental retardation: * Noted -- patient lives at [facility]. POJuventino Smith Fuentes (Brother) * Supportive care (12) Skin tear of upper arm without complication: * Dressing in place. No evidence of infection. Dressing change as needed (13) DVT prophylaxis: * SCDs Dispo: continue diuresis. will need CM assistance obtaining point of contact for Mr Fuentes as all previous attempts to contact Luis (POA) and Rosario have been unsuccessful. If patient unable to be optimized for TAVR, may need to consider palliation. (14) Ventricular tachycardia: several runs of V tach, one on 11/14 and then again on 11/17 no symptoms but patient at risk for sudden cardiac given his poor EF and started on Amiodarone drip Admission and Anticipated Discharge Date Admission Date: November 14, 2019 Subjective patient feeling fine, no acute issues he was moved to PCU over night due to run of V tach, started on Amiodarone reviewed labs, Cr is stable at 2.3, electrolytes stable d/w nephrology and cardiology was able to discuss situation with patient's nephew's Palak Fuentes over the phone discussed situation with severe , systolic dysfunction, chronic kidney disease and episodes of V tach discussed that he is at risk of sudden cardiac discussed the option of TAVR, main question was whether going through procedure would change his quality of life Palak feels that it would not change his quality of life as he resides at [facility] and does not do much she plans to discuss with her Luis and brother in law over the phone misa, will have an answer tomorrow discussed that I would recommend hospice at [facility] if they elect to not go with TAVR she agreed with this idea asked her to also discuss code status Review of Systems Review of Systems: Unobtainable due to cognitive status (mental retardation, just says he is hungry) Physical Exam Constitutional: WD/WN, vitals as above Eyes: PERRL, conjunctivae normal, anicteric sclerae ENMT: external ear and nose normal, oropharynx normal Mouth: + dry oral mucous membranes Neck: trachea midline, no thyromegaly Respiratory: normal respiratory effort, lungs clear to auscultation Cardiovascular: Rate/Rhythm: regular rate and regular rhythm Heart Sounds: normal S1, normal S2 and + murmur (systolic) Vessels: no JVD Extremities: normal capillary refill; no edema Gastrointestinal (Abdomen): normal bowel sounds, soft, nontender, no hepatosplenomegaly Musculoskeletal: no cyanosis or clubbing, extremities motor strength 5/5 Skin: no rashes, warm and dry Neurologic: patellar DTR's 2+ bilat, sensation intact and PERRL, EOMI, accommodation nl, no face palsy, no dysarthria Psychiatric: Orientation: alert and oriented x 3 Estimated Intelligence: + below average estimated intelligence Lymphatic: no cervical or axillary lymphadenopathy Results & Data ([facility]) Vital Signs (Past 12 Hours) Vital Signs Temp Pulse Resp BP BP Pulse Ox 11/19/19 15:20 36.9 C 78 18 106/65 97 11/19/19 14:55 79 20 94 11/19/19 11:39 36.5 C 76 18 120/74 99 11/19/19 11:16 71 18 94 11/19/19 07:56 36.5 C 64 18 98/63 L 97 11/19/19 07:08 59 L 18 94 Laboratory Results Laboratory Results - last 24 hr 11/18/19 11/19/19 23:04 07:48 Sodium 142 140 Potassium 3.5 4.0 Chloride 104 104 Carbon Dioxide 34 H 31 Anion Gap 4.0 5.0 BUN 72 H 68 H Creatinine 2.51 H 2.35 H Est Cr Clr Drug Dosing 31.7 33.8 Est GFR ( Amer) 27.2 29.4 Est GFR (Non-Af Amer) 23.4 25.4 BUN/Creatinine Ratio 28.5 H 29.1 H Glucose 124 H 125 H Calcium 8.4 L 8.7 Phosphorus 4.3 Magnesium 3.0 H Medications Administered Current Inpatient Medications Acetaminophen (Tylenol) 650 mg PO Q6 PRN PRN Reason: Pain Stop: 12/14/19 06:00 Last Admin: 11/18/19 08:02 Dose: 650 mg Documented by: Albuterol (Duoneb) 3 ml INH QIDR [facility] Stop: 12/14/19 06:59 Last Admin: 11/19/19 14:54 Dose: 3 ml Documented by: Albuterol (Ventolin 0.5% 2.5mg/0.5ml) 2.5 mg NEB Q2H PRN PRN Reason: SOB/Wheeze Stop: 12/14/19 06:00 Aspirin (Ecotrin Ectab) 81 mg PO DAILY [facility] Stop: 12/14/19 08:59 Last Admin: 11/19/19 07:32 Dose: 81 mg Documented by: Atorvastatin Calcium (Lipitor) 40 mg PO HS [facility] Stop: 12/14/19 20:59 Last Admin: 11/18/19 19:41 Dose: 40 mg Documented by: Bumetanide (Bumex) 2 mg PO BID17 [facility] Stop: 12/19/19 16:59 Clopidogrel Bisulfate (Plavix) 75 mg PO DAILY [facility] Stop: 12/14/19 08:59 Last Admin: 11/19/19 08:36 Dose: 75 mg Documented by: Docusate Sodium (Colace) 100 mg PO BID PRN PRN Reason: Constipation Stop: 12/14/19 06:00 Piperacillin Sod/Tazobactam (Sod 3.375 gm/ Dextrose) 115 mls @ 28.75 mls/hr IV Q8H [facility]; Protocol Stop: 11/21/19 10:29 Last Admin: 11/19/19 10:34 Dose: 28.8 mls/hr Documented by: Amiodarone HCl/Dextrose (Nexterone / D5w) 360 mg in 200 mls @ 16.667 mls/hr IV .Q12H [facility] Stop: 12/19/19 04:52 Last Admin: 11/19/19 05:28 Dose: 0.5 mg/min, 16.7 mls/hr Documented by: Metoprolol Tartrate (Lopressor) 50 mg PO BID [facility] Stop: 12/14/19 08:59 Last Admin: 11/19/19 07:32 Dose: 50 mg Documented by: Miscellaneous Information (Consult) 1 ea N/A UD PRN PRN Reason: Consult Stop: 12/14/19 08:52 Ondansetron HCl (Zofran) 4 mg IV Q6H PRN PRN Reason: Nausea Stop: 12/14/19 06:00 Last Admin: 11/18/19 08:00 Dose: 4 mg Documented by: PG Care Time/CCT Total # of Minutes Spent Total Time Spent with Patient: Total time spent is greater than 50% in coordination of care (as documented) at patient's floor/unit and/or counseling patient: Coding Level of Care Code 64302 Subseq Hosp Care Lvl 3 Diagnoses Acute systolic (congestive) heart failure I50.21 Severe aortic stenosis I35.0 Dyspnea R06.02; R06.00; R06.01 Dyspnea type: shortness of breath JANY (acute kidney injury) N17.9 Elevated troponin R74.8 Cardiomyopathy I42.9 Acute on chronic renal failure N17.9; N18.3 Acute renal failure type: unspecified Chronic kidney disease stage: stage 3 (moderate) Chronic kidney disease, stage III (moderate) N18.3 Urinary tract infection N39.0 CAD (coronary artery disease), [place] coronary artery I25.10 [place] vs. transplanted heart: rampart heart Associated angina: without angina Mental retardation F79 Skin tear of upper arm without complication S41.111A Encounter type: initial encounter Laterality: right DVT prophylaxis Z29.9 Ventricular tachycardia I47.2 (1) Dyspnea Dyspnea type: shortness of breath Qualified Code(s): R06.02 - Shortness of breath; R06.00 - Dyspnea, unspecified; R06.01 - Orthopnea (2) Acute on chronic renal failure Acute renal failure type: unspecified Chronic kidney disease stage: stage 3 (moderate) Qualified Code(s): N17.9 - Acute kidney failure, unspecified; N18.3 - Chronic kidney disease, stage 3 (moderate) (3) CAD (coronary artery disease), rampart coronary artery [place] vs. transplanted heart: [place]art heart Associated angina: without angina Qualified Code(s): I25.10 - Atherosclerotic heart disease of rampart coronary artery without angina pectoris (4) Skin tear of upper arm without complication Encounter type: initial encounter Laterality: right Qualified Code(s): S41.111A - Laceration without foreign body of right upper arm, initial encounter
[2019-11-19] MEDS: BUMETANIDE 1 MG TAB PO SCH (16:50)
[2019-11-19] MEDS: ATORVASTATIN 40 MG TAB PO SCH (20:21)
[2019-11-20] MEDS: PIPERACILLIN/TAZOBACTAM 3.375 GM in DEXTROSE 5% 100 ML IV SCH ×3 (02:28→17:38)
[2019-11-20] MEDS: AMIODARONE / D5W 360 MG/200 ML BAG IV SCH ×2 (05:14→12:31)
[2019-11-20] MEDS: ONDANSETRON INJ 2 MG/ML 2 ML VIAL IV PRN ×2 (06:04→22:20)
[2019-11-20] MEDS: ALBUT/IPRATROP 3MG/0.5MG NEB 3 ML VIAL INH SCH ×4 (07:15→20:00)
[2019-11-20 07:34] LABS: Albumin Level 2.9 gm/dl (3.4-5.0); BUN Creatinine Ratio 29.7 (10-20); Calcium 8.6 mg/dl (8.5-10.1); Creatinine Clr Calc Pharmacy 32.7 ml/min; Est GFR (African American) 28.4; Est GFR (Non-African American) 24.5; Potassium 3.5 mmol/L (3.5-5.1)
[2019-11-20] MEDS: ASPIRIN 81 MG ECTAB PO SCH (07:42)
[2019-11-20] MEDS: BUMETANIDE 1 MG TAB PO SCH ×2 (07:42→16:50)
[2019-11-20] MEDS: METOPROLOL TARTRATE 50 MG TAB PO SCH ×2 (07:42→19:51)
[2019-11-20] MEDS: CLOPIDOGREL BISULFATE 75 MG TAB PO SCH (07:42)
[2019-11-20 07:43] LABS: Phosphorus 4.9 mg/dl (2.5-4.9)
[2019-11-20] MEDS ORDERED: AMIODARONE IV BOLUS & DRIP IV STA (08:18)
[2019-11-20] MEDS ORDERED: 0.2 MICRON FILTER SET 1 EA IV ONE (08:19)
[2019-11-20] MEDS ORDERED: AMIODARONE / D5W 150 MG/100 ML BAG IV ONE (08:25)
--- NOTE | 2019-11-20 09:20 | Cardiology Progress Note ---
Date of Service November 20, 2019 Assessment & Plan (1) Acute systolic (congestive) heart failure: -- Patient appears to be euvolemic based on neck veins. -- BUN/Creatinine are trending down. -- BP borderline low but asymptomatic. -- Continue diuretics to maintain current volume status. Weight today is 110.5 kg (down 0.5 kg from yesterday). -- Avoid overdiuresis as patient with severe . (2) Severe aortic stenosis: -- Need to have discussion with family member regarding TAVR +/- AICD as patient has dementia. -- Dr. Redding would be glad to talk to them regarding options for management of his aortic stenosis (TAVR versus medical management). Dr. Redding's cell number is [phone]. -- As he appears to be euvolemic and a TAVR would not be an urgent intervention (but it would require staging, including cardiac catheterization). (3) Cardiomyopathy: -- LVEF 20% to 25% and it is likely secondary to progressive aortic valvular stenosis. -- May not be possible to afterload reduce in the presence of significant aortic valvular stenosis. -- Mainstay of management is volume unloading when patient hypervolemic. -- Continue diuretics adjusted to maintain current fluid status / balance. -- He will need an ischemic work-up at some point (cardiac catheterization if planning for TAVR or Lexiscan Cardiolite if not pursuing TAVR). (4) Chronic kidney disease, stage III (moderate): -- Nephrology following. -- Patient was hypermagnesemic yesterday. (5) Elevated troponin: -- Supply/demand mismatch. -- Continue diuretics adjusted to maintain current fluid status / balance. -- He will need an ischemic work-up at some point (cardiac catheterization if planning for TAVR or Lexiscan Cardiolite if not pursuing TAVR). (6) Ventricular tachycardia: This is his 3rd episode of documented Ventricular Tachycardia since being hospitalized. -- In light of reduced LV systolic function (LVEF 20% to 25%) - consider AICD implantation. -- We will discuss with Dr. West. -- Continue IV Amiodarone until fully loaded, then convert to oral Amiodarone. Admission and Anticipated Discharge Date Admission Date: November 14, 2019 Supervising Physician Co-Signing Physician Notes CARDIOLOGY ATTENDING ADDENDUM (Dr. Redding): Patient seen, interviewed, and examined. Agree with above assessment and recommendations by Mk Kincaid PA-C. Case discussed with Dr.Peter Becerril. Family members were finally reached and have power of workers compensation attorney, they felt that palliative care was the most appropriate option. As such, no further consideration to TAVR, cardiac catheterization, or ICD implantation. Would still manage his ventricular tachycardia for palliative reasons (minimize symptoms) by completing IV amiodarone loading and switching to oral amiodarone. Volume status appears optimized, just steroids to maintain current weight, avoid over diuresis with severe aortic stenosis. Subjective Mr. Fuentes is being seen in room 242-1 today. He had recurrent wide complex tachycardia overnight -- on IV Amiodarone. Patient does not recall any symptoms but he is demented. He offers no complaints today. He denies any SOB. He denies any chest pain or discomfort. Physical Exam Physical Exam: Weight 110.5 Kg, down 0.5 Kg from yesterday. GENERAL: Patient in no acute distress. HEENT: Head is atraumatic, normocephalic. EOM's intact. Facies symmetric. No perioral cyanosis. NECK: No JVD. JVP is at the level of the clavicle sitting upright. Carotid upstrokes are + 2 bilaterally. No bruits are noted. CHEST/LUNGS: Breath sounds are more harsh today compared to yesterday. CVS: S1 and S2 are regular with a faint systolic murmur at the right upper sternal border, and also a harsh 2-3/6 systolic ejection murmur best heard at the apex. A2 sound inaudible. No diastolic murmurs or gallops. ABDOMINAL EXAM: Bowel sounds are present. No masses, organomegaly, or tenderness. EXTREMITIES: No clubbing or cyanosis. Trace pretibial edema. Intact radial pulses bilaterally. NEUROLOGIC EXAM: Patient is awake and interactive. Speech is difficult to understand. TELEMETRY: -- Predominately NSR. -- Wide complex tachycardia. Results & Data ([facility]) Vital Signs (Past 12 Hours) Vital Signs Temp Pulse Pulse Resp BP BP Pulse Ox 11/20/19 08:12 103/65 11/20/19 08:03 36.6 C 76 18 102/70 92 11/20/19 07:15 47 L 16 97 11/20/19 04:30 36.5 C 71 20 109/73 94 11/20/19 00:48 36.4 C L 62 18 102/59 L 96 PG Care Time/CCT Total # of Minutes Spent Total Time Spent with Patient: Total time spent is greater than 50% in coordination of care (as documented) at patient's floor/unit and/or counseling patient: Coding Level of Care Code 88670 Subseq Hosp Care Lvl 3 Diagnoses Acute systolic (congestive) heart failure I50.21 Severe aortic stenosis I35.0 Cardiomyopathy I42.9 Chronic kidney disease, stage III (moderate) N18.3 Elevated troponin R74.8 Ventricular tachycardia I47.2
--- NOTE | 2019-11-20 09:33 | Nephrology Progress Note ---
Date of Service November 20, 2019 Assessment & Plan (1) Acute kidney failure: -- JANY/CKD due to poor renal perfusion associated w/ severe , CHF. Non-oliguric. -- I&O's even and weight stable. -- Bumex 2 mg BID. -- Urinalysis is acellular w/ low grade proteinuria. -- Renal US: R 7.1cm, L 6.9cm. No hydronephrosis. Renal atrophy likely indicative of renal vascular disease. -- Monitor serial PRP. -- Volume status acceptable. -- BP reasonable. -- Medications appropriately dosed for kidney function. -- Creatinine stable. -- Electrolytes controlled. -- No emergent indication for BUILDING ANALYST/SUPERVISOR. -- No additional recommendations for nephrology at this time, we will follow peripherally. Please call with any questions or concerns. (2) Chronic kidney disease, stage III (moderate): -- Baseline Cr 1.6. -- Outpatient follow up with Dr. Mcarthur post discharge. (3) Aortic stenosis: -- Severe and marked reduction in LVEF by current echo. -- Cardiology following. No emergent intervention at this time. Subjective V-tach noted this AM. Amio bolus provided. Ray is resting comfortably at this time. He denies chest pain or palpitations. Review of Systems Review of Systems: All systems reviewed & are unremarkable except as noted in HPI & below Physical Exam Constitutional: + frail appearing; no acute distress Eyes: + anicteric sclerae ENMT: Mouth: + dry oral mucous membranes; no oral mucosal abnormality Neck: normal visual inspection and trachea midline Respiratory: normal respiratory effort Auscultation: + rales (few scattered) and + bronchial breath sounds (no rhonchi but BBS throughout all lung [place] noted) Cardiovascular: Rate/Rhythm: regular rate Heart Sounds: + murmur Vessels: no JVD Extremities: + edema (+1 pitting below the knee and dependent) Psychiatric: Orientation: alert and cooperative Results & Data Vital Signs (Past 12 Hours) Vital Signs Temp Pulse Pulse Resp BP BP Pulse Ox 11/20/19 08:12 103/65 11/20/19 08:03 36.6 C 76 18 102/70 92 11/20/19 07:15 47 L 16 97 11/20/19 04:30 36.5 C 71 20 109/73 94 11/20/19 00:48 36.4 C L 62 18 102/59 L 96 Laboratory Results Laboratory Results - last 24 hr 11/20/19 06:46 Sodium 139 Potassium 3.5 Chloride 103 Carbon Dioxide 29 Anion Gap 7.0 BUN 72 H Creatinine 2.42 H Est Cr Clr Drug Dosing 32.7 Est GFR ( Amer) 28.4 Est GFR (Non-Af Amer) 24.5 BUN/Creatinine Ratio 29.7 H Glucose 123 H Calcium 8.6 Phosphorus 4.9 Albumin 2.9 L PG Care Time/CCT Total # of Minutes Spent Total Time Spent with Patient: Total time spent is greater than 50% in coordination of care (as documented) at patient's floor/unit and/or counseling patient: Coding Level of Care Code 04693 Subseq Hosp Care Lvl 3 Diagnoses Acute kidney failure N17.9 Acute renal failure type: unspecified Chronic kidney disease, stage III (moderate) N18.3 Aortic stenosis I35.0 Cardiac valve disease etiology: etiology unspecified (1) Acute kidney failure Acute renal failure type: unspecified Qualified Code(s): N17.9 - Acute kidney failure, unspecified (2) Aortic stenosis Cardiac valve disease etiology: etiology unspecified Qualified Code(s): I35.0 - Nonrheumatic aortic (valve) stenosis
--- NOTE | 2019-11-20 15:23 | Hospitalist Progress Note ---
Date of Service November 20, 2019 Assessment & Plan (1) Acute systolic (congestive) heart failure: * Secondary to severe ECHO with significant decline in left ventricular systolic function, EF 20-25%, mod LVH, mod-severe global hypokinesis, severe (via dimensionless index), mod MR, mild TR Suspect some degree of failure contributing to hypoxia * INCREASED Bumex to 2mg IV BID on 11/16 (also received additional dose 1mg PO) * change to PO Bumex on 11/18, 2mg BID, will continue to follow, Cr is stable I/Os -- strict, fluid restriction, low sodium diet Daily weights * Continue metoprolol tartrate 50mg BID but will convert to Toprol-XL 100 mg daily prior to discharge if blood pressures can tolerate * Episode of vtach evening of 11/14 and again on 11/17 and again on 11/19 plan for ICD tomorrow, continue Amiodarone IV, will convert to PO on discharge transferred to PCU, started on Amiodarone evening of 11/17 due to additional prolonged V tach discussed with family over the phone, want ICD this admission, referral to rn acute dialysis/surgeon as outpatient (2) Severe aortic stenosis: * with cardiomyopathy * Cardiology on consult -- appreciate assistance * Repeat ECHO with significant decline in left ventricular systolic function, EF 20-25%, mod LVH, mod-severe global hypokinesis, severe (via dimensionless index), mod MR, mild TR * Will need TAVR in future vs Palliative --> spoke with Palak Fuentes on 11/18 and then Sathish Gina on 11/19 family would like referral as outpatient to discuss possible TAVR, see if he is good candidate there may be issues with his renal function as to whether he could tolerated a heart cath prior to procedure, would then want HD if his kidneys fail this will be discussed as outpatient (3) Dyspnea: improved with diuresis, dyspnea entirely due to heart failure * Initially thought possible aspiration pneumonia. Patient with acute CHF s econdary to valvular disease * Procalcitonin 0.12 -- unlikely infectious process. Afebrile * Zosyn for presumed aspiration PNA (negative MRSA nasal swab, no vancomycin) -- continued for dual coverage UTI with proteus, corynebacterium urealyticum stop Zosyn today, day 7 * Increased bumex as above * Supplemental O2 as needed. Speech consulted -- diet changed to pureed given pt without dentures (at [facility]) * Flutter Valve * DuoNeb QID * Repeat CXR 11/16 with persistent cardiomegaly, CHF, bilateral effusions, R>L basilar opacities -- APPEARS WORSE THAN CXR 11/14 (4) JANY (acute kidney injury): * Cr stable at 2.4, but overall up from baseline * Baseline Cr appears ~1.6 * Nephrology consulted as above -- appreciate input * Renal US ordered --> atrophic left kidney, likely contributing to renal insufficiency. Urine random Cr 61.6, random sodium 33 * UA with low grade proteinuria * Renal dosing where needed, avoid nephrotoxic agents * Per nephrology, will have to accept some worsening renal function temporarily -- bumex increased to 2mg IV BID on 11/16 * Continue to monitor closely again, given his worsening renal function with heart failure and severe , would need to either consider TAVR or palliative approach family would like to refer outpatient to consider TAVR (5) Elevated troponin: * Patient with known CAD, EKG evidence of prior ischemia. Presently with no complaint of CP. * Troponin elevated but trending down -- likely supply/demand mismatch given stress of acute CHF with severe . Not likely NSTEMI * EKG changes with nonspecific ST elevation in lead III * Cardiology consulted -- rec serial EKGs --> repeat EKG without evidence of ST elevation (6) Cardiomyopathy: * Secondary to valvular heart disease, severe * Will need ischemic work-up at some point prior to pursuing TAVR -- See above regarding POA for consent * Likely secondary to progressive aortic stenosis -- possible that we may not be able to reduce afterload given severe -- continue diuresis for now (7) Acute on chronic renal failure: * See above. Cr up to 2.4 today (8) Chronic kidney disease, stage III (moderate): * See above -- If no improvement, may now be stage IV (9) Urinary tract infection: * See above * UA with 3+ leuk esterase, >30WBC, 10-20 epi, 2+ bacteria * Culture with proteus, corynebacterium urealyticum == pansensitive except fluoroquinolones * On day 7 of Zosyn for dual coverage aspiration pneumonia/UTI, stop today and monitor * BCx NGTD (10) CAD (coronary artery disease), craig coronary artery: * Elevated troponin, see above, trending down --> likely supply/demand mismatch as above * Continue home ASA, Atorvastatin, Plavix, Metoprolol (11) Mental retardation: * Noted -- patient lives at [facility]. POA Luis Fuentes (Brother) * Supportive care (12) Skin tear of upper arm without complication: * Dressing in place. No evidence of infection. Dressing change as needed (13) DVT prophylaxis: * SCDs Dispo: continue diuresis. will need CM assistance obtaining point of contact for Mr Fuentes as all previous attempts to contact Luis (POA) and Rosario have been unsuccessful. If patient unable to be optimized for TAVR, may need to consider palliation. (14) Ventricular tachycardia: several runs of V tach, one on 11/14 and then again on 11/17 and then a 2 minute run on 11/19, resolved with Amiodarone bolus no symptoms but patient at risk for sudden cardiac given his poor EF and will plan for ICD tomorrow, continue Amiodarone drip, convert to PO once he is loaded Admission and Anticipated Discharge Date Admission Date: November 14, 2019 Anticipated date of discharge: 11/22/19 Subjective patient stable today, he is eating well, no breathing issues he had a long run of V tach for 2 minutes this morning, resolved with Amiodarone bolus he continues on the amiodarone drip d/w Dr. Redding, he would recommend TAVR and ICD if family interested after several attempts, I was able to speak with Palak, his niece, about plans, she requested I speak with the patient's other nephew spoke with Sathish Fuentes over the phone, he is a buffer [employer] in [place] we discussed the current situation with the heart failure, severe and worsening renal function discussed frequent runs of Vtach he and rest of the family would like to at least pursue the TAVR through outpatient consultation discussed that it could be some time before the patient would get an outpatient visit given situation with coronavirus, he understands in the short term, will plan for ICD while here to treat v tach if needed and prevent sudden cardiac d/w Dr. Redding, he agrees with this plan, he will reach out to EP and we will make patient NPO after midnight Review of Systems Review of Systems: All systems reviewed & are unremarkable except as noted in HPI & below Respiratory: no cough and no dyspnea Cardiovascular: no chest pain and no edema Gastrointestinal: no abdominal pain, no nausea, no vomiting, no constipation and no diarrhea/loose stools Physical Exam Constitutional: WD/WN, vitals as above Eyes: PERRL, conjunctivae normal, anicteric sclerae ENMT: external ear and nose normal, oropharynx normal Neck: trachea midline, no thyromegaly Respiratory: normal respiratory effort, lungs clear to auscultation Cardiovascular: Rate/Rhythm: regular rate and regular rhythm Heart Sounds: normal S1, normal S2 and + murmur (systolic) Vessels: no JVD Extremities: normal capillary refill; no edema Gastrointestinal (Abdomen): normal bowel sounds, soft, nontender, no hepatosplenomegaly Musculoskeletal: no cyanosis or clubbing, extremities motor strength 5/5 Skin: no rashes, warm and dry Neurologic: patellar DTR's 2+ bilat, sensation intact and PERRL, EOMI, accommodation nl, no face palsy, no dysarthria Psychiatric: Orientation: alert and oriented x 3 Estimated Intelligence: + below average estimated intelligence Lymphatic: no cervical or axillary lymphadenopathy Results & Data ([facility]) Vital Signs (Past 12 Hours) Vital Signs Temp Pulse Pulse Resp BP BP Pulse Ox 11/20/19 15:18 77 18 93 11/20/19 11:36 36.7 C 75 18 103/65 91 11/20/19 11:23 84 18 96 11/20/19 08:12 103/65 11/20/19 08:03 36.6 C 76 18 102/70 92 11/20/19 07:15 47 L 16 97 11/20/19 04:30 36.5 C 71 20 109/73 94 Laboratory Results Laboratory Results - last 24 hr 11/20/19 06:46 Sodium 139 Potassium 3.5 Chloride 103 Carbon Dioxide 29 Anion Gap 7.0 BUN 72 H Creatinine 2.42 H Est Cr Clr Drug Dosing 32.7 Est GFR ( Amer) 28.4 Est GFR (Non-Af Amer) 24.5 BUN/Creatinine Ratio 29.7 H Glucose 123 H Calcium 8.6 Phosphorus 4.9 Albumin 2.9 L Medications Administered Current Inpatient Medications Acetaminophen (Tylenol) 650 mg PO Q6 PRN PRN Reason: Pain Stop: 12/14/19 06:00 Last Admin: 11/18/19 08:02 Dose: 650 mg Documented by: Albuterol (Duoneb) 3 ml INH QIDR [facility] Stop: 12/14/19 06:59 Last Admin: 11/20/19 15:16 Dose: 3 ml Documented by: Albuterol (Ventolin 0.5% 2.5mg/0.5ml) 2.5 mg NEB Q2H PRN PRN Reason: SOB/Wheeze Stop: 12/14/19 06:00 Aspirin (Ecotrin Ectab) 81 mg PO DAILY [facility] Stop: 12/14/19 08:59 Last Admin: 11/20/19 07:42 Dose: 81 mg Documented by: Atorvastatin Calcium (Lipitor) 40 mg PO HS [facility] Stop: 12/14/19 20:59 Last Admin: 11/19/19 20:21 Dose: 40 mg Documented by: Bumetanide (Bumex) 2 mg PO BID17 [facility] Stop: 12/19/19 16:59 Last Admin: 11/20/19 07:42 Dose: 2 mg Documented by: Clopidogrel Bisulfate (Plavix) 75 mg PO DAILY [facility] Stop: 12/14/19 08:59 Last Admin: 11/20/19 07:42 Dose: 75 mg Documented by: Docusate Sodium (Colace) 100 mg PO BID PRN PRN Reason: Constipation Stop: 12/14/19 06:00 Piperacillin Sod/Tazobactam (Sod 3.375 gm/ Dextrose) 115 mls @ 28.75 mls/hr IV Q8H [facility]; Protocol Stop: 11/21/19 10:29 Last Infusion: 11/20/19 15:44 Dose: Infused Documented by: Amiodarone HCl/Dextrose (Nexterone / D5w) 360 mg in 200 mls @ 16.667 mls/hr IV .Q12H [facility] Stop: 12/19/19 04:52 Last Infusion: 11/20/19 15:03 Dose: 0.5 mg/min, 16.7 mls/hr Documented by: Metoprolol Tartrate (Lopressor) 50 mg PO BID [facility] Stop: 12/14/19 08:59 Last Admin: 11/20/19 07:42 Dose: 50 mg Documented by: Miscellaneous Information (Consult) 1 ea N/A UD PRN PRN Reason: Consult Stop: 12/14/19 08:52 Ondansetron HCl (Zofran) 4 mg IV Q6H PRN PRN Reason: Nausea Stop: 12/14/19 06:00 Last Admin: 11/20/19 06:04 Dose: 4 mg Documented by: PG Care Time/CCT Total # of Minutes Spent Total Time Spent with Patient: Total time spent is greater than 50% in coordination of care (as documented) at patient's floor/unit and/or counseling patient: Coding Level of Care Code 31829 Subseq Hosp Care Lvl 3 Diagnoses Acute systolic (congestive) heart failure I50.21 Severe aortic stenosis I35.0 Dyspnea R06.02; R06.00; R06.01 Dyspnea type: shortness of breath JANY (acute kidney injury) N17.9 Elevated troponin R74.8 Cardiomyopathy I42.9 Acute on chronic renal failure N17.9; N18.3 Acute renal failure type: unspecified Chronic kidney disease stage: stage 3 (moderate) Chronic kidney disease, stage III (moderate) N18.3 Urinary tract infection N39.0 CAD (coronary artery disease), craig coronary artery I25.10 Associated angina: without angina [place] vs. transplanted heart: craig heart Mental retardation F79 Skin tear of upper arm without complication S41.111A Encounter type: initial encounter Laterality: right DVT prophylaxis Z29.9 Ventricular tachycardia I47.2 (1) Skin tear of upper arm without complication Encounter type: initial encounter Laterality: right Qualified Code(s): S41.111A - Laceration without foreign body of right upper arm, initial encounter (2) Dyspnea Dyspnea type: shortness of breath Qualified Code(s): R06.02 - Shortness of breath; R06.00 - Dyspnea, unspecified; R06.01 - Orthopnea (3) CAD (coronary artery disease), craig coronary artery Associated angina: without angina [place] vs. transplanted heart: craig heart Qualified Code(s): I25.10 - Atherosclerotic heart disease of craig coronary artery without angina pectoris (4) Acute on chronic renal failure Acute renal failure type: unspecified Chronic kidney disease stage: stage 3 (moderate) Qualified Code(s): N17.9 - Acute kidney failure, unspecified; N18.3 - Chronic kidney disease, stage 3 (moderate)
[2019-11-20] MEDS: ATORVASTATIN 40 MG TAB PO SCH (19:51)
[2019-11-21] MEDS: AMIODARONE / D5W 360 MG/200 ML BAG IV SCH ×3 (00:07→23:51)
[2019-11-21] MEDS: PIPERACILLIN/TAZOBACTAM 3.375 GM in DEXTROSE 5% 100 ML IV SCH (02:06)
[2019-11-21 06:49] LABS: INR 1.3 (0.9-1.1); Prothrombin Time 13.2 Seconds (9.0-12.0)
[2019-11-21 07:06] LABS: BUN Creatinine Ratio 32.1 (10-20); Calcium 8.3 mg/dl (8.5-10.1); Creatinine Clr Calc Pharmacy 30.5 ml/min; Est GFR (African American) 26.1; Est GFR (Non-African American) 22.6; Potassium 3.5 mmol/L (3.5-5.1)
[2019-11-21] MEDS: ALBUT/IPRATROP 3MG/0.5MG NEB 3 ML VIAL INH SCH ×4 (07:09→19:10)
[2019-11-21] MEDS: METOPROLOL TARTRATE 50 MG TAB PO SCH ×2 (08:16→19:48)
[2019-11-21] MEDS: BUMETANIDE 1 MG TAB PO SCH ×2 (08:16→18:07)
[2019-11-21] MEDS: CLOPIDOGREL BISULFATE 75 MG TAB PO SCH (10:16)
[2019-11-21] MEDS: ASPIRIN 81 MG ECTAB PO SCH (10:16)
--- NOTE | 2019-11-21 10:34 | Cardiology Progress Note ---
Date of Service November 21, 2019 Assessment & Plan (1) Acute systolic (congestive) heart failure: -- Patient appears to be euvolemic based on neck veins. -- Creatinine is trending up. -- Continue diuretics to maintain current volume status. -- Avoid overdiuresis as patient with severe . (2) Severe aortic stenosis: (3) Cardiomyopathy: -- LVEF 20% to 25% and it is likely secondary to progressive aortic valvular stenosis. -- May not be possible to afterload reduce in the presence of significant aortic valvular stenosis. -- Mainstay of management is volume unloading when patient hypervolemic. -- Continue diuretics adjusted to maintain current fluid status / balance. -- Dr. West feels that an AICD is not indicated in a patient with a life expectancy of < 1 year. (4) Chronic kidney disease, stage III (moderate): -- Nephrology following. -- Laboratories are being followed. (5) Elevated troponin: -- Supply/demand mismatch. -- He will need an ischemic work-up at some point. If still considering TAVR he will have a cardiac catheterization. If not pursuing TAVR a [facility]. (6) Ventricular tachycardia: Ventricular Tachycardia x 3 episodes during this hospitalization, last episode was > 24 hours ago. -- Discussed with Dr. West who recommended that we continue using Amiodarone if it's working. -- If Amiodarone doesn't control paroxysmal V-Tach we could add other medications vs sending patient for a V-Tach ablation. -- ICD is NOT indicated in a patient with a life expectancy of < 1 year. -- Continue IV Amiodarone until fully loaded, then convert to oral Amiodarone. Admission and Anticipated Discharge Date Admission Date: November 14, 2019 Anticipated date of discharge: 11/22/19 Supervising Physician Co-Signing Physician Notes CARDIOLOGY ATTENDING ADDENDUM (Dr. Redding): Patient seen, interviewed, and examined. Agree with above assessment and recommendations by Mk Kincaid PA-C. Spoke at length with Dr. Sathish FUENTES, who is now the designated relative in regards to recommendations for this intellectually disabled patient's care. The patient's functional level had been fairly good in the past, he lived [place] farm with Dr. Fuentes for much of his adult life and did not require any assistance with any activities of daily living. As such, the family feels that the patient would want to undergo procedures which would improve the quality of his life (such as TAVR), even with the risk of kidney failure requiring hemodialysis, other complications, or . The next step is cardiac catheterization to determine the presence/absence of revascularizable coronary disease, which if extensive would merit consideration of CABG/AVR rather than TAVR. As noted, with his significant renal dysfunction, there is a risk of renal failure requiring hemodialysis. Will discuss with our invasive team to determine whether this can be performed here or whether the patient would require transfer to a tertiary care center for cardiac catheterization and further TAVR workup. In the meantime, his volume status appears favorable. May even need to reduce diuretic if he demonstrates progressive azotemia and/or hypotension. Consider follow-up chest x-ray to re-evaluate CHF. Continue amiodarone loading to decrease risk of dysrhythmia, if he is a TAVR candidate then he would also be a candidate for an ICD (which requires expected life span of 1 year greater). Subjective Mr. Fuentes offers no complaints today. He denies chest pain and his breathing is "okay". He also states that he is hungry. His last episode of V-Tach was on the morning of 11/20/2019 (> 24 hours ago). I discussed this case with Dr. West who recommended that we continue using Amiodarone if it's working. If Amiodarone doesn't control paroxysmal V-Tach we could add other medications vs sending patient for a V-Tach ablation. Dr. West also stated an ICD is NOT indicated in a patient with a life expectancy of < 1 year. Physical Exam Physical Exam: Weight 110.1 Kg, down 0.4 Kg from yesterday. GENERAL: Patient in no acute distress. HEENT: Head is atraumatic, normocephalic. EOM's intact. Facies symmetric. No perioral cyanosis. NECK: No JVD. JVP is at the level of the clavicle sitting upright. Carotid upstrokes are + 2 bilaterally. No bruits are noted. CHEST/LUNGS: Breath sounds are more harsh today compared to yesterday. CVS: S1 and S2 are regular with a faint systolic murmur at the right upper sternal border, and also a harsh 2-3/6 systolic ejection murmur best heard at the apex. A2 sound inaudible. No diastolic murmurs or gallops. ABDOMINAL EXAM: Bowel sounds are present. No masses, organomegaly, or tenderness. EXTREMITIES: No clubbing or cyanosis. Trace pretibial edema. Intact radial pulses bilaterally. NEUROLOGIC EXAM: Patient is awake and interactive. Speech is difficult to understand. TELEMETRY: -- Predominately NSR with occasional ectopy. -- Last episode of V-Tach was on the am of 11/20/2019 (> 24 hours ago) Results & Data ([facility]) Vital Signs (Past 12 Hours) Vital Signs Temp Pulse Pulse Resp BP BP Pulse Ox 11/21/19 08:00 72 11/21/19 07:12 36.6 C 72 20 110/66 94 11/21/19 07:11 71 18 96 11/21/19 02:45 36.6 C 73 19 111/63 95 11/21/19 00:20 36.7 C 76 19 113/72 95 11/21/19 00:00 72 Laboratory Results Laboratory Results - last 24 hr 11/21/19 11/21/19 06:20 06:20 PT 13.2 H INR 1.3 H Sodium 141 Potassium 3.5 Chloride 103 Carbon Dioxide 30 Anion Gap 8.0 BUN 83 H Creatinine 2.59 H Est Cr Clr Drug Dosing 30.5 Est GFR ( Amer) 26.1 Est GFR (Non-Af Amer) 22.6 BUN/Creatinine Ratio 32.1 H Glucose 110 H Calcium 8.3 L Medications Administered Active Medications Generic Name Dose Route Start Last Admin Trade Name Freq PRN Reason Stop Dose Admin Acetaminophen 650 mg 11/14/19 06:01 11/18/19 08:02 Tylenol PO 12/14/19 06:00 650 mg Q6 PRN Administration Pain Albuterol 3 ml 11/14/19 07:00 11/21/19 07:09 Duoneb INH 12/14/19 06:59 3 ml QIDR [facility] Administration Albuterol 2.5 mg 11/14/19 06:01 Ventolin 0.5% 2.5mg/0.5ml NEB 12/14/19 06:00 Q2H PRN SOB/Wheeze Aspirin 81 mg 11/14/19 09:00 11/21/19 10:16 Ecotrin Ectab PO 12/14/19 08:59 81 mg DAILY [facility] Administration Atorvastatin Calcium 40 mg 11/14/19 21:00 11/20/19 19:51 Lipitor PO 12/14/19 20:59 40 mg HS [facility] Administration Bumetanide 2 mg 11/19/19 17:00 11/21/19 08:16 Bumex PO 12/19/19 16:59 2 mg BID17 [facility] Administration Clopidogrel Bisulfate 75 mg 11/14/19 09:00 11/21/19 10:16 Plavix PO 12/14/19 08:59 75 mg DAILY [facility] Administration Docusate Sodium 100 mg 11/14/19 06:01 Colace PO 12/14/19 06:00 BID PRN Constipation Amiodarone HCl/Dextrose 360 mg in 200 mls @ 16.667 mls/hr 11/19/19 04:53 11/21/19 07:04 Nexterone / D5w IV 12/19/19 04:52 0.5 mg/min .Q12H [facility] 16.7 mls/hr Infusion 0.5 MG/MIN Metoprolol Tartrate 50 mg 11/14/19 09:00 11/21/19 08:16 Lopressor PO 12/14/19 08:59 50 mg BID [facility] Administration Ondansetron HCl 4 mg 11/14/19 06:01 11/20/19 22:20 Zofran IV 12/14/19 06:00 4 mg Q6H PRN Administration Nausea PG Care Time/CCT Total # of Minutes Spent Total Time Spent with Patient: Total time spent is greater than 50% in coordination of care (as documented) at patient's floor/unit and/or counseling patient: Coding Level of Care Code 19656 Subseq Hosp Care Lvl 3 Diagnoses Acute systolic (congestive) heart failure I50.21 Severe aortic stenosis I35.0 Cardiomyopathy I42.9 Chronic kidney disease, stage III (moderate) N18.3 Elevated troponin R74.8 Ventricular tachycardia I47.2
--- NOTE | 2019-11-21 13:36 | Hospitalist Progress Note ---
Date of Service November 21, 2019 Assessment & Plan (1) Acute systolic (congestive) heart failure: * Secondary to severe ECHO with significant decline in left ventricular systolic function, EF 20-25%, mod LVH, mod-severe global hypokinesis, severe (via dimensionless index), mod MR, mild TR Suspect some degree of failure contributing to hypoxia * INCREASED Bumex to 2mg IV BID on 11/16 (also received additional dose 1mg PO) * change to PO Bumex on 11/18, 2mg BID, will continue to follow Cr trending up to 2.59 and BUN up to > 80 today, will decrease Bumex to 1mg BID today * Continue metoprolol tartrate 50mg BID * Episode of vtach evening of 11/14 and again on 11/17 and again on 11/19 need to determine if ICD can be placed, depends on family's wishes in regards to getting heart cath, TAVR etc transferred to PCU, started on Amiodarone evening of 11/17 due to additional prolonged V tach (2) Severe aortic stenosis: * with cardiomyopathy * Cardiology on consult -- appreciate assistance * Repeat ECHO with significant decline in left ventricular systolic function, EF 20-25%, mod LVH, mod-severe global hypokinesis, severe (via dimensionless index), mod MR, mild TR * Will need TAVR in future vs Palliative --> spoke with Palak Fuentes on 11/18 and then Sathish Fuentes on 11/19 family would like referral as outpatient to discuss possible TAVR, see if he is good candidate the main issue is that he would need heart cath, could cause NATALIE and renal failure also, would he want CABG if indicated for triple vessel disease (3) Dyspnea: improved with diuresis, dyspnea entirely due to heart failure * Initially thought possible aspiration pneumonia. Patient with acute CHF secondary to valvular disease * Procalcitonin 0.12 -- unlikely infectious process. Afebrile * Zosyn for presumed aspiration PNA (negative MRSA nasal swab, no vancomycin) -- continued for dual coverage UTI with proteus, corynebacterium urealyticum stop Zosyn 11/19, day 7 * reduce Bumex to 1mg BID * Supplemental O2 as needed. Speech consulted -- diet changed to pureed given pt without dentures (at [facility]) * Flutter Valve * DuoNeb QID * Repeat CXR 11/16 with persistent cardiomegaly, CHF, bilateral effusions, R>L basilar opacities (4) JANY (acute kidney injury): * Cr trending up to 2.59, will cut Bumex to 1mg BID today * Baseline Cr appears ~1.6 * Nephrology consulted as above -- appreciate input * Renal US ordered --> atrophic left kidney, likely contributing to renal insufficiency. Urine random Cr 61.6, random sodium 33 * UA with low grade proteinuria * Renal dosing where needed, avoid nephrotoxic agents * Per nephrology, will have to accept some worsening renal function temporarily -- bumex increased to 2mg IV BID on 11/16 * Continue to monitor closely again, given his worsening renal function with heart failure and severe , would need to either consider TAVR or palliative approach family would like to refer outpatient to consider TAVR (5) Elevated troponin: * Patient with known CAD, EKG evidence of prior ischemia. Presently with no complaint of CP. * Troponin elevated but trending down -- likely supply/demand mismatch given stress of acute CHF with severe . Not likely NSTEMI * EKG changes with nonspecific ST elevation in lead III * Cardiology consulted -- rec serial EKGs --> repeat EKG without evidence of ST elevation (6) Cardiomyopathy: * Secondary to valvular heart disease, severe * Will need ischemic work-up at some point prior to pursuing TAVR -- See above regarding POA for consent * Likely secondary to progressive aortic stenosis -- possible that we may not be able to reduce afterload given severe -- continue diuresis for now (7) Acute on chronic renal failure: * See above. Cr up to 2.59 today (8) Chronic kidney disease, stage III (moderate): * See above -- If no improvement, may now be stage IV (9) Urinary tract infection: * See above * UA with 3+ leuk esterase, >30WBC, 10-20 epi, 2+ bacteria * Culture with proteus, corynebacterium urealyticum == pansensitive except fluoroquinolones * On day 7 of Zosyn for dual coverage aspiration pneumonia/UTI, stop 11/19 * BCx NGTD (10) CAD (coronary artery disease), [place] coronary artery: * Elevated troponin, see above, trending down --> likely supply/demand mismatch as above * Continue home ASA, Atorvastatin, Plavix, Metoprolol (11) Mental retardation: * Noted -- patient lives at [facility]. POA Luis Fuentes (Brother) * Supportive care (12) Skin tear of upper arm without complication: * Dressing in place. No evidence of infection. Dressing change as needed (13) DVT prophylaxis: * SCDs Dispo: continue diuresis. will need CM assistance obtaining point of contact for Mr Fuentes as all previous attempts to contact Luis (POA) and Rosario have been unsuccessful. If patient unable to be optimized for TAVR, may need to consider palliation. (14) Ventricular tachycardia: several runs of V tach, one on 11/14 and then again on 11/17 and then a 2 minute run on 11/19, resolved with Amiodarone bolus no symptoms but patient at risk for sudden cardiac given his poor EF and continue Amiodarone drip, convert to PO once he is loaded Admission and Anticipated Discharge Date Admission Date: November 14, 2019 Anticipated date of discharge: 11/22/19 Subjective patient stable this morning, no runs of V tach in past 24 hours he said he was hungry, denies any abdominal pain, denies chest pain/pressure or dyspnea, no fevers reviewed labs, Cr creeping up at 2.59, BUN up > 80, perhaps over diuresing at this point long discussion with Dr. Redding today regarding plans going forward he is going to call the patient's nephew Sathish Fuentes to discuss we spoke with EP, the issue with the ICD that it is only approved if he definitely going forward with TAVR cannot place an ICD if life expectancy is < 1 year getting the TAVR is complicated because he needs a heart cath which may cause NATALIE and lead to HD, so is the family on board with dialysis? also, if he has triple vessel disease and CABG would be recommended, would family want CABG which also would certainly run the risk of renal failure and HD so, Dr. Redding will call family and discuss these details and see what they want to do patient still needs to be in the hospital for loading of Amiodarone Review of Systems Review of Systems: All systems reviewed & are unremarkable except as noted in HPI & below Constitutional: + fatigue and + weakness; no fever Respiratory: no cough and no dyspnea Cardiovascular: no chest pain and no edema Gastrointestinal: no abdominal pain, no nausea, no vomiting, no constipation and no diarrhea/loose stools Physical Exam Constitutional: WD/WN, vitals as above Eyes: PERRL, conjunctivae normal, anicteric sclerae ENMT: external ear and nose normal, oropharynx normal Mouth: + dry oral mucous membranes Neck: trachea midline, no thyromegaly Respiratory: normal respiratory effort, lungs clear to auscultation Cardiovascular: Rate/Rhythm: regular rate and regular rhythm Heart Sounds: normal S1, normal S2 and + murmur (systolic) Vessels: no JVD Extremities: normal capillary refill; no edema Gastrointestinal (Abdomen): normal bowel sounds, soft, nontender, no hepatosplenomegaly Musculoskeletal: no cyanosis or clubbing, extremities motor strength 5/5 Skin: no rashes, warm and dry Neurologic: patellar DTR's 2+ bilat, sensation intact and PERRL, EOMI, accommodation nl, no face palsy, no dysarthria Psychiatric: Orientation: alert and oriented x 3 Estimated Intelligence: + below average estimated intelligence Lymphatic: no cervical or axillary lymphadenopathy Results & Data ([facility]) Vital Signs (Past 12 Hours) Vital Signs Temp Pulse Pulse Resp BP Pulse Ox 11/21/19 12:00 72 11/21/19 11:41 36.7 C 71 18 97/56 L 90 11/21/19 10:59 61 18 90 11/21/19 08:00 72 11/21/19 07:12 36.6 C 72 20 110/66 94 11/21/19 07:11 71 18 96 11/21/19 02:45 36.6 C 73 19 111/63 95 Laboratory Results Laboratory Results - last 24 hr 11/21/19 11/21/19 06:20 06:20 PT 13.2 H INR 1.3 H Sodium 141 Potassium 3.5 Chloride 103 Carbon Dioxide 30 Anion Gap 8.0 BUN 83 H Creatinine 2.59 H Est Cr Clr Drug Dosing 30.5 Est GFR ( Amer) 26.1 Est GFR (Non-Af Amer) 22.6 BUN/Creatinine Ratio 32.1 H Glucose 110 H Calcium 8.3 L Medications Administered Current Inpatient Medications Acetaminophen (Tylenol) 650 mg PO Q6 PRN PRN Reason: Pain Stop: 12/14/19 06:00 Last Admin: 11/18/19 08:02 Dose: 650 mg Documented by: Albuterol (Duoneb) 3 ml INH QIDR CECE Stop: 12/14/19 06:59 Last Admin: 11/21/19 10:57 Dose: 3 ml Documented by: Albuterol (Ventolin 0.5% 2.5mg/0.5ml) 2.5 mg NEB Q2H PRN PRN Reason: SOB/Wheeze Stop: 12/14/19 06:00 Aspirin (Ecotrin Ectab) 81 mg PO DAILY CECE Stop: 12/14/19 08:59 Last Admin: 11/21/19 10:16 Dose: 81 mg Documented by: Atorvastatin Calcium (Lipitor) 40 mg PO HS CECE Stop: 12/14/19 20:59 Last Admin: 11/20/19 19:51 Dose: 40 mg Documented by: Bumetanide (Bumex) 1 mg PO [id number] [facility] Stop: 12/21/19 16:59 Clopidogrel Bisulfate (Plavix) 75 mg PO DAILY CECE Stop: 12/14/19 08:59 Last Admin: 11/21/19 10:16 Dose: 75 mg Documented by: Docusate Sodium (Colace) 100 mg PO BID PRN PRN Reason: Constipation Stop: 12/14/19 06:00 Amiodarone HCl/Dextrose (Nexterone / D5w) 360 mg in 200 mls @ 16.667 mls/hr IV .Q12H [facility] Stop: 12/19/19 04:52 Last Admin: 11/21/19 12:01 Dose: 0.5 mg/min, 16.7 mls/hr Documented by: Metoprolol Tartrate (Lopressor) 50 mg PO BID [facility] Stop: 12/14/19 08:59 Last Admin: 11/21/19 08:16 Dose: 50 mg Documented by: Ondansetron HCl (Zofran) 4 mg IV Q6H PRN PRN Reason: Nausea Stop: 12/14/19 06:00 Last Admin: 11/20/19 22:20 Dose: 4 mg Documented by: PG Care Time/CCT Total # of Minutes Spent Total Time Spent with Patient: Total time spent is greater than 50% in coordinat ion of care (as documented) at patient's floor/unit and/or counseling patient: Coding Level of Care Code 25260 Subseq Hosp Care Lvl 3 Diagnoses Acute systolic (congestive) heart failure I50.21 Severe aortic stenosis I35.0 Dyspnea R06.02; R06.00; R06.01 Dyspnea type: shortness of breath JANY (acute kidney injury) N17.9 Elevated troponin R74.8 Cardiomyopathy I42.9 Acute on chronic renal failure N17.9; N18.3 Acute renal failure type: unspecified Chronic kidney disease stage: stage 3 (moderate) Chronic kidney disease, stage III (moderate) N18.3 Urinary tract infection N39.0 CAD (coronary artery disease), [place] coronary artery I25.10 [place] vs. transplanted heart: [place] heart Associated angina: without angina Mental retardation F79 Skin tear of upper arm without complication S41.111A Encounter type: initial encounter Laterality: right DVT prophylaxis Z29.9 Ventricular tachycardia I47.2 (1) Dyspnea Dyspnea type: shortness of breath Qualified Code(s): R06.02 - Shortness of breath; R06.00 - Dyspnea, unspecified; R06.01 - Orthopnea (2) Acute on chronic renal failure Acute renal failure type: unspecified Chronic kidney disease stage: stage 3 (moderate) Qualified Code(s): N17.9 - Acute kidney failure, unspecified; N18.3 - Chronic kidney disease, stage 3 (moderate) (3) CAD (coronary artery disease), [place] coronary artery [place] vs. transplanted heart: [place] heart Associated angina: without angina Qualified Code(s): I25.10 - Atherosclerotic heart disease of [place] coronary artery without angina pectoris (4) Skin tear of upper arm without complication Encounter type: initial encounter Laterality: right Qualified Code(s): S41.111A - Laceration without foreign body of right upper arm, initial encounter
[2019-11-21] MEDS: ATORVASTATIN 40 MG TAB PO SCH (19:48)
[2019-11-22 07:01] LABS: BUN Creatinine Ratio 47.5 (10-20); Calcium 8.5 mg/dl (8.5-10.1); Creatinine Clr Calc Pharmacy 30.8 ml/min; Est GFR (African American) 26.4; Est GFR (Non-African American) 22.8; Potassium 3.4 mmol/L (3.5-5.1)
[2019-11-22] MEDS: ASPIRIN 81 MG ECTAB PO SCH (07:33)
[2019-11-22] MEDS: METOPROLOL TARTRATE 50 MG TAB PO SCH ×2 (07:33→20:27)
[2019-11-22] MEDS: CLOPIDOGREL BISULFATE 75 MG TAB PO SCH (07:33)
[2019-11-22] MEDS: BUMETANIDE 1 MG TAB PO SCH (07:34)
[2019-11-22] MEDS: ALBUT/IPRATROP 3MG/0.5MG NEB 3 ML VIAL INH SCH ×4 (07:40→19:57)
[2019-11-22] MEDS: AMIODARONE / D5W 360 MG/200 ML BAG IV SCH (10:16)
--- NOTE | 2019-11-22 11:14 | Hospitalist Progress Note ---
Date of Service November 22, 2019 Assessment & Plan (1) Acute systolic (congestive) heart failure: * Secondary to severe ECHO with significant decline in left ventricular systolic function, EF 20-25%, mod LVH, mod-severe global hypokinesis, severe (via dimensionless index), mod MR, mild TR Suspect some degree of failure contributing to hypoxia * INCREASED Bumex to 2mg IV BID on 11/16 (also received additional dose 1mg PO) * change to PO Bumex on 11/18, 2mg BID, will continue to follow Cr trending up to 2.59 and BUN up to > 80 on 11/20, cut Bumex to 1mg BID Cr still elevated at 2.5, BUN up to 120, will hold Bumex as he is e[facility] noyola for accurate output, he is incontinent and starting to have some scrotal irritation, want to prevent skin breakdown * Continue metoprolol tartrate 50mg BID * Episode of vtach evening of 11/14 and again on 11/17 and again on 11/19 need to determine if ICD can be placed, depends on family's wishes in regards to getting heart cath, TAVR etc transferred to PCU, started on Amiodarone evening of 11/17 due to additional prolonged V tach no further runs of V tach, plan to continue Amiodarone IV and convert to PO (2) Severe aortic stenosis: * with cardiomyopathy * Cardiology on consult -- appreciate assistance * Repeat ECHO with significant decline in left ventricular systolic function, EF 20-25%, mod LVH, mod-severe global hypokinesis, severe (via dimensionless index), mod MR, mild TR * Will need TAVR in future vs Palliative --> spoke with Palak Fuentes on 11/18 and then Sathish Fuentes on 11/19 Dr. Redding had discussion with [facility], he is not appropriate for transfer his overall prognosis is poor, patients with poor renal function and non- ambulatory tend to do worse, two biggest risk factors for poor outcome he would need to be stable as outpatient and follow up in clinic at [place] unfortunately, at this time they are not seeing people due to the COVID 19 pandemic, so time frame of a visit is unknown (3) Dyspnea: improved with diuresis, dyspnea entirely due to heart failure * Initially thought possible aspiration pneumonia. Patient with acute CHF secondary to valvular disease * Procalcitonin 0.12 -- unlikely infectious process. Afebrile * Zosyn for presumed aspiration PNA (negative MRSA nasal swab, no vancomycin) -- continued for dual coverage UTI with proteus, corynebacterium urealyticum stop Zosyn 11/19, day 7 * reduce Bumex to 1mg BID, will now hold due to elevated BUN * Supplemental O2 as needed. Speech consulted -- diet changed to pureed given pt without dentures (at [facility]) * Flutter Valve * DuoNeb QID * Repeat CXR 11/16 with persistent cardiomegaly, CHF, bilateral effusions, R>L basilar opacities (4) JANY (acute kidney injury): * Cr trending up to 2.57, BuN up to 120, hold Bumex for now and follow UO and volume status * Baseline Cr appears ~1.6 * Nephrology consulted as above -- appreciate input * Renal US ordered --> atrophic left kidney, likely contributing to renal insufficiency. Urine random Cr 61.6, random sodium 33 * UA with low grade proteinuria * Renal dosing where needed, avoid nephrotoxic agents * Per nephrology, will have to accept some worsening renal function temporarily -- bumex increased to 2mg IV BID on 11/16 * Continue to monitor closely again, given his worsening renal function with heart failure and severe , would need to either consider TAVR or palliative approach family would like to refer outpatient to consider TAVR his poor renal function may even rule him out as a candidate, will need to be seen in clinic (5) Elevated troponin: * Patient with known CAD, EKG evidence of prior ischemia. Presently with no complaint of CP. * Troponin elevated but trending down -- likely supply/demand mismatch given stress of acute CHF with severe . Not likely NSTEMI * EKG changes with nonspecific ST elevation in lead III * Cardiology consulted -- rec serial EKGs --> repeat EKG without evidence of ST elevation (6) Cardiomyopathy: * Secondary to valvular heart disease, severe * Will need ischemic work-up at some point prior to pursuing TAVR -- See above regarding POA for consent * Likely secondary to progressive aortic stenosis (7) Acute on chronic renal failure: * See above. Cr up to 2.57 today (8) Chronic kidney disease, stage III (moderate): * likely has progressed to stage IV disease, makes overall prognosis worse (9) Urinary tract infection: * See above * UA with 3+ leuk esterase, >30WBC, 10-20 epi, 2+ bacteria * Culture with proteus, corynebacterium urealyticum == pansensitive except fluoroquinolones * On day 7 of Zosyn for dual coverage aspiration pneumonia/UTI, stop 11/19 * BCx NGTD (10) CAD (coronary artery disease), [place] coronary artery: * Elevated troponin, see above, trending down --> likely supply/demand mismatch as above * Continue home ASA, Atorvastatin, Plavix, Metoprolol (11) Mental retardation: * Noted -- patient lives at [facility]. POA Luis Fuentes (Brother) * Supportive care (12) Skin tear of upper arm without complication: * Dressing in place. No evidence of infection. Dressing change as needed (13) DVT prophylaxis: * SCDs Dispo: continue diuresis. will need CM assistance obtaining point of contact for Mr Fuentes as all previous attempts to contact Luis (POA) and Rosario have been unsuccessful. If patient unable to be optimized for TAVR, may need to consider palliation. (14) Ventricular tachycardia: several runs of V tach, one on 11/14 and then again on 11/17 and then a 2 minute run on 11/19, resolved with Amiodarone bolus no symptoms but patient at risk for sudden cardiac given his poor EF and continue Amiodarone drip, convert to PO once he is loaded consider ICD, however, this is only indicated if his life expectancy is > 1 year unsure at this time if he will be TAVR candidate, unlikely if he would get ICD, it would likely be at the same time as the TAVR CODE STATUS: change to conditional code, okay with shocks, medications, family does not want intubation/ventilator support Admission and Anticipated Discharge Date Admission Date: November 14, 2019 Anticipated date of discharge: 11/25/19 Subjective patient stable today, having incontinence and scrotal skin breaking down noyola catheter placed Dr. Redding talked with [facility], would not accept this patient on transfer indicators for poor performance after TAVR are poor renal function and non- ambulatory which is this patient BUN going up to 120, Cr is 2.5 again, will hold Bumex after discussing with Dr. Vahid Redding spoke with the nephew Sathish Fuentes over the phone, changed to a conditional code for now, the plan would be to stabilize over the weekend, convert to PO Amiodarone eventually go back to [facility] and follow up with [facility] in weeks to months currently with COVID 19 they are not seeing many patient in the office, so it will be some time Review of Systems Review of Systems: All systems reviewed & are unremarkable except as noted in HPI & below Respiratory: no cough and no dyspnea Cardiovascular: no chest pain and no edema Gastrointestinal: no abdominal pain, no nausea, no vomiting, no constipation and no diarrhea/loose stools Genitourinary: + urinary incontinence Physical Exam Constitutional: WD/WN, vitals as above Eyes: PERRL, conjunctivae normal, anicteric sclerae ENMT: external ear and nose normal, oropharynx normal Neck: trachea midline, no thyromegaly Respiratory: normal respiratory effort, lungs clear to auscultation Cardiovascular: Rate/Rhythm: regular rate and regular rhythm Heart Sounds: normal S1, normal S2 and + murmur (systolic) Vessels: no JVD Extremities: normal capillary refill; no edema Gastrointestinal (Abdomen): normal bowel sounds, soft, nontender, no hepatosplenomegaly Musculoskeletal: no cyanosis or clubbing, extremities motor strength 5/5 Skin: no rashes, warm and dry Neurologic: patellar DTR's 2+ bilat, sensation intact and PERRL, EOMI, accommodation nl, no face palsy, no dysarthria Psychiatric: Orientation: alert and oriented x 3 Estimated Intelligence: + below average estimated intelligence Lymphatic: no cervical or axillary lymphadenopathy Results & Data ([facility]) Vital Signs (Past 12 Hours) Vital Signs Temp Pulse Pulse Resp BP Pulse Ox 11/22/19 10:52 71 18 89 L 11/22/19 10:35 68 11/22/19 07:40 72 18 96 11/22/19 07:11 36.6 C 77 19 95/56 L 95 11/22/19 03:47 36.7 C 69 20 101/62 94 11/21/19 23:53 36.6 C 67 18 103/66 97 Laboratory Results Laboratory Results - last 24 hr 11/22/19 06:16 Sodium 146 H Potassium 3.4 L Chloride 107 Carbon Dioxide 32 Anion Gap 7.0 BUN 122 H Creatinine 2.57 H Est Cr Clr Drug Dosing 30.8 Est GFR ( Amer) 26.4 Est GFR (Non-Af Amer) 22.8 BUN/Creatinine Ratio 47.5 H Glucose 110 H Calcium 8.5 Medications Administered Current Inpatient Medications Acetaminophen (Tylenol) 650 mg PO Q6 PRN PRN Reason: Pain Stop: 12/14/19 06:00 Last Admin: 11/18/19 08:02 Dose: 650 mg Documented by: Albuterol (Duoneb) 3 ml INH QIDR [facility] Stop: 12/14/19 06:59 Last Admin: 11/22/19 10:52 Dose: 3 ml Documented by: Albuterol (Ventolin 0.5% 2.5mg/0.5ml) 2.5 mg NEB Q2H PRN PRN Reason: SOB/Wheeze Stop: 12/14/19 06:00 Aspirin (Ecotrin Ectab) 81 mg PO DAILY [facility] Stop: 12/14/19 08:59 Last Admin: 11/22/19 07:33 Dose: 81 mg Documented by: Atorvastatin Calcium (Lipitor) 40 mg PO HS [facility] Stop: 12/14/19 20:59 Last Admin: 11/21/19 19:48 Dose: 40 mg Documented by: Bumetanide (Bumex) 1 mg PO BID17 [facility] Stop: 12/21/19 16:59 Last Admin: 11/22/19 07:34 Dose: 1 mg Documented by: Clopidogrel Bisulfate (Plavix) 75 mg PO DAILY [facility] Stop: 12/14/19 08:59 Last Admin: 11/22/19 07:33 Dose: 75 mg Documented by: Docusate Sodium (Colace) 100 mg PO BID PRN PRN Reason: Constipation Stop: 12/14/19 06:00 Amiodarone HCl/Dextrose (Nexterone / D5w) 360 mg in 200 mls @ 16.667 mls/hr IV .Q12H [facility] Stop: 12/19/19 04:52 Last Admin: 11/22/19 10:16 Dose: 0.5 mg/min, 16.7 mls/hr Documented by: Metoprolol Tartrate (Lopressor) 50 mg PO BID [facility] Stop: 12/14/19 08:59 Last Admin: 11/22/19 07:33 Dose: 50 mg Documented by: Ondansetron HCl (Zofran) 4 mg IV Q6H PRN PRN Reason: Nausea Stop: 12/14/19 06:00 Last Admin: 11/20/19 22:20 Dose: 4 mg Documented by: PG Care Time/CCT Total # of Minutes Spent Total Time Spent with Patient: Total time spent is greater than 50% in coordination of care (as documented) at patient's floor/unit and/or counseling patient: Coding Level of Care Code 40013 Subseq Hosp Care Lvl 3 Diagnoses Acute systolic (congestive) heart failure I50.21 Severe aortic stenosis I35.0 Dyspnea R06.02; R06.00; R06.01 Dyspnea type: shortness of breath JANY (acute kidney injury) N17.9 Elevated troponin R74.8 Cardiomyopathy I42.9 Acute on chronic renal failure N17.9; N18.3 Acute renal failure type: unspecified Chronic kidney disease stage: stage 3 (moderate) Chronic kidney disease, stage III (moderate) N18.3 Urinary tract infection N39.0 CAD (coronary artery disease), [place] coronary artery I25.10 [place] vs. transplanted heart: [place] heart Associated angina: without angina Mental retardation F79 Skin tear of upper arm without complication S41.111A Encounter type: initial encounter Laterality: right DVT prophylaxis Z29.9 Ventricular tachycardia I47.2 (1) Dyspnea Dyspnea type: shortness of breath Qualified Code(s): R06.02 - Shortness of breath; R06.00 - Dyspnea, unspecified; R06.01 - Orthopnea (2) Acute on chronic renal failure Acute renal failure type: unspecified Chronic kidney disease stage: stage 3 (moderate) Qualified Code(s): N17.9 - Acute kidney failure, unspecified; N18.3 - Chronic kidney disease, stage 3 (moderate) (3) CAD (coronary artery disease), [place] coronary artery [place] vs. transplanted heart: [place] heart Associated angina: without angina Qualified Code(s): I25.10 - Atherosclerotic heart disease of [place] coronary artery without angina pectoris (4) Skin tear of upper arm without complication Encounter type: initial encounter Laterality: right Qualified Code(s): S41.111A - Laceration without foreign body of right upper arm, initial encounter
[2019-11-22] MEDS: ACETAMINOPHEN 325 MG TAB PO PRN (12:32)
[2019-11-22] MEDS: ATORVASTATIN 40 MG TAB PO SCH (20:27)
[2019-11-22] MEDS ORDERED: 0.2 MICRON FILTER SET 1 EA IV ONE (22:15)
[2019-11-22] MEDS: AMIODARONE 450 MG in D5W 250ML IN *POLYOLEFIN BAG* 241 ML IV SCH (23:00)
[2019-11-23] MEDS: ALBUT/IPRATROP 3MG/0.5MG NEB 3 ML VIAL INH SCH (07:36)
[2019-11-23 07:44] LABS: Basophils # (auto) 0.02 K/uL (0-0.2); Basophils % (auto) 0.1 %; Eosinophils # (auto) 0.06 K/uL (0-0.5); Eosinophils % (auto) 0.4 %; Hematocrit (blood only) 27.3 % (42-52); Hemoglobin 8.4 g/dL (14.0-18.0); Immature Granulocytes # (auto) 0.32 K/uL (0.00-0.02); Immature Granulocytes % (auto) 2.1 %; Lymphocytes # (auto) 1.64 K/uL (1.2-3.4); Mean Corpuscular Hemoglobin 30.5 pg (25-34); Mean Corpuscular Hgb Conc 30.8 g/dL (32-36); Mean Corpuscular Volume 99.3 fL (80-100); Mean Platelet Volume 10.1 fL (7.4-10.4); Monocytes # (auto) 0.58 K/uL (0.11-0.59); Monocytes % (auto) 3.9 %; Neutrophils # (auto) 12.28 K/uL (1.4-6.5); Neutrophils % (auto) 82.5 %; Nucleated RBC # (auto) 0.05 K/uL (0-0); Nucleated RBC % (auto) 0.3 %; Platelet Count 285 K/uL (130-400); RDW Coefficient of Variation 15.5 % (11.5-14.5); RDW Standard Deviation 54.7 fL (36.4-46.3); Red Blood Count 2.75 M/uL (4.7-6.1)
[2019-11-23] MEDS: ASPIRIN 81 MG ECTAB PO SCH (08:07)
[2019-11-23] MEDS: CLOPIDOGREL BISULFATE 75 MG TAB PO SCH (08:07)
[2019-11-23] MEDS: METOPROLOL TARTRATE 50 MG TAB PO SCH ×3 (08:11→21:05)
[2019-11-23 08:13] LABS: Albumin Level 2.7 gm/dl (3.4-5.0); BUN Creatinine Ratio 49.5 (10-20); Calcium 8.5 mg/dl (8.5-10.1); Creatinine Clr Calc Pharmacy 29.3 ml/min; Est GFR (African American) 24.7; Est GFR (Non-African American) 21.4; Potassium 3.5 mmol/L (3.5-5.1)
[2019-11-23 08:16] LABS: Albumin Globulin Ratio 0.8 (0.9-2); Bilirubin,Total 0.5 mg/dl (0.2-1); Globulin 3.6 gm/dl (2.5-4.0); Total Protein 6.3 gm/dl (6.4-8.2)
[2019-11-23] MEDS ORDERED: ALBUT/IPRATROP 3MG/0.5MG NEB 3 ML VIAL INH PRN (10:00)
[2019-11-23] MEDS ORDERED: NSS + 20MEQ KCL 20 MEQ/1,000 ML BAG IV SCH (11:00)
--- NOTE | 2019-11-23 11:24 | XRay Report ---
XR chest 1V portable HISTORY: Leukocytosis, dyspnea, aspiration COMPARISON: Chest 11/17/2019. FINDINGS: No pneumothorax. The heart remains enlarged. Slight improvement in the pulmonary edema kalyani [place] and right base airspace opacities. Small bilateral pleural effusions and left basilar airspace op acities persist. IMPRESSION: Slight improvement in the pulmonary edema pattern and right base airspace opacities. Small bilateral pleural effusions persist. ACT 112: Negative or not required by law. Electronically signed by: Steven Veliz M.D. 11/23/2019 11:23 AM
--- NOTE | 2019-11-23 12:25 | Hospitalist Progress Note ---
Date of Service November 23, 2019 Assessment & Plan (1) Acute systolic (congestive) heart failure: * Secondary to severe ECHO with significant decline in left ventricular systolic function, EF 20-25%, mod LVH, mod-severe global hypokinesis, severe (via dimensionless index), mod MR, mild TR Suspect some degree of failure contributing to hypoxia * INCREASED Bumex to 2mg IV BID on 11/16 * changed to PO Bumex on 11/18, 2mg BID Cr trending up to 2.59 and BUN up to > 80 on 11/20, cut Bumex to 1mg BID Cr still elevated at 2.5, BUN up to 120, held Bumex on 11/21 Cr up to 2.7 and BUN is 134, will give some gentle hydration, one bag of N SS place noyola for accurate output, he is incontinent and starting to have some scrotal irritation, want to prevent skin breakdown he is making urine * Continue metoprolol tartrate 50mg BID * Episode of vtach evening of 11/14 and again on 11/17 and again on 11/19 need to determine if ICD can be placed, depends on family's wishes in regards to getting heart cath, TAVR etc transferred to PCU, started on Amiodarone evening of 11/17 due to additional prolonged V tach no further runs of V tach, plan to continue Amiodarone IV and convert to PO (2) Severe aortic stenosis: * with cardiomyopathy * Cardiology on consult -- appreciate assistance * Repeat ECHO with significant decline in left ventricular systolic function, EF 20-25%, mod LVH, mod-severe global hypokinesis, severe (via dimensionless index), mod MR, mild TR * Will need TAVR in future vs Palliative Dr. Redding had discussion with [facility], he is not appropriate for transfer his overall prognosis is poor, patients with poor renal function and non- ambulatory tend to do worse, two biggest risk factors for poor outcome he would need to be stable as outpatient and follow up in clinic at [facility] unfortunately, at this time they are not seeing people due to the COVID 19 pandemic, so time frame of a visit is unknown now with worsening renal function, will need to discuss with family if they would consider him a dialysis candidate (3) Dyspnea: improved with diuresis, dyspnea entirely due to heart failure * Initially thought possible aspiration pneumonia. Patient with acute CHF secondary to valvular disease * Zosyn for presumed aspiration PNA (negative MRSA nasal swab, no vancomycin) -- continued for dual coverage UTI with proteus, corynebacterium urealyticum stop Zosyn 11/19, day 7 * reduce Bumex to 1mg BID, will now hold due to elevated BUN * Supplemental O2 as needed. Speech consulted -- diet changed to pureed given pt without dentures (at [email or web address] * Flutter Valve * DuoNeb QID PRN * Repeat CXR 11/22 with less edema, has effusions does not complain of dyspnea today, stable on 2L NC, no distress at all, likely his baseline breathing (4) JANY (acute kidney injury): * Cr trending up to 2.57, BuN up to 120 on 11/21 today Cr is up to 2.79, BUN up to 134, making urine via noyola will give some gentle NSS at 75cc/hr for one bag repeat BMP in the morning d/w Dr. Doll, he will see the patient tomorrow, will get a UA for further work up he is on Amiodarone which is new, started the past week overall he appears a little dry, loosen up fluid restriction * Baseline Cr appears ~1.6 * Renal US ordered earlier in admission --> atrophic left kidney, likely contributing to renal insufficiency * Renal dosing where needed, avoid nephrotoxic agents again, given his worsening renal function with heart failure and severe , would need to either consider TAVR or palliative approach family would like to refer outpatient to consider TAVR his poor renal function may even rule him out as a candidate, will need to be seen in clinic will continue to reach out to family to see if they would even want him on dialysis (5) Elevated troponin: * Patient with known CAD, EKG evidence of prior ischemia. Presently with no complaint of CP. * Troponin elevated but trending down -- likely supply/demand mismatch given stress of acute CHF with severe . Not likely NSTEMI * EKG changes with nonspecific ST elevation in lead III * Cardiology consulted -- rec serial EKGs --> repeat EKG without evidence of ST elevation (6) Cardiomyopathy: * Secondary to valvular heart disease, severe * Will need ischemic work-up at some point prior to pursuing TAVR -- See above regarding POA for consent * Likely secondary to progressive aortic stenosis (7) Acute on chronic renal failure: * See above. Cr up to 2.79 today (8) Chronic kidney disease, stage III (moderate): * likely has progressed to stage IV disease, makes overall prognosis worse (9) Urinary tract infection: * See above * UA with 3+ leuk esterase, >30WBC, 10-20 epi, 2+ bacteria * Culture with proteus, corynebacterium urealyticum == pansensitive except fluoroquinolones * On day 7 of Zosyn for dual coverage aspiration pneumonia/UTI, stop 11/19 * BCx NGTD (10) CAD (coronary artery disease), [place] coronary artery: * Elevated troponin, see above, trending down --> likely supply/demand mismatch as above * Continue home ASA, Atorvastatin, Plavix, Metoprolol (11) Mental retardation: * Noted -- [facility] MYKE Fuentes (Brother) * Supportive care (12) Skin tear of upper arm without complication: * Dressing in place. No evidence of infection. Dressing change as needed (13) DVT prophylaxis: * SCDs If patient unable to be optimized for TAVR, may need to consider palliation. (14) Ventricular tachycardia: several runs of V tach, one on 11/14 and then again on 11/17 and then a 2 minute run on 11/19, resolved with Amiodarone bolus no symptoms but patient at risk for sudden cardiac given his poor EF and continue Amiodarone drip, convert to PO once he is loaded consider ICD, however, this is only indicated if his life expectancy is > 1 year unsure at this time if he will be TAVR candidate, unlikely if he would get ICD, it would likely be at the same time as the TAVR CODE STATUS: change to conditional code, okay with shocks, medications, family does not want intubation/ventilator support Admission and Anticipated Discharge Date Admission Date: November 14, 2019 Anticipated date of discharge: 11/25/19 Subjective patient pleasant, cooperative, only complaint is that he wants to drink more he has no chest pain, no abdominal pain, says he is breathing fine reviewed labs today, WBC 14, Hb 8.4 BUN up to 134 and Cr going up to 2.71 will give some gentle IV hydration and loosen his fluid restriction as he examines slightly dry attempted to call family, no answer, no voice mail system got a CXR, no significant changes will get a UA Review of Systems Review of Systems: All systems reviewed & are unremarkable except as noted in HPI & below Physical Exam Constitutional: WD/WN, vitals as above Eyes: PERRL, conjunctivae normal, anicteric sclerae ENMT: external ear and nose normal, oropharynx normal Mouth: + dry oral mucous membranes Neck: trachea midline, no thyromegaly Respiratory: normal respiratory effort, lungs clear to auscultation Cardiovascular: Rate/Rhythm: regular rate and regular rhythm Heart Sounds: normal S1, normal S2 and + murmur (systolic) Vessels: no JVD Extremities: normal capillary refill; no edema Gastrointestinal (Abdomen): normal bowel sounds, soft, nontender, no hepat osplenomegaly Musculoskeletal: no cyanosis or clubbing, extremities motor strength 5/5 Skin: no rashes, warm and dry Neurologic: patellar DTR's 2+ bilat, sensation intact and PERRL, EOMI, accommodation nl, no face palsy, no dysarthria Psychiatric: Orientation: alert and oriented x 3 Estimated Intelligence: + below average estimated intelligence Lymphatic: no cervical or axillary lymphadenopathy Results & Data ([facility]) Vital Signs (Past 12 Hours) Vital Signs Temp Pulse Resp BP BP Pulse Ox 11/23/19 11:06 36.4 C L 76 19 97/63 L 93 11/23/19 07:52 89 18 92 11/23/19 07:42 36.4 C L 72 19 93/59 L 92 11/23/19 03:50 36.5 C 71 19 86/53 L 94 Laboratory Results Laboratory Results - last 24 hr 11/23/19 11/23/19 11/23/19 07:22 07:22 07:43 WBC 14.90 H RBC 2.75 L Hgb 8.4 L Hct 27.3 L MCV 99.3 MCH 30.5 MCHC 30.8 L RDW Std Deviation 54.7 H RDW Coeff of Courtney 15.5 H Plt Count 285 MPV 10.1 Immature Gran % (Auto) 2.1 Neut % (Auto) 82.5 Lymph % (Auto) 11.0 [place] % (Auto) 3.9 Eos % (Auto) 0.4 Baso % (Auto) 0.1 Immature Gran # (Auto) 0.32 H Neut # (Auto) 12.28 H Lymph # (Auto) 1.64 [place] # (Auto) 0.58 Eos # (Auto) 0.06 Baso # (Auto) 0.02 Absolute Nucleated RBC 0.05 H Nucleated RBC % (auto) 0.3 Sodium 144 Potassium 3.5 Chloride 104 Carbon Dioxide 32 Anion Gap 7.0 BUN 134 H Creatinine 2.71 H Est Cr Clr Drug Dosing 29.3 Est GFR ( Amer) 24.7 Est GFR (Non-Af Amer) 21.4 BUN/Creatinine Ratio 49.5 H Glucose 115 H Lactate 2.2 H* Calcium 8.5 Total Bilirubin 0.5 AST 20 ALT 28 Alkaline Phosphatase 44 L Total Protein 6.3 L Albumin 2.7 L Globulin 3.6 Albumin/Globulin Ratio 0.8 L Procalcitonin 11/23/19 07:43 WBC RBC Hgb Hct MCV MCH MCHC RDW Std Deviation RDW Coeff of Courtney Plt Count MPV Immature Gran % (Auto) Neut % (Auto) Lymph % (Auto) [place] % (Auto) Eos % (Auto) Baso % (Auto) Immature Gran # (Auto) Neut # (Auto) Lymph # (Auto) [place] # (Auto) Eos # (Auto) Baso # (Auto) Absolute Nucleated RBC Nucleated RBC % (auto) Sodium Potassium Chloride Carbon Dioxide Anion Gap BUN Creatinine Est Cr Clr Drug Dosing Est GFR ( Amer) Est GFR (Non-Af Amer) BUN/Creatinine Ratio Glucose Lactate Calcium Total Bilirubin AST ALT Alkaline Phosphatase Total Protein Albumin Globulin Albumin/Globulin Ratio Procalcitonin 0.61 H Diagnostic Findings XR chest 1V portable HISTORY: Leukocytosis, dyspnea, aspiration COMPARISON: Chest 11/17/2019. FINDINGS: No pneumothorax. The heart remains enlarged. Slight improvement in the pulmonary edema pattern and right base airspace opacities. Small bilateral pleural effusions and left basilar airspace opacities persist. IMPRESSION: Slight improvement in the pulmonary edema pattern and right base airspace opacities. Small bilateral pleural effusions persist. Medications Administered Current Inpatient Medications Acetaminophen (Tylenol) 650 mg PO Q6 PRN PRN Reason: Pain Stop: 12/14/19 06:00 Last Admin: 11/22/19 12:32 Dose: 650 mg Documented by: Albuterol (Ventolin 0.5% 2.5mg/0.5ml) 2.5 mg NEB Q2H PRN PRN Reason: SOB/Wheeze Stop: 12/14/19 06:00 Albuterol (Duoneb) 3 ml INH QIDR PRN PRN Reason: Shortness Of Breath Or Wheezing Stop: 12/14/19 06:59 Aspirin (Ecotrin Ectab) 81 mg PO DAILY CECE Stop: 12/14/19 08:59 Last Admin: 11/23/19 08:07 Dose: 81 mg Documented by: Atorvastatin Calcium (Lipitor) 40 mg PO HS CECE Stop: 12/14/19 20:59 Last Admin: 11/22/19 20:27 Dose: 40 mg Documented by: Bumetanide (Bumex) 1 mg PO BID17 CECE Stop: 12/21/19 16:59 Last Admin: 11/22/19 07:34 Dose: 1 mg Documented by: Clopidogrel Bisulfate (Plavix) 75 mg PO DAILY CECE Stop: 12/14/19 08:59 Last Admin: 11/23/19 08:07 Dose: 75 mg Documented by: Docusate Sodium (Colace) 100 mg PO BID PRN PRN Reason: Constipation Stop: 12/14/19 06:00 Amiodarone HCl 450 mg/ (Dextrose) 250 mls @ 16.7 mls/hr IV UD CECE Stop: 12/22/19 22:14 Last Infusion: 11/23/19 07:01 Dose: 16.7 mls/hr Documented by: Potassium Chloride/Sodium Chloride (Normal Saline W/20 Meq Kcl) 20 meq in 1,000 mls @ 75 mls/hr IV .[id number] CECE Stop: 11/24/19 00:19 Last Admin: 11/23/19 11:50 Dose: 75 mls/hr Documented by: Metoprolol Tartrate (Lopressor) 50 mg PO BID CECE Stop: 12/14/19 08:59 Last Admin: 11/23/19 08:11 Dose: Not Given Documented by: Ondansetron HCl (Zofran) 4 mg IV Q6H PRN PRN Reason: Nausea Stop: 12/14/19 06:00 Last Admin: 11/20/19 22:20 Dose: 4 mg Documented by: PG Care Time/CCT Total # of Minutes Spent Total Time Spent with Patient: Total time spent is greater than 50% in coordination of care (as documented) at patient's floor/unit and/or counseling patient: Coding Level of Care Code 05368 Subseq Hosp Care Lvl 3 Diagnoses Acute systolic (congestive) heart failure I50.21 Severe aortic stenosis I35.0 Dyspnea R06.02; R06.00; R06.01 Dyspnea type: shortness of breath JANY (acute kidney injury) N17.9 Elevated troponin R74.8 Cardiomyopathy I42.9 Acute on chronic renal failure N17.9; N18.3 Acute renal failure type: unspecified Chronic kidney disease stage: stage 3 (moderate) Chronic kidney disease, stage III (moderate) N18.3 Urinary tract infection N39.0 CAD (coronary artery disease), [place] coronary artery I25.10 [place] vs. transplanted heart: [place] heart Associated angina: without angina Mental retardation F79 Skin tear of upper arm without complication S41.111A Encounter type: initial encounter Laterality: right DVT prophylaxis Z29.9 Ventricular tachycardia I47.2 (1) Dyspnea Dyspnea type: shortness of breath Qualified Code(s): R06.02 - Shortness of breath; R06.00 - Dyspnea, unspecified; R06.01 - Orthopnea (2) Acute on chronic renal failure Acute renal failure type: unspecified Chronic kidney disease stage: stage 3 (moderate) Qualified Code(s): N17.9 - Acute kidney failure, unspecified; N18.3 - Chronic kidney disease, stage 3 (moderate) (3) CAD (coronary artery disease), [place] coronary artery [place] vs. transplanted heart: [place] heart Associated angina: without angina Qualified Code(s): I25.10 - Atherosclerotic heart disease of [place] coronary artery without angina pectoris (4) Skin tear of upper arm without complication Encounter type: initial encounter Laterality: right Qualified Code(s): S41.111A - Laceration without foreign body of right upper arm, initial encounter
[2019-11-23] MEDS: AMIODARONE 450 MG in D5W 250ML IN *POLYOLEFIN BAG* 241 ML IV SCH (13:51)
[2019-11-23 15:44] LABS: Appearance Urine Clear (Clear); Bacteria Urine Automated Negative (Negative); Bilirubin Urine Negative (Negative); Blood Urine Negative (Negative); Color Urine Yellow; Glucose Urine UA Negative (Negative); Ketones Urine Negative (Negative); Leukocyte Esterase Urine 2+ (Negative); Nitrite Urine Negative (Negative); Protein Urine Negative (Negative); RBC Urine Automated 0-4 /hpf (0-4); Specific Gravity Urine 1.019 (1.000-1.030); Urobilinogen Urine Negative (Negative); WBC Urine Automated >30 /hpf (0-5)
[2019-11-23] MEDS: ATORVASTATIN 40 MG TAB PO SCH (20:54)
[2019-11-24] MEDS: ACETAMINOPHEN 325 MG TAB PO PRN (00:59)
[2019-11-24] MEDS: AMIODARONE 450 MG in D5W 250ML IN *POLYOLEFIN BAG* 241 ML IV SCH (04:47)
[2019-11-24 08:15] LABS: Basophils # (auto) 0.02 K/uL (0-0.2); Basophils % (auto) 0.2 %; Eosinophils # (auto) 0.08 K/uL (0-0.5); Eosinophils % (auto) 0.7 %; Hematocrit (blood only) 27.8 % (42-52); Hemoglobin 8.4 g/dL (14.0-18.0); Immature Granulocytes # (auto) 0.17 K/uL (0.00-0.02); Immature Granulocytes % (auto) 1.5 %; Lymphocytes # (auto) 1.06 K/uL (1.2-3.4); Mean Corpuscular Hemoglobin 30.4 pg (25-34); Mean Corpuscular Hgb Conc 30.2 g/dL (32-36); Mean Corpuscular Volume 100.7 fL (80-100); Mean Platelet Volume 9.9 fL (7.4-10.4); Monocytes # (auto) 1.59 K/uL (0.11-0.59); Monocytes % (auto) 13.6 %; Nucleated RBC # (auto) 0.09 K/uL (0-0); Nucleated RBC % (auto) 0.8 %; Platelet Count 297 K/uL (130-400); Red Blood Count 2.76 M/uL (4.7-6.1); White Blood Count 11.72 K/uL (4.8-10.8)
[2019-11-24] MEDS: METOPROLOL TARTRATE 50 MG TAB PO SCH ×2 (08:19→20:14)
[2019-11-24] MEDS: CLOPIDOGREL BISULFATE 75 MG TAB PO SCH (08:19)
[2019-11-24] MEDS: ASPIRIN 81 MG ECTAB PO SCH (08:19)
[2019-11-24 08:36] LABS: BUN Creatinine Ratio 51.5 (10-20); Calcium 8.6 mg/dl (8.5-10.1); Creatinine Clr Calc Pharmacy 27.9 ml/min; Est GFR (African American) 23.5; Est GFR (Non-African American) 20.3; Potassium 3.9 mmol/L (3.5-5.1)
--- NOTE | 2019-11-24 10:17 | Nephrology Progress Note ---
Date of Service November 24, 2019 Assessment & Plan (1) Acute kidney failure: -- JANY/CKD due to poor renal perfusion associated w/ severe , cardiomyopathy, and diuretics. Non-oliguric. -- I will review my concerns with Mr. Fuentes's POA (Dr. Sathish Fuentes) today. Records were reviewed and details discussed with Dr. Becerril this morning. Per Dr. Redding's last note, intervention on the aortic valve and for CAD were discussed in context of potential need for renal replacement therapy. ICD has been declined due to limited life expectancy. -- Hold additional IVF for now. Bumex held. Goal will be to encourage an even or slightly positive fluid balance as tolerated. -- CXR and physical findings confirm persistent interstitial pulmonary edema. -- Creatinine rising which I suspect is hemodynamically mediated due to recurrent ventricular tachycardia, decreased EAV, and possible ATN. Thankful ly, electrolytes are within normal limits, urine output is acceptable, and volume status is reasonable. There is no emergent indication for dialysis at this time but the patient's overall prognosis is guarded. -- I have significant concern regarding Mr. Fuentes's potential to tolerate hemodialysis given his underlying medical comorbidities including severe valvular heart disease, cardiomyopathy, recurrent ventricular arrhythmia, and limited functional status. Unfortunately, Mr. Fuentes was not able to demonstrate the capacity to understand details of the dialysis procedure or the goals of care; this adds to potential burden of hemodialysis treatments. I would not expect dialysis to improve quality of life. If condition advances to the point of requiring hemodialysis, I would not view this as likely being a temporary change. -- BUN/creatinine ratio and hyaline casts are consistent with prerenal etiology consistent with CRS and decreased EAV. -- Please document strict I/O's. -- Repeat metabolic profile tomorrow AM. -- Medications are currently appropriately dosed for kidney function. -- Continued cardiology input in terms of moving forward with management of Mr. Fuentes are greatly appreciated. I am concerned about the timeframe for management of valvular heart disease. Palliative care consultation would also be strongly considered given the patient's limited life expectancy, adjusted goals of care (including conditional code), and overall burden of disease/treatments. (2) Chronic kidney disease, stage III (moderate): -- Baseline Cr 1.6. (3) Aortic stenosis: -- As above. Subjective No acute events overnight. Ray remains very pleasant. He was not able to demonstrate an understanding regarding hemodialysis. He does continue to describe thirst. He denies dyspnea. No fevers or chills. Appetite is good. Adequate urine output. Positive fluid balance achieved with some IVF yesterday. Review of Systems Review of Systems: Unobtainable due to mental health condition (limited but Ray clearly denies any dyspnea. no fevers or chills. ) Physical Exam Constitutional: + frail appearing; no acute distress Eyes: + anicteric sclerae ENMT: Mouth: + dry oral mucous membranes; no oral mucosal abnormality Neck: normal visual inspection and trachea midline Respiratory: normal respiratory effort Auscultation: lungs clear to auscultation bilaterally and + rales Cardiovascular: Rate/Rhythm: regular rate Heart Sounds: + murmur Vessels: no JVD Extremities: + edema (+1 pitting below the knee and dependent) Psychiatric: Orientation: alert and cooperative Results & Data Vital Signs (Past 12 Hours) Vital Signs Temp Pulse Pulse Resp BP BP Pulse Ox 11/24/19 03:20 36.5 C 62 18 95/63 L 93 11/24/19 00:00 72 11/23/19 23:09 36.5 C 70 20 111/75 98 Laboratory Results Laboratory Results - last 24 hr 11/23/19 11/24/19 11/24/19 Unknown 08:01 08:01 WBC 11.72 H RBC 2.76 L Hgb 8.4 L Hct 27.8 L MCV 100.7 H MCH 30.4 MCHC 30.2 L RDW Std Deviation 57.0 H RDW Coeff of [place] 16.0 H Plt Count 297 MPV 9.9 Immature Gran % (Auto) 1.5 Neut % (Auto) 75.0 Lymph % (Auto) 9.0 [place] % (Auto) 13.6 Eos % (Auto) 0.7 Baso % (Auto) 0.2 Immature Gran # (Auto) 0.17 H Neut # (Auto) 8.80 H Lymph # (Auto) 1.06 L [place] # (Auto) 1.59 H Eos # (Auto) 0.08 Baso # (Auto) 0.02 Absolute Nucleated RBC 0.09 H Nucleated RBC % (auto) 0.8 Sodium 144 Potassium 3.9 Chloride 106 Carbon Dioxide 31 Anion Gap 8.0 BUN 146 H Creatinine 2.83 H Est Cr Clr Drug Dosing 27.9 Est GFR ( Amer) 23.5 Est GFR (Non-Af Amer) 20.3 BUN/Creatinine Ratio 51.5 H Glucose 117 H Calcium 8.6 Urine Color Yellow Urine Appearance Clear Urine pH 5.0 Ur Specific [place] 1.019 Urine Protein Negative Urine Glucose (UA) Negative Urine Ketones Negative Urine Blood Negative Urine Nitrite Negative Urine Bilirubin Negative Urine Urobilinogen Negative Ur Leukocyte Esterase 2+ H Urine WBC (Auto) >30 H Urine RBC (Auto) 0-4 U Hyaline Cast (Auto) 10-30 H U Epithel Cells (Auto) 5-10 H Urine Bacteria (Auto) Negative PG Care Time/CCT Total # of Minutes Spent Total Time Spent with Patient: Total time spent is greater than 50% in coordination of care (as documented) at patient's floor/unit and/or counseling patient: Coding Level of Care Code 47789 Subseq Hosp Care Lvl 3 Diagnoses Acute kidney failure N17.9 Acute renal failure type: unspecified Chronic kidney disease, stage III (moderate) N18.3 Aortic stenosis I35.0 Cardiac valve disease etiology: etiology unspecified (1) Acute kidney failure Acute renal failure type: unspecified Qualified Code(s): N17.9 - Acute kidney failure, unspecified (2) Aortic stenosis Cardiac valve disease etiology: etiology unspecified Qualified Code(s): I35.0 - Nonrheumatic aortic (valve) stenosis
--- NOTE | 2019-11-24 16:18 | Hospitalist Progress Note ---
Date of Service November 24, 2019 Assessment & Plan (1) Acute systolic (congestive) heart failure: * Secondary to severe ECHO with significant decline in left ventricular systolic function, EF 20-25%, mod LVH, mod-severe global hypokinesis, severe (via dimensionless index), mod MR, mild TR Suspect some degree of failure contributing to hypoxia * INCREASED Bumex to 2mg IV BID on 11/16 * changed to PO Bumex on 11/18, 2mg BID Cr trending up to 2.59 and BUN up to > 80 on 11/20, cut Bumex to 1mg BID Cr still elevated at 2.5, BUN up to 120, held Bumex on 11/21 Cr up to 2.7 and BUN is 134 on 11/22, gave one liter of NSS on 11/22 Cr up to 2.8 and BUN 146 on 11/23, he is making urine, examines euvolemic placed noyola for accurate output, he is incontinent and starting to have some scrotal irritation, want to prevent skin breakdown * Continue metoprolol tartrate 50mg BID * Episode of vtach evening of 11/14 and again on 11/17 and again on 11/19 need to determine if ICD can be placed, depends on family's wishes in regards to getting heart cath, TAVR etc transferred to PCU, started on Amiodarone evening of 11/17 due to additional prolonged V tach no further runs of V tach, convert Amiodarone to 400mg PO BID systolic HF with severe is palliative situation unless he would get TAVR, without plans for TAVR life expectancy is < 2 years his case is complicated by runs of V tach, at risk for sudden cardiac also he is non-ambulatory, has stage IV renal disease mary discussion with Luis Fuentes on 11/23, he understands that he and his brother Sathish need to determine if the patient would want hemodialysis if he would not want hemodialysis then there is no point in pursuing TAVR and ICD explained that HD is intended to improve quality of life for patient's, unsure that there would be any improvement in Jeremiah's situation he would be difficult to dialyze given his EF of 20% and severe and v tach would consider a palliative consult if they do NOT want HD, if they do then Dr. Doll can continue to follow patient and make recommendations (2) Severe aortic stenosis: * with cardiomyopathy * Cardiology on consult -- appreciate assistance * Repeat ECHO with significant decline in left ventricular systolic function, EF 20-25%, mod LVH, mod-severe global hypokinesis, severe (via dimensionless index), mod MR, mild TR * Will need TAVR in future vs Palliative Dr. Redding had discussion with [facility], he is not appropriate for transfer his overall prognosis is poor, patients with poor renal function and non- ambulatory tend to do worse, two biggest risk factors for poor outcome he would need to be stable as outpatient and follow up in clinic at [facility] unfortunately, at this time they are not seeing people due to the COVID 19 pand emic, so time frame of a visit is unknown, probably weeks to months at best now with worsening renal function, will need to discuss with family if they would consider him a dialysis candidate (3) Dyspnea: improved with diuresis, dyspnea entirely due to heart failure * Initially thought possible aspiration pneumonia. Patient with acute CHF secondary to valvular disease * Zosyn for presumed aspiration PNA (negative MRSA nasal swab, no vancomycin) -- continued for dual coverage UTI with proteus, corynebacterium urealyticum stop Zosyn 11/19, day 7 * reduce Bumex to 1mg BID, will now hold due to elevated BUN * Supplemental O2 as needed. Speech consulted -- diet changed to pureed given pt without dentures (at [place]) * Flutter Valve * DuoNeb QID PRN * Repeat CXR 11/22 with less edema, has effusions does not complain of dyspnea today, stable on 2L NC, no distress at all, likely his baseline breathing (4) JANY (acute kidney injury): * Cr trending up to 2.57, BuN up to 120 on 11/21 today Cr is up to 2.8, BUN up to 146, making urine via noyola gave NSS at 75cc/hr for one bag on 11/22, no further fluids repeat BMP in the morning d/w Dr. Doll, no further fluids, use Bumex as needed for pulmonry edema * Baseline Cr appears ~1.6 * Renal US ordered earlier in admission --> atrophic left kidney, likely con tributing to renal insufficiency * Renal dosing where needed, avoid nephrotoxic agents again, given his worsening renal function with heart failure and severe , would need to either consider TAVR or palliative approach family would like to refer outpatient to consider TAVR his poor renal function may even rule him out as a candidate, will need to be seen in clinic Dr. Doll plans to follow up with patient's family tomorrow about their decision on whether or not to pursue HD if needed (5) Elevated troponin: * Patient with known CAD, EKG evidence of prior ischemia. Presently with no complaint of CP. * Troponin elevated but trending down -- likely supply/demand mismatch given stress of acute CHF with severe . Not likely NSTEMI * EKG changes with nonspecific ST elevation in lead III * Cardiology consulted -- rec serial EKGs --> repeat EKG without evidence of ST elevation (6) Cardiomyopathy: * Secondary to valvular heart disease, severe * Will need ischemic work-up at some point prior to pursuing TAVR -- however, this would likely cause end stage renal failure * Likely secondary to progressive aortic stenosis (7) Acute on chronic renal failure: * See above. Cr up to 2.8 today (8) Chronic kidney disease, stage III (moderate): * likely has progressed to stage IV disease, makes overall prognosis worse, could progress to stage V soon (9) Urinary tract infection: * See above * UA with 3+ leuk esterase, >30WBC, 10-20 epi, 2+ bacteria * Culture with proteus, corynebacterium urealyticum == pansensitive except fluoroquinolones * On day 7 of Zosyn for dual coverage aspiration pneumonia/UTI, stop 11/19 * BCx NGTD (10) CAD (coronary artery disease), [place] coronary artery: * Elevated troponin, see above, trending down --> likely supply/demand mismatch as above * Continue home ASA, Atorvastatin, Plavix, Metoprolol (11) Mental retardation: * Noted -- patient lives at [facility]. MYKE Fuentse (Brother) * Supportive care (12) Skin tear of upper arm without complication: * Dressing in place. No evidence of infection. Dressing change as needed (13) DVT prophylaxis: * SCDs If patient unable to be optimized for TAVR, may need to consider palliation. (14) Ventricular tachycardia: several runs of V tach, one on 11/14 and then again on 11/17 and then a 2 minute run on 11/19, resolved with Amiodarone bolus no symptoms but patient at risk for sudden cardiac given his poor EF and change to Amiodarone 400mg BID, touch base with cardiology tomorrow about loading, likely 400mg BID for a week then 200mg BID consider ICD, however, this is only indicated if his life expectancy is > 1 year unsure at this time if he will be TAVR candidate, unlikely if he would get ICD, it would likely be at the same time as the TAVR CODE STATUS: change to conditional code, okay with shocks, medications, family does not want intubation/ventilator support Contacts: nephew MYKE Bardales [phone], difficult to contact during the day, works and he cannot apple picking supervisor his cell phone nephew Sathish Fuentes ([place]) [phone], easier to reach, just remember time difference Admission and Anticipated Discharge Date Admission Date: November 14, 2019 Anticipated date of discharge: 11/25/19 Subjective patient pleasant, no distress, wants more to drink, wants to know when he will go back to [facility] explained to him that we are still working on plan, he doesn't understand details due to mental disability d/w Dr. Doll today, his Cr and BUN trending up he had a long discussion with Sathish Fuentes, patient's nephew in [place], over the phone discussed that he may be approaching need for HD and that if he would get cath or proceed with TAVR in future, highly likely he would need HD patient's nephew will discuss with Luis Fuentes, his brother and POA this evening Sathihs still wants to consider the TAVR and get outpatient opinion stopped amiodarone drip today, started on 400mg BID to continue the loading process Cr up to 2.8 and BUN markedly elevated at 146, no current signs of uremia, K is 3.9 Bumex has been on hold, got fluids yesterday, no further fluids Dr. Doll spoke with Sathish Fuentes in [place], explained situation, discussed that there is a high likelihood of needing HD in the near future either his kidneys will continue to fail OR if they go the route of getting heart cath for TAVR that the kidneys will fail with NATALIE I later spoke with Luis Fuentes, patient's other nephew and POA, explained to him that the situation is very complex again, he cannot get the ICD at this time with life expectancy < 1yr, could get ICD if TAVR is performed cannot get TAVR without heart cath which will in all likelihood cause renal failure and the need for HD also, at this time his renal function is slowly worsening, BUN going up, may need HD soon even without a heart cath told Luis that he and Sathish need to have a serious talk about HD, patient is not a good candidate he is non-ambulatory, has systolic heart failure, severe , frequent V tach -- he is more of a palliative candidate HD would not change or improve Jeremiah's quality of life, Luis understood these points he and Sathish are going to talk this evening, Dr. Doll will talk with one of them tomorrow to get an answer Review of Systems Review of Systems: Unobtainable due to cognitive status (says he feels fine, wants more to drink) Physical Exam Constitutional: WD/WN, vitals as above Eyes: PERRL, conjunctivae normal, anicteric sclerae ENMT: external ear and nose normal, oropharynx normal Mouth: + dry oral mucous membranes Neck: trachea midline, no thyromegaly Respiratory: normal respiratory effort, lungs clear to auscultation Cardiovascular: Rate/Rhythm: regular rate and regular rhythm Heart Sounds: normal S1, normal S2 and + murmur (systolic) Vessels: no JVD Extremities: normal capillary refill; no edema Gastrointestinal (Abdomen): normal bowel sounds, soft, nontender, no hepatosplenomegaly Musculoskeletal: no cyanosis or clubbing, extremities motor strength 5/5 Skin: no rashes, warm and dry Neurologic: patellar DTR's 2+ bilat, sensation intact and PERRL, EOMI, accommodation nl, no face palsy, no dysarthria Psychiatric: Orientation: alert and oriented x 3 Estimated Intelligence: + below average estimated intelligence Lymphatic: no cervical or axillary lymphadenopathy Results & Data ([facility]) Vital Signs (Past 12 Hours) Vital Signs Temp Pulse Resp BP Pulse Ox 11/24/19 11:06 36.3 C L 67 19 96/62 L 100 11/24/19 07:10 36.4 C L 66 20 98/57 L 98 Laboratory Results Laboratory Results - last 24 hr 11/24/19 11/24/19 08:01 08:01 WBC 11.72 H RBC 2.76 L Hgb 8.4 L Hct 27.8 L MCV 100.7 H MCH 30.4 MCHC 30.2 L RDW Std Deviation 57.0 H RDW Coeff of Courtney 16.0 H Plt Count 297 MPV 9.9 Immature Gran % (Auto) 1.5 Neut % (Auto) 75.0 Lymph % (Auto) 9.0 Island % (Auto) 13.6 Eos % (Auto) 0.7 Baso % (Auto) 0.2 Immature Gran # (Auto) 0.17 H Neut # (Auto) 8.80 H Lymph # (Auto) 1.06 L [place] # (Auto) 1.59 H Eos # (Auto) 0.08 Baso # (Auto) 0.02 Absolute Nucleated RBC 0.09 H Nucleated RBC % (auto) 0.8 Sodium 144 Potassium 3.9 Chloride 106 Carbon Dioxide 31 Anion Gap 8.0 BUN 146 H Creatinine 2.83 H Est Cr Clr Drug Dosing 27.9 Est GFR ( Amer) 23.5 Est GFR (Non-Af Amer) 20.3 BUN/Creatinine Ratio 51.5 H Glucose 117 H Calcium 8.6 Medications Administered Current Inpatient Medications Acetaminophen (Tylenol) 650 mg PO Q6 PRN PRN Reason: Pain Stop: 12/14/19 06:00 Last Admin: 11/24/19 00:59 Dose: 650 mg Documented by: Albuterol (Ventolin 0.5% 2.5mg/0.5ml) 2.5 mg NEB Q2H PRN PRN Reason: SOB/Wheeze Stop: 12/14/19 06:00 Albuterol (Duoneb) 3 ml INH QIDR PRN PRN Reason: Shortness Of Breath Or Wheezing Stop: 12/14/19 06:59 Amiodarone HCl (Cordarone) 400 mg PO BIDM [facility] Stop: 12/24/19 16:59 Aspirin (Ecotrin Ectab) 81 mg PO DAILY [facility] Stop: 12/14/19 08:59 Last Admin: 11/24/19 08:19 Dose: 81 mg Documented by: Atorvastatin Calcium (Lipitor) 40 mg PO HS [facility] Stop: 12/14/19 20:59 Last Admin: 11/23/19 20:54 Dose: 40 mg Documented by: Bumetanide (Bumex) 1 mg PO BID17 [facility] Stop: 12/21/19 16:59 Last Admin: 11/22/19 07:34 Dose: 1 mg Documented by: Clopidogrel Bisulfate (Plavix) 75 mg PO DAILY [facility] Stop: 12/14/19 08:59 Last Admin: 11/24/19 08:19 Dose: 75 mg Documented by: Docusate Sodium (Colace) 100 mg PO BID PRN PRN Reason: Constipation Stop: 12/14/19 06:00 Metoprolol Tartrate (Lopressor) 50 mg PO BID [facility] Stop: 12/14/19 08:59 Last Admin: 11/24/19 08:19 Dose: Not Given Documented by: Ondansetron HCl (Zofran) 4 mg IV Q6H PRN PRN Reason: Nausea Stop: 12/14/19 06:00 Last Admin: 11/20/19 22:20 Dose: 4 mg Documented by: PG Care Time/CCT Total # of Minutes Spent Total Time Spent: 90 Total Time Spent with Patient: Total time spent is greater than 50% in coordination of care (as documented) at patient's floor/unit and/or counseling patient: visited patient twice, spoke at length with DR. Doll twice, long phone conversation with patient's nephew Luis Fuentes Prolonged Care Time Prolonged Care Time: Yes Total Prolonged Care Time: 30 Coding Level of Care Code 01671 Subseq Hosp Care Lvl 3 Diagnoses Acute systolic (congestive) heart failure I50.21 Severe aortic stenosis I35.0 Dyspnea R06.02; R06.00; R06.01 Dyspnea type: shortness of breath JANY (acute kidney injury) N17.9 Elevated troponin R74.8 Cardiomyopathy I42.9 Acute on chronic renal failure N17.9; N18.3 Acute renal failure type: unspecified Chronic kidney disease stage: stage 3 (moderate) Chronic kidney disease, stage III (moderate) N18.3 Urinary tract infection N39.0 CAD (coronary artery disease), [place] coronary artery I25.10 Associated angina: without angina [place] vs. transplanted heart: [place] heart Mental retardation F79 Skin tear of upper arm without complication S41.111A Encounter type: initial encounter Laterality: right DVT prophylaxis Z29.9 Ventricular tachycardia I47.2 Additional Codes Prolonged Care Time - Prolonged Care Time: Yes ([id number]) (1) Skin tear of upper arm without complication Encounter type: initial encounter Laterality: right Qualified Code(s): S41.111A - Laceration without foreign body of right upper arm, initial encounter (2) Dyspnea Dyspnea type: shortness of breath Qualified Code(s): R06.02 - Shortness of breath; R06.00 - Dyspnea, unspecified; R06.01 - Orthopnea (3) CAD (coronary artery disease), [place] coronary artery Associated angina: without angina [place] vs. transplanted heart: [place] heart Qualified Code(s): I25.10 - Atherosclerotic heart disease of [place] coronary artery without angina pectoris (4) Acute on chronic renal failure Acute renal failure type: unspecified Chronic kidney disease stage: stage 3 (moderate) Qualified Code(s): N17.9 - Acute kidney failure, unspecified; N18.3 - Chronic kidney disease, stage 3 (moderate)
[2019-11-24] MEDS: AMIODARONE 200 MG TAB PO SCH (16:21)
[2019-11-24] MEDS: ATORVASTATIN 40 MG TAB PO SCH (20:13)
[2019-11-24] MEDS ORDERED: COUGH DROP (SUGAR FREE) LOZ 24 LOZ/1 BOX BUCCAL ONE (22:50)
[2019-11-25 06:57] LABS: Hematocrit (blood only) 26.1 % (42-52); Mean Corpuscular Hemoglobin 30.5 pg (25-34); Mean Corpuscular Hgb Conc 30.7 g/dL (32-36); Mean Corpuscular Volume 99.6 fL (80-100); Mean Platelet Volume 10.3 fL (7.4-10.4); Nucleated RBC # (auto) 0.07 K/uL (0-0); Nucleated RBC % (auto) 0.6 %; Platelet Count 259 K/uL (130-400); RDW Coefficient of Variation 16.3 % (11.5-14.5); RDW Standard Deviation 57.6 fL (36.4-46.3); Red Blood Count 2.62 M/uL (4.7-6.1); White Blood Count 11.34 K/uL (4.8-10.8)
[2019-11-25 07:25] LABS: BUN Creatinine Ratio 48.7 (10-20); Calcium 8.6 mg/dl (8.5-10.1); Creatinine Clr Calc Pharmacy 26.9 ml/min; Est GFR (African American) 22.4; Est GFR (Non-African American) 19.3; Potassium 3.6 mmol/L (3.5-5.1)
[2019-11-25] MEDS: AMIODARONE 200 MG TAB PO SCH ×2 (08:26→17:30)
[2019-11-25] MEDS: CLOPIDOGREL BISULFATE 75 MG TAB PO SCH (08:26)
[2019-11-25] MEDS: ASPIRIN 81 MG ECTAB PO SCH (08:26)
[2019-11-25] MEDS: METOPROLOL TARTRATE 50 MG TAB PO SCH ×2 (08:26→20:32)
--- NOTE | 2019-11-25 10:13 | Nephrology Progress Note ---
Date of Service November 25, 2019 Assessment & Plan (1) Acute kidney failure: -- JANY/CKD due to poor renal perfusion associated w/ severe , cardiomyopathy, and diuretics. Non-oliguric. Even fluid balance in past 24 hours with diuretics held. -- I spoke to Sathish Fuentes over the phone yesterday. I reviewed my concerns about Link's condition. Link unfortunately has multiple medical comorbidities and a poor overall prognosis. Thankfully, he feels well and current symptom burden appears minimal. Unfortunately, his function status is severely limited at baseline. His kidney function has declined significantly. It is certainly unclear whether he will ever be a candidate for intervention regard ing his cardiac disease. -- I would not expect hemodialysis to provided therapeutic benefit. I worry that the burden of treatments and risks given the patient's underlying cardiac (severe valvular heart disease, cardiomyopathy with reduced LV function, recurrent VT without ICD) could make his condition worse. Link is unfortunately a very poor candidate for hemodialysis. I explained this to Sathish Calhoun yesterday. Sathish expressed understanding. He told me that he would discuss with Luis yesterday. I tried to follow up with Luis today but was not able to reach him. I will follow up with Sathish this afternoon. -- Hold additional IVF for now. Bumex held. Goal will be to encourage an even fluid balance as tolerated. -- I appreciate cardiology's continued assistance in management of this complex patient. -- Creatinine rising which I suspect is hemodynamically mediated due to recurrent ventricular tachycardia, decreased EAV, and possible ATN. Thankfully, electrolytes are within normal limits, urine output is acceptable, and volume status is reasonable. There is no emergent indication for dialysis at this time. -- Please document strict I/O's. -- Repeat metabolic profile tomorrow AM. -- Medications are currently appropriately dosed for kidney function. -- Continued cardiology input is greatly appreciated. My impression is that even with hemodialysis Link is unlikely to be a reasonable candidate for TAVR. Palliative care should be considered given the patient's limited life expectancy, adjusted goals of care (including conditional code), and overall burden of treatments. (2) Chronic kidney disease, stage III (moderate): -- Baseline Cr 1.6. (3) Aortic stenosis: -- As above. Subjective No acute events overnight. Link feels well this morning. I saw Link during breakfast. He was very pleasant and did not have any complaints. Link stated that he did not talk to Luis or Sathish. He also said that he wants to go home. He is not able to demonstrate any understanding regarding his medical conditions. I have tried to contact Luis Fuentes more than once today but there has been no answer. I will follow up with Sathish later this afternoon. Review of Systems Review of Systems: Unobtainable due to mental health condition limited but Link denies any pain. He denies shortness of breath. Appetite is good. Physical Exam Constitutional: + frail appearing; no acute distress Eyes: + anicteric sclerae ENMT: Mouth: + oral mucosal abnormality and + dry oral mucous membranes Neck: normal visual inspection and trachea midline Respiratory: normal respiratory effort Auscultation: lungs clear to auscultation bilaterally and + rales Cardiovascular: Rate/Rhythm: regular rate Heart Sounds: + murmur Vessels: no JVD Extremities: + edema (+1 pitting below the knee and dependent) Psychiatric: Orientation: alert and cooperative Results & Data Vital Signs (Past 12 Hours) Vital Signs Temp Pulse Resp BP Pulse Ox 11/25/19 07:35 36.3 C L 69 24 93/60 L 99 11/25/19 03:52 36.4 C L 67 18 92/64 L 99 11/24/19 23:14 36.7 C 68 18 95/61 L 98 Laboratory Results Laboratory Results - last 24 hr 11/25/19 11/25/19 06:12 06:12 WBC 11.34 H RBC 2.62 L Hgb 8.0 L Hct 26.1 L MCV 99.6 MCH 30.5 MCHC 30.7 L RDW Std Deviation 57.6 H RDW Coeff of Courtney 16.3 H Plt Count 259 MPV 10.3 Absolute Nucleated RBC 0.07 H Nucleated RBC % (auto) 0.6 Sodium 143 Potassium 3.6 Chloride 104 Carbon Dioxide 30 Anion Gap 9.0 BUN 143 H Creatinine 2.94 H Est Cr Clr Drug Dosing 26.9 Est GFR ( Amer) 22.4 Est GFR (Non-Af Amer) 19.3 BUN/Creatinine Ratio 48.7 H Glucose 147 H Calcium 8.6 PG Care Time/CCT Total # of Minutes Spent Total Time Spent with Patient: Total time spent is greater than 50% in coordination of care (as documented) at patient's floor/unit and/or counseling patient: Coding Level of Care Code 09137 Subseq Hosp Care Lvl 3 Diagnoses Acute kidney failure N17.9 Acute renal failure type: unspecified Chronic kidney disease, stage III (moderate) N18.3 Aortic stenosis I35.0 Cardiac valve disease etiology: etiology unspecified (1) Acute kidney failure Acute renal failure type: unspecified Qualified Code(s): N17.9 - Acute kidney failure, unspecified (2) Aortic stenosis Cardiac valve disease etiology: etiology unspecified Qualified Code(s): I35.0 - Nonrheumatic aortic (valve) stenosis
--- NOTE | 2019-11-25 12:30 | Cardiology Progress Note ---
Date of Service November 25, 2019 Assessment & Plan (1) Ventricular tachycardia: Currently on oral amiodarone. Should be nearly loaded at this point and his heart rate response is somewhat blunted for his clinical context, therefore would reduce dose from 400 mg BID to 200 mg BID now, if no further sustained ventricular dysrhythmias over the next 48 hours could then reduce to 200 mg b.i.d..(on Monday) (2) Severe aortic stenosis: Medical management. As noted in Dr. Becerril' note, I spoke with Dr. Alfred Kirk at [facility] regarding the risks/benefit ratio of proceeding to transcatheter aortic valve replacement (TAVR), he felt that Mr. Fuentes was a poor candidate on multiple grounds includin. Renal compromise is a major predictor of TAVR failure. 2. Nonambulatory status is major predictor of TAVR failure. 3. Patient should have achieved stable outpatient status prior to TAVR (procedure not performed on patient's ill enough to require ongoing hospitalization). 4. During the COVID-19 pandemic, [id number] transfers are on hold, due to the risk of acquiring an infection. The fact that he is not a candidate for TAVR and the implications were discussed with the patient's relative Dr. Sathish Fuentes last Monday. The patient's code status was changed to do not intubate. Further discussions are underway regarding the appropriateness of dialysis and additional evaluation regarding the aggressiveness of care. (3) Acute systolic (congestive) heart failure: Appears mildly hypovolemic, agree with holding diuretics further. His mild hypotension is asymptomatic, if he were to become symptomatic might even need to consider small bolus of IV fluids given his severe aortic stenosis. (4) CKD (chronic kidney disease), stage IV: Per Nephrology. (5) Intellectual disability: Care management plans have been discussed with family members. Admission and Anticipated Discharge Date Admission Date: November 14, 2019 Anticipated date of discharge: 11/25/19 Subjective Uneventful might. [facility] He denies any chest pain or dyspnea. He said he feels pretty good BUN/creatinine remain elevated. BP slightly hypotensive. Heart rate mostly 60s. Occasional ventricular couplets and triplets but no runs of ventricular tachycardia. Physical Exam Physical Exam: Elderly white male who appears comfortable. Skin: No ecchymoses or generalized lesions. HEENT: Unremarkable. Neck: Jugular venous pulse just below the clavicle at 90 degrees. Carotids with soft transmitted murmur from aortic valve. Lungs: Dullness at the bases but generally clear. Cardiac: Faint systolic murmur right upper sternal border, also harsh 2/6 systolic ejection murmur best heard over the apex. Aortic closure sound inaudible. No diastolic murmur or distant gallop. Abdomen:Nondistended. Some mild to moderate scrotal edema noted. Extremities:1+ pretibial edema, peripheral pulses intact. Neurologic: Some difficulty communicating, does answer simple questions appropriately. Grossly nonfocal. Results & Data ([facility]) Vital Signs (Past 12 Hours) Vital Signs Temp Pulse Pulse Resp BP Pulse Ox 11/25/19 12:17 97.9 F 73 18 99/64 L 99 11/25/19 10:39 66 11/25/19 07:35 97.3 F L 69 24 93/60 L 99 11/25/19 03:52 97.5 F L 67 18 92/64 L 99 Laboratory Results 11/25/19 06:12 BUN 143 H Creatinine 2.94 H Diagnostic Findings 11/22 chest x-ray showed slight improvement in CHF/pleural effusions. PG Care Time/CCT Total # of Minutes Spent Total Time Spent with Patient: Total time spent is greater than 50% in coordination of care (as documented) at patient's floor/unit and/or counseling patient: Coding Level of Care Code 35824 Subseq Hosp Care Lvl 3 Diagnoses Ventricular tachycardia I47.2 Severe aortic stenosis I35.0 Acute systolic (congestive) heart failure I50.21 CKD (chronic kidney disease), stage IV N18.4 Intellectual disability F79
--- NOTE | 2019-11-25 15:04 | Hospitalist Progress Note ---
Date of Service November 25, 2019 Assessment & Plan (1) Acute systolic (congestive) heart failure: * Secondary to severe ECHO with significant decline in left ventricular systolic function, EF 20-25%, mod LVH, mod-severe global hypokinesis, severe (via dimensionless index), mod MR, mild TR Suspect some degree of failure contributing to hypoxia * INCREASED Bumex to 2mg IV BID on 11/16 * changed to PO Bumex on 11/18, 2mg BID Cr trending up to 2.59 and BUN up to > 80 on 11/20, cut Bumex to 1mg BID Cr still elevated at 2.5, BUN up to 120, held Bumex on 11/21 Cr up to 2.7 and BUN is 134 on 11/22, gave one liter of NSS on 11/22 Cr up to 2.8 and BUN 146 on 11/23, he is making urine, examines euvolemic Cr up further to 2.94 and BUN 143 on 11/24, continues to be nonoliguric- continue to hold Bumex placed noyola for accurate output, he is incontinent and starting to have some scrotal irritation, want to prevent skin breakdown As per cardiology discussion here with cardiology at [facility], he is a very poor TAVR candidate mostly due to his renal failure. Please refer to cardiology notes. * Continue metoprolol tartrate 50mg BID * Episode of vtach evening of 11/14 and again on 11/17 and again on 11/19 need to determine if ICD can be placed, depends on family's wishes in regards to getting heart cath, TAVR etc transferred to PCU, started on Amiodarone evening of 11/17 due to additional prolonged V tach no further runs of V tach, convert Amiodarone to 400mg PO BID systolic HF with severe is palliative situation unless he would get TAVR, without plans for TAVR life expectancy is < 2 years his case is complicated by runs of V tach, at risk for sudden cardiac also he is non-ambulatory, has stage IV renal disease Previous hospitalist had a long discussion with Luis Fuentes (POA) on 11/23, he understands that he and his brother Sathish need to determine if the patient would want hemodialysis-discussed with nephrology on 11/24 and they have decided that hemodialysis is not desired -Therefore there is no point in pursuing TAVR and ICD-and he is noted to be a very poor candidate anyway as per cardiology at [facility] -We will consult palliative care for goals of care discussion and possible hospice referral (2) Severe aortic stenosis: * with cardiomyopathy as above * Cardiology on consult -- appreciate assistance * Repeat ECHO with significant decline in left ventricular systolic function, EF 20-25%, mod LVH, mod-severe global hypokinesis, severe (via dimensionless index), mod MR, mild TR * Very poor candidate for TAVR as above Dr. Redding had discussion with [facility], he is not appropriate for transfer his overall prognosis is poor, patients with poor renal function and non- ambulatory tend to do worse, two biggest risk factors for poor outcome he would need to be stable as outpatient and follow up in clinic at [facility] unfortunately, at this time they are not seeing people due to the COVID 19 pandemic, so time frame of a visit is unknown, probably weeks to months at best No plans to pursue hemodialysis ever in the future as above (3) Dyspnea: improved with diuresis, dyspnea entirely due to heart failure * Initially thought possible aspiration pneumonia. Patient with acute CHF secondary to valvular disease * Zosyn for presumed aspiration PNA (negative MRSA nasal swab, no vancomycin) -- continued for dual coverage UTI with proteus, corynebacterium urealyticum stopped Zosyn 11/19, day 7 * Continue to hold Bumex due to elevated BUN * Supplemental O2 as needed. Speech consulted -- diet changed to pureed given pt without dentures (at [facility]) * Flutter Valve * DuoNeb QID PRN * Repeat CXR 11/22 with less edema, has effusions does not complain of dyspnea today, stable on 2L NC, no distress at all, likely his baseline breathing (4) JANY (acute kidney injury): * Cr continues to be trending up to 2.9 BUN up to 143 * Baseline Cr appears ~1.6 * Renal US ordered earlier in admission --> atrophic left kidney, likely contributing to renal insufficiency * Renal dosing where needed, avoid nephrotoxic agents * Again, no hemodialysis needed at this time and is not an option for in the future as per family wishes * Appreciate nephrology consultation * Follow BMP in the morning * Consider enrollment in hospice as above (5) Elevated troponin: * Patient with known CAD, EKG evidence of prior ischemia. Presently with no complaint of CP. * Troponin elevated but trended down -- likely supply/demand mismatch given stress of acute CHF with severe . Not likely NSTEMI * EKG changes with nonspecific ST elevation in lead III * Cardiology consulted -- rec serial EKGs --> repeat EKG without evidence of ST elevation (6) Cardiomyopathy: * Secondary to valvular heart disease, severe * As above (7) Chronic kidney disease, stage III (moderate): * likely has progressed to stage IV disease, makes overall prognosis worse (8) Urinary tract infection: * See above * UA with 3+ leuk esterase, >30WBC, 10-20 epi, 2+ bacteria * Culture with proteus, corynebacterium urealyticum == pansensitive except fluoroquinolones * Completed 7 days of Zosyn for dual coverage aspiration pneumonia/UTI, stopped on 11/19 * BCx NGTD (9) CAD (coronary artery disease), [place] coronary artery: * Elevated troponin, see above, trending down --> likely supply/demand mismatch as above * Continue home ASA, Atorvastatin, Plavix, Metoprolol (10) Mental retardation: * Noted -- [facility]. EMILIJuventino Smith Gina (Brother) * Supportive care (11) Skin tear of upper arm without complication: * Dressing in place. No evidence of infection. Dressing change as needed (12) Ventricular tachycardia: several runs of V tach, one on 11/14 and then again on 11/17 and then a 2 minute run on 11/19, resolved with Amiodarone bolus no symptoms but patient at risk for sudden cardiac given his poor EF and change to Amiodarone 400mg BID for the last week-cardiology recommends decreasing to 200mg BID today consider ICD, however, this is only indicated if his life expectancy is > 1 year-not likely (13) Anemia: Hemoglobin down 8.0, macrocytic Likely anemia of chronic renal disease but could have nutrient deficiencies -Check iron studies, B12, folate -Follow CBC in the morning (14) DVT prophylaxis: * SCDs Disposition-hopeful for back to custodial with possible hospice CODE STATUS: change to conditional code, okay with shocks, medications, family does not want intubation/ventilator support Contacts: nephew Luis Fuentes, [facility] [phone], difficult to contact during the day, works and he cannot berry picker machine operator his cell phone nephew Sathish Fuentes ([place]) [phone], easier to reach, just remember time difference Admission and Anticipated Discharge Date Admission Date: November 14, 2019 Anticipated date of discharge: 11/26/19 Subjective Patient asked me when he is going home. He also asked for a poncho aram. Otherwise, he denies pain. Discussed the case with nephrology Review of Systems Review of Systems: All systems reviewed & are unremarkable except as noted in HPI & below Physical Exam Constitutional: + ill appearing and + obese Eyes: + anicteric sclerae Neck: trachea midline, no thyromegaly Respiratory: normal respiratory effort Auscultation: + diminished lung sounds (At the bases bilaterally); no wheezes Cardiovascular: Rate/Rhythm: regular rate and regular rhythm Heart Sounds: + murmur (3/6 systolic murmur at the right upper sternal border) Extremities: + edema (1+ pitting edema to the knees bilaterally) Chest (Breasts): Chest: normal inspection of chest Gastrointestinal (Abdomen): normal bowel sounds, soft, nontender, no hepatosplenomegaly Musculoskeletal: Extremities: no cyanosis and no clubbing Skin: no rashes, warm and dry Neurologic: moves all extremities and awake; no focal motor deficits Psychiatric: Orientation: alert and cooperative Genitourinary: Noyola catheter in place Lymphatic: no lymphedema Results & Data ([facility]) Vital Signs (Past 12 Hours) Vital Signs Temp Pulse Pulse Resp BP Pulse Ox 11/25/19 15:01 36.4 C L 69 19 106/71 100 11/25/19 12:17 36.6 C 73 18 99/64 L 99 11/25/19 10:39 66 11/25/19 07:35 36.3 C L 69 24 93/60 L 99 11/25/19 03:52 36.4 C L 67 18 92/64 L 99 Laboratory Results 11/25/19 11/25/19 Range/Units 06:12 06:12 WBC 11.34 H (4.8-10.8) K/uL RBC 2.62 L (4.7-6.1) M/uL Hgb 8.0 L (14.0-18.0) g/dL Hct 26.1 L (42-52) % MCV 99.6 (80-100) fL MCH 30.5 (25-34) pg MCHC 30.7 L (32-36) g/dL RDW Std Deviation 57.6 H (36.4-46.3) fL RDW Coeff of Courtney 16.3 H (11.5-14.5) % Plt Count 259 (130-400) K/uL MPV 10.3 (7.4-10.4) fL Absolute Nucleated RBC 0.07 H (0-0) K/uL Nucleated RBC % (auto) 0.6 % Sodium 143 (136-145) mmol/L Potassium 3.6 (3.5-5.1) mmol/L Chloride 104 (98-107) mmol/L Carbon Dioxide 30 (21-32) mmol/L Anion Gap 9.0 (3-11) BUN 143 H (7-18) mg/dl Creatinine 2.94 H (0.6-1.4) mg/dl Est Cr Clr Drug Dosing 26.9 ml/min Est GFR ( Amer) 22.4 Est GFR (Non-Af Amer) 19.3 BUN/Creatinine Ratio 48.7 H (10-20) Glucose 147 H (70-99) mg/dl Calcium 8.6 (8.5-10.1) mg/dl PG Care Time/CCT Total # of Minutes Spent Total Time Spent with Patient: Total time spent is greater than 50% in coordination of care (as documented) at patient's floor/unit and/or counseling patient: Coding Level of Care Code 86287 Subseq Hosp Care Lvl 2 Diagnoses Acute systolic (congestive) heart failure I50.21 Severe aortic stenosis I35.0 Dyspnea R06.02; R06.00; R06.01 Dyspnea type: shortness of breath JANY (acute kidney injury) N17.9 Elevated troponin R74.8 Cardiomyopathy I42.9 Chronic kidney disease, stage III (moderate) N18.3 Urinary tract infection N39.0 CAD (coronary artery disease), [place] coronary artery I25.10 Associated angina: without angina [place] vs. transplanted heart: [place] heart Mental retardation F79 Skin tear of upper arm without complication S41.111A Encounter type: initial encounter Laterality: right Ventricular tachycardia I47.2 Anemia D64.9 DVT prophylaxis Z29.9 (1) Skin tear of upper arm without complication Encounter type: initial encounter Laterality: right Qualified Code(s): S41.111A - Laceration without foreign body of right upper arm, initial encounter (2) Dyspnea Dyspnea type: shortness of breath Qualified Code(s): R06.02 - Shortness of breath; R06.00 - Dyspnea, unspecified; R06.01 - Orthopnea (3) CAD (coronary artery disease), [place] coronary artery Associated angina: without angina [place] vs. transplanted heart: [place] heart Qualified Code(s): I25.10 - Atherosclerotic heart disease of [place] coronary artery without angina pectoris
[2019-11-25] MEDS: ATORVASTATIN 40 MG TAB PO SCH (20:32)
[2019-11-26 06:27] LABS: Hematocrit (blood only) 24.8 % (42-52); Hemoglobin 7.4 g/dL (14.0-18.0); Mean Corpuscular Hemoglobin 30.3 pg (25-34); Mean Corpuscular Hgb Conc 29.8 g/dL (32-36); Mean Corpuscular Volume 101.6 fL (80-100); Mean Platelet Volume 10.2 fL (7.4-10.4); Nucleated RBC # (auto) 0.06 K/uL (0-0); Nucleated RBC % (auto) 0.7 %; Platelet Count 247 K/uL (130-400); RDW Coefficient of Variation 16.3 % (11.5-14.5); RDW Standard Deviation 58.1 fL (36.4-46.3); Red Blood Count 2.44 M/uL (4.7-6.1); White Blood Count 8.72 K/uL (4.8-10.8)
[2019-11-26 06:35] LABS: Basophils # (auto) 0.01 K/uL (0-0.2); Basophils % (auto) 0.1 %; Eosinophils # (auto) 0.09 K/uL (0-0.5); Giant Platelets 1+; Immature Granulocytes # (auto) 0.08 K/uL (0.00-0.02); Immature Granulocytes % (auto) 0.9 %; Lymphocytes # (auto) 0.61 K/uL (1.2-3.4); Monocytes # (auto) 1.26 K/uL (0.11-0.59); Monocytes % (auto) 14.4 %; Neutrophils # (auto) 6.67 K/uL (1.4-6.5); Neutrophils % (auto) 76.6 %; Polychromasia 2+
[2019-11-26 06:36] LABS: BUN Creatinine Ratio 47.9 (10-20); Calcium 8.7 mg/dl (8.5-10.1); Creatinine Clr Calc Pharmacy 26.5 ml/min; Est GFR (African American) 21.8; Est GFR (Non-African American) 18.8; Potassium 3.6 mmol/L (3.5-5.1)
[2019-11-26 06:42] LABS: Ferritin 46.1 ng/ml (8-388)
[2019-11-26] MEDS: METOPROLOL TARTRATE 50 MG TAB PO SCH (07:52)
[2019-11-26] MEDS: CLOPIDOGREL BISULFATE 75 MG TAB PO SCH (07:52)
[2019-11-26] MEDS: ASPIRIN 81 MG ECTAB PO SCH (07:52)
[2019-11-26] MEDS ORDERED: AMIODARONE 200 MG TAB PO SCH (08:00)
[2019-11-26 08:45] LABS: Folate (Folic Acid) 23.14 ng/ml (>5.38)
--- NOTE | 2019-11-26 08:47 | Palliative Care Consultation ---
Date of Consultation November 26, 2019 Assessment & Plan (1) Goals of care, counseling/discussion: This patient is a 79 year old male who is a permanent resident of [facility] presented to the [facility] with cough, increased SOB and abdominal pain. Additional PMH includes: intellectual disability, mod/severe , CKD, diastolic CHF and HTN. The patient has had a lengthy hospital course with him having treatment of CHF, and JANY. An ECHO has been obtained and results indicate significant decline in left ventricular systolic function, EF 20-25%, mod LVH, moderate Mitral Regurgitation, mild Tricuspid regurgitation. The patient has been worked up from a Cardiology standpoint and a TAVR was discussed. Unfortunately, this patient is a poor candidate and surgery has not been recommended due to his anticipated poor post-operatively course related to his non-ambulatory status and with his renal compromise. He has been optimized with oral regimen at this time. Nephrology has seen this patient and his renal function has continued to decline: with his creatinine of 2.59 on November 20 to 2 .94 on 11/24. He is non-oliguric. The patient has had a few days where he has gone into VT and discussions are necessary to be held regarding the familys goals of care regarding an ICD placement and overall long-term goals of care. Palliative Care was consulted. -I met with the patient in room 242-2. He was sitting upright in his bed in no apparent distress. -He was able to tell me he was in the hospital and that he wanted "[place]", which, per staff, he has asked for multiple times today. He also repeatedly stated "I want to go home", meaning [facility]. -The patient was able to follow simple commands, but is a poor historian related to his goals of care. -Today, the patients WBC has normalized; however, his Hgb has dropped one gram since 11/22. 8.4--> 7.4. His Fe+ levels are also low, so the patient could ultimately receive an Fe+ infusion compared to a PRBC, based on family wishes. Patient slightly hypotensive 104/69, but otherwise, appears asymptomatic. -I did reach out to Luis Fuentes, his nephew, and left a message [phone]. Apparently, he is the POA, but is difficult to reach during daytime hours. His other nephew is involved, Sathish, who is in [place] [phone]. Will reach out later an an appropriate time of day. -We did to discuss the patients families overall goal, which appears to be more conservative thus far as they have decided against hemodialysis and a TAVR is not appropriate at this time either. -I would like to discuss his code status, currently he is a conditional code. -Additionally, a POLST form would be helpful prior to his discharge indicating their thoughts regarding future hospitalizations. -Ultimately, this patient has multiple comorbidities which would made him appropriate for hospice services should the family be interested in this approach. Currently, he is on a fluid restriction, which could be lifted if the family wants to focus more on comfort feedings and risk vs benefit. -Will discuss further with case management once discussion with nephews is held. We will follow. -PPS: 20% (2) CKD (chronic kidney disease), stage IV: (3) Acute systolic (congestive) heart failure: (4) Ventricular tachycardia: (5) Aspiration pneumonia: Aspiration pneumonia type: due to vomit Laterality: bilateral Lung location: lower lobe of lung Qualified Code(s): J69.0 - Pneumonitis due to inhalation of food and vomit (6) Intellectual disability: (7) Severe aortic stenosis: Supervising Physician Co-Signing Physician Notes Chart reviewed, patient seen and examined. One-to-one sitter at bedside. Spoke with patient's POA's -Palak. Rosario stated she has been the patient's caregiver for many years. Palak reports that patient's deangelo life is eating and drinking poncho aram. Dr. Wheeler was able to speak with patient's nephew, Luis who is his POA-plan is to give some IV iron and return to [facility] later today with hospice for comfort care Rosario has had prior experience with hospice and understands the goals of comfort, will lift patient's fluid restriction or any dietary restrictions. Family in agreement's. PE: Patient awake and alert, appears comfortable HEENT: EOMI, hearing within normal limits Respirations: Unlabored: Coarse breath sounds bilaterally, on O2 at 2 L CV: Regular rate, 1-2+ pitting edema to the level of the upper thighs bilaterally-left greater than right Abdomen: Soft, nontender Neuro: Awake and alert, positive intellectual disability Agree with above note, assessment and plan as per YESICA Borrego-plan is to return to [facility] under hospice care History of Present Illness Reason for Consultation: Goals of Care Requesting Physician: Dr. Wheeler Attending Physician: Zandra Wheeler MD History of Present Illness This patient is a 79 year old male who is a permanent resident of [facility] presented to the [facility] with cough, increased SOB and abdominal pain. Additional PMH includes: intellectual disability, mod/severe , CKD, diastolic CHF and HTN. The patient has had a lengthy hospital course with him having treatment of CHF, and JANY. An ECHO has been obtained and results indicate significant decline in left ventricular systolic function, EF 20-25%, mod LVH, moderate Mitral Regurgitation, mild Tricuspid regurgitation. The patient has been worked up from a Cardiology standpoint and a TAVR was discussed. Unfort unately, this patient is a poor candidate and surgery has not been recommended due to his anticipated poor post-operatively course related to his non- ambulatory status and with his renal compromise. He has been optimized with oral regimen at this time. Nephrology has seen this patient and his renal function has continued to decline: with his creatinine of 2.59 on November 20 to 2.94 on 11/24. He is non-oliguric. The patient has had a few days where he has gone into VT and discussions are necessary to be held regarding the familys goals of care regarding an ICD placement and overall long-term goals of care. Palliative Care was consulted. Please see A/P for further details. Thank you kindly for involving the Palliative Care team with this patient. Allergies Allergy/AdvReac Type Severity Reaction Status Date / Time No Known Allergies Allergy Unverified 11/14/19 04:10 Home Medications Home Medications Medication Instructions Recorded Confirmed Type acetaminophen 650 mg PO Q6 PRN MDD 3gm/24hrs 11/14/19 11/14/19 History acetaminophen 650 mg PO Q6 PRN MDD 3gm/24hrs 11/14/19 11/14/19 History ascorbic acid (vitamin C) 500 mg PO BID 11/14/19 11/14/19 History aspirin 81 mg PO DAILY 11/14/19 11/14/19 History atorvastatin 40 mg PO HS 11/14/19 11/14/19 History bumetanide 1 mg PO DAILY 11/14/19 11/14/19 History clopidogrel 75 mg PO DAILY 11/14/19 11/14/19 History docusate sodium [Colace] 100 mg PO BID PRN 11/14/19 11/14/19 History ipratropium-albuterol 3 ml INHALATION QID 11/14/19 11/14/19 History metoprolol tartrate 50 mg PO BID 11/14/19 11/14/19 History multivitamin with minerals 1 tab PO DAILY 11/14/19 11/14/19 History [Multiple Vitamin-Minerals] Patient History Medical History (Updated 11/26/19 @ 08:46 by YESICA Borrego) Anemia Aortic stenosis CAD (coronary artery disease), [place] coronary artery Chronic diastolic CHF (congestive heart failure) Chronic kidney disease, stage 3a Chronic kidney disease, stage III (moderate) Goals of care, counseling/discussion Mental retardation (Chronic) Nonsustained ventricular tachycardia Surgical History No significant past surgical history Family History Family history non-contributory Social History Preferred Language: Colombian Communication Ability: Impaired Collections Representative Required: No marital status: Single Current Living Situation: Retirement Current Living Situation Comment: [facility]ie Feels Safe at Home: Yes Smoking Status: Unknown if ever smoked Review of Systems Review of Systems: Unobtainable due to cognitive status (Patient does deny pain) Physical Exam Constitutional: + ill appearing and cooperative Respiratory: symmetric chest movement Auscultation: + diminished lung sounds and + wheezes (expiratory anteriorly ) Cardiovascular: Rate/Rhythm: regular rate and regular rhythm Heart Sounds: normal S1, normal S2 and + murmur (Grade IV/ LSB ) Extremities: normal capillary refill and + edema (bilateral +1 pitting edema ) Gastrointestinal (Abdomen): normal bowel sounds, soft, nontender, no hepatosplenomegaly Inspection/Auscultation: abdomen normal to inspection and + abdomen distended Skin: no rashes, warm and dry Psychiatric: Orientation: alert and oriented x 3 Estimated Intelligence: + below average estimated intelligence Insight: + limited insight Judgement: + limited judgement Genitourinary: indwelling noyola catheter in place, draining concentrated yellow Lymphatic: no cervical or axillary lymphadenopathy Results & Data Vital Signs (Past 12 Hours) Vital Signs Temp Pulse Pulse Resp BP BP Pulse Ox 11/26/19 07:46 36.8 C 63 24 104/69 100 11/26/19 03:32 36.4 C L 64 18 93/57 L 97 11/26/19 00:09 69 11/25/19 22:44 36.4 C L 69 20 108/75 98 PG Care Time/CCT Total # of Minutes Spent Total Time Spent with Patient: Total time spent is greater than 50% in coordination of care (as documented) at patient's floor/unit and/or counseling patient: 70 Prolonged Care Time Prolonged Care Time: Yes Total Prolonged Care Time: 30 Coding Level of Care Code 14808 Inpt Consult Level 3 Diagnoses Goals of care, counseling/discussion Z71.89 CKD (chronic kidney disease), stage IV N18.4 Acute systolic (congestive) heart failure I50.21 Ventricular tachycardia I47.2 Aspiration pneumonia J69.0 Aspiration pneumonia type: due to vomit Laterality: bilateral Lung location: lower lobe of lung Intellectual disability F79 Severe aortic stenosis I35.0 Additional Codes Prolonged Care Time - Prolonged Care Time: Yes ([id number]) Time Spent (min) 100 Time Spent Midlevel Total time spent 70 minutes with > 50% of that time spent assessing the patient, discussing with IDT and attempting to reach the patients family. Attending Total time spent 30 minutes in addition to the 70 minutes spent by YESICA Borrego for a total of 100 minutes with greater than 50% of the time spent at bedside assessing patient's current status and discussing goals as well as plan of care with family by phone Critical Care Time Prolonged Care Time Prolonged Care Time: Yes Total Prolonged Care Time: 30 100
--- NOTE | 2019-11-26 10:01 | Nephrology Progress Note ---
Date of Service November 26, 2019 Assessment & Plan (1) Acute kidney failure: -- Progressive renal dysfunction related to poor perfusion associated w/ critical and diuretic use -- Agree w/ holding Bumex for now -- Medical record reviewed. Nephrology, Cardiology, Hospitalist and Palliative Care have all been in contact w/ family. Patient is not a candidate for TAVR and nonambulatory, shelter status w/ recent episodes of NSVT make him a very poor candidate for IHD. As per Palliative Care the family has chosen to pursue comfort measures and not escalate care. I concur with this decision. No further Nephrology evaluation indicated at this time. Will sign off. Please call if further assistance is needed (2) Chronic kidney disease, stage III (moderate): -- Baseline Cr 1.6. (3) Aortic stenosis: -- Critical . Evaluated by Cardiology. Not a TAVR candidate. Subjective Mr. Fuentes was seen & examined in the PCU this morning. He was sitting in bed eating breakfast. He appears comfortable and voices no new medical concerns. Review of Systems Review of Systems: limited but Ray denies any pain. He denies shortness of breath. Appetite is good. Physical Exam Constitutional: no acute distress Eyes: PERRL, conjunctivae normal, anicteric sclerae ENMT: Mouth: + dry oral mucous membranes Neck: trachea midline, no thyromegaly Respiratory: Auscultation: no rales Cardiovascular: Rate/Rhythm: regular rate and regular rhythm Extremities: + edema (trace pretibial edema) Gastrointestinal (Abdomen): normal bowel sounds, soft, nontender, no hepatosplenomegaly Results & Data Vital Signs (Past 12 Hours) Vital Signs Temp Pulse Pulse Resp BP BP Pulse Ox 11/26/19 07:46 36.8 C 63 24 104/69 100 11/26/19 03:32 36.4 C L 64 18 93/57 L 97 11/26/19 00:09 69 11/25/19 22:44 36.4 C L 69 20 108/75 98 Laboratory Results - last 48 hr 11/25/19 11/25/19 11/26/19 06:12 06:12 05:41 WBC 11.34 H 8.72 RBC 2.62 L 2.44 L Hgb 8.0 L 7.4 L Hct 26.1 L 24.8 L MCV 99.6 101.6 H MCH 30.5 30.3 MCHC 30.7 L 29.8 L RDW Std Deviation 57.6 H 58.1 H RDW Coeff of Courtney 16.3 H 16.3 H Plt Count 259 247 MPV 10.3 10.2 Immature Gran % (Auto) 0.9 Neut % (Auto) 76.6 Lymph % (Auto) 7.0 [place] % (Auto) 14.4 Eos % (Auto) 1.0 Baso % (Auto) 0.1 Immature Gran # (Auto) 0.08 H Neut # (Auto) 6.67 H Lymph # (Auto) 0.61 L [place] # (Auto) 1.26 H Eos # (Auto) 0.09 Baso # (Auto) 0.01 Absolute Nucleated RBC 0.07 H 0.06 H Nucleated RBC % (auto) 0.6 0.7 Giant Platelets 1+ Polychromasia 2+ Sodium 143 Potassium 3.6 Chloride 104 Carbon Dioxide 30 Anion Gap 9.0 BUN 143 H Creatinine 2.94 H Est Cr Clr Drug Dosing 26.9 Est GFR ( Amer) 22.4 Est GFR (Non-Af Amer) 19.3 BUN/Creatinine Ratio 48.7 H Glucose 147 H Calcium 8.6 Iron TIBC Transferrin Transferrin % Sat Ferritin Folate 11/26/19 11/26/19 05:41 05:41 WBC RBC Hgb Hct MCV MCH MCHC RDW Std Deviation RDW Coeff of Courtney Plt Count MPV Immature Gran % (Auto) Neut % (Auto) Lymph % (Auto) [place] % (Auto) Eos % (Auto) Baso % (Auto) Immature Gran # (Auto) Neut # (Auto) Lymph # (Auto) [place] # (Auto) Eos # (Auto) Baso # (Auto) Absolute Nucleated RBC Nucleated RBC % (auto) Giant Platelets Polychromasia Sodium 142 Potassium 3.6 Chloride 103 Carbon Dioxide 30 Anion Gap 9.0 BUN 144 H Creatinine 3.01 H Est Cr Clr Drug Dosing 26.5 Est GFR ( Amer) 21.8 Est GFR (Non-Af Amer) 18.8 BUN/Creatinine Ratio 47.9 H Glucose 118 H Calcium 8.7 Iron 24 L TIBC 387 Transferrin 312 Transferrin % Sat 5 L Ferritin 46.1 Folate 23.14 PG Care Time/CCT Total # of Minutes Spent Total Time Spent with Patient: Total time spent is greater than 50% in coordination of care (as documented) at patient's floor/unit and/or counseling patient: Coding Level of Care Code 98193 Subseq Hosp Care Lvl 3 Diagnoses Acute kidney failure N17.9 Acute renal failure type: unspecified Chronic kidney disease, stage III (moderate) N18.3 Aortic stenosis I35.0 Cardiac valve disease etiology: etiology unspecified (1) Acute kidney failure Acute renal failure type: unspecified Qualified Code(s): N17.9 - Acute kidney failure, unspecified (2) Aortic stenosis Cardiac valve disease etiology: etiology unspecified Qualified Code(s): I35.0 - Nonrheumatic aortic (valve) stenosis
[2019-11-26] MEDS ORDERED: IRON SUCROSE 300 MG in SODIUM CHLORIDE 0.9% 250 ML IV SCH (12:00)
--- NOTE | 2019-11-26 13:02 | Cardiology Progress Note ---
Date of Service November 26, 2019 Assessment & Plan (1) Ventricular tachycardia: Currently on oral amiodarone 200 mg b.i.d.. Given his relative bradycardia could discontinue metoprolol and continue amiodarone 200 mg b.i.d. indefinitely (palliative in that it will reduce his risk of recurrent/potentially symptomatic ventricular tachycardia). If he remains bradycardic on 200 mg b.i.d. amiodarone after metoprolol is discontinued, could reduce to 200 mg daily. (2) Severe aortic stenosis: As previously noted, patient is not a TAVR candidate. Appropriately, palliative care is being discussed. (3) Acute systolic (congestive) heart failure: Still appears mildly hypovolemic, agree with holding diuretics further. His mild hypotension is asymptomatic, if he were to become symptomatic might even need to consider small bolus of IV fluids (or liberalizing his current oral intake) given his severe aortic stenosis. (4) CKD (chronic kidney disease), stage IV: Per Nephrology. (5) Intellectual disability: Care management plans have been discussed with family members. Admission and Anticipated Discharge Date Admission Date: November 14, 2019 Anticipated date of discharge: 11/26/19 Subjective Uneventful might. Patient again states he wants to go home ([place]). He denies any chest pain or dyspnea. BUN/creatinine still rising. BP slightly hypotensive. Heart rate did drop down into the 40s and has been in the 50s. Occasional ventricular couplets and triplets but no runs of ventricular tachycardia. Physical Exam Physical Exam: Elderly white male who appears comfortable. Skin: No ecchymoses or generalized lesions. HEENT: Unremarkable. Neck: Jugular venous pulse just below the clavicle at 90 degrees. Carotids with soft transmitted murmur from aortic valve. Lungs: Dullness at the bases but generally clear. Cardiac: Faint systolic murmur right upper sternal border, also harsh 2/6 systolic ejection murmur best heard over the apex. Aortic closure sound inaudible. No diastolic murmur or distant gallop. Abdomen:Nondistended. Some mild to moderate scrotal edema noted. Extremities:1+ pretibial edema, peripheral pulses intact. Neurologic: Some difficulty communicating, does answer simple questions appropriately. Grossly nonfocal. Results & Data ([facility]) Vital Signs (Past 12 Hours) Vital Signs Temp Pulse Resp BP BP Pulse Ox 11/26/19 12:04 97.5 F L 57 L 18 91/59 L 91 11/26/19 07:46 98.2 F 63 24 104/69 100 11/26/19 03:32 97.5 F L 64 18 93/57 L 97 Laboratory Results 11/26/19 11/26/19 05:41 05:41 Hgb 7.4 L BUN 144 H Creatinine 3.01 H PG Care Time/CCT Total # of Minutes Spent Total Time Spent with Patient: Total time spent is greater than 50% in coordination of care (as documented) at patient's floor/unit and/or counseling patient: Coding Level of Care Code 34421 Subseq Hosp Care Lvl 3 Diagnoses Ventricular tachycardia I47.2 Severe aortic stenosis I35.0 Acute systolic (congestive) heart failure I50.21 CKD (chronic kidney disease), stage IV N18.4 Intellectual disability F79
--- NOTE | 2019-11-26 14:36 | Discharge Summary ---
Date of Service November 26, 2019 Admission HPI Per Admitting Provider Jeremiah Fuentes is a 79yo male with intellectual disability, mod/severe , CKD, diastolic CHF and HTN presenting from [facility] with shortness of breath, cough and abdominal pain. Patient is a poor historian due to underlying disability. History obtained through discussion with ER attending, review of records and patient interview. Patient with worsening SOB over the last few days and cough. He was placed on O 2 at [facility] and his Bumex was increased due to concern for CHF exacerbation. He has been complaining of abdominal pain as well. Had an episode of vomiting prior to arrival, ?blood in vomitus. Patient is complaining of abdominal pain in the LLQ as well as nausea and two episodes of vomiting. He has a dry cough and feels short of breath as well. He denies CP, dizziness, diarrhea. No additional complaints. ER Course: Tylenol, DuoNeb [employer], Zosyn, NSS Principal Diagnosis Acute systolic CHF, Severe aortic stenosis, Acute kidney injury Discharge Exam Constitutional well developed and + obese; no acute distress Eyes + anicteric sclerae Neck trachea midline, no thyromegaly Respiratory normal respiratory effort Auscultation: + diminished lung sounds (At the bases bilaterally); no wheezes Cardiovascular Rate/Rhythm: regular rate and regular rhythm Heart Sounds: + murmur (3/6 systolic murmur at the right upper sternal border) Extremities: + edema (1+ pitting edema to the knees bilaterally) Chest (Breasts) Chest: normal inspection of chest Gastrointestinal (Abdomen) normal bowel sounds, soft, nontender, no hepatosplenomegaly Musculoskeletal Extremities: no cyanosis and no clubbing Skin no rashes, warm and dry Neurologic moves all extremities and awake; no focal motor deficits Psychiatric Orientation: alert and cooperative Lymphatic no lymphedema Discharge Data Allergies Allergy/AdvReac Type Severity Reaction Status Date / Time No Known Allergies Allergy Unverified 11/14/19 04:10 Consultations 11/14/19 04:21 ED Decision to Admit Stat 11/14/19 19:05 Consult Cardiology Routine 11/15/19 14:39 Consult Nephrology Routine 11/17/19 16:32 Consult Case Management - Discharge Planning Routine 11/25/19 20:26 Consult Palliative Care Routine Ordered Studies 11/15/19 15:47 US renal/blad retro comp Routine CXRs ECHO Hospital Course (1) Acute systolic (congestive) heart failure: * Secondary to severe ECHO with significant decline in left ventricular systolic function, EF 20-25%, mod LVH, mod-severe global hypokinesis, severe (via dimensionless index), mod MR, mild TR Suspect some degree of failure contributing to hypoxia * INCREASED Bumex to 2mg IV BID on 11/16 * changed to PO Bumex on 11/18, 2mg BID Cr trending up to 2.59 and BUN up to > 80 on 11/20, cut Bumex to 1mg BID Cr still elevated at 2.5, BUN up to 120, held Bumex on 11/21 Cr up to 2.7 and BUN is 134 on 11/22, gave one liter of NSS on 11/22 Cr up to 2.8 and BUN 146 on 11/23, he is making urine, examines euvolemic Cr up further to 2.94 and BUN 143 on 11/24, continues to be nonoliguric- continue to hold Bumex Cr up to 3.01 on day of discharge--> transitioned towards goal of comfort as per discussion with nephew/POA on phone and no hemodialysis desired placed noyola for accurate output, he is incontinent and starting to have some scrotal irritation, want to prevent skin breakdown-Noyola removed prior to discharge As per cardiology discussion here with cardiology at [facility], he is a very poor TAVR candidate mostly due to his renal failure. Please refer to cardiology notes. * discontinued metoprolol tartrate 50mg BID on day of discharge due to some bradycardia to the 40-50s since starting amiodarone * Episode of vtach evening of 11/14 and again on 11/17 and again on 11/19, none after that since starting on amiodarone No ICD to be placed given poor life expectancy due to severe and renal failure Dc on amiodarone 200mg po bid systolic HF with severe is palliative situation as was deemed a very poor candidate for TAVR; without plans for TAVR life expectancy is < 2 years his case is complicated by runs of V tach, at risk for sudden cardiac also he is non-ambulatory, has stage IV renal disease Previous hospitalist had a long discussion with Luis Fuentes (MYKE) on 11/23 and I had similar conversation on 11/24 and decision made to pursue comfort rather than any aggressive procedures Appreciate palliative care consultation for goals of care discussion and hospice referral (2) Severe aortic stenosis: * with cardiomyopathy as above * Cardiology on consult -- appreciate assistance * Repeat ECHO with significant decline in left ventricular systolic function, EF 20-25%, mod LVH, mod-severe global hypokinesis, severe (via dimensionless index), mod MR, mild TR * Very poor candidate for TAVR as above Dr. Redding had discussion with [facility], he is not appropriate for transfer his overall prognosis is poor, patients with poor renal function and non- ambulatory tend to do worse, two biggest risk factors for poor outcome he would need to be stable as outpatient and follow up in clinic at [facility] unfortunately, at this time they are not seeing people due to the COVID 19 pandemic, so time frame of a visit is unknown, probably weeks to months at best No plans to pursue hemodialysis ever in the future as above (3) Dyspnea: improved with diuresis, dyspnea entirely due to heart failure * Initially thought possible aspiration pneumonia. Patient with acute CHF secondary to valvular disease * Zosyn for presumed aspiration PNA (negative MRSA nasal swab, no vancomycin) -- continued for dual coverage UTI with proteus, corynebacterium urealyticum stopped Zosyn 11/19, day 7 * Continue to hold Bumex due to elevated BUN * Supplemental O2 as needed. Speech consulted -- diet changed to pureed given pt without dentures (at [facility]) * Repeat CXR 11/22 with less edema, has effusions does not complain of dyspnea today, stable on 2L NC, no distress at all, likely his baseline breathing (4) JANY (acute kidney injury): * Cr continues to be trending up to 3.0 BUN up to 143 * Baseline Cr appears ~1.6 * Renal US ordered earlier in admission --> atrophic left kidney, likely contributing to renal insufficiency * Renal dosing where needed, avoid nephrotoxic agents * Again, no hemodialysis needed at this time and is not an option for in the future as per family wishes * Appreciate nephrology consultation * pursuing hospice as above (5) Elevated troponin: * Patient with known CAD, EKG evidence of prior ischemia. Presently with no complaint of CP. * Troponin elevated but trended down -- likely supply/demand mismatch given stress of acute CHF with severe . Not likely NSTEMI * EKG changes with nonspecific ST elevation in lead III * Cardiology consulted -- rec serial EKGs --> repeat EKG without evidence of ST elevation (6) Cardiomyopathy: * Secondary to valvular heart disease, severe * As above (7) Chronic kidney disease, stage III (moderate): * likely has progressed to stage IV disease, makes overall prognosis worse * likely no need for further labs once on hospice (8) Urinary tract infection: * See above * UA with 3+ leuk esterase, >30WBC, 10-20 epi, 2+ bacteria * Culture with proteus, corynebacterium urealyticum == pansensitive except fluoroquinolones * Completed 7 days of Zosyn for dual coverage aspiration pneumonia/UTI, stopped on 11/19 * BCx NGTD (9) CAD (coronary artery disease), [place] coronary artery: * Elevated troponin, see above, trending down --> likely supply/demand mismatch as above * Continue home ASA, Atorvastatin, Plavix, but dcd Metoprolol day of dc as per Cardio recommendation due to bradycardia from amiodarone-needs amiodarone to reduce VT (10) Mental retardation: * Noted -- patient lives at [facility]. POJuventino Luis Fuentes (Brother) * Supportive care (11) Skin tear of upper arm without complication: * Dressing in place. No evidence of infection. Dressing change as needed (12) Ventricular tachycardia: several runs of V tach, one on 11/14 and then again on 11/17 and then a 2 minute run on 11/19, resolved with Amiodarone bolus no symptoms but patient at risk for sudden cardiac given his poor EF and -continue Amiodarone 200mg BID and further reduce to 200mg once daily if bradycardia persists No ICD pursued given poor life expectancy (13) Anemia: Hemoglobin down to 7.4, no evidence of bleeding from anywhere, macrocytic Likely anemia of chronic renal disease but could have nutrient deficiencies -iron studies show transferring sat only 5%, B12 normal, folate normal -discussed with POA regarding PRBCs vs IV iron vs no treatment/observation--> to avoid volume overload, will go with IV iron x 1 today and then discharge No need for further labs on hospice care (14) DVT prophylaxis: * SCDs Disposition-dc back to [facility] with hospice Total Time Total Time Spent Total Time Spent (In Minutes): 45 min Total Time Includes: Examination of the Patient, Discharge Planning and Medication Reconciliation Discharge Plan Discharge Items Patient Disposition: Hospice - Medical Facility Reason For Visit: HYPOXIA, COUGH Discharge Diagnosis: Acute kidney injury, Acute on chronic systolic CHF, Severe aortic stenosis Condition on Discharge: Fair Activity: Resume your previous activity Non-emergency contact: Primary Care Provider Call non-emergency contact if: you have any medication questions and your symptoms worsen Follow-up/Referrals: Rosio Butler [Primary Care Provider] - Diet: Low Sodium (2gm) Addtl Attending Provider Instructions: Mr. Fuentes was admitted with volume overload from CHF and was found to have a severely reduced LV function, severe aortic stenosis, and developed renal failure. Some of his fluid was able to be removed with diuretics, but this worsened his renal failure. He is not a good candidate for aortic valve replacement and due to his severe aortic stenosis and worsening kidney failure, his POA decided to transition towards Palliative/Hospice Care. He can eat and drink for comfort and should not have a fluid restriction in place. He does not need to have lab work drawn unless deemed appropriate by Hospice agency or SNF physician in discussion with family member/POA. Pending Studies at Discharge: No Stand-Alone Forms: My [facility] Skilled Items Patient informed of condition?: Yes DNR: Yes (Conditional Code) Discharge Level of Care: Skilled Communicable Disease: No Discharge Prognosis: Deteriorating Lines: None Urinary Catheter: No Medications and DC Order Prescriptions: New amiodarone 200 mg Tablet 200 mg PO BIDM Qty: 60 RF: 0 Continued atorvastatin 40 mg tablet 40 mg PO HS RF: 0 acetaminophen 325 mg Tablet 650 mg PO Q6 MDD 3gm/24hrs PRN (Reason: Pain) RF: 0 acetaminophen 325 mg Tablet 650 mg PO Q6 MDD 3gm/24hrs PRN (Reason: temp>100) RF: 0 ipratropium-albuterol 0.5 mg-3 mg(2.5 mg base)/3 mL Solution For Nebulization 3 ml INHALATION QID RF: 0 clopidogrel 75 mg tablet 75 mg PO DAILY RF: 0 aspirin 81 mg Tablet,Delayed Release (Dr/Ec) 81 mg PO DAILY RF: 0 ascorbic acid (vitamin C) 500 mg Tablet 500 mg PO BID RF: 0 docusate sodium [Colace] 100 mg Capsule 100 mg PO BID PRN (Reason: Constipation) RF: 0 multivitamin with minerals [Multiple Vitamin-Minerals] Tablet 1 tab PO DAILY RF: 0 Discontinued metoprolol tartrate 50 mg tablet 50 mg PO BID RF: 0 bumetanide 1 mg tablet 1 mg PO DAILY RF: 0 Discharge Orders: Discharge Order (Routine); Ordered 11/26/19 Ordered By: Zandra Wheeler Admission Data Admit Date/Time: 11/14/19 04:33 Attending Provider: Zandra Wheeler Admit Provider: Melissa Triana Primary Care Provider: Rosio Butler Other Providers: Melissa Triana ; Abraham West ; Dani Mcarthur ; Salena Lane ; [facility] Other Interventions: Discharge Summary Assessment (RN) Last Done: 11/26/19 14:47 DC Date/Time DO NOT enter until pt leaves facility: 11/26/19 15:13 Coding Level of Care Code D/C Day Management >30 mins Diagnoses Acute systolic (congestive) heart failure I50.21 Severe aortic stenosis I35.0 Dyspnea R06.02; R06.00; R06.01 Dyspnea type: shortness of breath JANY (acute kidney injury) N17.9 Elevated troponin R74.8 Cardiomyopathy I42.9 Chronic kidney disease, stage III (moderate) N18.3 Urinary tract infection N39.0 CAD (coronary artery disease), [place] coronary artery I25.10 Associated angina: without angina [place] vs. transplanted heart: [place] heart Mental retardation F79 Skin tear of upper arm without complication S41.111A Encounter type: initial encounter Laterality: right Ventricular tachycardia I47.2 Anemia D64.9 DVT prophylaxis Z29.9
== END 2019-11-26 15:13 | disposition hospice, inpatient (51) | DRG 291 ==
LOC: ED 03:04 → SUATTDRO 04:33 → 2N 04:33 → 2S 11-18 22:51